=== PATIENT | male | born 1940 | race Caucasian/White ===

== ENCOUNTER 2024-07-05 11:34 | Inpatient (IN) | payer MEDICARE, BC, SELFPAY ==
[2024-07-05] VITALS (21 sets, daily range): BP systolic 69–145; BP diastolic 41–82; PULSE 72–103; RESP 16–98; TEMP 37–39.9; O2SAT 80–998; BMI 20.7
--- NOTE | 2024-07-05 12:15 | XR_ITS ---
Examination: AP chest single view Technique one AP portable upright chest single view Exam date and time: July 05, 2024 1241 hours INDICATIONS: Vomiting chest pain onset today FINDINGS: Mild bibasilar pneumonia Mild prominence left ventricle No pulmonary edema Prominent osteopenia IMPRESSION: Mild bibasilar pneumonia
--- NOTE | 2024-07-05 12:15 | EKG_ITS ---
[facility] Test Date: 2024-07-05 Pat Name: LUCERO LALA Department: Room: - Gender: Male Credit Representative: : 1940 Requested By: Ousmane Haas Order Number: [id number] Reading MD: Ousmane Haas Measurements Intervals Ebony Rate: 92 P: TN: QRS: 44 QRSD: 82 T: 48 QT: 353 QTc: 438 Interpretive Statements ATRIAL FIBRILLATION ABNORMAL RHYTHM ECG Compared to ECG 02/22/2021 09:35:06 Sinus rhythm no longer present /store/S0/[id number].pdf
[2024-07-05] MEDS: SODIUM CHLORIDE 0.9% 1000 ML 1,000 ML 999 ML IV ×2 (12:44→14:47)
[2024-07-05] MEDS: ONDANSETRON INJ 2 MG/ML INJ 2 ML 4 MG IV (12:45)
[2024-07-05 12:53] LABS: Lactate (Lactic Acid) 4.4 mMol/L (0.4-2.0)
[2024-07-05 12:55] LABS: Basophils % (Auto) 0 % (0-2.5); Eosinophils # (Auto) 0.1 Thou/mm3 (0.0-0.5); Eosinophils % (Auto) 1 % (0-10); Hematocrit 42.2 % (41.0-53.0); Hemoglobin 14.5 g/dL (13.5-16.0); Immature Granulocytes % (Auto) 0 % (0-0); Immature Granulocytes Auto 0.04 Thou/mm3 (0.00-0.00); Lymphocytes # (Auto) 0.1 Thou/mm3 (1.0-4.8); Lymphocytes % (Auto) 1 % (10-50); Mean Corpuscular HGB Conc 34.4 g/dl (31.0-37.0); Mean Corpuscular Hemoglobin 32.6 pg (25.0-35.0); Mean Corpuscular Volume 95 fL (80-100); Monocytes # (Auto) 0.5 Thou/mm3 (0.0-0.8); Monocytes % (Auto) 5 % (0-12); Neutrophils # (Auto) 9.2 Thou/mm3 (1.8-7.7); Neutrophils % (Auto) 92 % (37-80); Nucleated Red Blood Cell % 0 /100 WBC (0); Platelet Count 157 Thou/mm3 (140-440); RDW Standard Deviation 48.3 fL (35.1-43.9); Red Blood Count 4.45 Miln/mm3 (4.50-5.90)
[2024-07-05 13:10] LABS: INR 1.1 (0.9-1.3); Partial Thromboplastin Time 27.5 Seconds (22.0-36.0); Prothrombin Time 11.9 Seconds (9.0-12.2)
[2024-07-05 13:23] LABS: Alanine Aminotransferase 25 U/L (10-49); Albumin, Serum 4.2 gm/dL (3.4-4.8); Albumin/Globulin Ratio 1.8 (1.2-2.2); Alkaline Phosphatase 62 U/L (46-116); Anion Gap 11 (7-16); Aspartate Amino Transferase 41 U/L (0-34); BUN/Creatinine Ratio 20 Ratio (12-20); Bilirubin,Total 1.8 mg/dL (0.3-1.2); Blood Urea Nitrogen 46 mg/dL (9-23); Calcium 9.6 mg/dL (8.3-10.6); Calcium (Corrected) 9.6 mg/dL (8.5-10.1); Carbon Dioxide 24.2 mMol/L (20.0-31.0); Chloride 104 mMol/L (98-107); Creatinine (Component) 2.3 mg/dL (0.6-1.3); Estimated Creatinine Clearance 21.4 mL/min (>60); Globulin 2.4 gm/dL (2.3-3.5); Glucose 273 mg/dL (74-106); Osmolality,Calculated 299 (275-295); Potassium 3.8 mMol/L (3.4-5.1); Procalcitonin 15.78 ng/ml (0.0-0.49); Sodium 139 mMol/L (136-145); Total Protein 6.6 gm/dL (5.7-8.2); eGFR 27 See Note
[2024-07-05 13:27] LABS: Troponin I 0.119 ng/mL (0.0-0.045)
--- NOTE | 2024-07-05 13:39 | XR_ITS ---
Examination: CT abdomen and pelvis without contrast. Coronal 3-D reconstructions. Sagittal 2-D reconstructions. Date and time of exam:July 05, 2024 1534 hours Comparison September 24, 2021 INDICATIONS: Abdominal pain and vomiting today, diagnosis acute renal insufficiency on laboratory examination today CTDI: vol (mGy): 10.9 DLP: (mGycm): 672 Technique: Axial images of the abdomen have been obtained, 3 mm slice thickness Intravenous contrast material has not been administered. Low dose protocols were performed. One or more of the following dose reduction techniques were used; automated exposure control, adjustment of the mA and/or KV according to patient size, use of iterative reconstruction technique. Findings: Moderate vascular congestion No focal liver or splenic lesion Cholelithiasis No pancreatic mass Mild nodular thickening left adrenal gland Moderate bilateral renal parenchymal scar formation Mild bilateral hydronephrosis, no renal or ureteral calculi Normal appendix Colonic diverticulosis Marked prostatomegaly, AP dimension 6.5 cm Marked thickening of the urinary bladder wall up to 8 mm Right inguinal hernia fat-containing Extensive lumbar fusion L2-L5 with satisfactory alignment IMPRESSION: Mild bilateral hydronephrosis, likely secondary to lower urinary tract outflow obstruction secondary to marked prostatomegaly, ureterovesical reflux not excluded Thickening of the urinary bladder wall consider urinary tract outflow obstruction secondary to prostatomegaly as well as cystitis Marked prostatomegaly
--- NOTE | 2024-07-05 13:54 | XR_ITS ---
Examination: Abdomen sonogram, Limited Date and time of exam: July 05, 2024 1420 hours INDICATIONS: Sepsis right upper abdominal pain today, sepsis alert Technique: Real-time byrd scale transabdominal sonographic images of the upper abdomen obtained. Findings: Gallbladder sludge Gallbladder is poorly visualized and contracted No gallstones Common bile duct 0.5 cm Pancreas obscured by bowel gas Liver incompletely visualized measuring 15 cm Normal hepatopedal portal venous flow Patent IVC IMPRESSION: Repeat the gallbladder portion of this study with fasting
[2024-07-05 14:18] LABS: Collection Type, Urine Catheter; Squamous Epithelial Cell,Urine 0 /hpf (0-5)
--- NOTE | 2024-07-05 14:41 | EDNOTE_ITS ---
Nausea/Vomit./Diarrhea-RME/HPI General Chief complaint: Nausea/Vomiting/Diarrhea Stated complaint: HEMATURIA Time Seen by Provider: 07/05/24 12:13 Arrival date/time: 07/05/24 11:34 Limitations: no limitations RME / HPI RME / HPI Narrative: DR. LEE MAIN ED EVALUATION: 84-year-old male with past medical history significant for presbycusis, dementia, who presents with nausea and vomiting since last night. Patient is a poor historian. Son at bedside feels that when he was turning him he was having some abdominal pain. He has a chronic indwelling Roll[place] catheter which she did notice some brief hematuria last night which is new for him. There is no reported cough or fevers. Vomiting started last night after he had hotdogs for dinner, son is aware of to the actual material his father's been vomiting. It is unclear whether or not there is blood or coffee grounds in the emesis. Son denies diarrhea. Related Data Home Medications ?Medication ?Instructions ?Recorded ?Confirmed carvedilol 12.5 mg tablet 12.5 mg PO BID 02/22/21 11/02/21 losartan 100 mg tablet 100 mg PO QDAY 02/22/21 11/02/21 sulfasalazine 500 mg tablet 1,000 mg PO BID 02/22/21 11/02/21 furosemide 40 mg tablet (Lasix) 40 mg PO QDAY 03/12/21 11/02/21 potassium chloride 20 mEq 20 meq PO BID 03/12/21 11/02/21 tablet,extended release Previous Rx's ?Medication ?Instructions ?Recorded ciprofloxacin HCl 250 mg tablet 250 mg PO BID #20 tabs 09/24/21 (Cipro) finasteride 5 mg tablet 5 mg PO QDAY #30 tabs 09/24/21 glipizide 5 mg tablet 5 mg PO DAILY #0 tabs 09/24/21 tamsulosin 0.4 mg capsule 0.4 mg PO HS #0 caps 09/24/21 Allergies Allergy/AdvReac Type Severity Reaction Status Date / Time morphine Allergy Severe ITCHING Verified 11/02/21 10:28 Review of Systems Review of Systems ROS Unobtainable: unobtainable due to medical condition (dementia, info from son) Past Medical History Past Medical History NEUROLOGIC: Positive Subdural Hematoma; Negative Neurological Disorders, Seizures or Spina Bifida CARDIAC: Positive Hypertension; Negative Cardiac Disorders or Congestive Heart Failure RESPIRATORY: Negative Chronic Obstructive Pulmonary Disease (COPD) or Asthma GASTROINTESTINAL: Positive Gastrointestinal Disorders, Gall Bladder Disease, Colitis, Diverticulitis and Diverticulosis; Negative Hepatitis GENITOURINARY: Positive Genitourinary Disorders, Kidney Stones and Benign Prostatic Hyperplasia; Negative Renal Disease or Prostate Cancer REPRODUCTIVE: Negative Testicular Cancer MUSCULOSKELETAL: Positive Musculoskeletal Disorders and Fractures; Negative Bone Cancer ENT: Positive Deafness ENDOCRINE: Positive Endocrine Disorders and Diabetes Mellitus Type 2; Negative Diabetes Mellitus Type 1 HEMATOLOGIC: Negative Blood Disorders or Sickle Cell Disease OTHER HISTORY: Positive Hospitalization and Blood Transfusions; Negative Autoimmune Disease, Down Syndrome, Developmental Delay, Shingles, Falls, Blood Transfusion Reaction, Anesthesia Reactions, MRSA, VRSA, Vancomycin- Resistant Enterococci, Human Immunodeficiency Virus (HIV), Chicken Pox, Measles, Mumps, Rubella (Khmer Measles), Pertussis, Clostridium Difficile, Cancer, Lung Cancer, Prostate Cancer or Testicular Cancer Family History FAMILY HISTORY: Negative Family Cardiac Disorders Surgical History SURGICAL: Positive Angiogram; Negative Endocrine Surgery, Ear Surgery, Eye Surgery, Nose Surgery or Neurologic Surgery Social History SMOKING STATUS: Never smoker SECOND HAND EXPOSURE: No SUBSTANCE USE: does not use Travel History EBOLA RISK: No ED Exam General Limitations: Present no limitations General appearance: Present in no apparent distress Head Head exam: Present atraumatic Eye Eye exam: Present normal appearance, PERRL and EOMI ENT ENT exam: Present normal exam, normal oropharynx and mucous membranes moist Neck Neck exam: Present normal inspection, full ROM and trachea midline Chest Chest inspection: Present normal inspection and symmetric chest wall rise Respiratory Respiratory exam: Present normal lung sounds bilaterally Cardiovascular Cardiovascular exam: Present regular rate, normal rhythm and normal heart sounds Abdominal Exam Abdominal exam: Present soft and normal bowel sounds Extremities Exam Extremities exam: Present normal inspection Back Exam Back exam: Present normal inspection Neurological Exam Neurological exam: Present other (at baseline) Psychiatric Psychiatric exam: Present normal affect, normal mood and other Skin Skin exam: Present warm, dry, intact and normal color Course Quality Measures none Orders Category Date Time Status Bedside Blood Glucose NOW Care 07/05/24 12:15 Active EKG (ED ONLY) *Do not use* NOW Care 07/05/24 12:15 Completed [place] to [place] Routine Care 07/05/24 13:[address] abdomen pelvis wo con Stat Exams 07/05/24 13:39 Completed EKG (ED Only) Stat Exams 07/05/24 12:15 Draft US gall bladder Stat Exams 07/05/24 13:54 Completed XR chest 1V Stat Exams 07/05/24 12:15 Completed CBC Stat Lab 07/05/24 12:37 Completed CMP [Comprehensive Metabolic Panel] Stat Lab 07/05/24 12:37 Completed Lactate (Lactic Acid) Stat Lab 07/05/24 12:37 Completed Lactic Acid, 3 HR Stat Lab 07/05/24 16:05 Completed Partial Thromboplastin Time Stat Lab 07/05/24 12:37 Completed Procalcitonin Stat Lab 07/05/24 12:37 Completed Prothrombin Time with INR Stat Lab 07/05/24 12:37 Completed Troponin I Stat Lab 07/05/24 12:37 Completed Urinalysis Stat Lab 07/05/24 14:03 Completed Ondansetron Inj [Zofran Inj] Med 07/05/24 12:14 Discontinued 4 mg IV X1 ONE Piper/Tazo 3.375 gm [Zosyn] Med 07/05/24 13:53 Discontinued 3.375 gm in 50 ml IV X1 Sodium Chloride 0.9% 1000 ml [Ns] 1,000 ml Med 07/05/24 12:14 Discontinued IV 999 mls/hr Sodium Chloride 0.9% 1000 ml [Ns] 1,000 ml Med 07/05/24 13:07 Discontinued IV 999 mls/hr Vital Signs Vital signs: Vital Signs Temperature 98.8 F 07/05/24 11:46 Respiratory Rate 20 07/05/24 11:46 Pulse Oximetry (%) 80 L 07/05/24 11:46 Oxygen Delivery Method Room Air 07/05/24 11:46 Nausea/Vomiting/Diarrhea MDM Narrative MDM Narrative:: I, Shazia Manuel am scribing for and in the presence of Dr. Lee. Patient data External records reviewed:: [facility] previous records (Reviewed last urology note by Dr. Ross dated 11/02/21.) Clinical information provided by:: patient and family (son) Social determinants that could affect healthcare access:: none Patient has the following chronic illnesses:: Presbycusis, dementia How is presenting disease/condition affected by chronic disease/condition?: exacerbated by Evaluation data The following diagnostics were reviewed and interpreted by me:: lab results, radiology exam(s) and EKG tracing(s) Lab and/or radiology exams considered but not ordered:: none Interpretation Summary: Procedure(s): US gall bladder Accession Number(s): [id number] cc: Israel Abdullahi MD; Ousmane Lee MD; Peng Badillo MD~ Examination: Abdomen sonogram, Limited Date and time of exam: July 05, 2024 1420 hours INDICATIONS: Sepsis right upper abdominal pain today, sepsis alert Technique: Real-time byrd scale transabdominal sonographic images of the upper abdomen obtained. Findings: Gallbladder sludge Gallbladder is poorly visualized and contracted No gallstones Common bile duct 0.5 cm Pancreas obscured by bowel gas Liver incompletely visualized measuring 15 cm Normal hepatopedal portal venous flow Patent IVC IMPRESSION: Repeat the gallbladder portion of this study with fasting Dictated By: Peng Badillo MD Procedure(s): CT abdomen pelvis wo con Accession Number(s): [id number] cc: Israel Abdullahi MD; Ousmane Lee MD; Peng Badillo MD~ Examination: CT abdomen and pelvis without contrast. Coronal 3-D reconstructions. Sagittal 2-D reconstructions. Date and time of exam:July 05, 2024 1534 hours Comparison September 24, 2021 INDICATIONS: Abdominal pain and vomiting today, diagnosis acute renal insufficiency on laboratory examination today Technique: Axial images of the abdomen have been obtained, 3 mm slice thickness Intravenous contrast material has not been administered. Low dose protocols were performed. One or more of the following dose reduction techniques were used; automated exposure control, adjustment of the mA and/or KV according to patient size, use of iterative reconstruction technique. Findings: Moderate vascular congestion No focal liver or splenic lesion Cholelithiasis No pancreatic mass Mild nodular thickening left adrenal gland Moderate bilateral renal parenchymal scar formation Mild bilateral hydronephrosis, no renal or ureteral calculi Normal appendix Colonic diverticulosis Marked prostatomegaly, AP dimension 6.5 cm Marked thickening of the urinary bladder wall up to 8 mm Right inguinal hernia fat-containing Extensive lumbar fusion L2-L5 with satisfactory alignment IMPRESSION: Mild bilateral hydronephrosis, likely secondary to lower urinary tract outflow obstruction secondary to marked prostatomegaly, ureterovesical reflux not excluded Thickening of the urinary bladder wall consider urinary tract outflow obstruction secondary to prostatomegaly as well as cystitis Marked prostatomegaly Dictated By: Peng Badillo MD Procedure(s): XR chest 1V Accession Number(s): [id number] cc: Ousmane Lee MD; Peng Badillo MD Examination: AP chest single view Technique one AP portable upright chest single view Exam date and time: July 05, 2024 1241 hours INDICATIONS: Vomiting chest pain onset today FINDINGS: Mild bibasilar pneumonia Mild prominence left ventricle No pulmonary edema Prominent osteopenia IMPRESSION: Mild bibasilar pneumonia Dictated By: Peng Badillo MD Medications / Prescriptions Medications / Prescriptions considered but not ordered:: none Medication administrations:: Medication Administration History Acetaminophen (Acetaminophen 325 Mg Tablet) 650 mg PO Q6H PRN PRN Reason: pain 1-3 and Fever >100.4 Stop: 08/04/24 17:11 Last Admin: 07/05/24 19:32 Dose: 650 mg Documented By: DEREK Dextrose (Dextrose 50%-Water Inj 50 Ml Syringe) 25 ml IV Q15MIN PRN PRN Reason: BG 50-70 responsive npo pt Stop: 08/04/24 17:11 Dextrose (Dextrose 50%-Water Inj 50 Ml Syringe) 50 ml IV Q15MIN PRN PRN Reason: BG <50 OR BG <70 & pt unresponsive Stop: 08/04/24 17:11 Glucagon (Glucagon Inj 1 Mg Vial) 1 mg IM Q15MIN PRN PRN Reason: BG <70, and no IV access Piperacillin/Tazobactam/Dextrose (Zosyn) 50 mls @ 12.5 mls/hr IV Q12HR ANNETTA; Protocol Stop: 07/12/24 20:59 Last Admin: 07/05/24 22:14 Dose: 12.5 mls/hr Documented By: DEREK Norepinephrine/Dextrose (Levophed In D5w 8mg/250ml) 8 mg in 250 mls @ 6.166 mls/hr IV .Q24H PRN; Protocol PRN Reason: PER PROTOCOL Stop: 08/04/24 21:22 Last Titration: 07/06/24 06:28 Dose: 0.13 mcg/kg/min, 16.032 mls/hr Documented By: Titration: 07/06/24 06:00 Dose: 0.15 mcg/kg/min, 18.498 mls/hr Documented By: Titration: 07/06/24 05:51 Dose: 0.15 mcg/kg/min, 18.498 mls/hr Documented By: Admin: 07/06/24 05:43 Dose: 0.17 mcg/kg/min, 20.965 mls/hr Documented By: Titration: 07/06/24 05:43 Dose: Infused Documented By: Titration: 07/06/24 05:00 Dose: 0.19 mcg/kg/min, 23.431 mls/hr Documented By: Titration: 07/06/24 04:00 Dose: 0.19 mcg/kg/min, 23.431 mls/hr Documented By: Titration: 07/06/24 03:48 Dose: 0.19 mcg/kg/min, 23.431 mls/hr Documented By: Titration: 07/06/24 03:30 Dose: 0.21 mcg/kg/min, 25.897 mls/hr Documented By: Titration: 07/06/24 03:00 Dose: 0.23 mcg/kg/min, 28.364 mls/hr Documented By: Titration: 07/06/24 02:00 Dose: 0.23 mcg/kg/min, 28.364 mls/hr Documented By: Titration: 07/06/24 01:34 Dose: 0.25 mcg/kg/min, 30.83 mls/hr Documented By: Titration: 07/06/24 01:00 Dose: 0.27 mcg/kg/min, 33.297 mls/hr Documented By: Titration: 07/06/24 00:00 Dose: 0.27 mcg/kg/min, 33.297 mls/hr Documented By: Titration: 07/05/24 23:00 Dose: 0.27 mcg/kg/min, 33.297 mls/hr Documented By: Titration: 07/05/24 22:36 Dose: 0.27 mcg/kg/min, 33.297 mls/hr Documented By: Titration: 07/05/24 22:31 Dose: 0.27 mcg/kg/min, 33.297 mls/hr Documented By: Titration: 07/05/24 22:26 Dose: 0.25 mcg/kg/min, 30.83 mls/hr Documented By: Titration: 07/05/24 22:21 Dose: 0.23 mcg/kg/min, 28.364 mls/hr Documented By: Titration: 07/05/24 22:16 Dose: 0.21 mcg/kg/min, 25.897 mls/hr Documented By: Titration: 07/05/24 22:11 Dose: 0.19 mcg/kg/min, 23.431 mls/hr Documented By: Titration: 07/05/24 22:06 Dose: 0.17 mcg/kg/min, 20.965 mls/hr Documented By: Titration: 07/05/24 22:01 Dose: 0.15 mcg/kg/min, 18.498 mls/hr Documented By: Titration: 07/05/24 21:56 Dose: 0.13 mcg/kg/min, 16.032 mls/hr Documented By: Titration: 07/05/24 21:51 Dose: 0.11 mcg/kg/min, 13.565 mls/hr Documented By: Titration: 07/05/24 21:46 Dose: 0.09 mcg/kg/min, 11.099 mls/hr Documented By: Titration: 07/05/24 21:41 Dose: 0.07 mcg/kg/min, 8.632 mls/hr Documented By: Admin: 07/05/24 21:36 Dose: 0.05 mcg/kg/min, 6.166 mls/hr Documented By: DEREK Sodium Chloride (Ns) 1,000 mls @ 100 mls/hr IV .Q10H ONE Stop: 07/06/24 14:57 Last Infusion: 07/06/24 06:43 Dose: 999 mls/hr Documented By: Admin: 07/06/24 05:06 Dose: 100 mls/hr Documented By: Insulin Human Lispro (Insulin Lispro (Admelog) 1 Unit/0.01 Ml Unit) 0 unit SC Q6H ANNETTA; Protocol Stop: 08/04/24 18:14 Last Admin: 07/06/24 05:41 Dose: Not Given Documented By: Non-Admin Reason: Cancelled by Provider Comments: hold per as pt NPO Admin: 07/06/24 00:09 Dose: Not Given Documented By: Non-Admin Reason: Glucose, LOW Admin: 07/05/24 19:50 Dose: 1 unit Documented By: DEREK Co-signed By: ALY Pantoprazole Sodium (Pantoprazole Inj 40 Mg Vial) 40 mg IV QDAY ANNETTA Stop: 08/04/24 18:14 Last Admin: 07/05/24 19:31 Dose: 40 mg Documented By: DEREK Pharmacy Consult (Vancomycin Pharmacy To Dose 1 Each Each) 1 each IV QDAY PRN PRN Reason: PROTOCOL Stop: 08/05/24 08:59 Prochlorperazine Maleate (Prochlorperazine Maleate 5 Mg Tablet) 10 mg PO Q6H PRN PRN Reason: NAUSEA OR VOMITING Stop: 08/04/24 17:11 Sennosides (Senna Tablet) 1 tab PO QDAY PRN; Protocol PRN Reason: constipation Stop: 08/04/24 17:11 Discontinued Medications Acetaminophen (Acetaminophen 120 Mg Supp) 120 mg MA X1 ONE Stop: 07/05/24 21:18 Last Admin: 07/05/24 21:45 Dose: 120 mg Documented By: DEREK Hydrocodone Bitart/Acetaminophen (Hydrocodone/Apap 5/325 Tablet) 1 tab PO X1 ONE Stop: 07/06/24 05:41 Last Admin: 07/06/24 05:49 Dose: 1 tab Documented By: Sodium Chloride (Ns) 1,000 mls @ 999 mls/hr IV .Q1H1M ONE Stop: 07/05/24 13:14 Last Infusion: 07/05/24 14:00 Dose: Infused Documented By: Admin: 07/05/24 12:44 Dose: 999 mls/hr Documented By: RITA Sodium Chloride (Ns) 1,000 mls @ 999 mls/hr IV .Q1H1M ONE Stop: 07/05/24 14:07 Last Infusion: 07/05/24 15:56 Dose: Infused Documented By: Admin: 07/05/24 14:47 Dose: 999 mls/hr Documented By: RITA Piperacillin/Tazobactam/Dextrose (Zosyn) 3.375 gm in 50 mls @ 100 mls/hr IV X1 ONE Stop: 07/05/24 14:22 Last Infusion: 07/05/24 15:25 Dose: Infused Documented By: Admin: 07/05/24 14:48 Dose: 100 mls/hr Documented By: RITA Sodium Chloride (Ns) 1,000 mls @ 75 mls/hr IV .[id number] ANNETTA Stop: 07/06/24 06:34 Last Admin: 07/05/24 19:24 Dose: Not Given Documented By: DEREK Non-Admin Reason: Cancelled by Provider Sodium Chloride (Ns) 1,000 mls @ 125 mls/hr IV .Q8H ANNETTA Stop: 07/06/24 02:40 Last Admin: 07/05/24 19:32 Dose: 125 mls/hr Documented By: DEREK Sodium Chloride (Ns) 250 mls @ 999 mls/hr IV .Q16M ONE Stop: 07/05/24 23:37 Lactated Ringer's (Lactated Ringers) 1,000 mls @ 999 mls/hr IV .Q1H1M ONE Stop: 07/06/24 01:18 Last Admin: 07/06/24 01:02 Dose: 999 mls/hr Documented By: Vancomycin/Sodium Chloride (Vancomycin/Ns 1 Gm Ivpb) 200 mls @ 100 mls/hr IV X1 ONE Stop: 07/06/24 03:44 Last Admin: 07/06/24 02:05 Dose: 100 mls/hr Documented By: Lactated Ringer's (Lactated Ringers) 1,000 mls @ 100 mls/hr IV .Q10H ONE Stop: 07/06/24 14:51 Last Admin: 07/06/24 06:43 Dose: Not Given Documented By: Non-Admin Reason: Discontinued Insulin Human Lispro (Insulin Lispro (Admelog) 1 Unit/0.01 Ml Unit) 0 unit SC ACHS ANNETTA; Protocol Stop: 08/04/24 20:59 Ondansetron HCl (Ondansetron Inj 2 Mg/Ml Inj 2 Ml) 4 mg IV X1 ONE; Protocol Stop: 07/05/24 12:15 Last Admin: 07/05/24 12:45 Dose: 4 mg Documented By: RITA see above Consultations Consultation(s) initiated? (list below): Yes Consultation #1 (Physician, Specialty, Details): Discussed test HPI, PMHx, lab, radiology results and/or management with hospitalist Dr. Brennan and team. Will admit for further evaluation and management. Accepts patient for admission. Time: 16:20 Diagnosis Nausea Differential Diagnosis: traveler's diarrhea, food poisoning and dehydration Most likely diagnosis given after review of the tests above:: As noted below. Admission Indicated Admission indicated?: indicated Admission Request Was there a request for admission?: Yes Admission Attestation Admission request attestation: Discussed case with [Dr. Cedillo] from Hospitalist service regarding admission. Discussed patients ED course, exam findings, labs, and radiology results. The Hospitalist [agrees] to accept the patient for admission. Disposition Plan Disposition Plan: Admit Discharge Plan Plan Patient Disposition: Admit Acute Care w/in Hospital Problem List Clinical Impression: Sepsis secondary to UTI, Acute kidney injury
[2024-07-05] MEDS: PIPER/TAZO 3.375 GM 3.375 GM/50 ML BAG IV (14:48)
[2024-07-05 15:19] LABS: Bacteria,Urine 4+; Bilirubin,Urine Negative (Negative); Blood,Urine 3+ (Negative); Glucose, Urine 3+ (Negative); Ketones,Urine Negative (Negative); Leukocyte Esterase,Urine Positive (Negative); Nitrite,Urine Negative (Negative); PH,Urine 5.5 (5.0-7.0); Protein,Urine 2+ (Neg - Trace); RBC,Urine 23 /hpf (0-3); Specific Gravity,Urine 1.014 (1.001-1.035); Urobilinogen,Urine Negative mg/dL (0.0-1.0); WBC,Urine 248 /hpf (0-5)
[2024-07-05 15:21] LABS: Clarity,Urine Turbid (Clear/Hazy); Color,Urine Yellow (Lt Yel-Yel)
[2024-07-05 15:48] LABS: Reflex Lactate? Y
[2024-07-05 16:09] LABS: Lactic Acid, 3 HR 3.6 mMol/L (0.4-2.0)
--- NOTE | 2024-07-05 17:20 | ESHP_ITS ---
<Statement entered by Mag Brennan MD - 07/08/24 17:39> Attending attestation: I reviewed above note and agree with findings and plans. I have also personally examined the patient with medicine team and went over assessment and plan with medical team including technology risk intern and resident physician. <Statement entered by Gera Lindsay MD - 07/06/24 07:36> Senior Resident Attestation: I supervised/discussed management plan with technology risk intern physician Dr. Cedillo, and was involved in the care of this patient. I personally saw and examined the patient and discussed the assessment and plan with the entire medicine team, including my attending. I agree with the assessment and plan as documented. Patient's care was discussed with attending physician, Dr. Brennan. Gera Lindsay MD PGY-2. Documentation for date of: 07/05/24 HPI History of Present Illness Chief complaint: N/V/Abd pain History of present illness: 84-year-old male with past medical history of hypertension, BPH, DM2, subdural hematoma (2020), dementia, and chronic indwelling catheter was admitted to hospital after coming to the ED with complaints of nausea, vomiting, abdominal pain, and blood in the Rollins bag since last night. Patient was brought in by grandson and during the time of assessment nobody was at bedside. Patient was very hard of hearing and very not responding to questions during assessment, but he was able to follow some commands and able to answer alert oriented questions (AOx3 not to time). Spoke with grandson, next of kin, via phone call and he said he was the medical decision maker who provided most of the patient's history. Grandson stated that last night additional to the patient's nausea, vomiting, and abdominal pain the patient had elevated blood sugars in the 300s as well as some disorientation which she states that is usually when his bladder swells a lot. The patient's grandson also mentioned that the patient gets monthly Rollins catheter changes, but last night he noticed blood-tinged urine in the Rollins bag which was new and he did not feel was safe to keep patient at home and decided to bring him to the ER. He stated that patient did not have any chills or fevers at home nor any chest pain or shortness of breath. ED course: Initially patient came in normotensive and afebrile, but afterwards patient was tachycardic, and tachypneic. Initial labs were relevant for RAND, hyperglycemia, lactic acidosis, bilirubinemia, troponinemia, elevated procalcitonin, and UTI. Initial imaging included chest x-ray which showed bibasilar pneumonia, abdomen/pelvis CT showed cholelithiasis, bilateral hydronephrosis, diverticulosis, marked prostatomegaly, and marked thickening of urinary bladder wall, and gallbladder ultrasound which showed some gallbladder sludge but gallbladder was poorly visualized and contracted. EKG showed A-fib. Social Hx: Upon chart review patient was a former smoker, but grandson stated that he is not an active smoker at this time and does not do any alcohol or illicit drugs. Meds: Aspirin 81mg qday, Atorvastatin 20mg HS, Coreg 12.5 mg BID, tamsulosin 0.4mg qday, finasteride 5mg qdya, amlodipine 2.5mg BID losartan/HCTZ , med reconciliation pending. Allergies: As per patient's grandson's morphine Review of Systems Review of Systems ROS Unobtainable: unobtainable due to mental status and unobtainable due to medical condition Past Medical History Past Medical History NEUROLOGIC: Positive Subdural Hematoma; Negative Neurological Disorders, Seizures or Spina Bifida CARDIAC: Positive Hypertension; Negative Cardiac Disorders or Congestive Heart Failure RESPIRATORY: Negative Chronic Obstructive Pulmonary Disease (COPD) or Asthma GASTROINTESTINAL: Positive Gastrointestinal Disorders, Gall Bladder Disease, Colitis, Diverticulitis and Diverticulosis; Negative Hepatitis GENITOURINARY: Positive Genitourinary Disorders, Kidney Stones and Benign Prostatic Hyperplasia; Negative Renal Disease or Prostate Cancer REPRODUCTIVE: Negative Testicular Cancer MUSCULOSKELETAL: Positive Musculoskeletal Disorders and Fractures; Negative Bone Cancer ENT: Positive Deafness ENDOCRINE: Positive Endocrine Disorders and Diabetes Mellitus Type 2; Negative Diabetes Mellitus Type 1 HEMATOLOGIC: Negative Blood Disorders or Sickle Cell Disease OTHER HISTORY: Positive Hospitalization and Blood Transfusions; Negative Autoimmune Disease, Down Syndrome, Developmental Delay, Shingles, Falls, Blood Transfusion Reaction, Anesthesia Reactions, MRSA, VRSA, Vancomycin- Resistant Enterococci, Human Immunodeficiency Virus (HIV), Chicken Pox, Measles, Mumps, Rubella ([place] Measles), Pertussis, Clostridium Difficile, Cancer, Lung Cancer, Prostate Cancer or Testicular Cancer Family History FAMILY HISTORY: Negative Family Cardiac Disorders Surgical History SURGICAL: Positive Angiogram; Negative Endocrine Surgery, Ear Surgery, Eye Surgery, Nose Surgery or Neurologic Surgery Social History SMOKING STATUS: Never smoker SECOND HAND EXPOSURE: No SUBSTANCE USE: does not use Travel History EBOLA RISK: No Exam Vital Signs Temp Pulse Resp BP Pulse Ox O2 Del Method 99.3 F 103 H 22 H 145/82 H 95 Room Air 07/05/24 15:19 07/05/24 15:19 07/05/24 15:19 07/05/24 15:19 07/05/24 15:19 07/05/24 15:19 Narrative Exam General: A/O x2 (not to time), no acute distress, disheveled, frail Eyes: PERRL, EOMI. Anicteric, vision grossly intact. Ears: No ear pain, no ear discharge, Hearing impaired Nose: No nasal discharge. Mouth/Throat: Dry mucous membranes, no redness, no lesions. Visible dried bilious vomit around L side of mouth and on tesfaye. Neck: Neck supple, non-tender, no cervical lymphadenopathy. Lungs: Coarse breath sounds, No accessory muscle use. Cardio: Normal S1/S2, regular rhythm, no murmurs, no JVD Abdomen: Soft, non-tender, no palpable masses, peristalsis present, no guarding or rebound. Extremities: Symmetrical, no significant deformities, 1+ peripheral edema , non-tender, peripheral pulses presents. Skin: No rashes, no lesions, warm to touch. Neuro: Able to move all extremities did not follow commands likely due to altered mental status Results: Labs 07/05/24 12:37 07/05/24 12:37 Labs: Short CBC 07/05/24 Range/Units 12:37 WBC 10.0 (3.8-10.6) Thou/mm3 Hgb 14.5 (13.5-16.0) g/dL Hct 42.2 (41.0-53.0) % Plt Count 157 (140-440) Thou/mm3 BMP 07/05/24 12:37 Sodium 139 Potassium 3.8 Chloride 104 Carbon Dioxide 24.2 BUN 46 H Creatinine 2.3 H Glucose 273 H Calcium 9.6 Cardiac Enzymes 07/05/24 Range/Units 12:37 Troponin I 0.119 H* (0.0-0.045) ng/mL Liver Function 07/05/24 Range/Units 12:37 Total Bilirubin 1.8 H (0.3-1.2) mg/dL AST 41 H (0-34) U/L ALT 25 (10-49) U/L Alkaline Phosphatase 62 (46-116) U/L Albumin 4.2 (3.4-4.8) gm/dL Urine 07/05/24 Range/Units 14:03 Urine Color Yellow (Lt Yel-Yel) Urine Clarity Turbid A (Clear/Hazy) Urine pH 5.5 (5.0-7.0) Ur Specific Benson 1.014 (1.001-1.035) Urine Protein 2+ A (Neg - Trace) Urine Glucose (UA) 3+ A (Negative) Quality Measures Quality Measures VTE prophylaxis (SCDs) Advance care planning discussed with:: patient and other (grandson) Medications Home Medications and Allergies Home Medications ?Medication ?Instructions ?Recorded ?Confirmed ?Type carvedilol 12.5 mg tablet 12.5 mg PO BID 02/22/21 11/02/21 History losartan 100 mg tablet 100 mg PO QDAY 02/22/21 11/02/21 History sulfasalazine 500 mg tablet 1,000 mg PO BID 02/22/21 11/02/21 History furosemide 40 mg tablet (Lasix) 40 mg PO QDAY 03/12/21 11/02/21 History potassium chloride 20 mEq 20 meq PO BID 03/12/21 11/02/21 History tablet,extended release Allergies Allergy/AdvReac Type Severity Reaction Status Date / Time morphine Allergy Severe ITCHING Verified 11/02/21 10:28 Visit Medications Acetaminophen (Acetaminophen 325 Mg Tablet) 650 mg PO Q6H PRN PRN Reason: pain and Fever >100.4 Stop: 08/04/24 17:11 Dextrose (Dextrose 50%-Water Inj 50 Ml Syringe) 25 ml IV Q15MIN PRN PRN Reason: BG 50-70 responsive npo pt Stop: 08/04/24 17:11 Dextrose (Dextrose 50%-Water Inj 50 Ml Syringe) 50 ml IV Q15MIN PRN PRN Reason: BG <50 OR BG <70 & pt unresponsive Stop: 08/04/24 17:11 Glucagon (Glucagon Inj 1 Mg Vial) 1 mg IM Q15MIN PRN PRN Reason: BG <70, and no IV access Sodium Chloride (Ns) 1,000 mls @ 75 mls/hr IV .[id number] ANNETTA Stop: 07/06/24 06:34 Piperacillin Sod/Tazobactam (Sod 2.25 gm/ Sodium Chloride) 50 mls @ 100 mls/hr IV Q6HR ANNETTA Stop: 07/12/24 17:17 Insulin Human Lispro (Insulin Lispro (Admelog) 1 Unit/0.01 Ml Unit) 0 unit SC ACHS ANNETTA; Protocol Stop: 08/04/24 20:59 Prochlorperazine Maleate (Prochlorperazine Maleate 5 Mg Tablet) 10 mg PO Q6H PRN PRN Reason: NAUSEA OR VOMITING Stop: 08/04/24 17:11 Sennosides (Senna Tablet) 1 tab PO QDAY PRN; Protocol PRN Reason: constipation Stop: 08/04/24 17:11 Discontinued Medications Sodium Chloride (Ns) 1,000 mls @ 999 mls/hr IV .Q1H1M ONE Stop: 07/05/24 13:14 Last Infusion: 07/05/24 14:00 Dose: Infused Sodium Chloride (Ns) 1,000 mls @ 999 mls/hr IV .Q1H1M ONE Stop: 07/05/24 14:07 Last Infusion: 07/05/24 15:56 Dose: Infused Piperacillin/Tazobactam/Dextrose (Zosyn) 3.375 gm in 50 mls @ 100 mls/hr IV X1 ONE Stop: 07/05/24 14:22 Last Infusion: 07/05/24 15:25 Dose: Infused Ondansetron HCl (Ondansetron Inj 2 Mg/Ml Inj 2 Ml) 4 mg IV X1 ONE; Protocol Stop: 07/05/24 12:15 Last Admin: 07/05/24 12:45 Dose: 4 mg Assessment & Plan Plan 84-year-old male with past medical history of hypertension, BPH, DM2, subdural hematoma (2020), dementia, and chronic indwelling catheter was admitted to hospital on 07/05/2024 for sepsis likely secondary to catheter associated UTI versus community-acquired pneumonia, RAND, and NSTEMI. #Sepsis likely secondary to catheter associated urinary tract infection versus community-acquired pneumonia #Catheter associated urinary tract infection #Community-acquired pneumonia #Acute Encephalopathy #Chronic indwelling catheter #Recurrent UTIs #Hx of BPH #Prostatomegaly #Lactic acidosis ?Patient has a history of chronic indwelling catheter with monthly changes Rollins catheter as well as recurrent UTIs in the past. ?Patient was minimally responsive to questioning and most likely has encephalopathy secondary to the UTI as per patient's grandson at baseline he was a lot more responsive. ?DDx sepsis likely secondary to catheter associated UTI as patient's UA was positive for leukocytes esterase and bacteria versus pneumonia as chest x-ray showed bibasilar pneumonia ?Patient met SIRS 2 out of 4 criteria with tachycardia and tachypnea ?Past urine cultures have grown Citrobacter and Klebsiella which both were multidrug-resistant, but sensitive to Zosyn ?Chest x-ray showed bibasilar pneumonia ?UA was positive for bacteria and leukocyte esterase ?No WBC elevation or fevers ?Lactic acid was 4.4 but down trended to 3.6 ?Procalcitonin 15.78 ?In the ED patient received 2 L boluses of NS and Zosyn ?Rollins was changed in the ED Plan: ?Continue Zosyn [07/05/2024?] -Head CT ordered ?IV fluids ?Urine and blood culture ordered ?Will continue to monitor #RAND ?Likely postrenal in the setting of hydronephrosis likely secondary to obstruction ?Patient's baseline BUN 23 and creatinine 0.9 on 06/2023. ?BUN 46 and creatinine 2.3 today Plan: ?IV fluids ?Renally dose medications ?Avoid nephrotoxic agents ?Will continue to monitor #NSTEMI type I versus II ?Most likely type II in the setting of sepsis likely demand ischemia versus less likely type I as patient does not have any chest pain at this time. ?Initial troponins were 0.119 ?EKG did not show any ST changes Plan: ?Trend troponins ?Will continue to monitor #Cholelithiasis #Bilirubinemia ?Patient has been complaining of upper abdominal pain. ?Abdomen/pelvis CT showed cholelithiasis ?Gallbladder ultrasound showed gallbladder sludge but no cholelithiasis and cannot accurately assess gallbladder. Common bile duct was not distended. ?T bilirubin 1.8, alkaline phosphatase 62 Plan: ?Will continue to monitor #Hx of DM2 #Hypoglycemia ?Patient has a history of diabetes and last A1c in 06/2023 was 5.9. ? Patient had blood sugars around 300s last night as per grandson. ? Glucose today was 273 Plan: ?ISS ?Glucose check q6hr as NPO and hypoglycemia protocol ordered ?A1c ordered for morning labs ?Will continue to monitor #Hx of hypertension ? Will hold any antihypertensive medication for now as patient is septic Disposition: Patient admitted to telemetry for Sepsis 2/2 CAUTI, NSTEMI, RAND. Blood/Urine Cx pending. Diet: NPO for now GI prophylaxis: protonix DVT prophylaxis: SCDs given hematuria Code:FULL code as per patient's grandson, medical decision maker. Case disclosed with Attending Dr. Brennan and My senior Dr. Lindsay PGY2. Logan Wagner PGY1
[2024-07-05 18:27] LABS: Troponin I 0.138 ng/mL (0.0-0.045)
--- NOTE | 2024-07-05 18:33 | XR_ITS ---
Examination: CT brain head without contrast. 2-D sagittal coronal reconstructions Date and time of exam:July 05, 2024 at 1903 hrs. Comparison March 10, 2021 Indications: Onset altered mental status today CTDI: vol (mGy):10.1 DLP: (mGycm):1575 Technique: Multiple CT axial sections of the brain have been obtained, 5 mm slice thickness. Contrast has not been administered. 2-D sagittal, coronal reconstructions have been obtained Low dose protocols were performed. One or more of the following dose reduction techniques were used; automated exposure control, adjustment of the mA and/or KV according to patient size, use of iterative reconstruction technique. Findings: No significant ventricular enlargement. Intra-axial or extra-axial hemorrhage density is not seen. No mass effect or midline shift Basal cisterns are not remarkable. Fourth ventricle is midline. Cranial vault intact. Impression: Negative for acute hemorrhage mass effect or midline shift As clinically warranted, if altered mental status persists, consider brain MRI follow-up
[2024-07-05] MEDS: PANTOPRAZOLE INJ 40 MG VIAL IV (19:31)
[2024-07-05] MEDS: SODIUM CHLORIDE 0.9% 1000 ML 1,000 ML 125 ML IV (19:32)
[2024-07-05] MEDS: ACETAMINOPHEN 325 MG TABLET 650 MG PO (19:32)
[2024-07-05] MEDS: INSULIN LISPRO (AdmeLOG) 1 UNIT/0.01 ML UNIT SC (19:50)
--- NOTE | 2024-07-05 21:14 | PC.NURSE ---
Dr. Spencer and Dr Nuñez at bedside due to patient blood pressure 70/43 and 69/41 and rectal temp still 102.7. Provider will consult with ICU providers.
--- NOTE | 2024-07-05 21:25 | PC.NURSE ---
Dr. Contreras at bedside to assess patient for ICU.
[2024-07-05] MEDS: Norepinephrine/D5W 8mg/250ml 8 MG/250 ML BAG 6.166 MG IV (21:36)
[2024-07-05] MEDS: ACETAMINOPHEN 120 MG SUPP PR (21:45)
[2024-07-05] MEDS: PIPER/TAZO 3.375 GM 50 ML IV (22:14)
--- NOTE | 2024-07-05 22:16 | ESCONSULT_ITS ---
<Statement entered by Charly Mcpherson MD - 07/06/24 08:54> I was present for the essential components of the history, physical examination, diagnosis, and treatment plan with the resident. I have reviewed the documentation, discussed the case with the resident and agree with the patient's care as documented by the resident. High risk critical care time: 35 mins. Charly Mcpherson MD HPI Data of Consult Requesting Physician: Mag Brennan MD Admitting Provider: Mag Brennan MD Attending Provider: Mag Brennan MD Primary Care Provider: Israel Abdullahi MD Consult Narrative Reason for consult: Shock History of present illness: 84-year-old male with past medical history of hypertension, BPH, DM2, subdural hematoma (2020), dementia, and chronic indwelling catheter was admitted to hospital after coming to the ED with complaints of nausea, vomiting, abdominal pain, and blood in the Farias bag since last night. Patient was brought in by grandson and during the time of assessment nobody was at bedside. Patient was very hard of hearing and very not responding to questions during assessment, but he was able to follow some commands and able to answer alert oriented questions (AOx3 not to time). Per chart review, the grandson, next of kin, via phone call and he said he was the medical decision maker who provided most of the patient's history. Grandson stated that last night additional to the patient's nausea, vomiting, and abdominal pain the patient had elevated blood sugars in the 300s as well as some disorientation which she states that is usually when his bladder swells a lot. The patient's grandson also mentioned that the patient gets monthly Farias catheter changes, but last night he noticed blood-tinged urine in the Farias bag which was new and he did not feel was safe to keep patient at home and decided to bring him to the ER. He stated that patient did not have any chills or fevers at home nor any chest pain or shortness of breath. ED course: Initially patient came in normotensive and afebrile, but afterwards patient was tachycardic, and tachypneic. Initial labs were relevant for RAND, hyperglycemia, lactic acidosis, bilirubinemia, troponinemia, elevated procalcitonin, and UTI. Initial imaging included chest x-ray which showed bibasilar pneumonia, abdomen/pelvis CT showed cholelithiasis, bilateral hydronephrosis, diverticulosis, marked prostatomegaly, and marked thickening of urinary bladder wall, and gallbladder ultrasound which showed some gallbladder sludge but gallbladder was poorly visualized and contracted. EKG showed A-fib. Social Hx: Upon chart review patient was a former smoker, but grandson stated that he is not an active smoker at this time and does not do any alcohol or illicit drugs. Meds: Aspirin 81mg qday, Atorvastatin 20mg HS, Coreg 12.5 mg BID, tamsulosin 0.4mg qday, finasteride 5mg qdya, amlodipine 2.5mg BID losartan/HCTZ , med reconciliation pending. Allergies: As per patient's grandson's morphine 07/05/24: ICU consulted due to hemodynamic instability. Patient in the ER received 3 L of volume and his MAP was below 50. At that time decision was made to start pressors and he is currently on Levophed drip. Patient will be upgraded to the ICU for septic shock. Patient is currently producing urine. Patient's mentation is only to self. Patient is currently on IV antibiotics. Patient is febrile with a fever 101.6. We will test for fluid responsiveness once in the unit. cc:: cc: Mag Brennan MD Review of Systems Review of Systems ROS Unobtainable: unobtainable due to mental status Exam Vital Signs Temp Pulse Resp BP Pulse Ox O2 Del Method O2 Flow Rate 102.7 F H 75 22 H 72/43 L 96 Nasal Cannula 2 07/05/24 21:45 07/05/24 21:36 07/05/24 19:46 07/05/24 21:36 07/05/24 19:46 07/05/24 19:46 07/05/24 19:46 Narrative Exam General: A/O x1 (self), no acute distress, disheveled, frail Eyes: PERRL, EOMI. Anicteric, vision grossly intact. Ears: No ear pain, no ear discharge, Hearing impaired Nose: No nasal discharge. Mouth/Throat: Dry mucous membranes, no redness, no lesions. Visible dried bilious vomit around L side of mouth and on tesfaye. Neck: Neck supple, non-tender, no cervical lymphadenopathy. Lungs: Coarse breath sounds, No accessory muscle use. Cardio: Normal S1/S2, regular rhythm, no murmurs, no JVD Abdomen: Soft, non-tender, no palpable masses, peristalsis present, no guarding or rebound. Extremities: Symmetrical, no significant deformities, 1+ peripheral edema , non-tender, peripheral pulses presents. Skin: No rashes, no lesions, warm to touch. Neuro: Able to move all extremities did not follow commands likely due to altered mental status Results Labs 07/05/24 12:37 07/05/24 12:37 Labs: Short CBC 07/05/24 Range/Units 12:37 WBC 10.0 (3.8-10.6) Thou/mm3 Hgb 14.5 (13.5-16.0) g/dL Hct 42.2 (41.0-53.0) % Plt Count 157 (140-440) Thou/mm3 BMP 07/05/24 12:37 Sodium 139 Potassium 3.8 Chloride 104 Carbon Dioxide 24.2 BUN 46 H Creatinine 2.3 H Glucose 273 H Calcium 9.6 Cardiac Enzymes 07/05/24 07/05/24 Range/Units 12:37 17:47 Troponin I 0.119 H* 0.138 H* (0.0-0.045) ng/mL Liver Function 07/05/24 Range/Units 12:37 Total Bilirubin 1.8 H (0.3-1.2) mg/dL AST 41 H (0-34) U/L ALT 25 (10-49) U/L Alkaline Phosphatase 62 (46-116) U/L Albumin 4.2 (3.4-4.8) gm/dL Urine 07/05/24 Range/Units 14:03 Urine Color Yellow (Lt Yel-Yel) Urine Clarity Turbid A (Clear/Hazy) Urine pH 5.5 (5.0-7.0) Ur Specific [place] 1.014 (1.001-1.035) Urine Protein 2+ A (Neg - Trace) Urine Glucose (UA) 3+ A (Negative) Quality Measures Quality Measures VTE prophylaxis (SCDs) Advance care planning discussed with:: patient Medications Home Medications and Allergies Home Medications ?Medication ?Instructions ?Recorded ?Confirmed ?Type carvedilol 12.5 mg tablet 12.5 mg PO BID 02/22/21 11/02/21 History losartan 100 mg tablet 100 mg PO QDAY 02/22/21 11/02/21 History sulfasalazine 500 mg tablet 1,000 mg PO BID 02/22/21 11/02/21 History furosemide 40 mg tablet (Lasix) 40 mg PO QDAY 03/12/21 11/02/21 History potassium chloride 20 mEq 20 meq PO BID 03/12/21 11/02/21 History tablet,extended release Allergies Allergy/AdvReac Type Severity Reaction Status Date / Time morphine Allergy Severe ITCHING Verified 11/02/21 10:28 Visit Medications Acetaminophen (Acetaminophen 325 Mg Tablet) 650 mg PO Q6H PRN PRN Reason: pain 1-3 and Fever >100.4 Stop: 08/04/24 17:11 Last Admin: 07/05/24 19:32 Dose: 650 mg Dextrose (Dextrose 50%-Water Inj 50 Ml Syringe) 25 ml IV Q15MIN PRN PRN Reason: BG 50-70 responsive npo pt Stop: 08/04/24 17:11 Dextrose (Dextrose 50%-Water Inj 50 Ml Syringe) 50 ml IV Q15MIN PRN PRN Reason: BG <50 OR BG <70 & pt unresponsive Stop: 08/04/24 17:11 Glucagon (Glucagon Inj 1 Mg Vial) 1 mg IM Q15MIN PRN PRN Reason: BG <70, and no IV access Piperacillin/Tazobactam/Dextrose (Zosyn) 50 mls @ 12.5 mls/hr IV Q12HR ANNETTA; Protocol Stop: 07/12/24 20:59 Last Admin: 07/05/24 22:14 Dose: 12.5 mls/hr Sodium Chloride (Ns) 1,000 mls @ 125 mls/hr IV .Q8H ANNETTA Stop: 07/06/24 02:40 Last Admin: 07/05/24 19:32 Dose: 125 mls/hr Norepinephrine/Dextrose (Levophed In D5w 8mg/250ml) 8 mg in 250 mls @ 6.166 mls/hr IV .Q24H PRN; Protocol PRN Reason: PER PROTOCOL Stop: 08/04/24 21:22 Last Titration: 07/05/24 22:11 Dose: 0.19 mcg/kg/min, 23.431 mls/hr Insulin Human Lispro (Insulin Lispro (Admelog) 1 Unit/0.01 Ml Unit) 0 unit SC Q6H ANNETTA; Protocol Stop: 08/04/24 18:14 Last Admin: 07/05/24 19:50 Dose: 1 unit Pantoprazole Sodium (Pantoprazole Inj 40 Mg Vial) 40 mg IV QDAY ANNETTA Stop: 08/04/24 18:14 Last Admin: 07/05/24 19:31 Dose: 40 mg Prochlorperazine Maleate (Prochlorperazine Maleate 5 Mg Tablet) 10 mg PO Q6H PRN PRN Reason: NAUSEA OR VOMITING Stop: 08/04/24 17:11 Sennosides (Senna Tablet) 1 tab PO QDAY PRN; Protocol PRN Reason: constipation Stop: 08/04/24 17:11 Discontinued Medications Acetaminophen (Acetaminophen 120 Mg Supp) 120 mg KS X1 ONE Stop: 07/05/24 21:18 Last Admin: 07/05/24 21:45 Dose: 120 mg Sodium Chloride (Ns) 1,000 mls @ 999 mls/hr IV .Q1H1M ONE Stop: 07/05/24 13:14 Last Infusion: 07/05/24 14:00 Dose: Infused Sodium Chloride (Ns) 1,000 mls @ 999 mls/hr IV .Q1H1M ONE Stop: 07/05/24 14:07 Last Infusion: 07/05/24 15:56 Dose: Infused Piperacillin/Tazobactam/Dextrose (Zosyn) 3.375 gm in 50 mls @ 100 mls/hr IV X1 ONE Stop: 07/05/24 14:22 Last Infusion: 07/05/24 15:25 Dose: Infused Sodium Chloride (Ns) 1,000 mls @ 75 mls/hr IV .[id number] ANNETTA Stop: 07/06/24 06:34 Last Admin: 07/05/24 19:24 Dose: Not Given Insulin Human Lispro (Insulin Lispro (Admelog) 1 Unit/0.01 Ml Unit) 0 unit SC ACHS ANNETTA; Protocol Stop: 08/04/24 20:59 Ondansetron HCl (Ondansetron Inj 2 Mg/Ml Inj 2 Ml) 4 mg IV X1 ONE; Protocol Stop: 07/05/24 12:15 Last Admin: 07/05/24 12:45 Dose: 4 mg Assessment & Plan Plan Summary: 84-year-old male admitted to the ICU for septic shock requiring pressors. 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 Data points below are suggestive of that. Patient presented to the emergency department meeting septic shock criteria requiring pressors after 3 L of fluid. Troponins: 0.119 -> 0.138 -> 0.178 Currently pt is has a regular rate and rhtyhm with present P waves, eventhough in the ED his EKG showed AFib Echo in 2021 showed normal LV with EF 60% NICOM showed fluid responsiveness w/ 250cc bolus POCUS showed IVC size approx <2cm with notable distensibility and collapsibility Plan: -cont levophed -IVF additional -maintain MAP >65 -trend trops -repeat echo to assess LV function and EF Pulm: #Acute hypoxic respiratory failure- likely 2/2 to CAP #Bibasilar consolidations- likely PNA Desaturared to mid 80s on room air, now on NC responding well. CXR showed bibalisar consolidations Procal 15.78 Plan: -cont O2 supplementation -cont antibiotics (see ID section) -duoneds as needed GI: #Cholelithiasis #Elevated T Bili Patient has been complaining of upper abdominal pain. Abdomen/pelvis CT showed cholelithiasis Gallbladder ultrasound showed gallbladder sludge but no cholelithiasis and cannot accurately assess gallbladder. Common bile duct was not distended. Occasional PVCs T bilirubin 1.8, alkaline phosphatase 62 Plan: ?Will continue to monitor Renal: #RAND- likely prerenal vs post renal #Mild bilateral hydronephrosis Likely prerenal vs postrenal due to BPH vs in the setting of poor oral intake dehydration with overlapping septic shock Patient presented with a creatinine of 2.3, BUN 46, EGFR of 27 with a UA showing 2+ proteins, 3+ glucose, 3+ blood, RBC and very elevated WBC with 4+ bacteria. Since admission patient has produce appropriate amount of urine output Plan: -Monitor urine output -IV fluids -avoid neph toxins -renal dose meds Endo: #NonInsulin-dependent type 2 diabetes Last a1c was 5.9 (2022) Plan: -ISS protocol -hold home DM meds Heme: stable ID: #Septic Shock #Complicated UTI #Community acquired PNA #Hx of Klebsiella ESBL UTI Patient is febrile. Patient has hx of repeated UTI with klebsiella pna ESBL in the past. U/A consistant with UTI, farias output is dark CXR suggestive of PNA and elevated procal Plan: -f/u on cultures -f/u on legionella, flu serology -broad spectrum abx: vanc + zosyn (07/05 -) : #Hematuria, acute #BPH, chronic Lew immaturely likely secondary to traumatic insertion of a Farias. Patient came in with a indwelling catheter Patient has a history of BPH which he takes tamsulosin and finasteride. His BPH is likely contributing to his post renal RAND and hydronephrosis. Plan: -cont finasteride and flomax -will evaluate for bladder irrigation Skin/MSK: stable ICU Health maintenance: Mechanical ventilation: none Sedation: none Pressors: none FEN: NPO, pending swallow screen DVT ppx: SCDs GI ppx: none Farias: yes (placed on 07/05) IV lines: 3 PVs Central line: none Arterial line: none Code status: FULL code Dispo: ICU pending clinical course - Patient's care was discussed with my attending physician, Dr. Ky Contreras MD Internal Medicine PGY-3
[2024-07-06] VITALS (99 sets, daily range): BP systolic 81–142; BP diastolic 45–84; PULSE 65–102; RESP 12–98; TEMP 36.6–37.9; O2SAT 95–100; BMI 21.1
[2024-07-06 01:01] LABS: Troponin I 0.178 ng/mL (0.0-0.045)
[2024-07-06] MEDS: RINGERS LACTATED 1000 ML 1,000 ML 999 ML IV ×2 (01:02→12:58)
[2024-07-06] MEDS: VANCOMYCIN/NS 1 GM IVPB 200 ML IV (02:05)
[2024-07-06] MEDS: SODIUM CHLORIDE 0.9% 1000 ML 1,000 ML 100 ML IV (05:06)
[2024-07-06] MEDS: Norepinephrine/D5W 8mg/250ml 8 MG/250 ML BAG 20.965 MG IV (05:43)
[2024-07-06] MEDS: HYDROcodone/APAP 5/325 TABLET 1 TAB PO (05:49)
[2024-07-06 06:22] LABS: Basophils # (Auto) 0.1 Thou/mm3 (0.0-0.2); Basophils % (Auto) 1 % (0-2.5); Eosinophils # (Auto) 0.1 Thou/mm3 (0.0-0.5); Eosinophils % (Auto) 1 % (0-10); Hematocrit 36.7 % (41.0-53.0); Hemoglobin 12.4 g/dL (13.5-16.0); Immature Granulocytes % (Auto) 1 % (0-0); Immature Granulocytes Auto 0.18 Thou/mm3 (0.00-0.00); Lymphocytes # (Auto) 0.2 Thou/mm3 (1.0-4.8); Lymphocytes % (Auto) 2 % (10-50); Mean Corpuscular HGB Conc 33.8 g/dl (31.0-37.0); Mean Corpuscular Hemoglobin 32.5 pg (25.0-35.0); Mean Corpuscular Volume 96 fL (80-100); Monocytes # (Auto) 0.9 Thou/mm3 (0.0-0.8); Monocytes % (Auto) 6 % (0-12); Neutrophils # (Auto) 13.2 Thou/mm3 (1.8-7.7); Neutrophils % (Auto) 90 % (37-80); Nucleated Red Blood Cell % 0 /100 WBC (0); Platelet Count 97 Thou/mm3 (140-440); RDW Standard Deviation 51.7 fL (35.1-43.9); Red Blood Count 3.81 Miln/mm3 (4.50-5.90); White Blood Count 14.6 Thou/mm3 (3.8-10.6)
[2024-07-06 06:40] LABS: Glucose Estimated Average 120 mg/dL (80-131); Hemoglobin A1C 5.8 % Hgb (4.8-6.0)
[2024-07-06 07:28] LABS: Cardiac Risk Estimate 3.3 RATIO (4.0-6.7); Cholesterol 90 mg/dL (132-200); HDL Cholesterol 27 mg/dL (40-60); LDL Cholesterol,Calculated 44 mg/dL (0-130); Magnesium 1.8 mg/dL (1.6-2.6); Phosphorous 4.1 mg/dL (2.4-5.1); Triglycerides 95 mg/dL (30-150)
[2024-07-06 07:30] LABS: Troponin I 0.136 ng/mL (0.0-0.045)
--- NOTE | 2024-07-06 09:19 | PC.NURSE ---
Patient was offered some water, Per night nurse Kayden patient passed the swallow eval. I gave him a few sips of water and he started to cough, I attempted a few drops of water in a spoon and patient continued to cough. i notified Dr. Cotto which she verbalized she will place ST order.
[2024-07-06] MEDS: PIPER/TAZO 3.375 GM 50 ML IV ×2 (09:39→20:18)
[2024-07-06] MEDS: PANTOPRAZOLE INJ 40 MG VIAL IV (09:40)
--- NOTE | 2024-07-06 10:33 | ESPR_ITS ---
Documentation for date of: 07/06/24 Subjective Subjective Interval history: 84yo M who was brought to the ER for problems with his chronic Farias and concern for abdominal pain. The patient apparently lives at home with family. Overnight he was recently admitted to telemetry with a diagnosis of sepsis and UTI versus pneumonia. He received 2 L of IV fluids in the ER. His blood pressure was soft on the floor and he was given additional liter of fluid however remained hypotensive and therefore brought to the ICU. On arrival to the ICU a PLR was performed and he was found to be fluid responsive. An additional liter of IV fluid was given and vasopressors were started. This morning the patient is awake and alert though appears to be confused. His baseline is unclear though there are reports of dementia. He does still appear to have some abdominal discomfort. Critical Care Note Critical care time (min.): 40 Exam Vital Signs Temp Pulse Resp BP Pulse Ox O2 Del Method O2 Flow Rate 98.1 F 80 22 H 97/57 L 99 Nasal Cannula 4 07/06/24 08:00 07/06/24 09:30 07/06/24 09:30 07/06/24 09:30 07/06/24 09:30 07/06/24 08:00 07/06/24 08:00 Narrative Exam General-no acute distress, awake alert, elderly, thin body habitus HEENT-normocephalic, atraumatic, sclera anicteric, oral mucosa is very dry, poor dentition Chest-lungs clear to auscultation bilaterally, heart regular rhythmic, no bruits or murmurs auscultated times exam, no increased work of breathing Abdomen-soft, bowel sounds present, appears to be discomfort on palpation on the right as well as suprapubic region, no rebound, voluntary guarding, chronic Farias in place with purulent appearing urine in the Farias bag, dried blood around the penis Extremities-no edema, pulses palpable, no clubbing or mottling, moves all 4 extremities Drips Levophed Physical Exam Completion Physical Exam Complete?: Yes Objective - [employer] Labs 07/06/24 05:37 07/05/24 12:37 Labs: Laboratory Results - last 24 hr 07/05/24 07/05/24 07/05/24 12:37 14:03 16:05 WBC 10.0 RBC 4.45 L Hgb 14.5 Hct 42.2 MCV 95 MCH 32.6 MCHC 34.4 RDW Std Deviation 48.3 H Plt Count 157 Neut % (Auto) 92 H Lymph % (Auto) 1 L [place] % (Auto) 5 Eos % (Auto) 1 Baso % (Auto) 0 Neut # (Auto) 9.2 H Lymph # (Auto) 0.1 L [place] # (Auto) 0.5 Eos # (Auto) 0.1 Baso # (Auto) 0.0 Immature Gran # (Auto) 0.04 H Absolute Nucleated RBC 0.00 Immature Gran % 0 Nucleated RBC % 0 PT 11.9 INR 1.1 APTT 27.5 Sodium 139 Potassium 3.8 Chloride 104 Carbon Dioxide 24.2 Anion Gap 11 BUN 46 H Creatinine 2.3 H Estim Creat Clear Calc 21.4 L eGFR 27 L BUN/Creatinine Ratio [address] Glu mg/dL Hemoglobin A1c Calculated Osmolality 299 H Lactic Acid 4.4 H* 3.6 H Calcium 9.6 Corrected Calcium 9.6 Phosphorus Magnesium Total Bilirubin 1.8 H AST 41 H ALT 25 Alkaline Phosphatase 62 Troponin I 0.119 H* Total Protein 6.6 Albumin 4.2 Globulin 2.4 Albumin/Globulin Ratio 1.8 Triglycerides Cholesterol LDL Cholesterol, Calc HDL Cholesterol Cholesterol/HDL Ratio Procalcitonin 15.78 H Ur Collection Type Catheter Urine Color Yellow Urine Clarity Turbid A Urine pH 5.5 Ur Specific [place] 1.014 Urine Protein 2+ A Urine Glucose (UA) 3+ A Urine Ketones Negative Urine Blood 3+ A Urine Nitrite Negative Urine Bilirubin Negative Urine Urobilinogen (Auto) Negative Ur Leukocyte Esterase Positive Urine RBC 23 H Urine WBC 248 H Ur Squamous Epith Cells 0 Urine Bacteria 4+ A 07/05/24 07/05/24 07/06/24 17:47 23:25 05:37 WBC 14.6 H D RBC 3.81 L Hgb 12.4 L D Hct 36.7 L MCV 96 MCH 32.5 MCHC 33.8 RDW Std Deviation 51.7 H Plt Count 97 L D Neut % (Auto) 90 H Lymph % (Auto) 2 L [place] % (Auto) 6 Eos % (Auto) 1 Baso % (Auto) 1 Neut # (Auto) 13.2 H Lymph # (Auto) 0.2 L [place] # (Auto) 0.9 H Eos # (Auto) 0.1 Baso # (Auto) 0.1 Immature Gran # (Auto) 0.18 H Absolute Nucleated RBC 0.00 Immature Gran % 1 H Nucleated RBC % 0 PT INR APTT Sodium Cancelled Potassium Cancelled Chloride Cancelled Carbon Dioxide Cancelled Anion Gap Cancelled BUN Cancelled Creatinine Cancelled Estim Creat Clear Calc Cancelled eGFR Cancelled BUN/Creatinine Ratio Cancelled Glucose Cancelled Estimated Ave Glu mg/dL 120 Hemoglobin A1c 5.8 Calculated Osmolality Cancelled Lactic Acid Calcium Cancelled Corrected Calcium Cancelled Phosphorus 4.1 Magnesium 1.8 Total Bilirubin Cancelled AST Cancelled ALT Cancelled Alkaline Phosphatase Cancelled Troponin I 0.138 H* 0.178 H* 0.136 H* Total Protein Cancelled Albumin Cancelled Globulin Cancelled Albumin/Globulin Ratio Cancelled Triglycerides 95 Cholesterol 90 L LDL Cholesterol, Calc 44 HDL Cholesterol 27 L Cholesterol/HDL Ratio 3.3 L Procalcitonin Ur Collection Type Urine Color Urine Clarity Urine pH Ur Specific [place] Urine Protein Urine Glucose (UA) Urine Ketones Urine Blood Urine Nitrite Urine Bilirubin Urine Urobilinogen (Auto) Ur Leukocyte Esterase Urine RBC Urine WBC Ur Squamous Epith Cells Urine Bacteria Assessment & Plan Additional Assessment Additional Assessment: In summary this is a 84yo M admitted for septic shock to the ICU a/p SAFETY RISK LEAD Awake but confused ? dementia CV Shock- hemodynamics checked and found to have a low SVR, received 4lts of IVF, CI wnl, at this time felt to have distributive shock 2/2 sepsis , Bcx and Ucx show GNR, currently on antibiotics. Follow-up on echocardiogram wean Levophed as able. Will repeat a passive leg raise to see if the patient is fluid responsive as he still has dry mucous membranes. Troponinemia- in the setting of RAND, likely related to demand ischemia, trending down, fu with echo, no complaints of chest pain Resp ? community-acquired pneumonia-patient's chest x-ray was read as pneumonia however appears clear for the most part, follow-up on sputum cultures currently being covered with antibiotics for his UTI, his lung exam is clear Renal Acute kidney injury-slight increase with this a.m.'s lab. Likely prerenal and secondary to hypoperfusion from patient's shock. Possibility of ATN also exists. Monitor patient's urinary output currently has a good urinary output Lactic acidosis-trending down after IV fluids GI Abd pain- pain on palp, CT shows some gallbladder sludge, US none conclusive, does have UTI Transaminitis-likely related to hypotension and ischemic insult Endo DM- on SSI Heme Leukocytosis- related to infectious process Anemia- mild, near baseline Thrombocytopenia- likely related to sepsis DVT proph- lovenox ID Sepsis- on zosyn, bcx and Ucx show GNR UTI- 2/2 chronic farias, on zosyn, awaiting final cx results case d/w ICU team labs, imaging , records reviewed ~40cc min required for eval, exam, review, intervention, discussion and formulation of POC for this critically ill pt with septic shock on vasopressors Provider Notation Provider Notation: Although this document has been carefully reviewed, there may still be some phonetic and other typographical errors. These errors are purely grammatical due to imperfections in the software program and should not be construed in any way to compromise the substance of the patient's medical care during this visit. Thank you for the opportunity and privilege in assisting you with this patient's care and management.
[2024-07-06 10:46] LABS: Alanine Aminotransferase 53 U/L (10-49); Albumin, Serum 3.3 gm/dL (3.4-4.8); Albumin/Globulin Ratio 1.7 (1.2-2.2); Alkaline Phosphatase 39 U/L (46-116); Anion Gap 11 (7-16); Aspartate Amino Transferase 101 U/L (0-34); BUN/Creatinine Ratio 20 Ratio (12-20); Bilirubin,Total 1.2 mg/dL (0.3-1.2); Blood Urea Nitrogen 57 mg/dL (9-23); Calcium 7.9 mg/dL (8.3-10.6); Calcium (Corrected) 8.5 mg/dL (8.5-10.1); Carbon Dioxide 21.8 mMol/L (20.0-31.0); Chloride 110 mMol/L (98-107); Creatinine (Component) 2.8 mg/dL (0.6-1.3); Estimated Creatinine Clearance 17.9 mL/min (>60); Glucose 135 mg/dL (74-106); Osmolality,Calculated 302 (275-295); Sodium 143 mMol/L (136-145); Total Protein 5.3 gm/dL (5.7-8.2); eGFR 21 See Note
--- NOTE | 2024-07-06 11:02 | ECHO_ITS ---
Transthoracic Echo Report Ht (in): 70 Wt (lb): 147 Exam Location: [facility] Status: Inpatient Fishing Vessel Deckhand: Madison Simeon Indications: Procedure Performed: BP: 108 / 66 HR: Rhythm: Sinus Technical Quality: Fair MEASUREMENTS (Male / Female) Normal Values 2D ECHO LV Diastolic Diameter PLAX 4.0 cm 4.2 - 5.9 / 3.9 - 5.3 cm LV Systolic Diameter PLAX 2.9 cm IVS Diastolic Thickness 1.0 cm 0.6 - 1.0 / 0.6 - 0.9 cm LVPW Diastolic Thickness 1.0 cm 0.6 - 1.0 / 0.6 - 0.9 cm LV Relative Wall Thickness 0.5 LVOT Diameter 1.8 cm LA Volume Index 25.8 cm?/m? 16 - 28 cm?/m? Ascending Aorta Diameter 2.9 cm M-MODE Aortic Root Diameter MM 2.9 cm LA Systolic Diameter MM 4.0 cm LA Ao Ratio MM 1.4 AV Cusp Separation MM 1.9 cm DOPPLER AV Peak Velocity 123.0 cm/s AV Peak Gradient 6.1 mmHg AV Mean Gradient 4.0 mmHg AV Velocity Time Integral 23.1 cm AI Peak Velocity 268.3 cm/s AI Peak Gradient 28.8 mmHg AI Pressure Half Time 621.0 ms LVOT Peak Velocity 93.8 cm/s LVOT Peak Gradient 3.5 mmHg LVOT Velocity Time Integral 19.8 cm AV Area Cont Eq vti 2.2 cm? AV Area Cont Eq pk 1.9 cm? MV Peak Velocity 73.2 cm/s MV Peak Gradient 2.1 mmHg MV Mean Velocity 37.4 cm/s MV Mean Gradient 1.0 mmHg MV Area PHT 2.7 cm? Mitral E Point Velocity 51.9 cm/s Mitral A Point Velocity 64.5 cm/s Mitral E to A Ratio 0.8 LV E' Lateral Velocity 7.0 cm/s Mitral E to LV E' Lateral Ratio 7.5 LV E' Septal Velocity 5.2 cm/s Mitral E to LV E' Septal Ratio 9.9 TR Peak Velocity 159.0 cm/s TR Peak Gradient 10.1 mmHg FINDINGS Left Ventricle Normal left ventricular size, wall thickness, systolic function with no obvious regional wall motion abnormalities. The ejection fraction is visually estimated at 55-60%. Right Ventricle The right ventricle is normal in size and systolic function. The estimated right ventricular systoli c pressure, 19 mmHg. RAP 5. Left Atrium The left atrium is normal by two-dimensional, color flow and Doppler imaging with no structural abnormalities, no thrombus formation present. Right Atrium The right atrium is normal by two-dimensional imaging, color flow and Doppler imaging with no struct ural abnormalities, no thrombus formation present. Atrial Septum The interatrial septum appears normal with no evidence of a shunt. Aorta The aorta is normal by two-dimensional, color flow and Doppler interrogation. Mitral Valve The mitral valve is mildly MAC. There is trace mitral valve regurgitation. Aortic Valve The aortic valve is trileaflet. Mild sclerosis without stenosis. There is mild to moderate aortic v alve regurgitation. Tricuspid Valve The tricuspid valve is normal by two-dimensional, color flow and Doppler interrogation. There is mil d tricuspid valve regurgitation. Pulmonic Valve There is trace pulmonic valve regurgitation. Vessels The pulmonary artery appears normal. The inferior vena cava pulmonary and hepatic veins appear homar l. Pericardium The pericardium is normal by two-dimensional imaging. There is no significant pericardial effusion. CONCLUSIONS Indication: SOb and eval LV function. Normal LV size and function. Stage I diastolic dysfunction. Estimated EF 55-60% Normal RV size and function. Mild MAC. Trace MR, PI. Mild AV sclerosis without stenosis. Mild to moderate AI. Mild TR. Augustine Ellis (Electronically Signed) Final Date: 06 July 2024 17:40
--- NOTE | 2024-07-06 11:11 | PC.SS ---
BINDERY TECHNICIAN conducted phone contact with the patient?s grandAugust [place] ; to conduct initial assessment and to discuss discharge planning. Patient confirmed demographic information. Patient resides at home with family. Patient utilizes a cane to assist with ambulation. Patient also possesses access to a walker and wheelchair. Patient does not utilize home oxygen. Patient requires assistance with the completion of ADL?s. Family assists the patient with completion of ADL?s. Patient?s medical surrogate decision maker is August nicholesteven. Patient?s PCP is Dr. Abdullahi, [facility]. Patient does not participate with dialysis. Pharmacy of choice for medications is [facility]. SS referral to be submitted on behalf of the patient. Plan is for the patient to return home at the time of discharge. Family will provide transportation on behalf of the patient. No further intervention required at this time, social services specialist will be available to address any further concerns. Next of Kin: August Allen D/C Plan: Home
--- NOTE | 2024-07-06 11:22 | PC.SS ---
[facility] referral submitted via [facility] Fax on today's date, 07-06-24.
--- NOTE | 2024-07-06 11:27 | ESPR_ITS ---
<Statement entered by Izabela Lemos MD - 07/08/24 07:12> Patient was seen and examined by me personally. I have directly supervised and reviewed the above documentation by the team resident and agree with its findings with any exceptions or additional findings as below. Plan of care was discussed with the attending, Dr. Mcmanus. Izabela Lemos, PGY-2 Documentation for date of: 07/06/24 Subjective Subjective Interval history: Patient was seen and examined bedside in ICU. Patient had severe hearing loss and had to communicate him in a higher pitch but overall patient appears to be alert awake and oriented. Able to answer questions appropriately. Vitals are stable. On physical examination, patient still appears dehydrated. His renal functions continue to decline despite giving IV fluids. Repeat NICOM study was done on patient and passive leg rise which showed fluid responsiveness and patient was given an additional 1 L of LR bolus. Patient overall condition seems to be improving and urine output is adequate. NICOM was repeated again at 3 PM and did not show any fluid responsiveness. Patient is still on Levophed and will continue to monitor vital signs. Exam Vital Signs Temp Pulse Resp BP Pulse Ox O2 Del Method O2 Flow Rate 98.1 F 80 22 H 97/57 L 99 Nasal Cannula 4 07/06/24 08:00 07/06/24 09:30 07/06/24 09:30 07/06/24 09:30 07/06/24 09:30 07/06/24 08:00 07/06/24 08:00 Narrative Exam General: Awake and in no acute distress. Severe hearing loss noted HEENT: Normocephalic, atraumatic, mucous membranes dry. Heart: Regular rate and rhythm, no murmurs. Lungs: Clear to auscultation with no wheezing or crackles. Abdomen: Soft, nondistended, nontender, positive bowel sounds. ?No guarding or rebound tenderness. Neurologic: Alert and awake 2, no gross neurological deficit, and patient able to move all 4 extremities. Extremities: No edema. Skin: No rash or ecchymoses. Objective Labs 07/06/24 05:37 07/06/24 10:03 Labs: Laboratory Results - last 24 hr 07/05/24 07/05/24 07/05/24 12:37 14:03 16:05 WBC 10.0 RBC 4.45 L Hgb 14.5 Hct 42.2 MCV 95 MCH 32.6 MCHC 34.4 RDW Std Deviation 48.3 H Plt Count 157 Neut % (Auto) 92 H Lymph % (Auto) 1 L [place] % (Auto) 5 Eos % (Auto) 1 Baso % (Auto) 0 Neut # (Auto) 9.2 H Lymph # (Auto) 0.1 L [place] # (Auto) 0.5 Eos # (Auto) 0.1 Baso # (Auto) 0.0 Immature Gran # (Auto) 0.04 H Absolute Nucleated RBC 0.00 Immature Gran % 0 Nucleated RBC % 0 PT 11.9 INR 1.1 APTT 27.5 Sodium 139 Potassium 3.8 Chloride 104 Carbon Dioxide 24.2 Anion Gap 11 BUN 46 H Creatinine 2.3 H Estim Creat Clear Calc 21.4 L eGFR 27 L BUN/Creatinine Ratio [address] Glu mg/dL Hemoglobin A1c Calculated Osmolality 299 H Lactic Acid 4.4 H* 3.6 H Calcium 9.6 Corrected Calcium 9.6 Phosphorus Magnesium Total Bilirubin 1.8 H AST 41 H ALT 25 Alkaline Phosphatase 62 Troponin I 0.119 H* Total Protein 6.6 Albumin 4.2 Globulin 2.4 Albumin/Globulin Ratio 1.8 Triglycerides Cholesterol LDL Cholesterol, Calc HDL Cholesterol Cholesterol/HDL Ratio Procalcitonin 15.78 H Ur Collection Type Catheter Urine Color Yellow Urine Clarity Turbid A Urine pH 5.5 Ur Specific [place] 1.014 Urine Protein 2+ A Urine Glucose (UA) 3+ A Urine Ketones Negative Urine Blood 3+ A Urine Nitrite Negative Urine Bilirubin Negative Urine Urobilinogen (Auto) Negative Ur Leukocyte Esterase Positive Urine RBC 23 H Urine WBC 248 H Ur Squamous Epith Cells 0 Urine Bacteria 4+ A 07/05/24 07/05/24 07/06/24 17:47 23:25 05:37 WBC 14.6 H D RBC 3.81 L Hgb 12.4 L D Hct 36.7 L MCV 96 MCH 32.5 MCHC 33.8 RDW Std Deviation 51.7 H Plt Count 97 L D Neut % (Auto) 90 H Lymph % (Auto) 2 L [place] % (Auto) 6 Eos % (Auto) 1 Baso % (Auto) 1 Neut # (Auto) 13.2 H Lymph # (Auto) 0.2 L [place] # (Auto) 0.9 H Eos # (Auto) 0.1 Baso # (Auto) 0.1 Immature Gran # (Auto) 0.18 H Absolute Nucleated RBC 0.00 Immature Gran % 1 H Nucleated RBC % 0 PT INR APTT Sodium Cancelled Potassium Cancelled Chloride Cancelled Carbon Dioxide Cancelled Anion Gap Cancelled BUN Cancelled Creatinine Cancelled Estim Creat Clear Calc Cancelled eGFR Cancelled BUN/Creatinine Ratio Cancelled Glucose Cancelled Estimated Ave Glu mg/dL 120 Hemoglobin A1c 5.8 Calculated Osmolality Cancelled Lactic Acid Calcium Cancelled Corrected Calcium Cancelled Phosphorus 4.1 Magnesium 1.8 Total Bilirubin Cancelled AST Cancelled ALT Cancelled Alkaline Phosphatase Cancelled Troponin I 0.138 H* 0.178 H* 0.136 H* Total Protein Cancelled Albumin Cancelled Globulin Cancelled Albumin/Globulin Ratio Cancelled Triglycerides 95 Cholesterol 90 L LDL Cholesterol, Calc 44 HDL Cholesterol 27 L Cholesterol/HDL Ratio 3.3 L Procalcitonin Ur Collection Type Urine Color Urine Clarity Urine pH Ur Specific [place] Urine Protein Urine Glucose (UA) Urine Ketones Urine Blood Urine Nitrite Urine Bilirubin Urine Urobilinogen (Auto) Ur Leukocyte Esterase Urine RBC Urine WBC Ur Squamous Epith Cells Urine Bacteria 07/06/24 10:03 WBC RBC Hgb Hct MCV MCH MCHC RDW Std Deviation Plt Count Neut % (Auto) Lymph % (Auto) [place] % (Auto) Eos % (Auto) Baso % (Auto) Neut # (Auto) Lymph # (Auto) [place] # (Auto) Eos # (Auto) Baso # (Auto) Immature Gran # (Auto) Absolute Nucleated RBC Immature Gran % Nucleated RBC % PT INR APTT Sodium 143 Potassium 5.0 D Chloride 110 H Carbon Dioxide 21.8 Anion Gap 11 BUN 57 H Creatinine 2.8 H D Estim Creat Clear Calc 17.9 L eGFR 21 L BUN/Creatinine Ratio 20 Glucose [address] Glu mg/dL Hemoglobin A1c Calculated Osmolality 302 H Lactic Acid Calcium 7.9 L D Corrected Calcium 8.5 Phosphorus Magnesium Total Bilirubin 1.2 D AST 101 H ALT 53 H Alkaline Phosphatase 39 L D Troponin I Total Protein 5.3 L Albumin 3.3 L D Globulin 2.0 L Albumin/Globulin Ratio 1.7 Triglycerides Cholesterol LDL Cholesterol, Calc HDL Cholesterol Cholesterol/HDL Ratio Procalcitonin Ur Collection Type Urine Color Urine Clarity Urine pH Ur Specific [place] Urine Protein Urine Glucose (UA) Urine Ketones Urine Blood Urine Nitrite Urine Bilirubin Urine Urobilinogen (Auto) Ur Leukocyte Esterase Urine RBC Urine WBC Ur Squamous Epith Cells Urine Bacteria Quality Measures Quality Measures VTE prophylaxis (SCDs) Advance care planning discussed with:: patient and legal surragate Assessment & Plan Assessment Current Active Medications: Generic Name Dose Route Start Last Admin Trade Name Freq PRN Reason Stop Dose Admin Acetaminophen 650 mg 07/05/24 17:12 07/05/24 19:32 Acetaminophen 325 Mg Tablet PO 08/04/24 17:11 650 mg Q6H PRN Administration pain 1-3 and Fever >100.4 Dextrose 25 ml 07/05/24 17:12 Dextrose 50%-Water Inj 50 Ml Syringe IV 08/04/24 17:11 Q15MIN PRN BG 50-70 responsive npo pt Dextrose 50 ml 07/05/24 17:12 Dextrose 50%-Water Inj 50 Ml Syringe IV 08/04/24 17:11 Q15MIN PRN BG <50 OR BG <70 & pt unresponsive Enoxaparin Sodium 30 mg 07/06/24 11:30 Enoxaparin Sod Inj 30 Mg/0.3 Ml Syringe SC 07/20/24 11:29 QDAY ANNETTA Glucagon 1 mg 07/05/24 17:12 Glucagon Inj 1 Mg Vial IM Q15MIN PRN BG <70, and no IV access Piperacillin/Tazobactam/Dextrose 50 mls @ 12.5 mls/hr 07/05/24 21:00 07/06/24 09:39 Zosyn IV 07/12/24 20:59 12.5 mls/hr Q12HR ANNETTA Administration Protocol Norepinephrine/Dextrose 8 mg in 250 mls @ 6.166 mls/hr 07/05/24 21:23 07/06/24 10:35 Levophed In D5w 8mg/250ml IV 08/04/24 21:22 0.11 mcg/kg/min .Q24H PRN 13.565 mls/hr PER PROTOCOL Titration Protocol 0.05 MCG/KG/MIN Sodium Chloride 1,000 mls @ 100 mls/hr 07/06/24 04:58 07/06/24 07:00 Ns IV 07/06/24 14:57 0 mls/hr .Q10H ONE Infusion Insulin Human Lispro 0 unit 07/05/24 18:15 07/06/24 05:41 Insulin Lispro (Admelog) 1 Unit/0.01 Ml Unit SC 08/04/24 18:14 Not Given Q6H ANNETTA Protocol Pharmacy Consult 1 each 07/06/24 09:00 Vancomycin Pharmacy To Dose 1 Each Each IV 08/05/24 08:59 QDAY PRN PROTOCOL Prochlorperazine Maleate 10 mg 07/05/24 17:12 Prochlorperazine Maleate 5 Mg Tablet PO 08/04/24 17:11 Q6H PRN NAUSEA OR VOMITING Sennosides 1 tab 07/05/24 17:12 Senna Tablet PO 08/04/24 17:11 QDAY PRN constipation Protocol Plan 84-year-old male admitted to the ICU for septic shock requiring pressors. 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 Plan: -frequent neuro checks Cardio: #Shock- likely septic shock #Elevated troponin, type II in the setting of shock #Hx of HTN Etiology of the shock is likely septic due to a combination of UTI and pneumonia. Data points below are suggestive of that. Patient presented to the emergency department meeting septic shock criteria requiring pressors after 3 L of fluid. Troponins: 0.119 -> 0.138 -> 0.178 > 0.136 Currently pt is has a regular rate and rhtyhm with present P waves, even though in the ED his EKG showed AFib Echo in 2021 showed normal LV with EF 60% NICOM showed fluid responsiveness w/ 250cc bolus on 07/05/2024 POCUS showed IVC size approx <2cm with notable distensibility and collapsibility NICOM done on 07/06/2024 with passive leg raise showed fluid responsiveness and patient was given a bolus of LR Patient vasopressors needs found to be decreasing and the Levophed is down titrated from last night. Plan: -cont levophed -Received additional bolus of LR as of today after NICOM showed fluid responsiveness -Will repeat NICOM study around 4 PM to see if patient needs more IV fluids -maintain MAP >65 -Troponin trending was stopped as the level started downtrending -Echo was done but the read is pending Pulm: #Acute hypoxic respiratory failure # Likely aspiration pneumonia # History of remote smoking Desaturared to mid 80s on room air, now on NC responding well. CXR seemed normal Procal 15.78 Plan: -Will titrate the oxygen based on his saturations and clinical condition -cont antibiotics (see ID section) -duoneds as needed GI: #Elevated T Bili Likely elevated in the setting of sepsis Patient denied abdominal pain Abdomen/pelvis CT showed cholelithiasis Gallbladder ultrasound showed gallbladder sludge but no cholelithiasis and cannot accurately assess gallbladder. Common bile duct was not distended. Occasional PVCs T bilirubin 1.8, alkaline phosphatase 62 Plan: ?Will continue to monitor Renal: #RAND- likely prerenal #Mild bilateral hydronephrosis Likely prerenal in the setting of poor oral intake dehydration with overlapping septic shock Patient presented with a creatinine of 2.3, BUN 46, EGFR of 27 with a UA showing 2+ proteins, 3+ glucose, 3+ blood, RBC and very elevated WBC with 4+ bacteria. Since admission patient has produce appropriate amount of urine output Renal ultrasound in 2021 also showed mild to moderate bilateral hydronephrosis Plan: -Will continue to monitor renal function panel and urinary output -Will avoid nephrotoxic medication and renally dose the medications. Endo: #NonInsulin-dependent type 2 diabetes Last a1c was 5.9 (2022) Plan: -ISS protocol -hold home DM meds Heme: stable ID: #Septic Shock #Complicated UTI #? Aspiration pneumonia #Hx of Klebsiella ESBL UTI Patient is having indwelling catheter since 2019 and the catheter is changed once in every 4 weeks according to his grandson, recent Farias catheter change was 2 weeks back Patient is febrile. Patient has hx of repeated UTI with klebsiella pna ESBL in the past. U/A consistant with UTI, farias output is dark Elevated procalcitonin is noted blood cultures and urine cultures grew gram- negative rods Plan: -broad spectrum abx: vanc + zosyn (07/05 -) : #Hematuria, acute #BPH, chronic -indwelling catheter since 2019 Lew hematuria likely secondary to traumatic insertion of a Farias. Patient came in with a indwelling catheter Patient has a history of BPH which he takes tamsulosin and finasteride. His BPH is likely contributing to his post renal RAND and hydronephrosis. Plan: -cont finasteride and flomax Skin/MSK: stable ICU Health maintenance: Mechanical ventilation: none Sedation: none Pressors: Levophed FEN: Passed swallow evaluation DVT ppx: SCDs GI ppx: none Farias: yes (placed on 07/05) IV lines: 3 PVs Central line: none Arterial line: none Code status: FULL code Dispo: ICU pending clinical course - Patient's care was discussed with my attending physician, Dr. Mcmanus and senior resident Dr. Canelo Morales, PGY1
[2024-07-06] MEDS: INSULIN LISPRO (AdmeLOG) 1 UNIT/0.01 ML UNIT SC (12:20)
[2024-07-06] MEDS: ENOXAPARIN SOD INJ 30 MG/0.3 ML SYRINGE SC (12:20)
--- NOTE | 2024-07-06 18:09 | PC.NURSE ---
at 1400 Dr. Morales made aware of patients urine output of 40-45 ml hour for the past few hours
[2024-07-06] MEDS: PROCHLORPERAZINE MALEATE 5 MG TABLET 10 MG PO (20:17)
[2024-07-07] VITALS (106 sets, daily range): BP systolic 64–132; BP diastolic 51–99; PULSE 79–165; RESP 13–97; TEMP 36.6–36.9; O2SAT 90–98; BMI 24.8; BMI 24.7
[2024-07-07] MEDS: Norepinephrine/D5W 8mg/250ml 8 MG/250 ML BAG 13.565 MG IV (02:25)
--- NOTE | 2024-07-07 03:10 | PC.NURSE ---
Addendum entered by Sea Coles RN 07/07/24 18:44: EKG ordered at this time, pt found to be in Afiv with RVR Original Note: Pt's HR sustaining in 160's, MD Contreras notified. 2.5 MG Metoprolol administered, amiodarone drip started. Pt denied any chest pain or discomfort
[2024-07-07] MEDS: METOPROLOL TARTRATE INJ 1 MG/ML AMP 5 ML 2.5 MG IVP (03:17)
--- NOTE | 2024-07-07 03:19 | EKG_ITS ---
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
[2024-07-07] MEDS: AMIODARONE 150 MG IVPB 150 MG/100 ML BAG 600 MG IV (03:30)
[2024-07-07] MEDS: AMIODARONE 360 MG IVPB 360 MG/200 ML BAG 33.333 MG IV (03:38)
[2024-07-07] MEDS: DIGOXIN INJ 0.25 MG/ML AMP 2 ML IVP (03:55)
[2024-07-07] MEDS: Magnesium Sulfate 2 GM Ivpb 2 GM/50 ML BAG IV (03:56)
[2024-07-07 04:12] LABS: Basophils % (Auto) 0 % (0-2.5); Eosinophils % (Auto) 0 % (0-10); Hematocrit 32.3 % (41.0-53.0); Hemoglobin 11.1 g/dL (13.5-16.0); Immature Granulocytes % (Auto) 1 % (0-0); Immature Granulocytes Auto 0.11 Thou/mm3 (0.00-0.00); Lymphocytes # (Auto) 0.4 Thou/mm3 (1.0-4.8); Lymphocytes % (Auto) 4 % (10-50); Mean Corpuscular HGB Conc 34.4 g/dl (31.0-37.0); Mean Corpuscular Hemoglobin 32.7 pg (25.0-35.0); Mean Corpuscular Volume 95 fL (80-100); Monocytes # (Auto) 0.4 Thou/mm3 (0.0-0.8); Monocytes % (Auto) 4 % (0-12); Neutrophils # (Auto) 9.3 Thou/mm3 (1.8-7.7); Neutrophils % (Auto) 91 % (37-80); Nucleated Red Blood Cell % 0 /100 WBC (0); RDW Standard Deviation 50.7 fL (35.1-43.9); Red Blood Count 3.39 Miln/mm3 (4.50-5.90); White Blood Count 10.3 Thou/mm3 (3.8-10.6)
[2024-07-07 04:13] LABS: Platelet Count 74 Thou/mm3 (140-440)
[2024-07-07 04:31] LABS: Alanine Aminotransferase 42 U/L (10-49); Albumin/Globulin Ratio 1.6 (1.2-2.2); Alkaline Phosphatase 36 U/L (46-116); Anion Gap 6 (7-16); Aspartate Amino Transferase 60 U/L (0-34); BUN/Creatinine Ratio 21 Ratio (12-20); Bilirubin,Total 0.9 mg/dL (0.3-1.2); Blood Urea Nitrogen 67 mg/dL (9-23); Calcium 7.6 mg/dL (8.3-10.6); Calcium (Corrected) 8.4 mg/dL (8.5-10.1); Carbon Dioxide 24.6 mMol/L (20.0-31.0); Chloride 109 mMol/L (98-107); Creatinine (Component) 3.2 mg/dL (0.6-1.3); Estimated Creatinine Clearance 15.6 mL/min (>60); Globulin 1.9 gm/dL (2.3-3.5); Glucose 172 mg/dL (74-106); Magnesium 1.9 mg/dL (1.6-2.6); Osmolality,Calculated 302 (275-295); Potassium 3.8 mMol/L (3.4-5.1); Sodium 140 mMol/L (136-145); Total Protein 4.9 gm/dL (5.7-8.2); Vancomycin,Random 8.5 mcg/mL; eGFR 18 See Note
[2024-07-07 04:39] LABS: Slide Review Platelets confirmed
[2024-07-07] MEDS: INSULIN LISPRO (AdmeLOG) 1 UNIT/0.01 ML UNIT SC ×3 (06:02→23:59)
[2024-07-07] MEDS: PIPER/TAZO 3.375 GM 50 ML IV ×2 (08:34→21:00)
[2024-07-07] MEDS: APIXABAN 2.5 MG TABLET PO ×2 (08:34→21:01)
[2024-07-07] MEDS: AMIODARONE 360 MG IVPB 360 MG/200 ML BAG 16.667 MG IV (10:24)
[2024-07-07] MEDS: VANCOMYCIN/WATER 1GM IVPB 200 ML IV (10:25)
--- NOTE | 2024-07-07 10:29 | ESPR_ITS ---
<Statement entered by Izabela Lemos MD - 07/08/24 07:14> Patient was seen and examined by me personally. I have directly supervised and reviewed the above documentation by the team resident and agree with its findings with any exceptions or additional findings as below. Plan of care was discussed with the attending, Dr. Mcmanus. Izabela Lemos, PGY-2 Documentation for date of: 07/07/24 Subjective Subjective Interval history: 07/06/2024 : Patient was seen and examined bedside in ICU. Patient had severe hearing loss and had to communicate him in a higher pitch but overall patient appears to be alert awake and oriented. Able to answer questions appropriately. Vitals are stable. On physical examination, patient still appears dehydrated. His renal functions continue to decline despite giving IV fluids. Repeat NICOM study was done on patient and passive leg rise which showed fluid responsiveness and patient was given an additional 1 L of LR bolus. Patient overall condition seems to be improving and urine output is adequate. NICOM was repeated again at 3 PM and did not show any fluid responsiveness. Patient is still on Levophed and will continue to monitor vital signs. 07/07/2024 : Patient was seen and examined bedside. Overnight patient had atrial fibrillation with rapid ventricular rate for which he received 2.5 Mg of metoprolol tartrate, 150 Mg of amiodarone bolus and was started on amiodarone drip. Based on [id number] or, patient should be on anticoagulation but in view of his declined renal functions and age, dose was reduced to 2.5 Mg twice daily. His Levophed dose is increased overnight. Patient had severe hearing loss but overall mental status appears to be normal and complaining of palpitations. Denies abdominal pain, chest pain, vomitings. Labs showed declining renal functions but as the urine output is maintained well, will continue to monitor renal functions and urine output. His WBC count, liver enzymes appears to be improved. Will continue to monitor his blood pressures and midodrine is added. As MRSA screen came back negative, vancomycin is discontinued and will continue Zosyn in view of gram-negative rods bacteremia. Exam Vital Signs Temp Pulse Resp BP Pulse Ox O2 Del Method O2 Flow Rate 98.1 F 124 H 21 H 99/63 96 Nasal Cannula 1 07/07/24 04:00 07/07/24 10:24 07/07/24 08:28 07/07/24 10:24 07/07/24 06:30 07/06/24 16:00 07/06/24 16:00 Narrative Exam General: Awake and in no acute distress. Severe hearing loss noted HEENT: Normocephalic, atraumatic, mucous membranes dry. Heart: Regular rate and rhythm, no murmurs. Lungs: Clear to auscultation with no wheezing or crackles. Abdomen: Soft, nondistended, nontender, positive bowel sounds. ?No guarding or rebound tenderness. Neurologic: Alert and awake 2, no gross neurological deficit, and patient able to move all 4 extremities. Extremities: No edema. Skin: No rash or ecchymoses. Objective Labs 07/08/24 05:35 07/08/24 05:35 Labs: Laboratory Results - last 24 hr 07/06/24 07/07/24 10:03 04:03 WBC 10.3 RBC 3.39 L Hgb 11.1 L Hct 32.3 L MCV 95 MCH 32.7 MCHC 34.4 RDW Std Deviation 50.7 H Plt Count 74 L D Neut % (Auto) 91 H Lymph % (Auto) 4 L [place] % (Auto) 4 Eos % (Auto) 0 Baso % (Auto) 0 Neut # (Auto) 9.3 H Lymph # (Auto) 0.4 L [place] # (Auto) 0.4 Eos # (Auto) 0.0 Baso # (Auto) 0.0 Immature Gran # (Auto) 0.11 H Absolute Nucleated RBC 0.00 Immature Gran % 1 H Nucleated RBC % 0 Sodium 143 140 Potassium 5.0 D 3.8 D Chloride 110 H 109 H Carbon Dioxide 21.8 24.6 Anion Gap 11 6 L BUN 57 H 67 H Creatinine 2.8 H D 3.2 H Estim Creat Clear Calc 17.9 L 15.6 L eGFR 21 L 18 L BUN/Creatinine Ratio 20 21 H Glucose 135 H D 172 H Calculated Osmolality 302 H 302 H Calcium 7.9 L D 7.6 L Corrected Calcium 8.5 8.4 L Magnesium 1.9 Total Bilirubin 1.2 D 0.9 AST 101 H 60 H ALT 53 H 42 Alkaline Phosphatase 39 L D 36 L Total Protein 5.3 L 4.9 L Albumin 3.3 L D 3.0 L Globulin 2.0 L 1.9 L Albumin/Globulin Ratio 1.7 1.6 Random Vancomycin 8.5 Misc Test Result Platelets confirmed Quality Measures Quality Measures VTE prophylaxis (SCDs) Advance care planning discussed with:: patient and legal surragate Assessment & Plan Assessment Current Active Medications: Generic Name Dose Route Start Last Admin Trade Name Freq PRN Reason Stop Dose Admin Acetaminophen 650 mg 07/05/24 17:12 07/05/24 19:32 Acetaminophen 325 Mg Tablet PO 08/04/24 17:11 650 mg Q6H PRN Administration pain 1-3 and Fever >100.4 Apixaban 2.5 mg 07/07/24 09:00 07/07/24 08:34 Apixaban 2.5 Mg Tablet PO 08/06/24 08:59 2.5 mg BID ANNETTA Administration Dextrose 25 ml 07/05/24 17:12 Dextrose 50%-Water Inj 50 Ml Syringe IV 08/04/24 17:11 Q15MIN PRN BG 50-70 responsive npo pt Dextrose 50 ml 07/05/24 17:12 Dextrose 50%-Water Inj 50 Ml Syringe IV 08/04/24 17:11 Q15MIN PRN BG <50 OR BG <70 & pt unresponsive Glucagon 1 mg 07/05/24 17:12 Glucagon Inj 1 Mg Vial IM Q15MIN PRN BG <70, and no IV access Piperacillin/Tazobactam/Dextrose 50 mls @ 12.5 mls/hr 07/05/24 21:00 07/07/24 08:34 Zosyn IV 07/12/24 20:59 12.5 mls/hr Q12HR ANNETTA Administration Protocol Norepinephrine/Dextrose 8 mg in 250 mls @ 6.166 mls/hr 07/05/24 21:23 07/07/24 06:55 Levophed In D5w 8mg/250ml IV 08/04/24 21:22 0.15 mcg/kg/min .Q24H PRN 18.498 mls/hr PER PROTOCOL Titration Protocol 0.05 MCG/KG/MIN Amiodarone HCl/Dextrose 360 mg in 200 mls @ 16.667 mls/hr 07/07/24 09:17 07/07/24 10:24 Nexterone Ivpb IV 07/08/24 09:16 16.667 mls/hr .Q12H ANNETTA Administration Insulin Human Lispro 0 unit 07/05/24 18:15 07/07/24 06:02 Insulin Lispro (Admelog) 1 Unit/0.01 Ml Unit SC 08/04/24 18:14 2 unit Q6H ANNETTA Administration Protocol Metoprolol Tartrate 2.5 mg 07/07/24 03:11 07/07/24 03:17 Metoprolol Tartrate Inj 1 Mg/Ml Amp 5 Ml IVP 2.5 mg Q5M PRN Administration AFIB RVR HR >140 Midodrine 5 mg 07/07/24 14:00 Midodrine 5 Mg Tablet PO 08/06/24 13:59 TID ANNETTA Prochlorperazine Maleate 10 mg 07/05/24 17:12 07/06/24 20:17 Prochlorperazine Maleate 5 Mg Tablet PO 08/04/24 17:11 10 mg Q6H PRN Administration NAUSEA OR VOMITING Sennosides 1 tab 07/05/24 17:12 Senna Tablet PO 08/04/24 17:11 QDAY PRN constipation Protocol Plan 84-year-old male admitted to the ICU for septic shock requiring pressors. 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 likely due to septic shock -Patient was alert, awake and became oriented and patient mental status is back to his baseline. Cardio: #Shock- likely septic shock #Elevated troponin, type II in the setting of shock #Hx of HTN Etiology of the shock is likely septic due to UTI. Patient presented to the emergency department meeting septic shock criteria requiring pressors after 3 L of fluid. Troponins: 0.119 -> 0.138 -> 0.178 > 0.136 Currently pt is has a regular rate and rhtyhm with present P waves, even though in the ED his EKG showed AFib Echo in 2021 showed normal LV with EF 60% NICOM showed fluid responsiveness w/ 250cc bolus on 07/05/2024 POCUS showed IVC size approx <2cm with notable distensibility and collapsibility NICOM done on 07/06/2024 with passive leg raise showed fluid responsiveness and patient was given a bolus of LR Patient vasopressors needs found to be decreasing and the Levophed is down titrated from last night. Plan: -cont levophed -maintain MAP >65 -Will continue Zosyn -Vancomycin continued as MRSA screen came back negative # New onset atrial fibrillation with rapid ventricular rate -Likely in the setting of septic shock -Patient supposedly had A-fib at the time of admission to the hospital but spontaneously reverted to normal sinus rhythm. -Developed new onset A-fib on 07/06/2024 overnight -Received 2.5 Mg of metoprolol tartrate, 150 Mg of amiodarone bolus and started on amiodarone drip -Based on [id number] score, patient was started on Eliquis 2.5 Mg twice daily due to his renal functions occasionally Plan -Will continue the amiodarone drip and continue Eliquis 2.5 Mg twice daily p.o. Pulm: #Acute hypoxic respiratory failure, resolved # Likely aspiration pneumonia # History of remote smoking CXR seemed normal Procal 15.78 at the time of admission Plan: -Patient is off oxygen and able to maintain saturations on room air -cont antibiotics (see ID section) -duoneds as needed GI: #Elevated T Bili, resolved Likely elevated in the setting of sepsis Patient denied abdominal pain Abdomen/pelvis CT showed cholelithiasis Gallbladder ultrasound showed gallbladder sludge but no cholelithiasis and cannot accurately assess gallbladder. Common bile duct was not distended. Occasional PVCs T bilirubin 1.8, alkaline phosphatase 62 -Within normal limits on 07/07/2024 Renal: #RAND- likely prerenal #Mild bilateral hydronephrosis Likely prerenal in the setting of poor oral intake dehydration with overlapping septic shock Patient presented with a creatinine of 2.3, BUN 46, EGFR of 27 with a UA showing 2+ proteins, 3+ glucose, 3+ blood, RBC and very elevated WBC with 4+ bacteria. Since admission patient has produce appropriate amount of urine output Renal ultrasound in 2021 also showed mild to moderate bilateral hydronephrosis Renal functions continue to decline but the urine output is maintained well Plan: -Will continue to monitor renal function panel and urinary output -Will avoid nephrotoxic medication and renally dose the medications. Endo: #NonInsulin-dependent type 2 diabetes Last a1c was 5.9 (2022) Plan: -ISS protocol -hold home DM meds Heme: #Thrombocytopenia Likely in the setting of sepsis No history of bleeding manifestations right now Will continue to monitor CBC ID: #Septic Shock #Complicated UTI #? Aspiration pneumonia #Hx of Klebsiella ESBL UTI Patient is having indwelling catheter since 2019 and the catheter is changed once in every 4 weeks according to his grandson, recent Farias catheter change was 2 weeks back Patient is febrile. Patient has hx of repeated UTI with klebsiella pna ESBL in the past. U/A consistant with UTI, farias output is dark Elevated procalcitonin is noted blood cultures and urine cultures grew gram- negative rods Plan: - zosyn (07/05 -) as the patient's blood and urine cultures grew gram-negative rods, urine cultures grew Klebsiella pneumonia sensitive to Zosyn -Discontinued vancomycin as MRSA screen came back negative and cultures grew gram-negative rods : #Hematuria, acute #BPH, chronic -indwelling catheter since 2019 Lew hematuria likely secondary to traumatic insertion of a Farias. Patient came in with a indwelling catheter Patient has a history of BPH which he takes tamsulosin and finasteride. His BPH is likely contributing to his post renal RAND and hydronephrosis. Plan: -cont finasteride Skin/MSK: stable ICU Health maintenance: Mechanical ventilation: none Sedation: none Pressors: Levophed FEN: Passed swallow evaluation DVT ppx: SCDs GI ppx: none Farias: yes (placed on 07/05) IV lines: 3 PVs Central line: none Arterial line: none Code status: FULL code Dispo: ICU - Patient's care was discussed with my attending physician, Dr. Mcmanus and senior resident Dr. Canelo Morales, PGY1
--- NOTE | 2024-07-07 11:49 | PD.INTPROG ---
Documentation for date of: 07/07/24 Subjective Subjective Interval history: 84yo M who was brought to the ER for problems with his chronic Farias and concern for abdominal pain. The patient apparently lives at home with family. Overnight he was recently admitted to telemetry with a diagnosis of sepsis and UTI versus pneumonia. He received 2 L of IV fluids in the ER. His blood pressure was soft on the floor and he was given additional liter of fluid however remained hypotensive and therefore brought to the ICU. On arrival to the ICU a PLR was performed and he was found to be fluid responsive. An additional liter of IV fluid was given and vasopressors were started. This morning the patient is awake and alert though appears to be confused. His baseline is unclear though there are reports of dementia. He does still appear to have some abdominal discomfort. 07/07-no acute overnight events, today the patient appears more awake and conversant, afebrile today, developed A-fib overnight and Amio started Critical Care Note Critical care time (min.): 38 Exam Vital Signs Temp Pulse Resp BP Pulse Ox O2 Del Method O2 Flow Rate 98.0 F 131 H 17 91/66 95 Mechanical Ventilation 1 07/07/24 08:00 07/07/24 11:30 07/07/24 11:30 07/07/24 11:30 07/07/24 11:30 07/07/24 11:00 07/06/24 16:00 FiO2 100 07/07/24 11:00 Narrative Exam General-no acute distress, awake alert and conversant, elderly and frail HEENT-normocephalic, atraumatic, sclera anicteric, oral mucosa still dry, poor dentition, EOMI Chest-lungs clear to auscultation bilaterally, heart rate irregular, tacky, no increased work of breathing Abdomen-soft, nontender, bowel sounds present Extremities-no edema, pulses palpable, no clubbing or cyanosis, no mottling Physical Exam Completion Physical Exam Complete?: Yes 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 07/07/24 04:03 07/07/24 04:03 Labs: Laboratory Results - last 24 hr 07/07/24 04:03 WBC 10.3 RBC 3.39 L Hgb 11.1 L Hct 32.3 L MCV 95 MCH 32.7 MCHC 34.4 RDW Std Deviation 50.7 H Plt Count 74 L D Neut % (Auto) 91 H Lymph % (Auto) 4 L [place] % (Auto) 4 Eos % (Auto) 0 Baso % (Auto) 0 Neut # (Auto) 9.3 H Lymph # (Auto) 0.4 L [place] # (Auto) 0.4 Eos # (Auto) 0.0 Baso # (Auto) 0.0 Immature Gran # (Auto) 0.11 H Absolute Nucleated RBC 0.00 Immature Gran % 1 H Nucleated RBC % 0 Sodium 140 Potassium 3.8 D Chloride 109 H Carbon Dioxide 24.6 Anion Gap 6 L BUN 67 H Creatinine 3.2 H Estim Creat Clear Calc 15.6 L eGFR 18 L BUN/Creatinine Ratio 21 H Glucose 172 H Calculated Osmolality 302 H Calcium 7.6 L Corrected Calcium 8.4 L Magnesium 1.9 Total Bilirubin 0.9 AST 60 H ALT 42 Alkaline Phosphatase 36 L Total Protein 4.9 L Albumin 3.0 L Globulin 1.9 L Albumin/Globulin Ratio 1.6 Random Vancomycin 8.5 Misc Test Result Platelets confirmed Assessment & Plan Additional Assessment Additional Assessment: In summary this is a 84yo M admitted for septic shock 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 dementia -> today resolved. Yesterday's confusion was likely due to encephalopathy secondary to his sepsis CV Shock- hemodynamics checked and found to have a low SVR, received 4lts of IVF, CI wnl, at this time felt to have distributive shock 2/2 sepsis , Bcx and Ucx show GNR, currently on antibiotics. Follow-up on echocardiogram wean Levophed as able. Will repeat a passive leg raise to see if the patient is fluid responsive as he still has dry mucous membranes. -Still requiring Levophed today -No longer fluid responsive -Started on midodrine Troponinemia- in the setting of RAND, likely related to demand ischemia, trending down -Echo results noted Resp ? community-acquired pneumonia-patient's chest x-ray was read as pneumonia however appears clear for the most part, follow-up on sputum cultures currently being covered with antibiotics for his UTI, his lung exam is clear -At this point in time does not appear to have respiratory issues Renal Acute kidney injury-slight increase with this a.m.'s lab. Likely prerenal and secondary to hypoperfusion from patient's shock. Possibility of ATN also exists. Monitor patient's urinary output currently has a good urinary output -Creatinine continues to trend up -Remains with a good urinary output -Likely related to ATN Lactic acidosis-trending down after IV fluids GI Abd pain- pain on palp, CT shows some gallbladder sludge, US none conclusive, does have UTI -Today pain appears to have resolved -Likely related to his UTI Transaminitis-likely related to hypotension and ischemic insult -Trending down today Endo DM- on SSI Heme Leukocytosis- related to infectious process Anemia- mild, near baseline -Some drop likely hemodilution Thrombocytopenia- likely related to sepsis -Slight decrease today DVT proph- lovenox ID Sepsis- on zosyn, bcx and Ucx show GNR -ESBL Klebsiella growing in the urine -Does appear to be sensitive to Zosyn -Blood culture speciation still pending UTI- 2/2 chronic farias, on zosyn, growing a Kleb pneumo ESBL case d/w ICU team labs, imaging , records reviewed ~38cc min required for eval, exam, review, intervention, discussion and formulation of POC for this critically ill pt with septic shock on vasopressors Provider Notation Provider Notation: Although this document has been carefully reviewed, there may still be some phonetic and other typographical errors. These errors are purely grammatical due to imperfections in the software program and should not be construed in any way to compromise the substance of the patient's medical care during this visit. Thank you for the opportunity and privilege in assisting you with this patient's care and management.
[2024-07-07] MEDS: MIDODRINE 5 MG TABLET PO ×2 (14:59→21:01)
[2024-07-07] MEDS: Norepinephrine/D5W 8mg/250ml 8 MG/250 ML BAG 8.632 MG IV (18:45)
[2024-07-08] VITALS (104 sets, daily range): BP systolic 52–165; BP diastolic 37–124; PULSE 101–173; RESP 15–95; TEMP 36.3–37.1; O2SAT 91–97
[2024-07-08] MEDS: AMIODARONE 360 MG IVPB 360 MG/200 ML BAG 16.667 MG IV (00:04)
[2024-07-08] MEDS: INSULIN LISPRO (AdmeLOG) 1 UNIT/0.01 ML UNIT SC ×3 (05:45→17:58)
[2024-07-08] MEDS: MIDODRINE 5 MG TABLET PO (05:46)
[2024-07-08 06:20] LABS: Basophils % (Auto) 0 % (0-2.5); Eosinophils % (Auto) 0 % (0-10); Hematocrit 32.2 % (41.0-53.0); Hemoglobin 11.1 g/dL (13.5-16.0); Immature Granulocytes % (Auto) 1 % (0-0); Immature Granulocytes Auto 0.07 Thou/mm3 (0.00-0.00); Lymphocytes # (Auto) 0.3 Thou/mm3 (1.0-4.8); Lymphocytes % (Auto) 4 % (10-50); Mean Corpuscular HGB Conc 34.5 g/dl (31.0-37.0); Mean Corpuscular Hemoglobin 32.6 pg (25.0-35.0); Mean Corpuscular Volume 94 fL (80-100); Monocytes # (Auto) 0.4 Thou/mm3 (0.0-0.8); Monocytes % (Auto) 4 % (0-12); Neutrophils # (Auto) 7.5 Thou/mm3 (1.8-7.7); Neutrophils % (Auto) 91 % (37-80); Nucleated Red Blood Cell % 0 /100 WBC (0); RDW Standard Deviation 50.6 fL (35.1-43.9); Red Blood Count 3.41 Miln/mm3 (4.50-5.90); White Blood Count 8.3 Thou/mm3 (3.8-10.6)
[2024-07-08 06:41] LABS: Platelet Count 54 Thou/mm3 (140-440); Slide Review Platelets confirmed
[2024-07-08 06:47] LABS: Alanine Aminotransferase 32 U/L (10-49); Albumin, Serum 2.9 gm/dL (3.4-4.8); Albumin/Globulin Ratio 1.5 (1.2-2.2); Alkaline Phosphatase 52 U/L (46-116); Anion Gap 8 (7-16); Aspartate Amino Transferase 30 U/L (0-34); BUN/Creatinine Ratio 22 Ratio (12-20); Bilirubin,Total 0.6 mg/dL (0.3-1.2); Blood Urea Nitrogen 78 mg/dL (9-23); Calcium 7.9 mg/dL (8.3-10.6); Calcium (Corrected) 8.8 mg/dL (8.5-10.1); Carbon Dioxide 23.7 mMol/L (20.0-31.0); Chloride 103 mMol/L (98-107); Creatinine (Component) 3.6 mg/dL (0.6-1.3); Estimated Creatinine Clearance 15.2 mL/min (>60); Globulin 1.9 gm/dL (2.3-3.5); Glucose 185 mg/dL (74-106); Magnesium 2.3 mg/dL (1.6-2.6); Osmolality,Calculated 298 (275-295); Potassium 3.5 mMol/L (3.4-5.1); Sodium 135 mMol/L (136-145); Total Protein 4.8 gm/dL (5.7-8.2); Vancomycin,Random 6.4 mcg/mL; eGFR 16 See Note
[2024-07-08] MEDS: APIXABAN 2.5 MG TABLET PO ×2 (09:56→20:59)
[2024-07-08] MEDS: METOPROLOL TARTRATE 25 MG TABLET 12.5 MG PO (09:56)
[2024-07-08] MEDS: PIPER/TAZO 3.375 GM 50 ML IV ×2 (09:56→20:45)
[2024-07-08] MEDS: AMIODARONE 150 MG IVPB 150 MG/100 ML BAG 582.524 MG IV (09:57)
--- NOTE | 2024-07-08 10:15 | ESPR_ITS ---
<Statement entered by Izabela Lemos MD - 07/11/24 06:59> Patient was seen and examined by me personally. I have directly supervised and reviewed the above documentation by the team resident and agree with its findings with any exceptions or additional findings as below. Plan of care was discussed with the attending, Dr. Contreras. Izabela Lemos, PGY-2 Documentation for date of: 07/08/24 Subjective Subjective Interval history: 07/06/2024 : Patient was seen and examined bedside in ICU. Patient had severe hearing loss and had to communicate him in a higher pitch but overall patient appears to be alert awake and oriented. Able to answer questions appropriately. Vitals are stable. On physical examination, patient still appears dehydrated. His renal functions continue to decline despite giving IV fluids. Repeat NICOM study was done on patient and passive leg rise which showed fluid responsiveness and patient was given an additional 1 L of LR bolus. Patient overall condition seems to be improving and urine output is adequate. NICOM was repeated again at 3 PM and did not show any fluid responsiveness. Patient is still on Levophed and will continue to monitor vital signs. 07/07/2024 : Patient was seen and examined bedside. Overnight patient had atrial fibrillation with rapid ventricular rate for which he received 2.5 Mg of metoprolol tartrate, 150 Mg of amiodarone bolus and was started on amiodarone drip. Based on [id number] or, patient should be on anticoagulation but in view of his declined renal functions and age, dose was reduced to 2.5 Mg twice daily. His Levophed dose is increased overnight. Patient had severe hearing loss but overall mental status appears to be normal and complaining of palpitations. Denies abdominal pain, chest pain, vomitings. Labs showed declining renal functions but as the urine output is maintained well, will continue to monitor renal functions and urine output. His WBC count, liver enzymes appears to be improved. Will continue to monitor his blood pressures and midodrine is added. As MRSA screen came back negative, vancomycin is discontinued and will continue Zosyn in view of gram-negative rods bacteremia. 07/08/2024 : Patient was seen and examined bedside in the ICU. Overnight, patient's Levophed dose is down titrated. Physical examination remains unchanged. Vitals are stable with MAP > 65 mmHg. Urine output is adequate. Patient is still on amiodarone drip. Labs showed thrombocytopenia, still worsening renal functions. Blood cultures showed Klebsiella pneumoniae. As the patient's blood pressures are well-maintained, Levophed and midodrine is stopped. A bolus of 150 Mg of amiodarone is given in view of atrial fibrillation with rapid ventricular rate and amiodarone drip still continued. Metoprolol tartrate 12.5 Mg p.o. twice daily is added for further rate control and will titrate according to the blood pressures and heart rate. As the urine output is well-maintained despite worsening creatinine and BUN, will continue to monitor the patient's as patient seems to be likely in ATN secondary to prerenal RAND. Exam Vital Signs Temp Pulse Resp BP Pulse Ox O2 Del Method O2 Flow Rate 98.5 F 112 H 19 100/66 93 L Room Air 1 07/08/24 08:00 07/08/24 09:57 07/08/24 09:30 07/08/24 09:57 07/08/24 09:30 07/08/24 08:00 07/06/24 16:00 FiO2 100 07/07/24 11:00 Narrative Exam General: Awake and in no acute distress. Severe hearing loss noted HEENT: Normocephalic, atraumatic, mucous membranes dry. Heart: Regular rate and rhythm, no murmurs. Lungs: Clear to auscultation with no wheezing or crackles. Abdomen: Soft, nondistended, nontender, positive bowel sounds. ?No guarding or rebound tenderness. Suprapubic tenderness noted. Neurologic: Alert and awake X 3, no gross neurological deficit, and patient able to move all 4 extremities. Extremities: No edema. Skin: No rash. ecchymoses noted in right hand - iatrogenic Objective Labs 07/19/24 05:03 07/19/24 16:36 Labs: Laboratory Results - last 24 hr 07/08/24 05:35 WBC 8.3 RBC 3.41 L Hgb 11.1 L Hct 32.2 L MCV 94 MCH 32.6 MCHC 34.5 RDW Std Deviation 50.6 H Plt Count 54 L D Neut % (Auto) 91 H Lymph % (Auto) 4 L Mcpherson % (Auto) 4 Eos % (Auto) 0 Baso % (Auto) 0 Neut # (Auto) 7.5 Lymph # (Auto) 0.3 L Mcpherson # (Auto) 0.4 Eos # (Auto) 0.0 Baso # (Auto) 0.0 Immature Gran # (Auto) 0.07 H Absolute Nucleated RBC 0.00 Immature Gran % 1 H Nucleated RBC % 0 Sodium 135 L Potassium 3.5 Chloride 103 Carbon Dioxide 23.7 Anion Gap 8 BUN 78 H Creatinine 3.6 H Estim Creat Clear Calc 15.2 L eGFR 16 L BUN/Creatinine Ratio 22 H Glucose 185 H Calculated Osmolality 298 H Calcium 7.9 L Corrected Calcium 8.8 Magnesium 2.3 Total Bilirubin 0.6 AST 30 ALT 32 Alkaline Phosphatase 52 D Total Protein 4.8 L Albumin 2.9 L Globulin 1.9 L Albumin/Globulin Ratio 1.5 Random Vancomycin 6.4 Misc Test Result Platelets confirmed Quality Measures Quality Measures VTE prophylaxis (SCDs) Advance care planning discussed with:: patient Assessment & Plan Assessment Current Active Medications: Generic Name Dose Route Start Last Admin Trade Name Freq PRN Reason Stop Dose Admin Acetaminophen 650 mg 07/05/24 17:12 07/05/24 19:32 Acetaminophen 325 Mg Tablet PO 08/04/24 17:11 650 mg Q6H PRN Administration pain 1-3 and Fever >100.4 Apixaban 2.5 mg 07/07/24 09:00 07/08/24 09:56 Apixaban 2.5 Mg Tablet PO 08/06/24 08:59 2.5 mg BID ANNETTA Administration Dextrose 25 ml 07/05/24 17:12 Dextrose 50%-Water Inj 50 Ml Syringe IV 08/04/24 17:11 Q15MIN PRN BG 50-70 responsive npo pt Dextrose 50 ml 07/05/24 17:12 Dextrose 50%-Water Inj 50 Ml Syringe IV 08/04/24 17:11 Q15MIN PRN BG <50 OR BG <70 & pt unresponsive Glucagon 1 mg 07/05/24 17:12 Glucagon Inj 1 Mg Vial IM Q15MIN PRN BG <70, and no IV access Piperacillin/Tazobactam/Dextrose 50 mls @ 12.5 mls/hr 07/05/24 21:00 07/08/24 09:56 Zosyn IV 07/12/24 20:59 12.5 mls/hr Q12HR ANNETTA Administration Protocol Norepinephrine/Dextrose 8 mg in 250 mls @ 6.166 mls/hr 07/05/24 21:23 07/08/24 07:30 Levophed In D5w 8mg/250ml IV 08/04/24 21:22 0 mcg/kg/min .Q24H PRN 0 mls/hr PER PROTOCOL Titration Protocol 0.05 MCG/KG/MIN Insulin Human Lispro 0 unit 07/05/24 18:15 07/08/24 05:45 Insulin Lispro (Admelog) 1 Unit/0.01 Ml Unit SC 08/04/24 18:14 1 unit Q6H ANNETTA Administration Protocol Metoprolol Tartrate 2.5 mg 07/07/24 03:11 07/07/24 03:17 Metoprolol Tartrate Inj 1 Mg/Ml Amp 5 Ml IVP 2.5 mg Q5M PRN Administration AFIB RVR HR >140 Metoprolol Tartrate 12.5 mg 07/08/24 10:00 07/08/24 09:56 Metoprolol Tartrate 25 Mg Tablet PO 08/07/24 09:59 12.5 mg BID ANNETTA Administration Prochlorperazine Maleate 10 mg 07/05/24 17:12 07/06/24 20:17 Prochlorperazine Maleate 5 Mg Tablet PO 08/04/24 17:11 10 mg Q6H PRN Administration NAUSEA OR VOMITING Sennosides 1 tab 07/05/24 17:12 Senna Tablet PO 08/04/24 17:11 QDAY PRN constipation Protocol Plan 84-year-old male admitted to the ICU for septic shock requiring pressors. [employer]: # Acute encephalopathy, resolved. likely due to septic shock -Patient was alert, awake and became oriented and patient mental status is back to his baseline. Cardio: #Shock- likely septic shock #Elevated troponin, type II in the setting of shock #Hx of HTN Etiology of the shock is likely septic due to UTI. Patient presented to the emergency department meeting septic shock criteria requiring pressors after 3 L of fluid. Troponins: 0.119 -> 0.138 -> 0.178 > 0.136 Currently pt is has a regular rate and rhtyhm with present P waves, even though in the ED his EKG showed AFib Echo in 2021 showed normal LV with EF 60% NICOM showed fluid responsiveness w/ 250cc bolus on 07/05/2024 POCUS showed IVC size approx <2cm with notable distensibility and collapsibility NICOM done on 07/06/2024 with passive leg raise showed fluid responsiveness and patient was given a bolus of LR Patient vasopressors needs found to be decreasing and the Levophed is down titrated from last night. Plan: -levophed and midodrine - stopped this morning as the patients MAP is maintaining well. -maintain MAP >65 -Will continue Zosyn # New onset atrial fibrillation with rapid ventricular rate -Likely in the setting of septic shock -Patient supposedly had A-fib at the time of admission to the hospital but spontaneously reverted to normal sinus rhythm. -Developed new onset A-fib on 07/06/2024 overnight -Received 2.5 Mg of metoprolol tartrate, 150 Mg of amiodarone bolus and started on amiodarone drip -Based on [id number] score, patient was started on Eliquis 2.5 Mg twice daily due to his renal functions occasionally Plan -Will continue the amiodarone drip and Eliquis 2.5 Mg twice daily p.o. -A bolus of 150mg of amiodarone is given and started metoprolol tartarate 12.5 mg p.o. BID Pulm: #Acute hypoxic respiratory failure, resolved # Likely aspiration pneumonia # History of remote smoking CXR seemed normal Procal 15.78 at the time of admission Plan: -Patient is off oxygen and able to maintain saturations on room air -cont antibiotics (see ID section) -duoneds as needed GI: #Elevated T Bili, Transaminitis - resolved Likely elevated in the setting of sepsis Patient denied abdominal pain Abdomen/pelvis CT showed cholelithiasis Gallbladder ultrasound showed gallbladder sludge but no cholelithiasis and cannot accurately assess gallbladder. Common bile duct was not distended. Occasional PVCs T bilirubin 1.8, alkaline phosphatase 62 -Within normal limits on 07/07/2024 Renal: #RAND- likely prerenal leading to Acute tubular necrosis #Mild bilateral hydronephrosis Likely prerenal in the setting of poor oral intake dehydration with overlapping septic shock and resulting in ATN. Patient presented with a creatinine of 2.3, BUN 46, EGFR of 27 with a UA showing 2+ proteins, 3+ glucose, 3+ blood, RBC and very elevated WBC with 4+ bacteria. Since admission patient has produce appropriate amount of urine output Renal ultrasound in 2021 also showed mild to moderate bilateral hydronephrosis Renal functions continue to decline but the urine output is maintained well Plan: -Will continue to monitor renal function panel and urinary output -Will avoid nephrotoxic medication and renally dose the medications. Endo: #NonInsulin-dependent type 2 diabetes Last a1c was 5.9 (2022) Plan: -ISS protocol -hold home DM meds Heme: #Thrombocytopenia Likely in the setting of sepsis No history of bleeding manifestations right now Will continue to monitor CBC ID: #Septic Shock - klebsiella pneumonia bacteremia #Complicated UTI #? Aspiration pneumonia #Hx of Klebsiella ESBL UTI Patient is having indwelling catheter since 2019 and the catheter is changed once in every 4 weeks according to his grandson, recent Farias catheter change was 2 weeks back Patient is febrile. Patient has hx of repeated UTI with klebsiella pna ESBL in the past. U/A consistant with UTI, farias output is dark Elevated procalcitonin is noted. blood cultures and urine cultures grew klebsiella pneumonia Plan: - zosyn (07/05 -) as the patient's blood and urine cultures grew Klebsiella pneumonia sensitive to Zosyn -Discontinued vancomycin as MRSA screen came back negative and cultures grew gram-negative rods on 07/07 : #Hematuria, acute #BPH, chronic -indwelling catheter since 2019 Lew hematuria likely secondary to traumatic insertion of a Farias. Patient came in with a indwelling catheter Patient has a history of BPH which he takes tamsulosin and finasteride. His BPH is likely contributing to his post renal RAND and hydronephrosis. Plan: -cont finasteride Skin/MSK: stable ICU Health maintenance: Mechanical ventilation: none Sedation: none Pressors:none FEN: carbohydrate consistent diet DVT ppx: SCDs GI ppx: none Farias: yes (placed on 07/05) IV lines: 3 PVs Central line: none Arterial line: none Code status: FULL code Dispo: ICU Patient's care was discussed with my attending physician, Dr. Contreras and senior resident Dr. Canelo Morales, PGY1 Attending Provider Attestation/Addendum Patient seen and examined with the above resident, Eleazar Morales MD. I agree with the findings, assessment, and plan of care as documented except for any differences below. Patient with klebsiella bacteremia and course of hospitalization complicated by septic chock and atrial fibrillation with RVR. Patient able to be weaned off levophed and will stop midodrine as no indication for this at this moment. Patient remains on appropriate antibiotic regimen with planned 2 week course. Patient also on metoprolol, will stop this and attempt control with amiodarone for now. Remains on appropriate anticoagulation at this time. Mentation appears to be at baseline and he is very hard of hearing but able to follow. Patient started on diet with minimal intake. Will monitor response of dysrhythmia for now and assess ability to transfer based on hemodynamics with midodrine now discontinued. Patient appears euvolemic now, monitor renal function with farias in place for retention and likely source of infection. Will make sure farias has been changed on this admission as well. Total critical care time: I personally spent 40 minutes for review of physiologic parameters and directing plan of care throughout the day. This is exclusive of time spent teaching housestaff or performing any separate billable procedures. Patient continues to require critical care services for septic shock and atrial fibrillation with poor rate control with continued increased risk of further morbidity and high mortality.
[2024-07-08] MEDS: FINASTERIDE 5 MG TABLET PO (12:38)
--- NOTE | 2024-07-08 15:13 | PC.SS ---
Update: Patient on room air. Pressors started today. Patient P.O. feeding. Rollins catheter in place.
[2024-07-08] MEDS: AMIODARONE 150 MG IVPB 150 MG/100 ML BAG 600 MG IV (21:00)
[2024-07-08] MEDS: AMIODARONE 360 MG IVPB 360 MG/200 ML BAG 33.333 MG IV (21:07)
[2024-07-08] MEDS: Norepinephrine/D5W 8mg/250ml 8 MG/250 ML BAG 28.364 MG IV (23:13)
[2024-07-09] VITALS (122 sets, daily range): BP systolic 48–132; BP diastolic 37–90; PULSE 87–141; RESP 0–98; TEMP 36.2–36.8; O2SAT 91–98; BMI 25.1
[2024-07-09] MEDS: AMIODARONE 360 MG IVPB 360 MG/200 ML BAG 16.667 MG IV ×2 (03:09→15:45)
[2024-07-09] MEDS: INSULIN LISPRO (AdmeLOG) 1 UNIT/0.01 ML UNIT SC ×2 (05:54→18:15)
[2024-07-09 06:16] LABS: Basophils % (Auto) 0 % (0-2.5); Eosinophils % (Auto) 0 % (0-10); Hematocrit 35.5 % (41.0-53.0); Hemoglobin 12.3 g/dL (13.5-16.0); Immature Granulocytes % (Auto) 2 % (0-0); Immature Granulocytes Auto 0.16 Thou/mm3 (0.00-0.00); Lymphocytes # (Auto) 0.6 Thou/mm3 (1.0-4.8); Lymphocytes % (Auto) 6 % (10-50); Mean Corpuscular HGB Conc 34.6 g/dl (31.0-37.0); Mean Corpuscular Hemoglobin 31.9 pg (25.0-35.0); Mean Corpuscular Volume 92 fL (80-100); Monocytes # (Auto) 0.8 Thou/mm3 (0.0-0.8); Monocytes % (Auto) 8 % (0-12); Neutrophils # (Auto) 8.6 Thou/mm3 (1.8-7.7); Neutrophils % (Auto) 85 % (37-80); Nucleated Red Blood Cell % 0 /100 WBC (0); Platelet Count 54 Thou/mm3 (140-440); RDW Standard Deviation 50.8 fL (35.1-43.9); Red Blood Count 3.85 Miln/mm3 (4.50-5.90); White Blood Count 10.2 Thou/mm3 (3.8-10.6)
[2024-07-09 06:17] LABS: Slide Review Platelets confirmed
[2024-07-09 06:42] LABS: Alanine Aminotransferase 29 U/L (10-49); Albumin, Serum 3.1 gm/dL (3.4-4.8); Albumin/Globulin Ratio 1.5 (1.2-2.2); Alkaline Phosphatase 70 U/L (46-116); Anion Gap 13 (7-16); Aspartate Amino Transferase 26 U/L (0-34); BUN/Creatinine Ratio 22 Ratio (12-20); Bilirubin,Total 0.8 mg/dL (0.3-1.2); Blood Urea Nitrogen 96 mg/dL (9-23); Calcium 8.2 mg/dL (8.3-10.6); Calcium (Corrected) 8.9 mg/dL (8.5-10.1); Carbon Dioxide 19.5 mMol/L (20.0-31.0); Chloride 102 mMol/L (98-107); Creatinine (Component) 4.3 mg/dL (0.6-1.3); Estimated Creatinine Clearance 12.7 mL/min (>60); Globulin 2.1 gm/dL (2.3-3.5); Glucose 221 mg/dL (74-106); Osmolality,Calculated 304 (275-295); Potassium 3.9 mMol/L (3.4-5.1); Sodium 134 mMol/L (136-145); Total Protein 5.2 gm/dL (5.7-8.2); eGFR 13 See Note
[2024-07-09] MEDS: Norepinephrine/D5W 8mg/250ml 8 MG/250 ML BAG 25.897 MG IV (08:24)
[2024-07-09] MEDS: PHENYLEPHRINE HCL 40 MG in SODIUM CHLORIDE 0.9% 96 ML 5.955 MG IV (09:21)
[2024-07-09] MEDS: PIPER/TAZO 3.375 GM 50 ML IV ×3 (09:34→21:07)
[2024-07-09] MEDS: ONDANSETRON INJ 2 MG/ML INJ 2 ML 4 MG IV (09:44)
--- NOTE | 2024-07-09 11:01 | ESPR_ITS ---
Documentation for date of: 07/09/24 Subjective Subjective Interval history: 07/06/2024 : Patient was seen and examined bedside in ICU. Patient had severe hearing loss and had to communicate him in a higher pitch but overall patient appears to be alert awake and oriented. Able to answer questions appropriately. Vitals are stable. On physical examination, patient still appears dehydrated. His renal functions continue to decline despite giving IV fluids. Repeat NICOM study was done on patient and passive leg rise which showed fluid responsiveness and patient was given an additional 1 L of LR bolus. Patient overall condition seems to be improving and urine output is adequate. NICOM was repeated again at 3 PM and did not show any fluid responsiveness. Patient is still on Levophed and will continue to monitor vital signs. 07/07/2024 : Patient was seen and examined bedside. Overnight patient had atrial fibrillation with rapid ventricular rate for which he received 2.5 Mg of metoprolol tartrate, 150 Mg of amiodarone bolus and was started on amiodarone drip. Based on [id number] or, patient should be on anticoagulation but in view of his declined renal functions and age, dose was reduced to 2.5 Mg twice daily. His Levophed dose is increased overnight. Patient had severe hearing loss but overall mental status appears to be normal and complaining of palpitations. Denies abdominal pain, chest pain, vomitings. Labs showed declining renal functions but as the urine output is maintained well, will continue to monitor renal functions and urine output. His WBC count, liver enzymes appears to be improved. Will continue to monitor his blood pressures and midodrine is added. As MRSA screen came back negative, vancomycin is discontinued and will continue Zosyn in view of gram-negative rods bacteremia. 07/08/2024 : Patient was seen and examined bedside in the ICU. Overnight, patient's Levophed dose is down titrated. Physical examination remains unchanged. Vitals are stable with MAP > 65 mmHg. Urine output is adequate. Patient is still on amiodarone drip. Labs showed thrombocytopenia, still worsening renal functions. Blood cultures showed Klebsiella pneumoniae. As the patient's blood pressures are well-maintained, Levophed and midodrine is stopped. A bolus of 150 Mg of amiodarone is given in view of atrial fibrillation with rapid ventricular rate and amiodarone drip still continued. Metoprolol tartrate 12.5 Mg p.o. twice daily is added for further rate control and will titrate according to the blood pressures and heart rate. As the urine output is well-maintained despite worsening creatinine and BUN, will continue to monitor the patient's as patient seems to be likely in ATN secondary to prerenal RAND. 07/09/2024: Patient was seen and examined bedside in the ICU. Patient appears frail and malnourished. Denies any other complaints. Patient still continued to have rapid ventricular rate with rate around 140-150. Labs showed hemoglobin 12.2 platelets count sodium 134, potassium 3.9, bicarb 19.5, BUN 96, creatinine 4.3, albumin 3.1. In view of rapid ventricular rate, Levophed was stopped and phenylephrine is started. Metoprolol is held for now. As the renal functions continue to worsen and the urine output is decreased, started on 5% albumin infusions. Consulted cardiology in need of cardioversion. Exam Vital Signs Temp Pulse Resp BP Pulse Ox O2 Del Method O2 Flow Rate 98.2 F 124 H 17 126/87 H 96 Room Air 1 07/09/24 04:00 07/09/24 10:45 07/09/24 10:45 07/09/24 10:45 07/09/24 10:45 07/08/24 13:00 07/09/24 06:23 FiO2 100 07/07/24 11:00 Narrative Exam General: Awake and in no acute distress. Severe hearing loss noted HEENT: Normocephalic, atraumatic, mucous membranes dry. Heart: Regular rate and rhythm, no murmurs. Lungs: Clear to auscultation with no wheezing or crackles. Abdomen: Soft, nondistended, nontender, positive bowel sounds. ?No guarding or rebound tenderness. Suprapubic tenderness noted. Neurologic: Alert and awake X 3, no gross neurological deficit, and patient able to move all 4 extremities. Extremities: No edema. Skin: No rash. ecchymoses noted in right hand - iatrogenic Objective Labs 07/17/24 07:39 07/16/24 04:48 Labs: Laboratory Results - last 24 hr 07/09/24 05:46 WBC 10.2 RBC 3.85 L Hgb 12.3 L Hct 35.5 L MCV 92 MCH 31.9 MCHC 34.6 RDW Std Deviation 50.8 H Plt Count 54 L Neut % (Auto) 85 H Lymph % (Auto) 6 L [place] % (Auto) 8 Eos % (Auto) 0 Baso % (Auto) 0 Neut # (Auto) 8.6 H Lymph # (Auto) 0.6 L [place] # (Auto) 0.8 Eos # (Auto) 0.0 Baso # (Auto) 0.0 Immature Gran # (Auto) 0.16 H Absolute Nucleated RBC 0.00 Immature Gran % 2 H Nucleated RBC % 0 Sodium 134 L Potassium 3.9 Chloride 102 Carbon Dioxide 19.5 L Anion Gap 13 BUN 96 H Creatinine 4.3 H* D Estim Creat Clear Calc 12.7 L eGFR 13 L* BUN/Creatinine Ratio 22 H Glucose 221 H Calculated Osmolality 304 H Calcium 8.2 L Corrected Calcium 8.9 Total Bilirubin 0.8 AST 26 ALT 29 Alkaline Phosphatase 70 D Total Protein 5.2 L Albumin 3.1 L Globulin 2.1 L Albumin/Globulin Ratio 1.5 Misc Test Result Platelets confirmed Quality Measures Quality Measures VTE prophylaxis (SCDs) Advance care planning discussed with:: patient and child Assessment & Plan Assessment Current Active Medications: Generic Name Dose Route Start Last Admin Trade Name Freq PRN Reason Stop Dose Admin Acetaminophen 650 mg 07/05/24 17:12 07/05/24 19:32 Acetaminophen 325 Mg Tablet PO 08/04/24 17:11 650 mg Q6H PRN Administration pain 1-3 and Fever >100.4 Apixaban 2.5 mg 07/07/24 09:00 07/09/24 08:27 Apixaban 2.5 Mg Tablet PO 08/06/24 08:59 2.5 mg BID ANNETTA Administration Dextrose 25 ml 07/05/24 17:12 Dextrose 50%-Water Inj 50 Ml Syringe IV 08/04/24 17:11 Q15MIN PRN BG 50-70 responsive npo pt Dextrose 50 ml 07/05/24 17:12 Dextrose 50%-Water Inj 50 Ml Syringe IV 08/04/24 17:11 Q15MIN PRN BG <50 OR BG <70 & pt unresponsive Finasteride 5 mg 07/08/24 10:45 07/09/24 08:27 Finasteride 5 Mg Tablet PO 08/07/24 10:44 5 mg QDAY ANNETTA Administration Glucagon 1 mg 07/05/24 17:12 Glucagon Inj 1 Mg Vial IM Q15MIN PRN BG <70, and no IV access Piperacillin/Tazobactam/Dextrose 50 mls @ 12.5 mls/hr 07/05/24 21:00 07/09/24 09:34 Zosyn IV 07/12/24 20:59 12.5 mls/hr Q12HR ANNETTA Administration Protocol Amiodarone HCl/Dextrose 360 mg in 200 mls @ 16.667 mls/hr 07/09/24 03:07 07/09/24 03:09 Nexterone Ivpb IV 07/10/24 03:06 16.667 mls/hr .Q12H ANNETTA Administration Phenylephrine HCl 40 mg/ 100 mls @ 5.955 mls/hr 07/09/24 08:41 07/09/24 09:21 Sodium Chloride IV 08/08/24 08:40 0.5 mcg/kg/min .[id number] PRN 5.955 mls/hr Per Sepsis Protocol Administration Protocol 0.5 MCG/KG/MIN Piperacillin/Tazobactam/Dextrose 50 mls @ 12.5 mls/hr 07/09/24 09:30 07/09/24 09:45 Zosyn IV 07/09/24 13:29 12.5 mls/hr X1 ONE Administration Insulin Human Lispro 0 unit 07/05/24 18:15 07/09/24 05:54 Insulin Lispro (Admelog) 1 Unit/0.01 Ml Unit SC 08/04/24 18:14 3 unit Q6H ANNETTA Administration Protocol Metoprolol Tartrate 2.5 mg 07/07/24 03:11 07/07/24 03:17 Metoprolol Tartrate Inj 1 Mg/Ml Amp 5 Ml IVP 2.5 mg Q5M PRN Administration AFIB RVR HR >140 Metoprolol Tartrate 12.5 mg 07/08/24 10:00 07/09/24 08:42 Metoprolol Tartrate 25 Mg Tablet PO 08/07/24 09:59 12.5 mg BID ANNETTA Administration Ondansetron HCl 4 mg 07/09/24 09:41 07/09/24 09:44 Ondansetron Inj 2 Mg/Ml Inj 2 Ml IV 08/08/24 09:40 4 mg Q6HR PRN Administration NAUSEA OR VOMITING Protocol Prochlorperazine Maleate 10 mg 07/05/24 17:12 07/06/24 20:17 Prochlorperazine Maleate 5 Mg Tablet PO 08/04/24 17:11 10 mg Q6H PRN Administration NAUSEA OR VOMITING Sennosides 1 tab 07/05/24 17:12 Senna Tablet PO 08/04/24 17:11 QDAY PRN constipation Protocol Plan 84-year-old male admitted to the ICU for septic shock requiring pressors. 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 likely due to septic shock -Patient was alert, awake and became oriented and patient mental status is back to his baseline. Cardio: #Shock- likely septic shock,resolving #Elevated troponin, type II in the setting of shock #Hx of HTN Etiology of the shock is likely septic due to UTI. Patient presented to the emergency department meeting septic shock criteria requiring pressors after 3 L of fluid. Troponins: 0.119 -> 0.138 -> 0.178 > 0.136 Currently pt is has a regular rate and rhtyhm with present P waves, even though in the ED his EKG showed AFib Echo in 2021 showed normal LV with EF 60% NICOM showed fluid responsiveness w/ 250cc bolus on 07/05/2024 POCUS showed IVC size approx <2cm with notable distensibility and collapsibility NICOM done on 07/06/2024 with passive leg raise showed fluid responsiveness and patient was given a bolus of LR Levophed is stopped and significant is started in view of difficulty with rapid ventricular rate on 07/09/2024. Plan: -Phenylephrine restarted as per sepsis protocol. -500 mL of 5% albumin is started to maintain the blood pressures. -maintain MAP >65 -Will continue Zosyn # New onset atrial fibrillation with rapid ventricular rate -Likely in the setting of septic shock -Patient supposedly had A-fib at the time of admission to the hospital but spontaneously reverted to normal sinus rhythm. -Developed new onset A-fib on 07/06/2024 overnight -Received 2.5 Mg of metoprolol tartrate, 150 Mg of amiodarone bolus and started on amiodarone drip -Based on [id number] score, patient was started on Eliquis 2.5 Mg twice daily due to his declined renal functions. Plan -Will continue the amiodarone drip and Eliquis 2.5 Mg twice daily p.o. -Levophed is stopped and phenylephrine is started. -Will consult cardiology for management of A-fib with RVR. Pulm: #Acute hypoxic respiratory failure, resolved # Likely aspiration pneumonia # History of remote smoking CXR seemed normal Procal 15.78 at the time of admission Plan: -Patient is off oxygen and able to maintain saturations on room air -cont antibiotics (see ID section) -duonebs as needed GI: #Elevated T Bili, Transaminitis - resolved Likely elevated in the setting of sepsis Patient denied abdominal pain Abdomen/pelvis CT showed cholelithiasis Gallbladder ultrasound showed gallbladder sludge but no cholelithiasis and cannot accurately assess gallbladder. Common bile duct was not distended. Occasional PVCs T bilirubin 1.8, alkaline phosphatase 62 -Within normal limits on 07/07/2024 Renal: #RAND- likely prerenal leading to Acute tubular necrosis #Mild bilateral hydronephrosis Likely prerenal in the setting of poor oral intake dehydration with overlapping septic shock and resulting in ATN. Patient presented with a creatinine of 2.3, BUN 46, EGFR of 27 with a UA showing 2+ proteins, 3+ glucose, 3+ blood, RBC and very elevated WBC with 4+ bacteria. Since admission patient has produce appropriate amount of urine output Renal ultrasound in 2021 also showed mild to moderate bilateral hydronephrosis Renal functions continue to decline but the urine output is decreased as of 07/09/2024. Fractional excretion of sodium as of 07/09/2024 is 1.2%. Plan: -500 mL of 5% albumin is started to improve renal perfusion. -Diuretics were not started as patient is suspected to be in oliguric phase of ATN and does not appear to be fluid overloaded. -Will continue to monitor renal function panel and urinary output -Will avoid nephrotoxic medication and renally dose the medications. -Will consult nephrology if dialysis is needed or patient becomes fluid overloaded. Endo: #NonInsulin-dependent type 2 diabetes Last a1c was 5.9 (2022) Plan: -ISS protocol -hold home DM meds Heme: #Thrombocytopenia Likely in the setting of sepsis No history of bleeding manifestations right now Will continue to monitor CBC ID: #Septic Shock - klebsiella pneumonia bacteremia #Complicated UTI #? Aspiration pneumonia #Hx of Klebsiella ESBL UTI Patient is having indwelling catheter since 2019 and the catheter is changed once in every 4 weeks according to his grandson, recent Farias catheter change was 2 weeks back Patient is febrile. Patient has hx of repeated UTI with klebsiella pna ESBL in the past. U/A consistant with UTI, farias output is dark Elevated procalcitonin is noted. blood cultures and urine cultures grew klebsiella pneumonia Plan: - zosyn (07/05 -) as the patient's blood and urine cultures grew Klebsiella pneumonia sensitive to Zosyn -Discontinued vancomycin as MRSA screen came back negative and cultures grew gram-negative rods on 07/07 : #Hematuria, acute #BPH, chronic -indwelling catheter since 2019 Lew hematuria likely secondary to traumatic insertion of a Farias. Patient came in with a indwelling catheter Patient has a history of BPH which he takes tamsulosin and finasteride. His BPH is likely contributing to his post renal RAND and hydronephrosis. Plan: -cont finasteride Skin/MSK: stable ICU Health maintenance: Mechanical ventilation: none Sedation: none Pressors:none FEN: carbohydrate consistent diet DVT ppx: SCDs GI ppx: none Farias: yes (placed on 07/05) IV lines: 3 PVs Central line: none Arterial line: none Code status: FULL code Dispo: ICU Patient's care was discussed with my attending physician, Dr. Contreras. Eleazar Morales, PGY1 Attending Provider Attestation/Addendum Patient seen and examined with above resident, Eleazar Morales MD. I agree with the findings, assessment, and plan of care as documented except for any differences below. Patient continues to be difficult to control from hemodynamic perspective with intermittent need for vasopressors as well as atrial fibrillation with RVR. Despite therapy with amiodarone we have been unable to control the rate and blood pressure remains too soft for initiation of calcium channel zak or beta-zak. Patient with no prior history of A-fib and onset was known on this hospitalization. Will consult cardiology for consideration of cardioversion and potential need for JAVIER prior to this. I suspect that this will help his hemodynamics significantly in the first to be able to discontinue vasopressor support completely. Conversely, ongoing use of Levophed is likely precipitating the RVR and thus phenylephrine has been selected after confirming that the patient does have preserved LV function. Will continue to optimize electrolytes to avoid this leading to arrhythmia. Patient grandson updated at bedside. Ongoing issues with renal function as well with close monitoring of urine output, using diuretics as well as albumin for improvement given his poor nutritional status. Patient at baseline mentation with poor interaction and poor p.o. intake. Will remove Farias as ongoing source for infection. Total critical care time: I personally spent 35 minutes for review of physiologic parameters, directing plan of care throughout the day, coordination of care with other specialists, and counseling patient/grandson at bedside. This is exclusive of time spent teaching housestaff or performing any separate billable procedures. Patient continues require critical care service for atrial fibrillation with RVR and associated hemodynamic compromise and renal failure. Patient continues to be at high risk for further morbidity and mortality despite adequate treatment for underlying urinary tract infection.
[2024-07-09] MEDS: APIXABAN 2.5 MG TABLET PO ×2 (11:31→21:08)
[2024-07-09 12:29] LABS: Collection Type, Urine Catheter; Squamous Epithelial Cell,Urine 0 /hpf (0-5)
[2024-07-09 12:57] LABS: Amorphous Crystals,Urine Present (Absent); Bacteria,Urine 2+; Bilirubin,Urine Negative (Negative); Blood,Urine 3+ (Negative); Glucose, Urine Negative (Negative); Ketones,Urine Negative (Negative); Leukocyte Esterase,Urine Positive (Negative); Nitrite,Urine Negative (Negative); PH,Urine 5.5 (5.0-7.0); Protein,Urine 2+ (Neg - Trace); RBC,Urine 1594 /hpf (0-3); Specific Gravity,Urine 1.016 (1.001-1.035); Urobilinogen,Urine Negative mg/dL (0.0-1.0); WBC,Urine 928 /hpf (0-5)
[2024-07-09 13:24] LABS: Clarity,Urine Cloudy (Clear/Hazy); Color,Urine Amber (Lt Yel-Yel)
[2024-07-09 13:31] LABS: Creatinine,Random Urine 58 mg/dL (30-125); Sodium,Urine Random 20.8 mMol/L (20.0-110.0)
--- NOTE | 2024-07-09 15:45 | PC.SS ---
Update: Patient on room air. Patient receiving IV antibiotics. Patient on pressors. No skin issues. Vitals are stable. Roll[place] catheter in place.
[2024-07-09] MEDS: ALBUMIN HUMAN 5% IVPB 12.5 GM/250 ML BTL IV ×2 (15:54→21:07)
--- NOTE | 2024-07-09 16:35 | ESCONSULT_ITS ---
<Statement entered by Manuel Rhodes MD - 07/11/24 13:05> I personally examined the patient intensive care unit reviewed the findings patient does not have sepsis. Urinary tract infection developed A-fib RVR aggravating hypotension requiring phenylephrine and multiple vasopressors we will continue IV amiodarone for now and vasopressors if he remains in A-fib RVR tomorrow and hemodynamically unstable might consider cardioversion. I reviewed the findings all the details of the consultation report all essential components are reviewed by me agree with the treatment plan recommendation as documented by Dr. Holder PGY 2 HPI Data of Consult Consult date: 07/09/24 Requesting Physician: Mag Brennan MD Admitting Provider: Mag Brennan MD Attending Provider: Mag Brennan MD Primary Care Provider: Israel Abdullahi MD Consult Narrative Reason for consult: A FIB with RVR History of present illness: This 84-year-old male with past medical history of hypertension, BPH, DM2, subdural hematoma (2020), dementia, and chronic indwelling catheter was admitted to hospital after coming to the ED with complaints of nausea, vomiting, abdominal pain, and blood in the Rollins bag since last night. Patient was brought in by grandson and during the time of assessment nobody was at bedside. Patient was very hard of hearing and very not responding to questions during assessment, but he was able to follow some commands and able to answer alert oriented questions (AOx3 not to time). Primary team Spoke with grandson, next of kin, via phone call and he said he was the medical decision maker who provided most of the patient's history. Grandson stated that last night additional to the patient's nausea, vomiting, and abdominal pain the patient had elevated blood sugars in the 300s as well as some disorientation which she states that is usually when his bladder swells a lot. The patient's grandson also mentioned that the patient gets monthly Rollins catheter changes, but last night he noticed blood-tinged urine in the Rollins bag which was new and he did not feel was safe to keep patient at home and decided to bring him to the ER. He stated that patient did not have any chills or fevers at home nor any chest pain or shortness of breath.ED course:Initially patient came in normotensive and afebrile, but afterwards patient was tachycardic, and tachypneic. Initial labs were relevant for RAND, hyperglycemia, lactic acidosis, bilirubinemia, troponinemia, elevated procalcitonin, and UTI. Initial imaging included chest x-ray which showed bibasilar pneumonia, abdomen/pelvis CT showed cholelithiasis, bilateral hydronephrosis, diverticulosis, marked prostatomegaly, and marked thickening of urinary bladder wall, and gallbladder ultrasound which showed some gallbladder sludge but gallbladder was poorly visualized and contracted. EKG showed A-fib. Social Hx: Upon chart review patient was a former smoker, but grandson stated that he is not an active smoker at this time and does not do any alcohol or illicit drugs. Meds: Aspirin 81mg qday, Atorvastatin 20mg HS, Coreg 12.5 mg BID, tamsulosin 0.4mg qday, finasteride 5mg qdya, amlodipine 2.5mg BID losartan/HCTZ , med reconciliation pending. Allergies: As per patient's grandson's morphine Cardiology team consulted for A.fib with Rvr and possible req of cardioversion. 07/09/2024: Patient was seen and examined at the bedside in ICU patient's blood pressure is on softer side with a BP of 95/70, tachycardic with heart rate 141 and saturating 94% on room air. Patient is upgraded to ICU due to septic shock likely due to ESBL UTI and Klebsiella pneumonia bacteremia. Patient was initially managed with IV fluid resuscitation and was maintained with Levophed and vasopressin however now seen off Levophed and only on vasopressin with albumin. Labs showed WBC improved to 10.3, hemoglobin stable at 11.1. Platelets 95. Chemistry panel showed mild hyponatremia sodium 134 K: 3.9. BUN 78 and creatinine 4.3 with GFR 13. Bicarb on CHEM panel 19.5. Albumin 3.1. Total cortisol pending. Urinalysis was cloudy, 2+ proteinuria, blood 3+, RBC 1594, WBC 928, amorphous crystals and bacteriuria. EKG showed A-fib with RVR heart rate 140s. Echocardiogram showed EF 55-60% mild AV sclerosis without stenosis. Mild TR. Cardiology team consulted for A-fib with RVR not controlled with IV drip per protocol and digoxin given one-time only. Primary ICU team stopped Levophed and only keeping vasopressin. Currently covering with IV antibiotic therapy Zosyn for ESBL UTI. Consult is for possible requirement of cardioversion since its new onset A-fib less than 48 hours. Currently being anticoagulated with Eliquis 2.5 mg twice daily age and renal dosed. Recommended to start Cardizem 30 mg 3 times daily and continue it if blood pressure tolerates. If patient still remains in A-fib with RVR will likely perform cardioversion. No need of stoppage of anticoagulation before cardioversion. Keep the patient n.p.o. after midnight for possible cardioversion tomorrow without JAVIER. Will switch to amiodarone p.o. 200 mg twice daily once amiodarone drip is completed. Continue Eliquis 2.5 mg twice daily for now. Continue treating underlying septic infection due to ESBL UTI and Klebsiella bacteremia. Continue monitoring electrolytes and close monitoring required. Continue albumin therapy given worsening kidney functions and patient is in oliguria phase for RAND on CKD. All labs and orders were reviewed. cc:: cc: Mag Brennan MD Review of Systems Review of Systems Systems Reviewed: All systems reviewed, normal except as documented Past Medical History Past Medical History NEUROLOGIC: Positive Subdural Hematoma; Negative Neurological Disorders, Seizures or Spina Bifida CARDIAC: Positive Hypertension; Negative Cardiac Disorders or Congestive Heart Failure RESPIRATORY: Negative Chronic Obstructive Pulmonary Disease (COPD) or Asthma GASTROINTESTINAL: Positive Gastrointestinal Disorders, Gall Bladder Disease, Colitis, Diverticulitis and Diverticulosis; Negative Hepatitis GENITOURINARY: Positive Genitourinary Disorders, Kidney Stones and Benign Prostatic Hyperplasia; Negative Renal Disease or Prostate Cancer REPRODUCTIVE: Negative Testicular Cancer MUSCULOSKELETAL: Positive Musculoskeletal Disorders and Fractures; Negative Bone Cancer ENT: Positive Deafness ENDOCRINE: Positive Endocrine Disorders and Diabetes Mellitus Type 2; Negative Diabetes Mellitus Type 1 HEMATOLOGIC: Negative Blood Disorders or Sickle Cell Disease OTHER HISTORY: Positive Hospitalization and Blood Transfusions; Negative Autoimmune Disease, Down Syndrome, Developmental Delay, Shingles, Falls, Blood Transfusion Reaction, Anesthesia Reactions, MRSA, VRSA, Vancomycin- Resistant Enterococci, Human Immunodeficiency Virus (HIV), Chicken Pox, Measles, Mumps, Rubella (Wallisian Measles), Pertussis, Clostridium Difficile, Cancer, Lung Cancer, Prostate Cancer or Testicular Cancer Family History FAMILY HISTORY: Negative Family Cardiac Disorders Surgical History SURGICAL: Positive Angiogram; Negative Endocrine Surgery, Ear Surgery, Eye Surgery, Nose Surgery or Neurologic Surgery Social History SMOKING STATUS: Never smoker SECOND HAND EXPOSURE: No SUBSTANCE USE: does not use Travel History EBOLA RISK: No Exam Vital Signs Temp Pulse Resp BP Pulse Ox O2 Del Method O2 Flow Rate 97.4 F 123 H 19 108/76 97 Room Air 1 07/09/24 12:00 07/09/24 15:45 07/09/24 15:45 07/09/24 15:45 07/09/24 15:45 07/08/24 13:00 07/09/24 06:23 FiO2 100 07/07/24 11:00 Narrative Exam GENERAL APPEARANCE: AxOx4, elderly male hard of hearing HEENT: NC, AT. MMM. EOMI, clear conjunctiva, oropharynx clear. NECK: Supple without lymphadenopathy. No stiffness or restricted ROM. HEART: Irregular rate and regular rhythm, normal S1/S2, no m/r/g LUNGS: CTAB, moving air well. No crackles or wheezes are heard. ABDOMEN: Soft, nontender, nondistended with good bowel sounds heard. BACK: No CVAT, no obvious deformity. EXTREMITIES: Without cyanosis, clubbing or edema. NEUROLOGICAL: Grossly nonfocal. Alert and oriented, moving all 4 extremities. CN not formally tested but appear grossly intact. Skin: Warm and dry without any rash. Results Labs 07/09/24 05:46 07/09/24 05:46 Labs: Short CBC 07/09/24 Range/Units 05:46 WBC 10.2 (3.8-10.6) Thou/mm3 Hgb 12.3 L (13.5-16.0) g/dL Hct 35.5 L (41.0-53.0) % Plt Count 54 L (140-440) Thou/mm3 BMP 07/09/24 05:46 Sodium 134 L Potassium 3.9 Chloride 102 Carbon Dioxide 19.5 L BUN 96 H Creatinine 4.3 H* D Glucose 221 H Calcium 8.2 L Liver Function 07/09/24 Range/Units 05:46 Total Bilirubin 0.8 (0.3-1.2) mg/dL AST 26 (0-34) U/L ALT 29 (10-49) U/L Alkaline Phosphatase 70 D (46-116) U/L Albumin 3.1 L (3.4-4.8) gm/dL Urine 07/09/24 Range/Units 11:55 Urine Color Dia (Lt Yel-Yel) Urine Clarity Cloudy A (Clear/Hazy) Urine pH 5.5 (5.0-7.0) Ur Specific [place] 1.016 (1.001-1.035) Urine Protein 2+ A (Neg - Trace) Urine Glucose (UA) Negative (Negative) Quality Measures Quality Measures VTE prophylaxis (SCDs and eliquis 2.5 mg ) Advance care planning discussed with:: other Medications Home Medications and Allergies Home Medications ?Medication ?Instructions ?Recorded ?Confirmed ?Type carvedilol 12.5 mg tablet 12.5 mg PO BID 02/22/21 11/02/21 History losartan 100 mg tablet 100 mg PO QDAY 02/22/21 11/02/21 History sulfasalazine 500 mg tablet 1,000 mg PO BID 02/22/21 11/02/21 History furosemide 40 mg tablet (Lasix) 40 mg PO QDAY 03/12/21 11/02/21 History potassium chloride 20 mEq 20 meq PO BID 03/12/21 11/02/21 History tablet,extended release Allergies Allergy/AdvReac Type Severity Reaction Status Date / Time morphine Allergy Severe ITCHING Verified 11/02/21 10:28 Visit Medications Acetaminophen (Acetaminophen 325 Mg Tablet) 650 mg PO Q6H PRN PRN Reason: pain 1-3 and Fever >100.4 Stop: 08/04/24 17:11 Last Admin: 07/05/24 19:32 Dose: 650 mg Apixaban (Apixaban 2.5 Mg Tablet) 2.5 mg PO BID [facility] Stop: 08/06/24 08:59 Last Admin: 07/09/24 11:40 Dose: Not Given Dextrose (Dextrose 50%-Water Inj 50 Ml Syringe) 25 ml IV Q15MIN PRN PRN Reason: BG 50-70 responsive npo pt Stop: 08/04/24 17:11 Dextrose (Dextrose 50%-Water Inj 50 Ml Syringe) 50 ml IV Q15MIN PRN PRN Reason: BG <50 OR BG <70 & pt unresponsive Stop: 08/04/24 17:11 Finasteride (Finasteride 5 Mg Tablet) 5 mg PO QDAY [facility] Stop: 08/07/24 10:44 Last Admin: 07/09/24 11:38 Dose: Not Given Glucagon (Glucagon Inj 1 Mg Vial) 1 mg IM Q15MIN PRN PRN Reason: BG <70, and no IV access Piperacillin/Tazobactam/Dextrose (Zosyn) 50 mls @ 12.5 mls/hr IV Q12HR ANNETTA; Protocol Stop: 07/12/24 20:59 Last Admin: 07/09/24 09:34 Dose: 12.5 mls/hr Amiodarone HCl/Dextrose (Nexterone Ivpb) 360 mg in 200 mls @ 16.667 mls/hr IV .Q12H ANNETTA Stop: 07/10/24 03:06 Last Admin: 07/09/24 15:45 Dose: 16.667 mls/hr Phenylephrine HCl 40 mg/ (Sodium Chloride) 100 mls @ 5.955 mls/hr IV .[id number] PRN; Protocol PRN Reason: Per Sepsis Protocol Stop: 08/08/24 08:40 Last Titration: 07/09/24 14:30 Dose: 0.55 mcg/kg/min, 6.551 mls/hr Albumin Human (Albuminar-5 Ivpb) 12.5 gm in 250 mls @ 100 mls/hr IV QDAY ANNETTA Stop: 07/13/24 15:41 Last Admin: 07/09/24 15:54 Dose: 100 mls/hr Amiodarone HCl/Dextrose (Nexterone Ivpb) 360 mg in 200 mls @ 16.667 mls/hr IV .Q12H ANNETTA; Protocol Stop: 07/10/24 15:06 Insulin Human Lispro (Insulin Lispro (Admelog) 1 Unit/0.01 Ml Unit) 0 unit SC Q6H ANNETTA; Protocol Stop: 08/04/24 18:14 Last Admin: 07/09/24 12:31 Dose: Not Given Metoprolol Tartrate (Metoprolol Tartrate Inj 1 Mg/Ml Amp 5 Ml) 2.5 mg IVP Q5M PRN PRN Reason: AFIB RVR HR >140 Last Admin: 07/07/24 03:17 Dose: 2.5 mg Metoprolol Tartrate (Metoprolol Tartrate 25 Mg Tablet) 12.5 mg PO BID [facility] Stop: 08/07/24 09:59 Last Admin: 07/09/24 11:37 Dose: Not Given Ondansetron HCl (Ondansetron Inj 2 Mg/Ml Inj 2 Ml) 4 mg IV Q6HR PRN; Protocol PRN Reason: NAUSEA OR VOMITING Stop: 08/08/24 09:40 Last Admin: 07/09/24 09:44 Dose: 4 mg Prochlorperazine Maleate (Prochlorperazine Maleate 5 Mg Tablet) 10 mg PO Q6H PRN PRN Reason: NAUSEA OR VOMITING Stop: 08/04/24 17:11 Last Admin: 07/06/24 20:17 Dose: 10 mg Sennosides (Senna Tablet) 1 tab PO QDAY PRN; Protocol PRN Reason: constipation Stop: 08/04/24 17:11 Discontinued Medications Acetaminophen (Acetaminophen 120 Mg Supp) 120 mg AL X1 ONE Stop: 07/05/24 21:18 Last Admin: 07/05/24 21:45 Dose: 120 mg Hydrocodone Bitart/Acetaminophen (Hydrocodone/Apap 5/325 Tablet) 1 tab PO X1 ONE Stop: 07/06/24 05:41 Last Admin: 07/06/24 05:49 Dose: 1 tab Apixaban (Apixaban 2.5 Mg Tablet) 2.5 mg PO X1 ONE Stop: 07/09/24 10:16 Last Admin: 07/09/24 11:31 Dose: 2.5 mg Digoxin (Digoxin Inj 0.25 Mg/Ml Amp 2 Ml) 0.25 mg IVP X1 ONE Stop: 07/07/24 03:45 Last Admin: 07/07/24 03:55 Dose: 0.25 mg Digoxin (Digoxin Inj 0.25 Mg/Ml Amp 2 Ml) 0.25 mg IVP X1 ONE Stop: 07/08/24 20:22 Last Admin: 07/08/24 21:09 Dose: Not Given Enoxaparin Sodium (Enoxaparin Sod Inj 30 Mg/0.3 Ml Syringe) 30 mg SC QDAY ANNETTA Stop: 07/20/24 11:29 Last Admin: 07/06/24 12:20 Dose: 30 mg Glucagon (Glucagon Inj 1 Mg Vial) 5 mg IVP X1 ONE Stop: 07/07/24 03:17 Last Admin: 07/07/24 03:37 Dose: Not Given Sodium Chloride (Ns) 1,000 mls @ 999 mls/hr IV .Q1H1M ONE Stop: 07/05/24 13:14 Last Infusion: 07/05/24 14:00 Dose: Infused Sodium Chloride (Ns) 1,000 mls @ 999 mls/hr IV .Q1H1M ONE Stop: 07/05/24 14:07 Last Infusion: 07/05/24 15:56 Dose: Infused Piperacillin/Tazobactam/Dextrose (Zosyn) 3.375 gm in 50 mls @ 100 mls/hr IV X1 ONE Stop: 07/05/24 14:22 Last Infusion: 07/05/24 15:25 Dose: Infused Sodium Chloride (Ns) 1,000 mls @ 75 mls/hr IV .[id number] ANNETTA Stop: 07/06/24 06:34 Last Admin: 07/05/24 19:24 Dose: Not Given Sodium Chloride (Ns) 1,000 mls @ 125 mls/hr IV .Q8H ANNETTA Stop: 07/06/24 02:40 Last Admin: 07/05/24 19:32 Dose: 125 mls/hr Norepinephrine/Dextrose (Levophed In D5w 8mg/250ml) 8 mg in 250 mls @ 6.166 mls/hr IV .Q24H PRN; Protocol PRN Reason: PER PROTOCOL Stop: 08/04/24 21:22 Last Titration: 07/09/24 14:30 Dose: 0 mcg/kg/min, 0 mls/hr Sodium Chloride (Ns) 250 mls @ 999 mls/hr IV .Q16M ONE Stop: 07/05/24 23:37 Lactated Ringer's (Lactated Ringers) 1,000 mls @ 999 mls/hr IV .Q1H1M ONE Stop: 07/06/24 01:18 Last Admin: 07/06/24 01:02 Dose: 999 mls/hr Vancomycin/Sodium Chloride (Vancomycin/Ns 1 Gm Ivpb) 200 mls @ 100 mls/hr IV X1 ONE Stop: 07/06/24 03:44 Last Admin: 07/06/24 02:05 Dose: 100 mls/hr Lactated Ringer's (Lactated Ringers) 1,000 mls @ 100 mls/hr IV .Q10H ONE Stop: 07/06/24 14:51 Last Admin: 07/06/24 06:43 Dose: Not Given Sodium Chloride (Ns) 1,000 mls @ 100 mls/hr IV .Q10H ONE Stop: 07/06/24 14:57 Last Infusion: 07/06/24 07:00 Dose: 0 mls/hr Lactated Ringer's (Lactated Ringers) 1,000 mls @ 999 mls/hr IV .Q1H1M ONE Stop: 07/06/24 13:46 Last Infusion: 07/06/24 13:00 Dose: 0 mls/hr Amiodarone HCl/Dextrose (Nexterone Ivpb) 150 mg in 100 mls @ 600 mls/hr IV .Q10M ONE Stop: 07/07/24 03:26 Last Infusion: 07/07/24 15:56 Dose: Infused Amiodarone HCl/Dextrose (Nexterone Ivpb) 360 mg in 200 mls @ 33.333 mls/hr IV .Q6H ONE Stop: 07/07/24 09:16 Last Infusion: 07/07/24 15:56 Dose: Infused Amiodarone HCl/Dextrose (Nexterone Ivpb) 360 mg in 200 mls @ 16.667 mls/hr IV .Q12H ANNETTA Stop: 07/08/24 09:16 Last Admin: 07/08/24 00:04 Dose: 16.667 mls/hr Magnesium Sulfate (Magnesium Sulfate Ivpb) 2 gm in 50 mls @ 25 mls/hr IV X1 ONE Stop: 07/07/24 05:41 Last Infusion: 07/07/24 15:56 Dose: Infused Vancomycin HCl (Vancomycin/Water 1gm Ivpb) 200 mls @ 120 mls/hr IV X1 ONE Stop: 07/07/24 11:39 Last Infusion: 07/07/24 15:57 Dose: Infused Amiodarone HCl/Dextrose (Nexterone Ivpb) 150 mg in 100 mls @ 582.524 mls/hr IV X1 ONE Stop: 07/08/24 09:56 Last Admin: 07/08/24 09:57 Dose: 582.524 mls/hr Amiodarone HCl/Dextrose (Nexterone Ivpb) 150 mg in 100 mls @ 600 mls/hr IV .Q10M ONE Stop: 07/08/24 21:06 Last Admin: 07/08/24 21:00 Dose: 600 mls/hr Amiodarone HCl/Dextrose (Nexterone Ivpb) 360 mg in 200 mls @ 33.333 mls/hr IV .Q6H ONE Stop: 07/09/24 03:06 Last Admin: 07/09/24 00:59 Dose: Not Given Piperacillin/Tazobactam/Dextrose (Zosyn) 50 mls @ 12.5 mls/hr IV X1 ONE Stop: 07/09/24 13:29 Last Admin: 07/09/24 09:45 Dose: 12.5 mls/hr Albumin Human (Albuminar-25 Ivpb) 25 gm in 100 mls @ 100 mls/hr IV X1 ONE Stop: 07/09/24 16:28 Insulin Human Lispro (Insulin Lispro (Admelog) 1 Unit/0.01 Ml Unit) 0 unit SC ACHS ANNETTA; Protocol Stop: 08/04/24 20:59 Midazolam HCl (Midazolam Inj 1 Mg/Ml Vial 2 Ml) 2 mg IV X1 ONE Stop: 07/08/24 12:51 Last Admin: 07/08/24 13:48 Dose: Not Given Midodrine (Midodrine 5 Mg Tablet) 5 mg PO TID ANNETTA Stop: 08/06/24 13:59 Last Admin: 07/08/24 05:46 Dose: 5 mg Ondansetron HCl (Ondansetron Inj 2 Mg/Ml Inj 2 Ml) 4 mg IV X1 ONE; Protocol Stop: 07/05/24 12:15 Last Admin: 07/05/24 12:45 Dose: 4 mg Pantoprazole Sodium (Pantoprazole Inj 40 Mg Vial) 40 mg IV QDAY ANNETTA Stop: 08/04/24 18:14 Last Admin: 07/06/24 09:40 Dose: 40 mg Pharmacy Consult (Vancomycin Pharmacy To Dose 1 Each Each) 1 each IV QDAY PRN PRN Reason: PROTOCOL Stop: 08/05/24 08:59 Assessment & Plan Plan This 84-year-old male with past medical history of hypertension, BPH, DM2, subdural hematoma (2020), dementia, and chronic indwelling catheter was upgraded to ICU due to septic shock likely due to ESBL UTI and Klebsiella bacteremia. Cardiology team consulted for A-fib with RVR and requirement of possible cardioversion. #Atrial Fibrillation with Rvr: ?Patient supposedly had A-fib at the time of admission to the hospital but spontaneously reverted to normal sinus rhythm. -Developed new onset A-fib on 07/06/2024 overnight -Received 2.5 Mg of metoprolol tartrate, 150 Mg of amiodarone bolus and started on amiodarone drip -Based on [id number] score, patient was started on Eliquis 2.5 Mg twice daily due to his declined renal functions. -Patient rec 3 bags of amiodarone drip and now seen on 4th bag Plan: ? Continue amiodarone drip per protocol and once prescription completed switch to p.o. amiodarone 200 mg twice daily ? Start Cardizem 30 mg 3 times a day and if patient continues to remain in A-fib with RVR will likely cardiovert tomorrow ? N.p.o. after midnight ? Keep magnesium above 2 and potassium above 4 ? Replete electrolytes as necessary ? Follow-up on labs #Septic shock likely secondary to catheter associated ESBL urinary tract infection and Klebsiella bacteremia # Acute encephalopathy, resolved # Chronic indwelling catheter ?Etiology of the shock is likely septic due to UTI. ?Patient has a history of chronic indwelling catheter with monthly changes Rollins catheter as well as recurrent UTIs in the past. ?Patient was minimally responsive to questioning and most likely has encephalopathy secondary to the UTI as per patient's grandson at baseline he was a lot more responsive. ?Patient met SIRS 2 out of 4 criteria with tachycardia and tachypnea ?Past urine cultures have grown Citrobacter and Klebsiella which both were multidrug-resistant, but sensitive to Zosyn ?Chest x-ray showed bibasilar pneumonia ?UA was positive for bacteria and leukocyte esterase ?Lactic acid was 4.4 but down trended to 3.6 ?Procalcitonin 15.78 ?In the ED patient received 2 L boluses of NS and Zosyn ?Rollins was changed in the ED -Patient met septic shock criteria requiring pressors after 3 L of fluid. -Troponins: 0.119 -> 0.138 -> 0.178 > 0.136 -Patient remains A-fib with RVR on amnio drip per protocol and currently on fourth back. ? EKG showed AFib. Echo in 2021 showed normal LV with EF 60% ?Levophed is stopped and significant is started in view of difficulty with rapid ventricular rate on 07/09/2024. Plan: ? Continue phenylephrin and albumin therapy ? Continue IV antibiotic therapy Zosyn ?Monitor for fever spikes and elevation of white count and treat RAND on CKD possible ATN ? Daily labs #Hx of hypertension ? Will hold any antihypertensive medication for now as patient is septic #NSTEMI type type II ? Likely supply demand ischemia ?Troponin I downtrended. Patient is denying any chest pain or shortness of breath. ?EKG did not show any ST changes Plan: ? Troponin I downtrended ? Continue monitor for chest pain or shortness of breath # Acute hypoxic respiratory failure, resolved # Likely secondary to aspiration pneumonia versus remote history of smoking # Elevated T. bili and transaminases # RAND likely prerenal leading to ATN # Mild bilateral hydronephrosis # [id number] type 2 diabetes # Normocytic anemia # Thrombocytopenia # Hematuria # History of BPH chronic indwelling catheter since 2019 Rest of the management as per primary care team/ICU team. Thank you very much for consulting cardiology team. We will likely consider doing cardioversion without JAVIER if heart rate remains uncontrolled above 125 bpm with Cardizem 30 mg 3 times daily and amiodarone drip per protocol. Consider switching to p.o. amiodarone 200 twice daily once drip is completed. Continue Eliquis 2.5 mg twice daily for now. Plan of care discussed with collect on delivery clerk, Dr. Carmelo Holder MD, PGY 2
[2024-07-09] MEDS: DILTIAZEM 30 MG TABLET PO ×2 (17:51→21:08)
[2024-07-09] MEDS: ACETAMINOPHEN 325 MG TABLET 650 MG PO (18:06)
[2024-07-09] MEDS: PHENYLEPHRINE HCL 40 MG in SODIUM CHLORIDE 0.9% 96 ML 6.551 MG IV (18:42)
[2024-07-09] MEDS: MIRTAZAPINE 15 MG TABLET PO (21:08)
[2024-07-09] MEDS: PHENYLEPHRINE HCL 40 MG in SODIUM CHLORIDE 0.9% 96 ML 7.146 MG IV (21:31)
[2024-07-10] VITALS (130 sets, daily range): BP systolic 76–172; BP diastolic 46–103; PULSE 48–138; RESP 2–92; TEMP 36.5–37.2; O2SAT 89–100; BMI 25.6
[2024-07-10] MEDS: PHENYLEPHRINE HCL 40 MG in SODIUM CHLORIDE 0.9% 96 ML 30.371 MG IV (01:10)
[2024-07-10] MEDS: AMIODARONE 360 MG IVPB 360 MG/200 ML BAG 16.667 MG IV (04:01)
[2024-07-10] MEDS: PHENYLEPHRINE HCL 40 MG in SODIUM CHLORIDE 0.9% 96 ML 23.82 MG IV (05:38)
[2024-07-10 05:55] LABS: Basophils % (Auto) 0 % (0-2.5); Eosinophils # (Auto) 0.1 Thou/mm3 (0.0-0.5); Eosinophils % (Auto) 1 % (0-10); Hematocrit 32.9 % (41.0-53.0); Hemoglobin 11.4 g/dL (13.5-16.0); Immature Granulocytes % (Auto) 2 % (0-0); Immature Granulocytes Auto 0.17 Thou/mm3 (0.00-0.00); Lymphocytes # (Auto) 0.9 Thou/mm3 (1.0-4.8); Lymphocytes % (Auto) 9 % (10-50); Mean Corpuscular HGB Conc 34.7 g/dl (31.0-37.0); Mean Corpuscular Hemoglobin 31.4 pg (25.0-35.0); Mean Corpuscular Volume 91 fL (80-100); Monocytes # (Auto) 0.8 Thou/mm3 (0.0-0.8); Monocytes % (Auto) 8 % (0-12); Neutrophils # (Auto) 8.2 Thou/mm3 (1.8-7.7); Neutrophils % (Auto) 81 % (37-80); Nucleated Red Blood Cell % 0 /100 WBC (0); RDW Standard Deviation 50.6 fL (35.1-43.9); Red Blood Count 3.63 Miln/mm3 (4.50-5.90); White Blood Count 10.2 Thou/mm3 (3.8-10.6)
[2024-07-10] MEDS: DILTIAZEM 30 MG TABLET PO (05:55)
[2024-07-10 05:59] LABS: Platelet Count 67 Thou/mm3 (140-440); Slide Review Platelets confirmed
[2024-07-10 06:31] LABS: Alanine Aminotransferase 22 U/L (10-49); Albumin, Serum 3.1 gm/dL (3.4-4.8); Albumin/Globulin Ratio 1.5 (1.2-2.2); Alkaline Phosphatase 61 U/L (46-116); Anion Gap 13 (7-16); Aspartate Amino Transferase 23 U/L (0-34); Bilirubin,Total 0.9 mg/dL (0.3-1.2); Calcium 8.1 mg/dL (8.3-10.6); Calcium (Corrected) 8.8 mg/dL (8.5-10.1); Carbon Dioxide 20.2 mMol/L (20.0-31.0); Chloride 102 mMol/L (98-107); Creatinine (Component) 4.9 mg/dL (0.6-1.3); Estimated Creatinine Clearance 11.2 mL/min (>60); Globulin 2.1 gm/dL (2.3-3.5); Glucose 148 mg/dL (74-106); Potassium 3.6 mMol/L (3.4-5.1); Sodium 135 mMol/L (136-145); Total Protein 5.2 gm/dL (5.7-8.2); eGFR 11 See Note
[2024-07-10 07:40] LABS: BUN/Creatinine Ratio 22 Ratio (12-20); Blood Urea Nitrogen 108 mg/dL (9-23); Osmolality,Calculated 307 (275-295)
[2024-07-10] MEDS: FINASTERIDE 5 MG TABLET PO (08:34)
[2024-07-10] MEDS: APIXABAN 2.5 MG TABLET PO ×2 (08:34→21:06)
[2024-07-10] MEDS: RINGERS LACTATED 1000 ML 1,000 ML 75 ML IV (08:44)
[2024-07-10 09:02] LABS: Magnesium 2.6 mg/dL (1.6-2.6)
[2024-07-10] MEDS: PIPER/TAZO 3.375 GM 50 ML IV ×2 (09:50→21:07)
--- NOTE | 2024-07-10 10:08 | ESPR_ITS ---
<Statement entered by Manuel Rhodes MD - 07/11/24 13:06> I reviewed the findings the patient underwent successful cardioversion today doing much better. Procedure still remains on phenylephrine will continue the phenylephrine for now possible continue to taper off hopefully maintain sinus rhythm change IV amiodarone to oral amiodarone treatment plan recommendation reviewed as documented by Dr. Holder PGY 2 will monitor patient closely in intensive care unit Documentation for date of: 07/10/24 Subjective Subjective Interval history: This 84-year-old male with past medical history of hypertension, BPH, DM2, subdural hematoma (2020), dementia, and chronic indwelling catheter was admitted to hospital after coming to the ED with complaints of nausea, vomiting, abdominal pain, and blood in the Rollins bag since last night. Patient was brought in by grandson and during the time of assessment nobody was at bedside. Patient was very hard of hearing and very not responding to questions during assessment, but he was able to follow some commands and able to answer alert oriented questions (AOx3 not to time). Primary team Spoke with grandson, next of kin, via phone call and he said he was the medical decision maker who provided most of the patient's history. Grandson stated that last night additional to the patient's nausea, vomiting, and abdominal pain the patient had elevated blood sugars in the 300s as well as some disorientation which she states that is usually when his bladder swells a lot. The patient's grandson also mentioned that the patient gets monthly Rollins catheter changes, but last night he noticed blood-tinged urine in the Rollins bag which was new and he did not feel was safe to keep patient at home and decided to bring him to the ER. He stated that patient did not have any chills or fevers at home nor any chest pain or shortness of breath.ED course:Initially patient came in normotensive and afebrile, but afterwards patient was tachycardic, and tachypneic. Initial labs were relevant for RAND, hyperglycemia, lactic acidosis, bilirubinemia, troponinemia, elevated procalcitonin, and UTI. Initial imaging included chest x-ray which showed bibasilar pneumonia, abdomen/pelvis CT showed cholelithiasis, bilateral hydronephrosis, diverticulosis, marked prostatomegaly, and marked thickening of urinary bladder wall, and gallbladder ultrasound which showed some gallbladder sludge but gallbladder was poorly visualized and contracted. EKG showed A-fib. Social Hx: Upon chart review patient was a former smoker, but grandson stated that he is not an active smoker at this time and does not do any alcohol or illicit drugs. Meds: Aspirin 81mg qday, Atorvastatin 20mg HS, Coreg 12.5 mg BID, tamsulosin 0.4mg qday, finasteride 5mg qdya, amlodipine 2.5mg BID losartan/HCTZ , med reconciliation pending. Allergies: As per patient's grandson's morphine Cardiology team consulted for A.fib with Rvr and possible req of cardioversion. 07/09/2024: Patient was seen and examined at the bedside in ICU patient's blood pressure is on softer side with a BP of 95/70, tachycardic with heart rate 141 and saturating 94% on room air. Patient is upgraded to ICU due to septic shock likely due to ESBL UTI and Klebsiella pneumonia bacteremia. Patient was initially managed with IV fluid resuscitation and was maintained with Levophed and vasopressin however now seen off Levophed and only on vasopressin with albumin. Labs showed WBC improved to 10.3, hemoglobin stable at 11.1. Platelets 95. Chemistry panel showed mild hyponatremia sodium 134 K: 3.9. BUN 78 and creatinine 4.3 with GFR 13. Bicarb on CHEM panel 19.5. Albumin 3.1. Total cortisol pending. Urinalysis was cloudy, 2+ proteinuria, blood 3+, RBC 1594, WBC 928, amorphous crystals and bacteriuria. EKG showed A-fib with RVR heart rate 140s. Echocardiogram showed EF 55-60% mild AV sclerosis without stenosis. Mild TR. Cardiology team consulted for A-fib with RVR not controlled with IV drip per protocol and digoxin given one-time only. Primary ICU team stopped Levophed and only keeping vasopressin. Currently covering with IV antibiotic therapy Zosyn for ESBL UTI. Consult is for possible requirement of cardioversion since its new onset A-fib less than 48 hours. Currently being anticoagulated with Eliquis 2.5 mg twice daily age and renal dosed. Recommended to start Cardizem 30 mg 3 times daily and continue it if blood pressure tolerates. If patient still remains in A-fib with RVR will likely perform cardioversion. No need of stoppage of anticoagulation before cardioversion. Keep the patient n.p.o. after midnight for possible cardioversion tomorrow without JAVIER. Will switch to amiodarone p.o. 200 mg twice daily once amiodarone drip is completed. Continue Eliquis 2.5 mg twice daily for now. Continue treating underlying septic infection due to ESBL UTI and Klebsiella bacteremia. Continue monitoring electrolytes and close monitoring required. Continue albumin therapy given worsening kidney functions and patient is in oliguria phase for RAND on CKD. All labs and orders were reviewed. 07/10/2024: Patient was seen and examined at the bedside in ICU. Patient has soft blood pressure 113/65 with heart rate 130s. Patient continues to be on amiodarone drip per protocol. Patient is saturating well on room air. He continues to be on phenylephrine. Labs revealed WBC 10.2, hemoglobin stable 11.4. Platelets increased to 67. Chemistry panel showed mild hyponatremia, potassium 3.6. Bicarb improved. Kidney functions continues to decline. Blood glucose 148. Urine output 605 from last 24 hours. Cardioverted today. Recommended to switch to p.o. amiodarone 200 twice daily once amiodarone drip completed. Cardizem was discontinued. Will likely plan to cardiovert him today given continuous uncontrolled heart rate. ICU team giving IV antibiotic therapy and albumin for septic shock and declining kidney functions. ICU team started dronabinol for appetite stimulation as patient is not eating and drinking enough. Plan of care discussed with ICU team. Exam Vital Signs Temp Pulse Resp BP Pulse Ox O2 Del Method O2 Flow Rate 98.1 F 118 H 21 H 115/74 92 L Room Air 1 07/10/24 08:00 07/10/24 08:15 07/10/24 08:15 07/10/24 08:15 07/10/24 08:15 07/08/24 13:00 07/10/24 07:09 FiO2 100 07/07/24 11:00 Narrative Exam GENERAL APPEARANCE: AxOx4, elderly male hard of hearing HEENT: NC, AT. MMM. EOMI, clear conjunctiva, oropharynx clear. NECK: Supple without lymphadenopathy. No stiffness or restricted ROM. HEART: Irregular rate and regular rhythm, normal S1/S2, no m/r/g LUNGS: CTAB, moving air well. No crackles or wheezes are heard. ABDOMEN: Soft, nontender, nondistended with good bowel sounds heard. BACK: No CVAT, no obvious deformity. EXTREMITIES: Without cyanosis, clubbing or edema. NEUROLOGICAL: Grossly nonfocal. Alert and oriented, moving all 4 extremities. CN not formally tested but appear grossly intact. Skin: Warm and dry without any rash. Objective Labs 07/10/24 05:36 07/10/24 05:36 Labs: Laboratory Results - last 24 hr 07/09/24 07/10/24 11:55 05:36 WBC 10.2 RBC 3.63 L Hgb 11.4 L Hct 32.9 L MCV 91 MCH 31.4 MCHC 34.7 RDW Std Deviation 50.6 H Plt Count 67 L D Neut % (Auto) 81 H Lymph % (Auto) 9 L [place] % (Auto) 8 Eos % (Auto) 1 Baso % (Auto) 0 Neut # (Auto) 8.2 H Lymph # (Auto) 0.9 L [place] # (Auto) 0.8 Eos # (Auto) 0.1 Baso # (Auto) 0.0 Immature Gran # (Auto) 0.17 H Absolute Nucleated RBC 0.00 Immature Gran % 2 H Nucleated RBC % 0 Sodium 135 L Potassium 3.6 Chloride 102 Carbon Dioxide 20.2 Anion Gap 13 BUN 108 H* Creatinine 4.9 H* D Estim Creat Clear Calc 11.2 L eGFR 11 L* BUN/Creatinine Ratio 22 H Glucose 148 H D Calculated Osmolality 307 H Calcium 8.1 L Corrected Calcium 8.8 Magnesium 2.6 Total Bilirubin 0.9 AST 23 ALT 22 Alkaline Phosphatase 61 Total Protein 5.2 L Albumin 3.1 L Globulin 2.1 L Albumin/Globulin Ratio 1.5 Ur Collection Type Catheter Urine Color Dia Urine Clarity Cloudy A Urine pH 5.5 Ur Specific [place] 1.016 Urine Protein 2+ A Urine Glucose (UA) Negative Urine Ketones Negative Urine Blood 3+ A Urine Nitrite Negative Urine Bilirubin Negative Urine Urobilinogen (Auto) Negative Ur Leukocyte Esterase Positive Urine RBC 1594 H Urine WBC 928 H Ur Squamous Epith Cells 0 Amorphous Crystals Present A Urine Bacteria 2+ A Ur Random Creatinine 58 Ur Random Sodium 20.8 Misc Test Result Platelets confirmed Quality Measures Quality Measures VTE prophylaxis (SCDs and eliquis 2.5 mg ) Advance care planning discussed with:: patient Assessment & Plan Assessment Current Active Medications: Generic Name Dose Route Start Last Admin Trade Name Freq PRN Reason Stop Dose Admin Acetaminophen 650 mg 07/05/24 17:12 07/09/24 18:06 Acetaminophen 325 Mg Tablet PO 08/04/24 17:11 650 mg Q6H PRN Administration pain 1-3 and Fever >100.4 Apixaban 2.5 mg 07/07/24 09:00 07/10/24 08:34 Apixaban 2.5 Mg Tablet PO 08/06/24 08:59 2.5 mg BID ANNETTA Administration Dextrose 25 ml 07/05/24 17:12 Dextrose 50%-Water Inj 50 Ml Syringe IV 08/04/24 17:11 Q15MIN PRN BG 50-70 responsive npo pt Dextrose 50 ml 07/05/24 17:12 Dextrose 50%-Water Inj 50 Ml Syringe IV 08/04/24 17:11 Q15MIN PRN BG <50 OR BG <70 & pt unresponsive Finasteride 5 mg 07/08/24 10:45 07/10/24 08:34 Finasteride 5 Mg Tablet PO 08/07/24 10:44 5 mg QDAY ANNETTA Administration Glucagon 1 mg 07/05/24 17:12 Glucagon Inj 1 Mg Vial IM Q15MIN PRN BG <70, and no IV access Piperacillin/Tazobactam/Dextrose 50 mls @ 12.5 mls/hr 07/05/24 21:00 07/10/24 09:50 Zosyn IV 07/12/24 20:59 12.5 mls/hr Q12HR ANNETTA Administration Protocol Phenylephrine HCl 40 mg/ 100 mls @ 5.955 mls/hr 07/09/24 08:41 07/10/24 09:00 Sodium Chloride IV 08/08/24 08:40 1.6 mcg/kg/min .[id number] PRN 19.056 mls/hr Per Sepsis Protocol Titration Protocol 0.5 MCG/KG/MIN Albumin Human 12.5 gm in 250 mls @ 100 mls/hr 07/09/24 15:42 07/09/24 18:45 Albuminar-5 Ivpb IV 08/08/24 15:41 Infused QDAY ANNETTA Infusion Amiodarone HCl/Dextrose 360 mg in 200 mls @ 16.667 mls/hr 07/10/24 03:07 07/10/24 04:01 Nexterone Ivpb IV 07/10/24 15:06 16.667 mls/hr .Q12H ANNETTA Administration Protocol Lactated Ringer's 1,000 mls @ 75 mls/hr 07/10/24 08:34 07/10/24 08:44 Lactated Ringers IV 07/10/24 21:53 75 mls/hr .[id number] ONE Administration Insulin Human Lispro 0 unit 07/10/24 12:00 Insulin Lispro (Admelog) 1 Unit/0.01 Ml Unit SC 08/09/24 11:59 Q6HR ANNETTA Protocol Metoprolol Tartrate 2.5 mg 07/07/24 03:11 07/07/24 03:17 Metoprolol Tartrate Inj 1 Mg/Ml Amp 5 Ml IVP 2.5 mg Q5M PRN Administration AFIB RVR HR >140 Mirtazapine 30 mg 07/10/24 21:00 Mirtazapine 15 Mg Tablet PO 08/09/24 20:59 HS ANNETTA Ondansetron HCl 4 mg 07/09/24 09:41 07/09/24 09:44 Ondansetron Inj 2 Mg/Ml Inj 2 Ml IV 08/08/24 09:40 4 mg Q6HR PRN Administration NAUSEA OR VOMITING Protocol Prochlorperazine Maleate 10 mg 07/05/24 17:12 07/06/24 20:17 Prochlorperazine Maleate 5 Mg Tablet PO 08/04/24 17:11 10 mg Q6H PRN Administration NAUSEA OR VOMITING Sennosides 1 tab 07/05/24 17:12 Senna Tablet PO 08/04/24 17:11 QDAY PRN constipation Protocol Plan This 84-year-old male with past medical history of hypertension, BPH, DM2, subdural hematoma (2020), dementia, and chronic indwelling catheter was upgraded to ICU due to septic shock likely due to ESBL UTI and Klebsiella bacteremia. Cardiology team consulted for A-fib with RVR and requirement of possible cardioversion. #Atrial Fibrillation with Rvr: # Post cardioversion ?Patient supposedly had A-fib at the time of admission to the hospital but spontaneously reverted to normal sinus rhythm. -Developed new onset A-fib on 07/06/2024 overnight -Received 2.5 Mg of metoprolol tartrate, 150 Mg of amiodarone bolus and started on amiodarone drip -Based on [id number] score, patient was started on Eliquis 2.5 Mg twice daily due to his declined renal functions. -Patient rec 3 bags of amiodarone drip and now seen on 4th bag Plan: ?Cardioverted today. Recommended to switch to p.o. amiodarone 200 twice daily once amiodarone drip completed. ? ICU team discontinued Cardizem, ? Keep magnesium above 2 and potassium above 4 ? Replete electrolytes as necessary ? Follow-up on labs #Septic shock likely secondary to catheter associated ESBL urinary tract infection and Klebsiella bacteremia # Acute encephalopathy, resolved # Chronic indwelling catheter ?Etiology of the shock is likely septic due to UTI. ?Patient has a history of chronic indwelling catheter with monthly changes Rollins catheter as well as recurrent UTIs in the past. ?Patient was minimally responsive to questioning and most likely has encephalopathy secondary to the UTI as per patient's grandson at baseline he was a lot more responsive. ?Patient met SIRS 2 out of 4 criteria with tachycardia and tachypnea ?Past urine cultures have grown Citrobacter and Klebsiella which both were multidrug-resistant, but sensitive to Zosyn ?Chest x-ray showed bibasilar pneumonia ?UA was positive for bacteria and leukocyte esterase ?Lactic acid was 4.4 but down trended to 3.6 ?Procalcitonin 15.78 ?In the ED patient received 2 L boluses of NS and Zosyn ?Rollins was changed in the ED -Patient met septic shock criteria requiring pressors after 3 L of fluid. -Troponins: 0.119 -> 0.138 -> 0.178 > 0.136 -Patient remains A-fib with RVR on amnio drip per protocol and currently on fourth back. ? EKG showed AFib. Echo in 2021 showed normal LV with EF 60% ?Levophed is stopped and significant is started in view of difficulty with rapid ventricular rate on 07/09/2024. Plan: ? Continue phenylephrin and albumin therapy ? Continue IV antibiotic therapy Zosyn ? Monitor for fever spikes and elevation of white count and treat RAND on CKD possible ATN ? Daily labs #Hx of hypertension ? Will hold any antihypertensive medication for now as patient is septic ?Continue phenylephrine #NSTEMI type type II ? Likely supply demand ischemia ?Troponin I downtrended. Patient is denying any chest pain or shortness of breath. ?EKG did not show any ST changes Plan: ? Troponin I downtrended ? Continue monitor for chest pain or shortness of breath # Acute hypoxic respiratory failure, resolved # Likely secondary to aspiration pneumonia versus remote history of smoking # Elevated T. bili and transaminases # RAND likely prerenal azotemia leading to ATN # Mild bilateral hydronephrosis # [id number] type 2 diabetes # Normocytic anemia # Thrombocytopenia # Hematuria # History of BPH chronic indwelling catheter since 2019 # Appetite loss Rest of the management as per primary care team/ICU team. Thank you very much for consulting cardiology team. Cardizem discontinued by ICU team. Recommended to keep amiodarone drip and switch to p.o. amiodarone once drip completed. Cardioverted today. Plan of care discussed with elementary teacher, Dr. Carmelo Holder MD, PGY 2
--- NOTE | 2024-07-10 11:19 | ESPR_ITS ---
Documentation for date of: 07/10/24 Subjective Subjective Interval history: 07/06/2024 : Patient was seen and examined bedside in ICU. Patient had severe hearing loss and had to communicate him in a higher pitch but overall patient appears to be alert awake and oriented. Able to answer questions appropriately. Vitals are stable. On physical examination, patient still appears dehydrated. His renal functions continue to decline despite giving IV fluids. Repeat NICOM study was done on patient and passive leg rise which showed fluid responsiveness and patient was given an additional 1 L of LR bolus. Patient overall condition seems to be improving and urine output is adequate. NICOM was repeated again at 3 PM and did not show any fluid responsiveness. Patient is still on Levophed and will continue to monitor vital signs. 07/07/2024 : Patient was seen and examined bedside. Overnight patient had atrial fibrillation with rapid ventricular rate for which he received 2.5 Mg of metoprolol tartrate, 150 Mg of amiodarone bolus and was started on amiodarone drip. Based on [id number] or, patient should be on anticoagulation but in view of his declined renal functions and age, dose was reduced to 2.5 Mg twice daily. His Levophed dose is increased overnight. Patient had severe hearing loss but overall mental status appears to be normal and complaining of palpitations. Denies abdominal pain, chest pain, vomitings. Labs showed declining renal functions but as the urine output is maintained well, will continue to monitor renal functions and urine output. His WBC count, liver enzymes appears to be improved. Will continue to monitor his blood pressures and midodrine is added. As MRSA screen came back negative, vancomycin is discontinued and will continue Zosyn in view of gram-negative rods bacteremia. 07/08/2024 : Patient was seen and examined bedside in the ICU. Overnight, patient's Levophed dose is down titrated. Physical examination remains unchanged. Vitals are stable with MAP > 65 mmHg. Urine output is adequate. Patient is still on amiodarone drip. Labs showed thrombocytopenia, still worsening renal functions. Blood cultures showed Klebsiella pneumoniae. As the patient's blood pressures are well-maintained, Levophed and midodrine is stopped. A bolus of 150 Mg of amiodarone is given in view of atrial fibrillation with rapid ventricular rate and amiodarone drip still continued. Metoprolol tartrate 12.5 Mg p.o. twice daily is added for further rate control and will titrate according to the blood pressures and heart rate. As the urine output is well-maintained despite worsening creatinine and BUN, will continue to monitor the patient's as patient seems to be likely in ATN secondary to prerenal RAND. 07/09/2024: Patient was seen and examined bedside in the ICU. Patient appears frail and malnourished. Denies any other complaints. Patient still continued to have rapid ventricular rate with rate around 140-150. Labs showed hemoglobin 12.2 platelets count sodium 134, potassium 3.9, bicarb 19.5, BUN 96, creatinine 4.3, albumin 3.1. In view of rapid ventricular rate, Levophed was stopped and phenylephrine is started. Metoprolol is held for now. As the renal functions continue to worsen and the urine output is decreased, started on 5% albumin infusions. Consulted cardiology in need of cardioversion. 07/10: Patient is doing well but overnight pressor demand went up requiring phenylephrine doses up to 1.8. This morning Cardizem was discontinued due to the fact that once Cardizem was initiated patient's blood pressure requirement went up so is our suspicion that Cardizem was likely contributing to hypotension. Cardiology was consulted in the morning and suggested doing synchronized cardioversion so around 2 PM today cardiology came to bedside and patient received 2 mg of Versed and 50 mcg of fentanyl and underwent synchronized cardioversion with 100 J. At that point patient's heart rate went to sinus rhythm into a rate of the 50s and then began to develop some degree of bradycardia so amiodarone drip was discontinued. We will continue with p.o. amiodarone for management of A-fib. Urinary output has been around 30 cc an hour. Patient was also started on dronabinol 2 stimulate his appetite and his mirtazapine was increased from 15-30 to assist in helping him sleep at night and his mood. Patient has maintained sinus rhythm and phenylephrine dose has been titrated down and we will continue to attempt to wean him off of pressor support. Exam Vital Signs Temp Pulse Resp BP Pulse Ox O2 Del Method O2 Flow Rate 98.1 F 118 H 10 L 113/65 95 Room Air 1 07/10/24 08:00 07/10/24 10:15 07/10/24 10:15 07/10/24 10:15 07/10/24 10:15 07/08/24 13:00 07/10/24 07:09 FiO2 100 07/07/24 11:00 Narrative Exam General: Awake and in no acute distress. Severe hearing loss noted HEENT: Normocephalic, atraumatic, mucous membranes dry. Heart: Regular rate and rhythm, no murmurs. Lungs: Clear to auscultation with no wheezing or crackles. Abdomen: Soft, nondistended, nontender, positive bowel sounds. ?No guarding or rebound tenderness. Suprapubic tenderness noted. Neurologic: Alert and awake X 3, no gross neurological deficit, and patient able to move all 4 extremities. Extremities: No edema. Skin: No rash. ecchymoses noted in right hand - iatrogenic Objective Labs 07/17/24 07:39 07/17/24 07:39 Labs: Laboratory Results - last 24 hr 07/09/24 07/10/24 11:55 05:36 WBC 10.2 RBC 3.63 L Hgb 11.4 L Hct 32.9 L MCV 91 MCH 31.4 MCHC 34.7 RDW Std Deviation 50.6 H Plt Count 67 L D Neut % (Auto) 81 H Lymph % (Auto) 9 L Stanton % (Auto) 8 Eos % (Auto) 1 Baso % (Auto) 0 Neut # (Auto) 8.2 H Lymph # (Auto) 0.9 L Stanton # (Auto) 0.8 Eos # (Auto) 0.1 Baso # (Auto) 0.0 Immature Gran # (Auto) 0.17 H Absolute Nucleated RBC 0.00 Immature Gran % 2 H Nucleated RBC % 0 Sodium 135 L Potassium 3.6 Chloride 102 Carbon Dioxide 20.2 Anion Gap 13 BUN 108 H* Creatinine 4.9 H* D Estim Creat Clear Calc 11.2 L eGFR 11 L* BUN/Creatinine Ratio 22 H Glucose 148 H D Calculated Osmolality 307 H Calcium 8.1 L Corrected Calcium 8.8 Magnesium 2.6 Total Bilirubin 0.9 AST 23 ALT 22 Alkaline Phosphatase 61 Total Protein 5.2 L Albumin 3.1 L Globulin 2.1 L Albumin/Globulin Ratio 1.5 Ur Collection Type Catheter Urine Color Dia Urine Clarity Cloudy A Urine pH 5.5 Ur Specific [place] 1.016 Urine Protein 2+ A Urine Glucose (UA) Negative Urine Ketones Negative Urine Blood 3+ A Urine Nitrite Negative Urine Bilirubin Negative Urine Urobilinogen (Auto) Negative Ur Leukocyte Esterase Positive Urine RBC 1594 H Urine WBC 928 H Ur Squamous Epith Cells 0 Amorphous Crystals Present A Urine Bacteria 2+ A Ur Random Creatinine 58 Ur Random Sodium 20.8 Misc Test Result Platelets confirmed Quality Measures Quality Measures VTE prophylaxis (SCDs and eliquis 2.5 mg ) Advance care planning discussed with:: other Assessment & Plan Assessment Current Active Medications: Generic Name Dose Route Start Last Admin Trade Name Freq PRN Reason Stop Dose Admin Acetaminophen 650 mg 07/05/24 17:12 07/09/24 18:06 Acetaminophen 325 Mg Tablet PO 08/04/24 17:11 650 mg Q6H PRN Administration pain 1-3 and Fever >100.4 Apixaban 2.5 mg 07/07/24 09:00 07/10/24 08:34 Apixaban 2.5 Mg Tablet PO 08/06/24 08:59 2.5 mg BID ANNETTA Administration Dextrose 25 ml 07/05/24 17:12 Dextrose 50%-Water Inj 50 Ml Syringe IV 08/04/24 17:11 Q15MIN PRN BG 50-70 responsive npo pt Dextrose 50 ml 07/05/24 17:12 Dextrose 50%-Water Inj 50 Ml Syringe IV 08/04/24 17:11 Q15MIN PRN BG <50 OR BG <70 & pt unresponsive Dronabinol 2.5 mg 07/10/24 17:00 Dronabinol 2.5 Mg Capsule PO 08/09/24 16:59 BIDAC ANNETTA Finasteride 5 mg 07/08/24 10:45 07/10/24 08:34 Finasteride 5 Mg Tablet PO 08/07/24 10:44 5 mg QDAY ANNETTA Administration Glucagon 1 mg 07/05/24 17:12 Glucagon Inj 1 Mg Vial IM Q15MIN PRN BG <70, and no IV access Piperacillin/Tazobactam/Dextrose 50 mls @ 12.5 mls/hr 07/05/24 21:00 07/10/24 09:50 Zosyn IV 07/12/24 20:59 12.5 mls/hr Q12HR ANNETTA Administration Protocol Phenylephrine HCl 40 mg/ 100 mls @ 5.955 mls/hr 07/09/24 08:41 07/10/24 09:00 Sodium Chloride IV 08/08/24 08:40 1.6 mcg/kg/min .[id number] PRN 19.056 mls/hr Per Sepsis Protocol Titration Protocol 0.5 MCG/KG/MIN Albumin Human 12.5 gm in 250 mls @ 100 mls/hr 07/09/24 15:42 07/09/24 18:45 Albuminar-5 Ivpb IV 08/08/24 15:41 Infused QDAY ANNETTA Infusion Amiodarone HCl/Dextrose 360 mg in 200 mls @ 16.667 mls/hr 07/10/24 03:07 07/10/24 04:01 Nexterone Ivpb IV 07/10/24 15:06 16.667 mls/hr .Q12H ANNETTA Administration Protocol Lactated Ringer's 1,000 mls @ 75 mls/hr 07/10/24 08:34 07/10/24 08:44 Lactated Ringers IV 07/10/24 21:53 75 mls/hr .[id number] ONE Administration Insulin Human Lispro 0 unit 07/10/24 12:00 Insulin Lispro (Admelog) 1 Unit/0.01 Ml Unit SC 08/09/24 11:59 Q6HR ANNETTA Protocol Metoprolol Tartrate 2.5 mg 07/07/24 03:11 07/07/24 03:17 Metoprolol Tartrate Inj 1 Mg/Ml Amp 5 Ml IVP 2.5 mg Q5M PRN Administration AFIB RVR HR >140 Mirtazapine 30 mg 07/10/24 21:00 Mirtazapine 15 Mg Tablet PO 08/09/24 20:59 [facility] Ondansetron HCl 4 mg 07/09/24 09:41 07/09/24 09:44 Ondansetron Inj 2 Mg/Ml Inj 2 Ml IV 08/08/24 09:40 4 mg Q6HR PRN Administration NAUSEA OR VOMITING Protocol Prochlorperazine Maleate 10 mg 07/05/24 17:12 07/06/24 20:17 Prochlorperazine Maleate 5 Mg Tablet PO 08/04/24 17:11 10 mg Q6H PRN Administration NAUSEA OR VOMITING Sennosides 1 tab 07/05/24 17:12 Senna Tablet PO 08/04/24 17:11 QDAY PRN constipation Protocol Plan 84-year-old male admitted to the ICU for septic shock requiring pressors. 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 likely due to septic shock -Patient was alert, awake and became oriented and patient mental status is back to his baseline. Cardio: #Shock- likely septic shock,resolving #Elevated troponin, type II in the setting of shock #Hx of HTN Etiology of the shock is likely septic due to UTI. Patient presented to the emergency department meeting septic shock criteria requiring pressors after 3 L of fluid. Troponins: 0.119 -> 0.138 -> 0.178 > 0.136 Currently pt is has a regular rate and rhtyhm with present P waves, even though in the ED his EKG showed AFib Echo in 2021 showed normal LV with EF 60% NICOM showed fluid responsiveness w/ 250cc bolus on 07/05/2024 POCUS showed IVC size approx <2cm with notable distensibility and collapsibility NICOM done on 07/06/2024 with passive leg raise showed fluid responsiveness and patient was given a bolus of LR Levophed is stopped and significant is started in view of difficulty with rapid ventricular rate on 07/09/2024. Plan: -Phenylephrine restarted as per sepsis protocol. - patient will receive 1 L at a rate of 75 throughout the day and will be reassessed later in the day if more fluid resuscitation is necessitated. -maintain MAP >65 -Will continue Zosyn # New onset atrial fibrillation with rapid ventricular rate -Likely in the setting of septic shock -Patient supposedly had A-fib at the time of admission to the hospital but spontaneously reverted to normal sinus rhythm. -Developed new onset A-fib on 07/06/2024 overnight -Received 2.5 Mg of metoprolol tartrate, 150 Mg of amiodarone bolus and started on amiodarone drip -Based on [id number] score, patient was started on Eliquis 2.5 Mg twice daily due to his declined renal functions. Plan - Eliquis 2.5 Mg twice daily p.o. -Patient received 100 J synchronized cardioversion which converted him to sinus rhythm. Heart rate has been maintaining in the 50s with episodes down into the 40s. Will discontinue amiodarone drip. Continue with amiodarone p.o. Cardiology following, Pulm: #Acute hypoxic respiratory failure, resolved # Likely aspiration pneumonia # History of remote smoking CXR seemed normal Procal 15.78 at the time of admission Plan: -Patient required oxime mask following conscious sedation. Likely due to decreased respiratory rate. We will titrate down on FiO2 once appropriate. -cont antibiotics (see ID section) -duonebs as needed GI: #Elevated T Bili, Transaminitis - resolved Likely elevated in the setting of sepsis Patient denied abdominal pain Abdomen/pelvis CT showed cholelithiasis Gallbladder ultrasound showed gallbladder sludge but no cholelithiasis and cannot accurately assess gallbladder. Common bile duct was not distended. Occasional PVCs T bilirubin 1.8, alkaline phosphatase 62 -Within normal limits on 07/07/2024 Renal: #RAND- likely prerenal leading to Acute tubular necrosis #Mild bilateral hydronephrosis Likely prerenal in the setting of poor oral intake dehydration with overlapping septic shock and resulting in ATN. Patient presented with a creatinine of 2.3, BUN 46, EGFR of 27 with a UA showing 2+ proteins, 3+ glucose, 3+ blood, RBC and very elevated WBC with 4+ bacteria. Since admission patient has produce appropriate amount of urine output Renal ultrasound in 2021 also showed mild to moderate bilateral hydronephrosis Renal functions continue to decline but the urine output is decreased as of 07/09/2024. Fractional excretion of sodium as of 07/09/2024 is 1.2%. Plan: - patient received albumin to help with perfusion but did not show an increase in urinary output. -Diuretics were not started as patient is suspected to be in oliguric phase of ATN and does not appear to be fluid overloaded. -Will continue to monitor renal function panel and urinary output -Will avoid nephrotoxic medication and renally dose the medications. -Will consult nephrology if dialysis is needed or patient becomes fluid overloaded. Endo: #NonInsulin-dependent type 2 diabetes Last a1c was 5.9 (2022) Plan: -ISS protocol -hold home DM meds Heme: #Thrombocytopenia Likely in the setting of sepsis No history of bleeding manifestations right now Will continue to monitor CBC ID: #Septic Shock - klebsiella pneumonia bacteremia #Complicated UTI #? Aspiration pneumonia #Hx of Klebsiella ESBL UTI Patient is having indwelling catheter since 2019 and the catheter is changed once in every 4 weeks according to his grandson, recent Farias catheter change was 2 weeks back Patient is febrile. Patient has hx of repeated UTI with klebsiella pna ESBL in the past. U/A consistant with UTI, farias output is dark Elevated procalcitonin is noted. blood cultures and urine cultures grew klebsiella pneumonia Plan: - zosyn (07/05 -) as the patient's blood and urine cultures grew Klebsiella pneumonia sensitive to Zosyn -Discontinued vancomycin as MRSA screen came back negative and cultures grew gram-negative rods on 07/07 : #Hematuria, acute #BPH, chronic -indwelling catheter since 2019 Lew hematuria likely secondary to traumatic insertion of a Farias. Patient came in with a indwelling catheter Patient has a history of BPH which he takes tamsulosin and finasteride. His BPH is likely contributing to his post renal RAND and hydronephrosis. Plan: -cont finasteride Skin/MSK: stable ICU Health maintenance: Mechanical ventilation: none Sedation: none Pressors:none FEN: Pur?ed diet DVT ppx: SCDs GI ppx: none Farias: yes (placed on 07/05) IV lines: 3 PVs Central line: none Arterial line: none Code status: FULL code Dispo: ICU Patient's care was discussed with my attending physician, Dr. Contreras. Rena Stark M.D. PGY-3 Attending Provider Attestation/Addendum Patient seen and examined with the above resident, Eleazar Morales MD. I agree with the findings, assessment, and plan of care as documented except for any differences below. Patient continues to struggle with atrial fibrillation and hypotension. Cardizem discontinued. Amiodarone to be continued. Appreciate cardiology assistance, no need for JAVIER given known onset of atrial fibrillation while hospitalized and prompt initiation of anticoagulation. Proceeded with bedside DCCV. Successful return to NSR. Ongoing treatment for infection as undelrying etiology. Keep off pressors now. Monitor renal function which appears to be stable with good UOP. Abdoulaye was updated throughout the day on plan of care. Mentation remains at baseline. Total critical care time: I personally spent 40 minutes for review of physiologic parameters, directing plan of care, coordination of care with other specialists, and counseling family at bedside. This is exclusive of time spent teaching housestaff or performing any separate billable procedures. Patient continued to require critical care services for atria fibrillation with RVR, unstable hemodynamically and associated cardiogenic shock. AT high risk for further morbidity and mortality.
[2024-07-10] MEDS: PHENYLEPHRINE HCL 40 MG in SODIUM CHLORIDE 0.9% 96 ML 16.079 MG IV (11:23)
[2024-07-10] MEDS: fentaNYL CIT INJ 50 mCg/ML AMP 2ML IVP (13:23)
[2024-07-10] MEDS: MIDAZOLAM INJ 1 MG/ML VIAL 2 ML 2 MG IV (13:23)
[2024-07-10] MEDS: PHENYLEPHRINE HCL 40 MG in SODIUM CHLORIDE 0.9% 96 ML 16.674 MG IV (17:07)
--- NOTE | 2024-07-10 17:11 | EKG_ITS ---
[facility] Test Date: 2024-07-10 Pat Name: LUCERO LALA [facility] Gender[facility] Manager Summer: FIDEL : 1940 Requested By: Manuel Downing Order Number: [id number] Reading MD: Manuel Downing Measurements Intervals [place] Rate: 55 P: 78 NE: 195 QRS: 5 QRSD: 93 T: 29 QT: 462 QTc: 444 Interpretive Statements SINUS BRADYCARDIA WITH OCCASIONAL SUPRAVENTRICULAR PREMATURE COMPLEXES Compared to ECG 07/07/2024 03:18:54 Atrial fibrillation no longer present ST (T wave) deviation no longer present /store/S0/[id number]/ecg/[id number].pdf
[2024-07-10] MEDS: droNABinol 2.5 MG CAPSULE PO (17:45)
--- NOTE | 2024-07-10 20:26 | ESPR_ITS ---
RE: LUCERO LALA : 1940 DATE OF SERVICE: 07/10/2024 S: The patient is an 84-year-old male admitted to the hospital with multiple medical problems, urosepsis and pneumonia. Continues to have some hypotension requiring vasopressors. We did a cardioversion successfully, appears to be doing better, sedated and cardioverted successfully. O: Vital Signs: Shows his blood pressure is now 100/60 on vasopressor and sinus rhythm . Neck: Supple. Lungs: Decreased breath sounds. Heart: Sounds S1, S2. Regular, distant. Abdomen: Thin and soft. Extremities: Mild edema. A: 1. Atrial fibrillation successfully converted to sinus rhythm. 2. Urinary tract infection and sepsis with septic shock. P: Continue amiodarone IV and later on change it to p.o. 200 mg twice daily. DT: 17:17:20 TT: 20:08:00 Ref: [id number] - TID: [id number]
--- NOTE | 2024-07-10 20:33 | ESOP_ITS ---
RE: LUCERO LALA : 1940 DATE OF OPERATION: 07/10/2024 PROCEDURE PERFORMED: Synchronized cardioversion. DIAGNOSIS: Atrial fibrillation, symptomatic. HISTORY AND INDICATIONS: The patient is an 84-year-old male admitted with multiple medical problems, atrial fibrillation, rapid heart rate, sepsis, urinary tract infection, urosepsis untreated hypotension on vasopressors, atrial fibrillation with rapid heart rate despite amiodarone, unable to convert to sinus rhythm and the patient is quite symptomatic with hypotension and shortness of breath. Hence, synchronized cardioversion was recommended. DESCRIPTION OF PROCEDURE: The patient was given conscious sedation, 2 mg Versed and 50 mcg of fentanyl. Synchronized cardioversion was successfully performed using 100 joules of energy. The patient converted to sinus rhythm, maintaining sinus rhythm. SUMMARY: Successful synchronized cardioversion from atrial fibrillation to normal sinus rhythm. DT: 17:11:08 TT: 20:31:00 Ref: [id number] - TID: [id number]
[2024-07-10] MEDS: MIRTAZAPINE 15 MG TABLET 30 MG PO (21:06)
[2024-07-10] MEDS: AMIODARONE HCL 200 MG TABLET PO (21:06)
[2024-07-11] VITALS (105 sets, daily range): BP systolic 56–165; BP diastolic 40–85; PULSE 50–110; RESP 0–96; TEMP 26.6–37.2; O2SAT 92–99
[2024-07-11] MEDS: PHENYLEPHRINE HCL 40 MG in SODIUM CHLORIDE 0.9% 96 ML 10.124 MG IV (02:47)
[2024-07-11 06:06] LABS: Basophils % (Auto) 0 % (0-2.5); Eosinophils % (Auto) 0 % (0-10); Hematocrit 28.9 % (41.0-53.0); Hemoglobin 10.3 g/dL (13.5-16.0); Immature Granulocytes % (Auto) 3 % (0-0); Immature Granulocytes Auto 0.39 Thou/mm3 (0.00-0.00); Lymphocytes # (Auto) 0.7 Thou/mm3 (1.0-4.8); Lymphocytes % (Auto) 6 % (10-50); Mean Corpuscular HGB Conc 35.6 g/dl (31.0-37.0); Mean Corpuscular Hemoglobin 31.8 pg (25.0-35.0); Mean Corpuscular Volume 89 fL (80-100); Monocytes # (Auto) 0.3 Thou/mm3 (0.0-0.8); Monocytes % (Auto) 3 % (0-12); Neutrophils # (Auto) 10.2 Thou/mm3 (1.8-7.7); Neutrophils % (Auto) 88 % (37-80); Nucleated Red Blood Cell % 0 /100 WBC (0); RDW Standard Deviation 51.1 fL (35.1-43.9); Red Blood Count 3.24 Miln/mm3 (4.50-5.90); White Blood Count 11.6 Thou/mm3 (3.8-10.6)
[2024-07-11 06:14] LABS: Platelet Count 60 Thou/mm3 (140-440)
[2024-07-11 07:10] LABS: Slide Review Platelets confirmed
[2024-07-11] MEDS: droNABinol 2.5 MG CAPSULE PO ×2 (07:13→18:03)
[2024-07-11] MEDS: APIXABAN 2.5 MG TABLET PO (08:05)
[2024-07-11] MEDS: FINASTERIDE 5 MG TABLET PO (08:05)
[2024-07-11] MEDS: AMIODARONE HCL 200 MG TABLET PO ×2 (08:05→21:25)
[2024-07-11] MEDS: RINGERS LACTATED 1000 ML 1,000 ML 75 ML IV ×2 (09:28→23:38)
[2024-07-11] MEDS: PIPER/TAZO 3.375 GM 50 ML IV ×2 (10:27→21:25)
[2024-07-11] MEDS: INSULIN LISPRO (AdmeLOG) 1 UNIT/0.01 ML UNIT SC ×2 (11:53→18:04)
[2024-07-11] MEDS: MIDODRINE 5 MG TABLET PO ×2 (13:57→21:24)
--- NOTE | 2024-07-11 14:21 | ESPR_ITS ---
RE: LUCERO LALA : 1940 DATE OF SERVICE: 07/11/2024 S: Lucero Lala is admitted to the hospital with sepsis and hypotension, AFib with RVR, underwent synchronized cardioversion yesterday. Remains in sinus rhythm, PACs occasional, brief episodes of trying to go in AFib but maintaining sinus rhythm, not having any chest pain, shortness of breath, still requiring phenylephrine, continue to be weaned off the vasopressors, but clinically better, but renal function has continued to be worsened, renal function has not improved is CKD with acute renal failure, creatinine clearance is now down to 11, creatinine 4.9. GENERAL: Shows alert, awake, arousable, not in acute distress. VITAL SIGNS: Blood pressure 112/56, pulse 72, temperature normal, saturation is 97%, respirations 21. HEENT: Head: Atraumatic, normocephalic. Eyes: Normal. NECK: Supple. No JVD. LUNGS: Decreased breath sounds. No rales or rhonchi. HEART: S1, S2, regular sinus rhythm. ABDOMEN: Thin and soft. EXTREMITIES: Mild edema. GENITOURINARY AND RECTAL: Not performed. DIAGNOSTIC DATA: Electrocardiogram showed sinus bradycardia, rate of 55 beats per minute, occasional PACs. A: 1. Paroxysmal atrial fibrillation, now sinus rhythm. 2. Sepsis, urinary tract infection, requiring vasopressors. 3. Mild to moderate aortic regurgitation on echo. P: Continue medical management. Monitor for any signs of arrhythmias. Continue amiodarone oral 200 mg twice daily for now and apixaban has also been started 2.5 b.i.d. DT: 13:18:03 TT: 14:19:00 Ref: [id number] - TID: [id number]
[2024-07-11] MEDS: SODIUM CHLORIDE 0.9% IV (15:09)
[2024-07-11] MEDS: PHENYLEPHRINE HCL IV (15:09)
--- NOTE | 2024-07-11 15:55 | ESPR_ITS ---
Documentation for date of: 07/11/24 Subjective Subjective Interval history: 07/06/2024 : Patient was seen and examined bedside in ICU. Patient had severe hearing loss and had to communicate him in a higher pitch but overall patient appears to be alert awake and oriented. Able to answer questions appropriately. Vitals are stable. On physical examination, patient still appears dehydrated. His renal functions continue to decline despite giving IV fluids. Repeat NICOM study was done on patient and passive leg rise which showed fluid responsiveness and patient was given an additional 1 L of LR bolus. Patient overall condition seems to be improving and urine output is adequate. NICOM was repeated again at 3 PM and did not show any fluid responsiveness. Patient is still on Levophed and will continue to monitor vital signs. 07/07/2024 : Patient was seen and examined bedside. Overnight patient had atrial fibrillation with rapid ventricular rate for which he received 2.5 Mg of metoprolol tartrate, 150 Mg of amiodarone bolus and was started on amiodarone drip. Based on [id number] or, patient should be on anticoagulation but in view of his declined renal functions and age, dose was reduced to 2.5 Mg twice daily. His Levophed dose is increased overnight. Patient had severe hearing loss but overall mental status appears to be normal and complaining of palpitations. Denies abdominal pain, chest pain, vomitings. Labs showed declining renal functions but as the urine output is maintained well, will continue to monitor renal functions and urine output. His WBC count, liver enzymes appears to be improved. Will continue to monitor his blood pressures and midodrine is added. As MRSA screen came back negative, vancomycin is discontinued and will continue Zosyn in view of gram-negative rods bacteremia. 07/08/2024 : Patient was seen and examined bedside in the ICU. Overnight, patient's Levophed dose is down titrated. Physical examination remains unchanged. Vitals are stable with MAP > 65 mmHg. Urine output is adequate. Patient is still on amiodarone drip. Labs showed thrombocytopenia, still worsening renal functions. Blood cultures showed Klebsiella pneumoniae. As the patient's blood pressures are well-maintained, Levophed and midodrine is stopped. A bolus of 150 Mg of amiodarone is given in view of atrial fibrillation with rapid ventricular rate and amiodarone drip still continued. Metoprolol tartrate 12.5 Mg p.o. twice daily is added for further rate control and will titrate according to the blood pressures and heart rate. As the urine output is well-maintained despite worsening creatinine and BUN, will continue to monitor the patient's as patient seems to be likely in ATN secondary to prerenal RAND. 07/09/2024: Patient was seen and examined bedside in the ICU. Patient appears frail and malnourished. Denies any other complaints. Patient still continued to have rapid ventricular rate with rate around 140-150. Labs showed hemoglobin 12.2 platelets count sodium 134, potassium 3.9, bicarb 19.5, BUN 96, creatinine 4.3, albumin 3.1. In view of rapid ventricular rate, Levophed was stopped and phenylephrine is started. Metoprolol is held for now. As the renal functions continue to worsen and the urine output is decreased, started on 5% albumin infusions. Consulted cardiology in need of cardioversion. 07/10/2024: Patient is doing well but overnight pressor demand went up requiring phenylephrine doses up to 1.8. This morning Cardizem was discontinued due to the fact that once Cardizem was initiated patient's blood pressure requirement went up so is our suspicion that Cardizem was likely contributing to hypotension. Cardiology was consulted in the morning and suggested doing synchronized cardioversion so around 2 PM today cardiology came to bedside and patient received 2 mg of Versed and 50 mcg of fentanyl and underwent synchronized cardioversion with 100 J. At that point patient's heart rate went to sinus rhythm into a rate of the 50s and then began to develop some degree of bradycardia so amiodarone drip was discontinued. We will continue with p.o. amiodarone for management of A-fib. Urinary output has been around 30 cc an hour. Patient was also started on dronabinol 2 stimulate his appetite and his mirtazapine was increased from 15-30 to assist in helping him sleep at night and his mood. Patient has maintained sinus rhythm and phenylephrine dose has been titrated down and we will continue to attempt to wean him off of pressor support. 07/11/2024: Patient has remained sinus rhythm overnight in the 60s. Kidney functioning was noted to be worse, with BUN 108, creatinine 4.9, GFR 11. Mentation is still baseline, however and clinically patient does not appear uremic. He received 1L of LR yesterday and had urine output of 40 mL per hour average until this morning when patient became anuric for several hours. Farias was flushed, yield only small amounts of return. Bladder scan was performed and showed 675 ml in bladder, therefore Farias catheter was replaced 07/11/2024 at 15:30. Patient immediately output about 700 mL of reddish urine which was later bloody. Eliquis will be held for tonight's dose. Patient has been weaning down on the phenylephrine and is at 0.2 as of this evening. Will continue LR at 75 ml/hr maintenance. Midodrine 5 mg TID was added. Appetite continues to be poor. He did eat about 25% of his lunch. Plan is to continue pressor weaning and continue to monitor kidney function and urine output. Exam Vital Signs Temp Pulse Resp BP Pulse Ox O2 Del Method O2 Flow Rate 97.8 F 67 17 129/61 97 Room Air 3 07/11/24 12:00 07/11/24 15:09 07/11/24 15:00 07/11/24 15:09 07/11/24 15:00 07/08/24 13:00 07/11/24 07:13 FiO2 100 07/07/24 11:00 Narrative Exam General: Awake and in no acute distress. Severe hearing loss noted HEENT: Normocephalic, atraumatic, mucous membranes dry. Heart: Regular rate and rhythm, no murmurs. Lungs: Clear to auscultation with no wheezing or crackles. Abdomen: Soft, nondistended, nontender, positive bowel sounds. ?No guarding or rebound tenderness. Suprapubic tenderness noted. Neurologic: Alert and awake X 3, no gross neurological deficit, and patient able to move all 4 extremities. Extremities: No edema. Skin: No rash. ecchymoses noted in right hand - iatrogenic Objective Labs 07/16/24 04:48 07/16/24 04:48 Labs: Laboratory Results - last 24 hr 07/11/24 04:43 WBC 11.6 H RBC 3.24 L Hgb 10.3 L Hct 28.9 L MCV 89 MCH 31.8 MCHC 35.6 RDW Std Deviation 51.1 H Plt Count 60 L Neut % (Auto) 88 H Lymph % (Auto) 6 L [place] % (Auto) 3 Eos % (Auto) 0 Baso % (Auto) 0 Neut # (Auto) 10.2 H Lymph # (Auto) 0.7 L [place] # (Auto) 0.3 Eos # (Auto) 0.0 Baso # (Auto) 0.0 Immature Gran # (Auto) 0.39 H Absolute Nucleated RBC 0.00 Immature Gran % 3 H Nucleated RBC % 0 Misc Test Result Platelets confirmed Quality Measures Quality Measures VTE prophylaxis (SCDs and eliquis 2.5 mg ) Advance care planning discussed with:: patient Assessment & Plan Assessment Current Active Medications: Generic Name Dose Route Start Last Admin Trade Name Freq PRN Reason Stop Dose Admin Acetaminophen 650 mg 07/05/24 17:12 07/09/24 18:06 Acetaminophen 325 Mg Tablet PO 08/04/24 17:11 650 mg Q6H PRN Administration pain 1-3 and Fever >100.4 Amiodarone HCl 200 mg 07/10/24 21:00 07/11/24 08:05 Amiodarone Hcl 200 Mg Tablet PO 08/09/24 20:59 200 mg BID ANNETTA Administration Apixaban 2.5 mg 07/07/24 09:00 07/11/24 08:05 Apixaban 2.5 Mg Tablet PO 08/06/24 08:59 2.5 mg BID ANNETTA Administration Dextrose 25 ml 07/05/24 17:12 Dextrose 50%-Water Inj 50 Ml Syringe IV 08/04/24 17:11 Q15MIN PRN BG 50-70 responsive npo pt Dextrose 50 ml 07/05/24 17:12 Dextrose 50%-Water Inj 50 Ml Syringe IV 08/04/24 17:11 Q15MIN PRN BG <50 OR BG <70 & pt unresponsive Dronabinol 2.5 mg 07/10/24 17:00 07/11/24 07:13 Dronabinol 2.5 Mg Capsule PO 08/09/24 16:59 2.5 mg BIDAC ANNETTA Administration Finasteride 5 mg 07/08/24 10:45 07/11/24 08:05 Finasteride 5 Mg Tablet PO 08/07/24 10:44 5 mg QDAY ANNETTA Administration Glucagon 1 mg 07/05/24 17:12 Glucagon Inj 1 Mg Vial IM Q15MIN PRN BG <70, and no IV access Piperacillin/Tazobactam/Dextrose 50 mls @ 12.5 mls/hr 07/05/24 21:00 07/11/24 10:27 Zosyn IV 07/12/24 20:59 12.5 mls/hr Q12HR ANNETTA Administration Protocol Phenylephrine HCl 40 mg/ 100 mls @ 5.955 mls/hr 07/09/24 08:41 07/11/24 15:00 Sodium Chloride IV 08/08/24 08:40 Infused .[id number] PRN Titration Per Sepsis Protocol Protocol 0.5 MCG/KG/MIN Albumin Human 12.5 gm in 250 mls @ 100 mls/hr 07/09/24 15:42 07/09/24 18:45 Albuminar-5 Ivpb IV 08/08/24 15:41 Infused QDAY ANNETTA Infusion Lactated Ringer's 1,000 mls @ 75 mls/hr 07/11/24 08:59 07/11/24 09:28 Lactated Ringers IV 07/11/24 22:18 75 mls/hr .[id number] ANNETTA Administration Phenylephrine HCl 80 mg/ 100 mls @ 2.978 mls/hr 07/11/24 14:42 07/11/24 15:09 Sodium Chloride IV 0.3 mcg/kg/min .Q24H PRN 1.787 mls/hr Per Sepsis Protocol Administration Protocol 0.5 MCG/KG/MIN Insulin Human Lispro 0 unit 07/10/24 12:00 07/11/24 11:53 Insulin Lispro (Admelog) 1 Unit/0.01 Ml Unit SC 08/09/24 11:59 1 unit Q6HR ANNETTA Administration Protocol Metoprolol Tartrate 2.5 mg 07/07/24 03:11 07/07/24 03:17 Metoprolol Tartrate Inj 1 Mg/Ml Amp 5 Ml IVP 2.5 mg Q5M PRN Administration AFIB RVR HR >140 Midodrine 5 mg 07/11/24 14:00 07/11/24 13:57 Midodrine 5 Mg Tablet PO 08/10/24 13:59 5 mg TID ANNETTA Administration Mirtazapine 30 mg 07/10/24 21:00 07/10/24 21:06 Mirtazapine 15 Mg Tablet PO 08/09/24 20:59 30 mg HS ANNETTA Administration Ondansetron HCl 4 mg 07/09/24 09:41 07/09/24 09:44 Ondansetron Inj 2 Mg/Ml Inj 2 Ml IV 08/08/24 09:40 4 mg Q6HR PRN Administration NAUSEA OR VOMITING Protocol Prochlorperazine Maleate 10 mg 07/05/24 17:12 07/06/24 20:17 Prochlorperazine Maleate 5 Mg Tablet PO 08/04/24 17:11 10 mg Q6H PRN Administration NAUSEA OR VOMITING Protocol Sennosides 1 tab 07/05/24 17:12 Senna Tablet PO 08/04/24 17:11 QDAY PRN constipation Protocol Plan 84-year-old male admitted to the ICU for septic shock requiring pressors. CLINICAL MANAGER: # Acute encephalopathy, resolved. likely due to septic shock -Patient was alert, awake and became oriented and patient mental status is back to his baseline. Cardio: #Shock - likely septic shock, resolving #Elevated troponin, type II in the setting of shock #Hx of HTN Etiology of the shock is likely septic due to UTI. Patient presented to the emergency department meeting septic shock criteria requiring pressors after 3 L of fluid. Troponins: 0.119 -> 0.138 -> 0.178 > 0.136 Currently pt is has a regular rate and rhtyhm with present P waves, even though in the ED his EKG showed AFib Echo in 2021 showed normal LV with EF 60% NICOM showed fluid responsiveness w/ 250cc bolus on 07/05/2024 POCUS showed IVC size approx <2cm with notable distensibility and collapsibility NICOM done on 07/06/2024 with passive leg raise showed fluid responsiveness and patient was given a bolus of LR Levophed is stopped and significant is started in view of difficulty with rapid ventricular rate on 07/09/2024. Plan: -Phenylephrine will be titrated down -Will continue LR at 75 ml/hr -Maintain MAP >65 -Will continue Zosyn for ESBL Klebsiella # New onset atrial fibrillation with rapid ventricular rate -Likely in the setting of septic shock -Patient supposedly had A-fib at the time of admission to the hospital but spontaneously reverted to normal sinus rhythm. -Developed new onset A-fib on 07/06/2024 overnight -Received 2.5 Mg of metoprolol tartrate, 150 Mg of amiodarone bolus and started on amiodarone drip -Based on [id number] score, patient was started on Eliquis 2.5 Mg twice daily due to his declined renal functions. -07/10/2024 Patient received 100 J synchronized cardioversion which converted him to sinus rhythm. Heart rate has been maintaining in the 50s with episodes down into the 40s. Plan -HELD Eliquis 2.5 Mg twice daily p.o. due to bloody urine in Farias -Continue with amiodarone p.o -Cardiology following Pulm: #Acute hypoxic respiratory failure, resolved # Likely aspiration pneumonia # History of remote smoking CXR seemed normal Procal 15.78 at the time of admission Plan: -Patient is on room air, supplemental O2 as needed -cont antibiotics (see ID section) -duonebs as needed GI: #Elevated T Bili, Transaminitis - resolved Likely elevated in the setting of sepsis Patient denied abdominal pain Abdomen/pelvis CT showed cholelithiasis Gallbladder ultrasound showed gallbladder sludge but no cholelithiasis and cannot accurately assess gallbladder. Common bile duct was not distended. Occasional PVCs T bilirubin 1.8, alkaline phosphatase 62 -Within normal limits as of 07/07/2024 Renal: #RAND- likely prerenal leading to Acute tubular necrosis #Mild bilateral hydronephrosis Likely prerenal in the setting of poor oral intake dehydration with overlapping septic shock and resulting in ATN. Patient presented with a creatinine of 2.3, BUN 46, EGFR of 27 with a UA showing 2+ proteins, 3+ glucose, 3+ blood, RBC and very elevated WBC with 4+ bacteria. Since admission patient has produce appropriate amount of urine output Renal ultrasound in 2021 also showed mild to moderate bilateral hydronephrosis Renal functions continue to decline but the urine output is decreased as of 07/09/2024. Fractional excretion of sodium as of 07/09/2024 is 1.2%. Patient received albumin to help with perfusion but did not show an increase in urinary output. 07/11/2024 the Farias catheter was exchanged for new Farias with immediate output of 700 mL urine, suspect there was possible obstruction of flow in old Farias Plan: -Diuretics were not started as patient is suspected to be in oliguric phase of ATN and does not appear to be fluid overloaded. -Patient currently not clinically appearing uremic, mentating at his baseline -Continue LR at 75 ml/hr -Will continue to monitor renal function panel and urinary output -Will avoid nephrotoxic medication and renally dose the medications. -Will consult nephrology if dialysis is needed or patient becomes fluid overloaded. Endo: #NonInsulin-dependent type 2 diabetes Last a1c was 5.9 (2022) Plan: -ISS protocol -Hold home DM meds Heme: #Thrombocytopenia Likely in the setting of sepsis No history of bleeding manifestations right now -Will continue to monitor CBC ID: #Septic Shock - klebsiella pneumonia bacteremia #Complicated UTI #? Aspiration pneumonia #Hx of Klebsiella ESBL UTI Patient is having indwelling catheter since 2019 and the catheter is changed once in every 4 weeks according to his grandson, recent Farias catheter change was 2 weeks back Patient is febrile. Patient has hx of repeated UTI with klebsiella pna ESBL in the past. U/A consistant with UTI, farias output is dark Elevated procalcitonin is noted. blood cultures and urine cultures grew klebsiella pneumonia Plan: -Zosyn (07/05 -) as the patient's blood and urine cultures grew Klebsiella pneumonia sensitive to Zosyn -Discontinued vancomycin as MRSA screen came back negative and cultures grew gram-negative rods on 07/07 : #Hematuria, acute #BPH, chronic -indwelling catheter since 2019 Lew hematuria likely secondary to traumatic insertion of a Farias. Patient came in with a indwelling catheter Patient has a history of BPH which he takes tamsulosin and finasteride. His BPH is likely contributing to his post renal RAND and hydronephrosis. Plan: -Continue home finasteride Skin/MSK: -stable ICU Health maintenance: Mechanical ventilation: none Sedation: none Pressors:none FEN: Pur?ed diet DVT ppx: SCDs GI ppx: none Farias: yes (placed on 07/05) IV lines: 3 PVs Central line: none Arterial line: none Code status: FULL code Dispo: ICU Patient plan of care was discussed with the attending physician, Dr. Contreras. Izabela Lemos, PGY-2 Attending Provider Attestation/Addendum Patient seen and examined with above resident, Izabela Lemos MD. I agree with the findings, assessment, and plan of care as documented except for any differences below. Patient continues to be hemodynamically stable after DC cardioversion by cardiology. Patient however having worsening renal function. Patient without significant urine output despite using IV fluid bolus to challenge. Bladder scan was done and showed acute urinary retention. Farias catheter was placed with bloody output. Will hold Eliquis for now but will need to resume once this starts to clear up again in the coming days given he had cardioversion to minimize risk of stroke. Patient with adequate urine output overall after Farias placement suggesting that potential postobstructive process though he has significant uremia now, will hold off on initiation of hemodialysis at this point. Nephrology is available for input and will touch base with them again tomorrow to determine need for further hemofiltration. Patient remains at baseline mentation. Patient's grandson updated on plan of care and the significant concern due to lack of urine output suddenly that we have updated him and he will be by at bedside again later today. We will continue to monitor him closely in the ICU today given development of worsening renal dysfunction. Total critical care time: I personally spent 40 minutes for review of physiologic parameters, directing plan of care throughout the day, coordination of care with the specialist, and counseling patient's grandson at bedside. This is exclusive of time spent teaching housestaff or performing any separate billable procedures. Patient continues to require critical care services due to acute renal failure with uremia and atrial fibrillation with RVR status post cardioversion and resolution of underlying septic shock secondary to urinary tract infection and bacteremia.
--- NOTE | 2024-07-11 19:17 | PC.NURSE ---
Addendum entered by Thu Carrera RN 07/11/24 19:21: CALLED PHARMACIST AT [id number] Original Note: SPOKE TO PHARMACIST LANCE PRIOR TO STARTING BOZENA, PHARMACIST STATED TO CHANGE THE RATE ON ALARIS PUMP TO HALF 0.3 SINCE RATE WAS RUNNING AT 0.6. CHARGE NURSE LOAN WAS WITH ME AND VERIFIED WITH ME THAT THE PHARMACIST STATED TO CHANGE THE RATE TO 0.3
[2024-07-11] MEDS: MIRTAZAPINE 15 MG TABLET 30 MG PO (21:24)
[2024-07-11] MEDS: DEXTROSE 50%-WATER INJ 50 ML SYRINGE 25 ML IV (23:48)
[2024-07-12] VITALS (51 sets, daily range): BP systolic 89–158; BP diastolic 37–80; PULSE 53–111; RESP 13–22; TEMP 36.6–37; O2SAT 89–98; BMI 26.2
[2024-07-12] MEDS: MIDODRINE 5 MG TABLET PO ×3 (05:58→21:17)
[2024-07-12 06:04] LABS: Basophils % (Auto) 0 % (0-2.5); Eosinophils # (Auto) 0.1 Thou/mm3 (0.0-0.5); Eosinophils % (Auto) 1 % (0-10); Hematocrit 28.8 % (41.0-53.0); Hemoglobin 10.1 g/dL (13.5-16.0); Immature Granulocytes % (Auto) 3 % (0-0); Immature Granulocytes Auto 0.29 Thou/mm3 (0.00-0.00); Lymphocytes % (Auto) 9 % (10-50); Mean Corpuscular HGB Conc 35.1 g/dl (31.0-37.0); Mean Corpuscular Hemoglobin 31.4 pg (25.0-35.0); Mean Corpuscular Volume 89 fL (80-100); Monocytes # (Auto) 0.3 Thou/mm3 (0.0-0.8); Monocytes % (Auto) 3 % (0-12); Neutrophils # (Auto) 9.5 Thou/mm3 (1.8-7.7); Neutrophils % (Auto) 85 % (37-80); Nucleated Red Blood Cell % 0 /100 WBC (0); Platelet Count 105 Thou/mm3 (140-440); RDW Standard Deviation 50.9 fL (35.1-43.9); Red Blood Count 3.22 Miln/mm3 (4.50-5.90); White Blood Count 11.2 Thou/mm3 (3.8-10.6)
[2024-07-12 06:33] LABS: Anion Gap 13 (7-16); BUN/Creatinine Ratio 20 Ratio (12-20); Calcium 7.9 mg/dL (8.3-10.6); Carbon Dioxide 20.5 mMol/L (20.0-31.0); Chloride 103 mMol/L (98-107); Creatinine (Component) 5.7 mg/dL (0.6-1.3); Estimated Creatinine Clearance 9.6 mL/min (>60); Glucose 107 mg/dL (74-106); Osmolality,Calculated 308 (275-295); Potassium 3.5 mMol/L (3.4-5.1); Sodium 136 mMol/L (136-145); eGFR 9 See Note
[2024-07-12 06:34] LABS: Blood Urea Nitrogen 114 mg/dL (9-23)
[2024-07-12] MEDS: droNABinol 2.5 MG CAPSULE PO (08:57)
[2024-07-12] MEDS: PIPER/TAZO 3.375 GM 50 ML IV (08:57)
[2024-07-12] MEDS: AMIODARONE HCL 200 MG TABLET PO ×2 (08:57→21:17)
[2024-07-12] MEDS: FINASTERIDE 5 MG TABLET PO (09:36)
--- NOTE | 2024-07-12 10:07 | ESPR_ITS ---
<Statement entered by Izabela Lemos MD - 07/13/24 06:52> Patient was seen and examined by me personally. I have directly supervised and reviewed the above documentation by the team resident and agree with its findings with any exceptions or additional findings as below. Plan of care was discussed with the attending, Dr. Contreras. Izabela Lemos, PGY-2 Documentation for date of: 07/12/24 Subjective Subjective Interval history: 07/06/2024 : Patient was seen and examined bedside in ICU. Patient had severe hearing loss and had to communicate him in a higher pitch but overall patient appears to be alert awake and oriented. Able to answer questions appropriately. Vitals are stable. On physical examination, patient still appears dehydrated. His renal functions continue to decline despite giving IV fluids. Repeat NICOM study was done on patient and passive leg rise which showed fluid responsiveness and patient was given an additional 1 L of LR bolus. Patient overall condition seems to be improving and urine output is adequate. NICOM was repeated again at 3 PM and did not show any fluid responsiveness. Patient is still on Levophed and will continue to monitor vital signs. 07/07/2024 : Patient was seen and examined bedside. Overnight patient had atrial fibrillation with rapid ventricular rate for which he received 2.5 Mg of metoprolol tartrate, 150 Mg of amiodarone bolus and was started on amiodarone drip. Based on [id number] or, patient should be on anticoagulation but in view of his declined renal functions and age, dose was reduced to 2.5 Mg twice daily. His Levophed dose is increased overnight. Patient had severe hearing loss but overall mental status appears to be normal and complaining of palpitations. Denies abdominal pain, chest pain, vomitings. Labs showed declining renal functions but as the urine output is maintained well, will continue to monitor renal functions and urine output. His WBC count, liver enzymes appears to be improved. Will continue to monitor his blood pressures and midodrine is added. As MRSA screen came back negative, vancomycin is discontinued and will continue Zosyn in view of gram-negative rods bacteremia. 07/08/2024 : Patient was seen and examined bedside in the ICU. Overnight, patient's Levophed dose is down titrated. Physical examination remains unchanged. Vitals are stable with MAP > 65 mmHg. Urine output is adequate. Patient is still on amiodarone drip. Labs showed thrombocytopenia, still worsening renal functions. Blood cultures showed Klebsiella pneumoniae. As the patient's blood pressures are well-maintained, Levophed and midodrine is stopped. A bolus of 150 Mg of amiodarone is given in view of atrial fibrillation with rapid ventricular rate and amiodarone drip still continued. Metoprolol tartrate 12.5 Mg p.o. twice daily is added for further rate control and will titrate according to the blood pressures and heart rate. As the urine output is well-maintained despite worsening creatinine and BUN, will continue to monitor the patient's as patient seems to be likely in ATN secondary to prerenal RAND. 07/09/2024: Patient was seen and examined bedside in the ICU. Patient appears frail and malnourished. Denies any other complaints. Patient still continued to have rapid ventricular rate with rate around 140-150. Labs showed hemoglobin 12.2 platelets count sodium 134, potassium 3.9, bicarb 19.5, BUN 96, creatinine 4.3, albumin 3.1. In view of rapid ventricular rate, Levophed was stopped and phenylephrine is started. Metoprolol is held for now. As the renal functions continue to worsen and the urine output is decreased, started on 5% albumin infusions. Consulted cardiology in need of cardioversion. 07/10/2024: Patient is doing well but overnight pressor demand went up requiring phenylephrine doses up to 1.8. This morning Cardizem was discontinued due to the fact that once Cardizem was initiated patient's blood pressure requirement went up so is our suspicion that Cardizem was likely contributing to hypotension. Cardiology was consulted in the morning and suggested doing synchronized cardioversion so around 2 PM today cardiology came to bedside and patient received 2 mg of Versed and 50 mcg of fentanyl and underwent synchronized cardioversion with 100 J. At that point patient's heart rate went to sinus rhythm into a rate of the 50s and then began to develop some degree of bradycardia so amiodarone drip was discontinued. We will continue with p.o. amiodarone for management of A-fib. Urinary output has been around 30 cc an hour. Patient was also started on dronabinol 2 stimulate his appetite and his mirtazapine was increased from 15-30 to assist in helping him sleep at night and his mood. Patient has maintained sinus rhythm and phenylephrine dose has been titrated down and we will continue to attempt to wean him off of pressor support. 07/11/2024: Patient has remained sinus rhythm overnight in the 60s. Kidney functioning was noted to be worse, with BUN 108, creatinine 4.9, GFR 11. Mentation is still baseline, however and clinically patient does not appear uremic. He received 1L of LR yesterday and had urine output of 40 mL per hour average until this morning when patient became anuric for several hours. Farias was flushed, yield only small amounts of return. Bladder scan was performed and showed 675 ml in bladder, therefore Farias catheter was replaced 07/11/2024 at 15:30. Patient immediately output about 700 mL of reddish urine which was later bloody. Eliquis will be held for tonight's dose. Patient has been weaning down on the phenylephrine and is at 0.2 as of this evening. Will continue LR at 75 ml/hr maintenance. Midodrine 5 mg TID was added. Appetite continues to be poor. He did eat about 25% of his lunch. Plan is to continue pressor weaning and continue to monitor kidney function and urine output. 07/12/2024: Patient was seen and examined with dionisio by bedside in the ICU. Appears to be a bit drowsy when compared to before and grandson agreed with that. Still had decreased appetite despite giving dronabinol. Vitals are stable and patient is in still sinus rhythm with heart rate around 60 to 65 bpm. Of phenylephrine since yesterday afternoon. On physical examination, bilateral pedal edema is noted and crackles are heard on the right lower base of the lung. Labs showed mild leukocytosis, uptrending renal functions with BUN 114 and creatinine 5.7. But urine output is well-maintained with 50 cc/h and blood is noted in the Farias catheter. Patient was given a dose of Lasix 40 Mg IV. Nephrology team was consulted for need of dialysis as the patient is having severe uremia with changing mental status. Consent for vasc catheter and dialysis is taken from dionisio on the telephone along with the supervising nurse. And vasc catheter was placed and dialysis was started at around 5 PM. As the patient is hemodynamically stable, will downgrade patient to floors for further management. Exam Vital Signs Temp Pulse Resp BP Pulse Ox O2 Del Method O2 Flow Rate 97.9 F 63 16 111/51 L 97 Room Air 2 07/12/24 08:00 07/12/24 08:57 07/12/24 08:00 07/12/24 08:57 07/12/24 08:00 07/08/24 13:00 07/12/24 06:39 FiO2 100 07/07/24 11:00 Narrative Exam General: Awake and in no acute distress. Severe hearing loss noted. Noted drowsy when compared to yesterday. HEENT: Normocephalic, atraumatic, mucous membranes dry. Heart: Regular rate and rhythm, no murmurs. Lungs: Clear to auscultation with no wheezing or crackles. Abdomen: Soft, nondistended, nontender, positive bowel sounds. ?No guarding or rebound tenderness. Suprapubic tenderness noted. Neurologic: Alert and awake X 3, no gross neurological deficit, and patient able to move all 4 extremities. Extremities: Bilateral lower extremity edema noted. Skin: No rash. ecchymoses noted in right hand - iatrogenic Objective Labs 07/16/24 04:48 07/16/24 04:48 Labs: Laboratory Results - last 24 hr 07/12/24 05:37 WBC 11.2 H RBC 3.22 L Hgb 10.1 L Hct 28.8 L MCV 89 MCH 31.4 MCHC 35.1 RDW Std Deviation 50.9 H Plt Count 105 L D Neut % (Auto) 85 H Lymph % (Auto) 9 L [place] % (Auto) 3 Eos % (Auto) 1 Baso % (Auto) 0 Neut # (Auto) 9.5 H Lymph # (Auto) 1.0 [place] # (Auto) 0.3 Eos # (Auto) 0.1 Baso # (Auto) 0.0 Immature Gran # (Auto) 0.29 H Absolute Nucleated RBC 0.00 Immature Gran % 3 H Nucleated RBC % 0 Sodium 136 Potassium 3.5 Chloride 103 Carbon Dioxide 20.5 Anion Gap 13 BUN 114 H* Creatinine 5.7 H* D Estim Creat Clear Calc 9.6 L eGFR 9 L* BUN/Creatinine Ratio 20 Glucose 107 H Calculated Osmolality 308 H Calcium 7.9 L Quality Measures Quality Measures VTE prophylaxis (SCDs and eliquis 2.5 mg ) Advance care planning discussed with:: legal surragate Assessment & Plan Assessment Current Active Medications: Generic Name Dose Route Start Last Admin Trade Name Freq PRN Reason Stop Dose Admin Acetaminophen 650 mg 07/05/24 17:12 07/09/24 18:06 Acetaminophen 325 Mg Tablet PO 08/04/24 17:11 650 mg Q6H PRN Administration pain 1-3 and Fever >100.4 Amiodarone HCl 200 mg 07/10/24 21:00 07/12/24 08:57 Amiodarone Hcl 200 Mg Tablet PO 08/09/24 20:59 200 mg BID ANNETTA Administration Apixaban 2.5 mg 07/07/24 09:00 07/11/24 08:05 Apixaban 2.5 Mg Tablet PO 08/06/24 08:59 2.5 mg BID ANNETTA Administration Dextrose 25 ml 07/05/24 17:12 07/11/24 23:48 Dextrose 50%-Water Inj 50 Ml Syringe IV 08/04/24 17:11 25 ml Q15MIN PRN Administration BG 50-70 responsive npo pt Dextrose 50 ml 07/05/24 17:12 Dextrose 50%-Water Inj 50 Ml Syringe IV 08/04/24 17:11 Q15MIN PRN BG <50 OR BG <70 & pt unresponsive Dronabinol 2.5 mg 07/10/24 17:00 07/12/24 08:57 Dronabinol 2.5 Mg Capsule PO 08/09/24 16:59 2.5 mg BIDAC ANNETTA Administration Finasteride 5 mg 07/08/24 10:45 07/12/24 09:36 Finasteride 5 Mg Tablet PO 08/07/24 10:44 5 mg QDAY ANNETTA Administration Glucagon 1 mg 07/05/24 17:12 Glucagon Inj 1 Mg Vial IM Q15MIN PRN BG <70, and no IV access Piperacillin/Tazobactam/Dextrose 50 mls @ 12.5 mls/hr 07/05/24 21:00 07/12/24 08:57 Zosyn IV 07/12/24 20:59 12.5 mls/hr Q12HR ANNETTA Administration Protocol Albumin Human 12.5 gm in 250 mls @ 100 mls/hr 07/09/24 15:42 07/09/24 18:45 Albuminar-5 Ivpb IV 08/08/24 15:41 Infused QDAY ANNETTA Infusion Lactated Ringer's 1,000 mls @ 75 mls/hr 07/11/24 08:59 07/11/24 23:38 Lactated Ringers IV 07/12/24 11:38 75 mls/hr .[id number] ANNETTA Administration Phenylephrine HCl 40 mg/ 100 mls @ 5.955 mls/hr 07/12/24 09:01 Sodium Chloride IV 08/08/24 08:40 .[id number] PRN Per Sepsis Protocol Protocol 0.5 MCG/KG/MIN Metoprolol Tartrate 2.5 mg 07/07/24 03:11 07/07/24 03:17 Metoprolol Tartrate Inj 1 Mg/Ml Amp 5 Ml IVP 2.5 mg Q5M PRN Administration AFIB RVR HR >140 Midodrine 5 mg 07/11/24 14:00 07/12/24 05:58 Midodrine 5 Mg Tablet PO 08/10/24 13:59 5 mg TID ANNETTA Administration Mirtazapine 30 mg 07/10/24 21:00 07/11/24 21:24 Mirtazapine 15 Mg Tablet PO 08/09/24 20:59 30 mg HS ANNETTA Administration Ondansetron HCl 4 mg 07/09/24 09:41 07/09/24 09:44 Ondansetron Inj 2 Mg/Ml Inj 2 Ml IV 08/08/24 09:40 4 mg Q6HR PRN Administration NAUSEA OR VOMITING Protocol Prochlorperazine Maleate 10 mg 07/05/24 17:12 07/06/24 20:17 Prochlorperazine Maleate 5 Mg Tablet PO 08/04/24 17:11 10 mg Q6H PRN Administration NAUSEA OR VOMITING Protocol Sennosides 1 tab 07/05/24 17:12 Senna Tablet PO 08/04/24 17:11 QDAY PRN constipation Protocol Plan 84-year-old male admitted to the ICU for septic shock requiring pressors. [employer]: # Acute encephalopathy, resolved. likely due to septic shock -Patient was alert, awake and became oriented and patient mental status is back to his baseline. Cardio: #Shock - likely septic shock, resolved #Elevated troponin, type II in the setting of shock #Hx of HTN Etiology of the shock is likely septic due to UTI. Patient presented to the emergency department meeting septic shock criteria requiring pressors after 3 L of fluid. Troponins: 0.119 -> 0.138 -> 0.178 > 0.136 Currently pt is has a regular rate and rhtyhm with present P waves, even though in the ED his EKG showed AFib Echo in 2021 showed normal LV with EF 60% NICOM showed fluid responsiveness w/ 250cc bolus on 07/05/2024 POCUS showed IVC size approx <2cm with notable distensibility and collapsibility NICOM done on 07/06/2024 with passive leg raise showed fluid responsiveness and patient was given a bolus of LR Levophed is stopped and significant is started in view of difficulty with rapid ventricular rate on 07/09/2024. Plan: -Phenylephrine is stopped as today afternoon. -Midodrine discontinued and IV fluids are stopped as patient appears to be fluid overloaded. -Maintain MAP >65 mm hg. -Will continue Zosyn for ESBL Klebsiella # New onset atrial fibrillation with controlled ventricular rate -s/p cardioversion on 07/10 -Likely in the setting of septic shock -Patient supposedly had A-fib at the time of admission to the hospital but spontaneously reverted to normal sinus rhythm. -Developed new onset A-fib on 07/06/2024 overnight -Received 2.5 Mg of metoprolol tartrate, 150 Mg of amiodarone bolus and started on amiodarone drip -Based on [id number] score, patient was started on Eliquis 2.5 Mg twice daily due to his declined renal functions. -07/10/2024 Patient received 100 J synchronized cardioversion which converted him to sinus rhythm. Heart rate has been maintaining in the 50s with episodes down into the 40s. Plan -HELD Eliquis 2.5 Mg twice daily p.o. due to bloody urine in Farias -Continue with amiodarone p.o -Cardiology following Pulm: #Acute hypoxic respiratory failure, resolved # Likely aspiration pneumonia # History of remote smoking CXR seemed normal Procal 15.78 at the time of admission Plan: -Patient is on room air, supplemental O2 as needed -cont antibiotics (see ID section) -duonebs as needed GI: #Elevated T Bili, Transaminitis - resolved Likely elevated in the setting of sepsis Patient denied abdominal pain Abdomen/pelvis CT showed cholelithiasis Gallbladder ultrasound showed gallbladder sludge but no cholelithiasis and cannot accurately assess gallbladder. Common bile duct was not distended. Occasional PVCs T bilirubin 1.8, alkaline phosphatase 62 -Within normal limits as of 07/07/2024 Renal: #RAND- likely prerenal leading to Acute tubular necrosis #Mild bilateral hydronephrosis Likely prerenal in the setting of poor oral intake dehydration with overlapping septic shock and resulting in ATN. Patient presented with a creatinine of 2.3, BUN 46, EGFR of 27 with a UA showing 2+ proteins, 3+ glucose, 3+ blood, RBC and very elevated WBC with 4+ bacteria. Since admission patient has produce appropriate amount of urine output Renal ultrasound in 2021 also showed mild to moderate bilateral hydronephrosis Renal functions continue to decline but the urine output is decreased as of 07/09/2024. Fractional excretion of sodium as of 07/09/2024 is 1.2%. Patient received albumin to help with perfusion but did not show an increase in urinary output. 07/11/2024 the Farias catheter was exchanged for new Farias with immediate output of 700 mL urine, suspect there was possible obstruction of flow in old Farias 07/12, BUN 114, creatinine 5.4 Plan: -A dose of Lasix 40 Mg IV is given in view of fluid overload and fluids were stopped. -As the patient is becoming drowsy with elevated BUN and creatinine, nephrology was consulted -Vascular catheter was placed and dialysis was started around 5 PM. -Will continue to monitor renal function panel and urinary output -Will avoid nephrotoxic medication and renally dose the medications. -Will consult nephrology if dialysis is needed or patient becomes fluid overloaded. Endo: #NonInsulin-dependent type 2 diabetes Last a1c was 5.9 (2022) Plan: -ISS protocol -Hold home DM meds Heme: #Thrombocytopenia Likely in the setting of sepsis No history of bleeding manifestations right now -Will continue to monitor CBC ID: #Septic Shock - klebsiella pneumonia bacteremia #Complicated UTI #? Aspiration pneumonia #Hx of Klebsiella ESBL UTI Patient is having indwelling catheter since 2019 and the catheter is changed once in every 4 weeks according to his grandson, recent Farias catheter change was 2 weeks back Patient is febrile. Patient has hx of repeated UTI with klebsiella pna ESBL in the past. U/A consistant with UTI, farias output is dark Elevated procalcitonin is noted. blood cultures and urine cultures grew klebsiella pneumonia Plan: -Zosyn (07/05 -) as the patient's blood and urine cultures grew Klebsiella pneumonia sensitive to Zosyn -Discontinued vancomycin as MRSA screen came back negative and cultures grew gram-negative rods on 07/07 : #Hematuria, acute #BPH, chronic -indwelling catheter since 2019 Lew hematuria likely secondary to traumatic insertion of a Farias. Patient came in with a indwelling catheter Patient has a history of BPH which he takes tamsulosin and finasteride. His BPH is likely contributing to his post renal RAND and hydronephrosis. Plan: -Continue home finasteride Skin/MSK: -stable ICU Health maintenance: Mechanical ventilation: none Sedation: none Pressors:none FEN: Pur?ed diet DVT ppx: SCDs GI ppx: none Farias: yes (placed on 07/05) IV lines: 3 PVs Central line:vasc catheter Rt IJV Arterial line: none Code status: FULL code Dispo: ICU Patient plan of care was discussed with the attending physician, Dr. Contreras and senior resident Dr. Canelo Morales, PGY1 Attending Provider Attestation/Addendum Patient seen and examined with above resident, Eleazar Morales MD. I agree with the findings, assessment, and plan of care as documented except for any differences below. Patient with continued overall improvement with resolution of pressor requirements after cardioversion. However renal failure continues to worsen with rising uremia. He is having adequate urine output but given worsening mentation with a BUN elevated decision was made to perform hemodialysis today. Vas-Cath was placed and patient tolerated hemodialysis well with nephrology going to continue to follow for intermittent use. Patient's grandson had previously stated that he did not want to have hemodialysis long- term but understood that in the short-term this may be beneficial for him to recover prior to discharge. Patient stable for transfer to medicine [facility] for ongoing management. Patient completed transition from heparin to DOAC. Will need to complete 2-week course of IV antibiotics for gram-negative bacteremia. Total critical care time: I personally spent 45 minutes for review of physiologic parameters, directing plan of care throughout the day, coordination of care with other specialties, and counseling patient's grandson at bedside. This is exclusive of time spent teaching of staff or performing any separate billable procedures. Patient continues to require critical care services for cardiac dysrhythmia/shock and renal failure with uremic encephalopathy posing high risk for increased morbidity and mortality.
--- NOTE | 2024-07-12 10:26 | ESPR_ITS ---
<Statement entered by Manuel Rhodes MD - 07/14/24 19:00> I personally evaluated the patient appears to be doing better remains in sinus rhythm ICU undergoing dialysis I evaluated the patient along with resident physician agree with the treatment plan recommendation as documented Documentation for date of: 07/12/24 Subjective Subjective Interval history: This 84-year-old male with past medical history of hypertension, BPH, DM2, subdural hematoma (2020), dementia, and chronic indwelling catheter was admitted to hospital after coming to the ED with complaints of nausea, vomiting, abdominal pain, and blood in the Rollins bag since last night. Patient was brought in by grandson and during the time of assessment nobody was at bedside. Patient was very hard of hearing and very not responding to questions during assessment, but he was able to follow some commands and able to answer alert oriented questions (AOx3 not to time). Primary team Spoke with grandson, next of kin, via phone call and he said he was the medical decision maker who provided most of the patient's history. Grandson stated that last night additional to the patient's nausea, vomiting, and abdominal pain the patient had elevated blood sugars in the 300s as well as some disorientation which she states that is usually when his bladder swells a lot. The patient's grandson also mentioned that the patient gets monthly Rollins catheter changes, but last night he noticed blood-tinged urine in the Rollins bag which was new and he did not feel was safe to keep patient at home and decided to bring him to the ER. He stated that patient did not have any chills or fevers at home nor any chest pain or shortness of breath.ED course:Initially patient came in normotensive and afebrile, but afterwards patient was tachycardic, and tachypneic. Initial labs were relevant for RAND, hyperglycemia, lactic acidosis, bilirubinemia, troponinemia, elevated procalcitonin, and UTI. Initial imaging included chest x-ray which showed bibasilar pneumonia, abdomen/pelvis CT showed cholelithiasis, bilateral hydronephrosis, diverticulosis, marked prostatomegaly, and marked thickening of urinary bladder wall, and gallbladder ultrasound which showed some gallbladder sludge but gallbladder was poorly visualized and contracted. EKG showed A-fib. Social Hx: Upon chart review patient was a former smoker, but grandson stated that he is not an active smoker at this time and does not do any alcohol or illicit drugs. Meds: Aspirin 81mg qday, Atorvastatin 20mg HS, Coreg 12.5 mg BID, tamsulosin 0.4mg qday, finasteride 5mg qdya, amlodipine 2.5mg BID losartan/HCTZ , med reconciliation pending. Allergies: As per patient's grandson's morphine Cardiology team consulted for A.fib with Rvr and possible req of cardioversion. 07/09/2024: Patient was seen and examined at the bedside in ICU patient's blood pressure is on softer side with a BP of 95/70, tachycardic with heart rate 141 and saturating 94% on room air. Patient is upgraded to ICU due to septic shock likely due to ESBL UTI and Klebsiella pneumonia bacteremia. Patient was initially managed with IV fluid resuscitation and was maintained with Levophed and vasopressin however now seen off Levophed and only on vasopressin with albumin. Labs showed WBC improved to 10.3, hemoglobin stable at 11.1. Platelets 95. Chemistry panel showed mild hyponatremia sodium 134 K: 3.9. BUN 78 and creatinine 4.3 with GFR 13. Bicarb on CHEM panel 19.5. Albumin 3.1. Total cortisol pending. Urinalysis was cloudy, 2+ proteinuria, blood 3+, RBC 1594, WBC 928, amorphous crystals and bacteriuria. EKG showed A-fib with RVR heart rate 140s. Echocardiogram showed EF 55-60% mild AV sclerosis without stenosis. Mild TR. Cardiology team consulted for A-fib with RVR not controlled with IV drip per protocol and digoxin given one-time only. Primary ICU team stopped Levophed and only keeping vasopressin. Currently covering with IV antibiotic therapy Zosyn for ESBL UTI. Consult is for possible requirement of cardioversion since its new onset A-fib less than 48 hours. Currently being anticoagulated with Eliquis 2.5 mg twice daily age and renal dosed. Recommended to start Cardizem 30 mg 3 times daily and continue it if blood pressure tolerates. If patient still remains in A-fib with RVR will likely perform cardioversion. No need of stoppage of anticoagulation before cardioversion. Keep the patient n.p.o. after midnight for possible cardioversion tomorrow without JVAIER. Will switch to amiodarone p.o. 200 mg twice daily once amiodarone drip is completed. Continue Eliquis 2.5 mg twice daily for now. Continue treating underlying septic infection due to ESBL UTI and Klebsiella bacteremia. Continue monitoring electrolytes and close monitoring required. Continue albumin therapy given worsening kidney functions and patient is in oliguria phase for RAND on CKD. All labs and orders were reviewed. 07/10/2024: Patient was seen and examined at the bedside in ICU. Patient has soft blood pressure 113/65 with heart rate 130s. Patient continues to be on amiodarone drip per protocol. Patient is saturating well on room air. He continues to be on phenylephrine. Labs revealed WBC 10.2, hemoglobin stable 11.4. Platelets increased to 67. Chemistry panel showed mild hyponatremia, potassium 3.6. Bicarb improved. Kidney functions continues to decline. Blood glucose 148. Urine output 605 from last 24 hours. Cardioverted today. Recommended to switch to p.o. amiodarone 200 twice daily once amiodarone drip completed. Cardizem was discontinued. Will likely plan to cardiovert him today given continuous uncontrolled heart rate. ICU team giving IV antibiotic therapy and albumin for septic shock and declining kidney functions. ICU team started dronabinol for appetite stimulation as patient is not eating and drinking enough. Plan of care discussed with ICU team. 07/12/2024: Patient was seen and examined in the ICU. Patient's vitals showed blood pressure 119/labs showed 58 with heart rate 72 in sinus rhythm. Mild leukocytosis and hemoglobin stable at 10.1 with platelet 105. Chemistry panel showed mild hypokalemia and worsening kidney function with BUN 114 and creatinine 5.7. Urine output of 1.8 L with negative balance of 348 cc. Recommended to continue amiodarone 200 mg twice daily and currently Eliquis on hold as he had episode of hematuria. Rollins catheter replaced given urinary retention yesterday and patient is still making urine. Nephrology team was consulted for worsening kidney functions and plan for hemodialysis after placing dialysis catheter today. Agreeable to the plan. No new further recommendations by cardiology team. All labs and orders were reviewed. Exam Vital Signs Temp Pulse Resp BP Pulse Ox O2 Del Method O2 Flow Rate 97.9 F 63 16 111/51 L 97 Room Air 2 07/12/24 08:00 07/12/24 08:57 07/12/24 08:00 07/12/24 08:57 07/12/24 08:00 07/08/24 13:00 07/12/24 06:39 FiO2 100 07/07/24 11:00 Narrative Exam GENERAL APPEARANCE: AxOx4, elderly male hard of hearing HEENT: NC, AT. MMM. EOMI, clear conjunctiva, oropharynx clear. NECK: Supple without lymphadenopathy. No stiffness or restricted ROM. HEART: Regular rate and regular rhythm, normal S1/S2, no m/r/g LUNGS: CTAB, moving air well. No crackles or wheezes are heard. ABDOMEN: Soft, nontender, nondistended with good bowel sounds heard. BACK: No CVAT, no obvious deformity. EXTREMITIES: Without cyanosis, clubbing or edema. NEUROLOGICAL: Grossly nonfocal. Alert and oriented, moving all 4 extremities. CN not formally tested but appear grossly intact. Skin: Warm and dry without any rash. Objective Labs 07/12/24 05:37 07/12/24 05:37 Labs: Laboratory Results - last 24 hr 07/12/24 05:37 WBC 11.2 H RBC 3.22 L Hgb 10.1 L Hct 28.8 L MCV 89 MCH 31.4 MCHC 35.1 RDW Std Deviation 50.9 H Plt Count 105 L D Neut % (Auto) 85 H Lymph % (Auto) 9 L [place] % (Auto) 3 Eos % (Auto) 1 Baso % (Auto) 0 Neut # (Auto) 9.5 H Lymph # (Auto) 1.0 [place] # (Auto) 0.3 Eos # (Auto) 0.1 Baso # (Auto) 0.0 Immature Gran # (Auto) 0.29 H Absolute Nucleated RBC 0.00 Immature Gran % 3 H Nucleated RBC % 0 Sodium 136 Potassium 3.5 Chloride 103 Carbon Dioxide 20.5 Anion Gap 13 BUN 114 H* Creatinine 5.7 H* D Estim Creat Clear Calc 9.6 L eGFR 9 L* BUN/Creatinine Ratio 20 Glucose 107 H Calculated Osmolality 308 H Calcium 7.9 L Quality Measures Quality Measures VTE prophylaxis (SCDs and eliquis 2.5 mg on hold) Advance care planning discussed with:: patient Assessment & Plan Assessment Current Active Medications: Generic Name Dose Route Start Last Admin Trade Name Freq PRN Reason Stop Dose Admin Acetaminophen 650 mg 07/05/24 17:12 07/09/24 18:06 Acetaminophen 325 Mg Tablet PO 08/04/24 17:11 650 mg Q6H PRN Administration pain 1-3 and Fever >100.4 Amiodarone HCl 200 mg 07/10/24 21:00 07/12/24 08:57 Amiodarone Hcl 200 Mg Tablet PO 08/09/24 20:59 200 mg BID ANNETTA Administration Apixaban 2.5 mg 07/07/24 09:00 07/11/24 08:05 Apixaban 2.5 Mg Tablet PO 08/06/24 08:59 2.5 mg BID ANNETTA Administration Dextrose 25 ml 07/05/24 17:12 07/11/24 23:48 Dextrose 50%-Water Inj 50 Ml Syringe IV 08/04/24 17:11 25 ml Q15MIN PRN Administration BG 50-70 responsive npo pt Dextrose 50 ml 07/05/24 17:12 Dextrose 50%-Water Inj 50 Ml Syringe IV 08/04/24 17:11 Q15MIN PRN BG <50 OR BG <70 & pt unresponsive Dronabinol 2.5 mg 07/10/24 17:00 07/12/24 08:57 Dronabinol 2.5 Mg Capsule PO 08/09/24 16:59 2.5 mg BIDAC ANNETTA Administration Finasteride 5 mg 07/08/24 10:45 07/12/24 09:36 Finasteride 5 Mg Tablet PO 08/07/24 10:44 5 mg QDAY ANNETTA Administration Glucagon 1 mg 07/05/24 17:12 Glucagon Inj 1 Mg Vial IM Q15MIN PRN BG <70, and no IV access Piperacillin/Tazobactam/Dextrose 50 mls @ 12.5 mls/hr 07/05/24 21:00 07/12/24 08:57 Zosyn IV 07/12/24 20:59 12.5 mls/hr Q12HR ANNETTA Administration Protocol Albumin Human 12.5 gm in 250 mls @ 100 mls/hr 07/09/24 15:42 07/09/24 18:45 Albuminar-5 Ivpb IV 08/08/24 15:41 Infused QDAY ANNETTA Infusion Lactated Ringer's 1,000 mls @ 75 mls/hr 07/11/24 08:59 07/11/24 23:38 Lactated Ringers IV 07/12/24 11:38 75 mls/hr .[id number] ANNETTA Administration Phenylephrine HCl 40 mg/ 100 mls @ 5.955 mls/hr 07/12/24 09:01 Sodium Chloride IV 08/08/24 08:40 .[id number] PRN Per Sepsis Protocol Protocol 0.5 MCG/KG/MIN Metoprolol Tartrate 2.5 mg 07/07/24 03:11 07/07/24 03:17 Metoprolol Tartrate Inj 1 Mg/Ml Amp 5 Ml IVP 2.5 mg Q5M PRN Administration AFIB RVR HR >140 Midodrine 5 mg 07/11/24 14:00 07/12/24 05:58 Midodrine 5 Mg Tablet PO 08/10/24 13:59 5 mg TID ANNTETA Administration Mirtazapine 30 mg 07/10/24 21:00 07/11/24 21:24 Mirtazapine 15 Mg Tablet PO 08/09/24 20:59 30 mg HS ANNETTA Administration Ondansetron HCl 4 mg 07/09/24 09:41 07/09/24 09:44 Ondansetron Inj 2 Mg/Ml Inj 2 Ml IV 08/08/24 09:40 4 mg Q6HR PRN Administration NAUSEA OR VOMITING Protocol Prochlorperazine Maleate 10 mg 07/05/24 17:12 07/06/24 20:17 Prochlorperazine Maleate 5 Mg Tablet PO 08/04/24 17:11 10 mg Q6H PRN Administration NAUSEA OR VOMITING Protocol Sennosides 1 tab 07/05/24 17:12 Senna Tablet PO 08/04/24 17:11 QDAY PRN constipation Protocol Plan This 84-year-old male with past medical history of hypertension, BPH, DM2, subdural hematoma (2020), dementia, and chronic indwelling catheter was upgraded to ICU due to septic shock likely due to ESBL UTI and Klebsiella bacteremia. Cardiology team consulted for A-fib with RVR and requirement of possible cardioversion. #Atrial Fibrillation with Rvr, resolved # Post cardioversion ?Patient supposedly had A-fib at the time of admission to the hospital but spontaneously reverted to normal sinus rhythm. -Developed new onset A-fib on 07/06/2024 overnight -Received 2.5 Mg of metoprolol tartrate, 150 Mg of amiodarone bolus and started on amiodarone drip -Based on [id number] score, patient was started on Eliquis 2.5 Mg twice daily due to his declined renal functions. -Patient rec 3 bags of amiodarone drip and now seen on 4th bag ?Patient was cardioverted on 07/10 and converted back to sinus rhythm Plan: ? Continue p.o. amiodarone 200 twice daily and Eliquis 2.5 on hold given he had hematuria ? Keep magnesium above 2 and potassium above 4 ? Replete electrolytes as necessary ? Follow-up on labs #Septic shock likely secondary to catheter associated ESBL urinary tract infection and Klebsiella bacteremia, resolving # Acute encephalopathy, resolved # Chronic indwelling catheter ?Etiology of the shock is likely septic due to UTI. ?Patient has a history of chronic indwelling catheter with monthly changes Rollins catheter as well as recurrent UTIs in the past. ?Patient was minimally responsive to questioning and most likely has encephalopathy secondary to the UTI as per patient's grandson at baseline he was a lot more responsive. ?Patient met SIRS 2 out of 4 criteria with tachycardia and tachypnea ?Past urine cultures have grown Citrobacter and Klebsiella which both were multidrug-resistant, but sensitive to Zosyn ?Chest x-ray showed bibasilar pneumonia ?UA was positive for bacteria and leukocyte esterase ?Lactic acid was 4.4 but down trended to 3.6 ?Procalcitonin 15.78 ?In the ED patient received 2 L boluses of NS and Zosyn ?Rollins was changed in the ED -Patient met septic shock criteria requiring pressors after 3 L of fluid. -Troponins: 0.119 -> 0.138 -> 0.178 > 0.136 -Patient remains A-fib with RVR on amnio drip per protocol and currently on fourth back. ? EKG showed AFib. Echo in 2021 showed normal LV with EF 60% ?Levophed is stopped and significant is started in view of difficulty with rapid ventricular rate on 07/09/2024. Plan: ? Discontinued phenylephrine ? Continue IV antibiotic therapy Zosyn ? Monitor for fever spikes and elevation of white count and treat RAND on CKD possible ATN ? Daily labs #Hx of hypertension ? Will hold any antihypertensive medication for now as patient is septic ?Currently maintaining MAP above 65 #NSTEMI type type II ? Likely supply demand ischemia ?Troponin I downtrended. Patient is denying any chest pain or shortness of breath. ?EKG did not show any ST changes Plan: ? Troponin I downtrended ? Continue monitor for chest pain or shortness of breath # RAND likely prerenal azotemia leading to ATN ?Kidney functions continue to decline ? Patient still making urine 1.8 L with negative balance of more than 300 cc Plan: ? ICU team consulted nephrology ? Plan for hemodialysis after placing hemodialysis catheter ? Avoid nephrotoxic agents and renally dose medications ? Strict MICHAEL's # Acute hypoxic respiratory failure, resolved # Likely secondary to aspiration pneumonia versus remote history of smoking # Elevated T. bili and transaminases # Mild bilateral hydronephrosis # [id number] type 2 diabetes # Normocytic anemia # Thrombocytopenia # Hematuria # History of BPH chronic indwelling catheter since 2019 # Appetite loss Rest of the management as per primary care team/ICU team. Thank you very much for consulting cardiology team. Patient is in sinus rhythm after cardioversion. No new further recommendations by cardiology team. Agreeable to the plan for hemodialysis due to declining kidney functions. Plan of care discussed with compounder, Dr. Carmelo Holder MD, PGY 2
[2024-07-12] MEDS: FUROSEMIDE INJ 10 MG/ML 4ML VIAL 40 MG IVP (12:53)
--- NOTE | 2024-07-12 13:55 | PD.RESCONSUL ---
HPI Data of Consult Consult date: 07/12/24 Requesting Physician: Mag Brennan MD Admitting Provider: Mag Brennan MD Attending Provider: Mag Brennan MD Primary Care Provider: Israel Abdullahi MD Consult Narrative Reason for consult: RAND, suspected ATN History of present illness: Mr. Salguero is a 84-year-old male with past medical history of hypertension, BPH, DM2, subdural hematoma (2020), dementia, and chronic indwelling catheter was admitted to hospital after coming to the ED with complaints of nausea, vomiting, abdominal pain, and blood in the Rollins bag x 1 day. Patient was brought in by grandson and during the time of assessment nobody was at bedside. Patient was very hard of hearing and very not responding to questions during assessment, but he was able to follow some commands and able to answer alert oriented questions (AOx3 not to time). Grandson stated that additional to the patient's nausea, vomiting, and abdominal pain the patient had elevated blood sugars in the 300s as well as some disorientation which he states that is usually when his bladder swells a lot. The patient's grandson also mentioned that the patient gets monthly Rollins catheter changes, but last night he noticed blood-tinged urine in the Rollins bag which was new and he did not feel was safe to keep patient at home and decided to bring him to the ER. He stated that patient did not have any chills or fevers at home nor any chest pain or shortness of breath. ED course: Initially patient came in normotensive and afebrile, but afterwards patient was tachycardic, and tachypneic. Initial labs were relevant for RAND, hyperglycemia, lactic acidosis, bilirubinemia, troponinemia, elevated procalcitonin, and UTI. Initial imaging included chest x-ray which showed bibasilar pneumonia, abdomen/pelvis CT showed cholelithiasis, bilateral hydronephrosis, diverticulosis, marked prostatomegaly, and marked thickening of urinary bladder wall, and gallbladder ultrasound which showed some gallbladder sludge but gallbladder was poorly visualized and contracted. EKG showed A-fib. ICU consulted due to hemodynamic instability. Patient in the ER received 3 L of volume and his MAP was below 50. At that time decision was made to start pressors: Levophed drip. Patient upgraded to the ICU for septic shock. Patient was producing urine. Patient's mentation was only to self. Patient on IV antibiotics. Patient febrile with a fever 101.6. His renal functions continued to decline despite giving IV fluids. Patient overall condition seems to be improving and urine output is adequate. Patient had atrial fibrillation with rapid ventricular rate for which he received 2.5 Mg of metoprolol tartrate, 150 Mg of amiodarone bolus and was started on amiodarone drip. Blood cultures showed Klebsiella pneumoniae. As the renal functions continue to worsen and the urine output is decreased, started on 5% albumin infusions. Consulted cardiology in need of cardioversion. Patient underwent synchronized cardioversion with 100 J. At that point patient's heart rate went to sinus rhythm into a rate of the 50s and then began to develop some degree of bradycardia so amiodarone drip was discontinued. Patient had urine output of 40 mL per hour average until yesterday when patient became anuric for several hours. Rollins was flushed, yield only small amounts of return. Bladder scan was performed and showed 675 ml in bladder, therefore Rollins catheter was replaced 07/11/2024 at 15:30. Patient immediately output about 700 mL of reddish urine which was later bloody. LR at 75 ml/hr maintenance. Midodrine 5 mg TID was added. Appetite continues to be poor. He did eat about 25% of his lunch. Nephrology team consulted for continuing worsening of renal function, suspected ATN. Patient seen and examined in ICU. Patient's somnolent, resting in bed. Not verbally responsive, able to follow commands. Significant edema in all extremities. Dry mucous membranes, lungs clear to auscultation. 1.8 L urinary output overnight, urine extreme dark with traces of blood. Sodium 136, potassium 3.5, bicarb 20.5, BUN 114, creatinine 5.7, eGFR 9. Patient given 1 dose of 40 mg [address] Will place catheter and perform hemodialysis today. cc:: cc: Mag Brennan MD Review of Systems Review of Systems ROS Unobtainable: unobtainable due to mental status and unobtainable due to medical condition Past Medical History Past Medical History NEUROLOGIC: Positive Subdural Hematoma; Negative Neurological Disorders, Seizures or Spina Bifida CARDIAC: Positive Hypertension; Negative Cardiac Disorders or Congestive Heart Failure RESPIRATORY: Negative Chronic Obstructive Pulmonary Disease (COPD) or Asthma GASTROINTESTINAL: Positive Gastrointestinal Disorders, Gall Bladder Disease, Colitis, Diverticulitis and Diverticulosis; Negative Hepatitis GENITOURINARY: Positive Genitourinary Disorders, Kidney Stones and Benign Prostatic Hyperplasia; Negative Renal Disease or Prostate Cancer REPRODUCTIVE: Negative Testicular Cancer MUSCULOSKELETAL: Positive Musculoskeletal Disorders and Fractures; Negative Bone Cancer ENT: Positive Deafness ENDOCRINE: Positive Endocrine Disorders and Diabetes Mellitus Type 2; Negative Diabetes Mellitus Type 1 HEMATOLOGIC: Negative Blood Disorders or Sickle Cell Disease OTHER HISTORY: Positive Hospitalization and Blood Transfusions; Negative Autoimmune Disease, Down Syndrome, Developmental Delay, Shingles, Falls, Blood Transfusion Reaction, Anesthesia Reactions, MRSA, VRSA, Vancomycin-Resistant Enterococci, Human Immunodeficiency Virus (HIV), Chicken Pox, Measles, Mumps, Rubella (Sami Measles), Pertussis, Clostridium Difficile, Cancer, Lung Cancer, Prostate Cancer or Testicular Cancer Family History FAMILY HISTORY: Negative Family Cardiac Disorders Surgical History SURGICAL: Positive Angiogram; Negative Endocrine Surgery, Ear Surgery, Eye Surgery, Nose Surgery or Neurologic Surgery Social History SMOKING STATUS: Never smoker SECOND HAND EXPOSURE: No SUBSTANCE USE: does not use ALCOHOL LAST INTAKE: Unknown Travel History EBOLA RISK: No Exam Vital Signs Temp Pulse Resp BP Pulse Ox O2 Del Method O2 Flow Rate 97.9 F 72 15 109/58 L 93 L Room Air 2 07/12/24 08:00 07/12/24 12:53 07/12/24 11:00 07/12/24 12:53 07/12/24 11:00 07/08/24 13:00 07/12/24 06:39 FiO2 100 07/07/24 11:00 Narrative Exam PE: Gen: Well-developed and well-nourished. Ill-appearing. HEENT: NCAT, PERRLA, EOMI, anicteric conjunctivae. Dry mucous membranes. CVS: normal S1 and S2. RRR. No M/R/G. Resp: CTA B/L. No rhonchi, rales, crackles or wheezing. Abd: soft, non-tender, non-distended. MSK: Good ROM in BUE & BLE. Significant edema in all extremities. Neuro: Somnolent. Nonverbal, follows commands minimally Results Labs 07/12/24 05:37 07/12/24 14:45 Labs: Short CBC 07/12/24 Range/Units 05:37 WBC 11.2 H (3.8-10.6) Thou/mm3 Hgb 10.1 L (13.5-16.0) g/dL Hct 28.8 L (41.0-53.0) % Plt Count 105 L D (140-440) Thou/mm3 [facility] 07/12/24 05:37 Sodium 136 Potassium 3.5 Chloride 103 Carbon Dioxide 20.5 BUN 114 H* Creatinine 5.7 H* D Glucose 107 H Calcium 7.9 L Quality Measures Quality Measures VTE prophylaxis (SCDs and eliquis 2.5 mg on hold) Advance care planning discussed with:: patient Medications Home Medications and Allergies Home Medications ?Medication ?Instructions ?Recorded ?Confirmed ?Type carvedilol 12.5 mg tablet 12.5 mg PO BID 02/22/21 11/02/21 History losartan 100 mg tablet 100 mg PO QDAY 02/22/21 11/02/21 History sulfasalazine 500 mg tablet 1,000 mg PO BID 02/22/21 11/02/21 History furosemide 40 mg tablet (Lasix) 40 mg PO QDAY 03/12/21 11/02/21 History potassium chloride 20 mEq 20 meq PO BID 03/12/21 11/02/21 History tablet,extended release Allergies Allergy/AdvReac Type Severity Reaction Status Date / Time morphine Allergy Severe ITCHING Verified 11/02/21 10:28 Visit Medications Acetaminophen (Acetaminophen 325 Mg Tablet) 650 mg PO Q6H PRN PRN Reason: pain 1-3 and Fever >100.4 Stop: 08/04/24 17:11 Last Admin: 07/09/24 18:06 Dose: 650 mg Amiodarone HCl (Amiodarone Hcl 200 Mg Tablet) 200 mg PO BID [facility] Stop: 08/09/24 20:59 Last Admin: 07/12/24 08:57 Dose: 200 mg Apixaban (Apixaban 2.5 Mg Tablet) 2.5 mg PO BID [facility] Stop: 08/06/24 08:59 Last Admin: 07/11/24 08:05 Dose: 2.5 mg Dextrose (Dextrose 50%-Water Inj 50 Ml Syringe) 25 ml IV Q15MIN PRN PRN Reason: BG 50-70 responsive npo pt Stop: 08/04/24 17:11 Last Admin: 07/11/24 23:48 Dose: 25 ml Dextrose (Dextrose 50%-Water Inj 50 Ml Syringe) 50 ml IV Q15MIN PRN PRN Reason: BG <50 OR BG <70 & pt unresponsive Stop: 08/04/24 17:11 Dronabinol (Dronabinol 2.5 Mg Capsule) 2.5 mg PO BIDAC [facility] Stop: 08/09/24 16:59 Last Admin: 07/12/24 08:57 Dose: 2.5 mg Finasteride (Finasteride 5 Mg Tablet) 5 mg PO QDAY [facility] Stop: 08/07/24 10:44 Last Admin: 07/12/24 09:36 Dose: 5 mg Glucagon (Glucagon Inj 1 Mg Vial) 1 mg IM Q15MIN PRN PRN Reason: BG <70, and no IV access Piperacillin/Tazobactam/Dextrose (Zosyn) 50 mls @ 12.5 mls/hr IV Q12HR [facility]; Protocol Stop: 07/12/24 20:59 Last Admin: 07/12/24 08:57 Dose: 12.5 mls/hr Albumin Human (Albuminar-5 Ivpb) 12.5 gm in 250 mls @ 100 mls/hr IV QDAY [facility] Stop: 08/08/24 15:41 Last Infusion: 07/09/24 18:45 Dose: Infused Phenylephrine HCl 40 mg/ (Sodium Chloride) 100 mls @ 5.955 mls/hr IV .[id number] PRN; Protocol PRN Reason: Per Sepsis Protocol Stop: 08/08/24 08:40 Metoprolol Tartrate (Metoprolol Tartrate Inj 1 Mg/Ml Amp 5 Ml) 2.5 mg IVP Q5M PRN PRN Reason: AFIB RVR HR >140 Last Admin: 07/07/24 03:17 Dose: 2.5 mg Midodrine (Midodrine 5 Mg Tablet) 5 mg PO TID [facility] Stop: 08/10/24 13:59 Last Admin: 07/12/24 05:58 Dose: 5 mg Mirtazapine (Mirtazapine 15 Mg Tablet) 30 mg PO HS [facility] Stop: 08/09/24 20:59 Last Admin: 07/11/24 21:24 Dose: 30 mg Ondansetron HCl (Ondansetron Inj 2 Mg/Ml Inj 2 Ml) 4 mg IV Q6HR PRN; Protocol PRN Reason: NAUSEA OR VOMITING Stop: 08/08/24 09:40 Last Admin: 07/09/24 09:44 Dose: 4 mg Prochlorperazine Maleate (Prochlorperazine Maleate 5 Mg Tablet) 10 mg PO Q6H PRN; Protocol PRN Reason: NAUSEA OR VOMITING Stop: 08/04/24 17:11 Last Admin: 07/06/24 20:17 Dose: 10 mg Sennosides (Senna Tablet) 1 tab PO QDAY PRN; Protocol PRN Reason: constipation Stop: 08/04/24 17:11 Discontinued Medications Acetaminophen (Acetaminophen 120 Mg Supp) 120 mg LA X1 ONE Stop: 07/05/24 21:18 Last Admin: 07/05/24 21:45 Dose: 120 mg Hydrocodone Bitart/Acetaminophen (Hydrocodone/Apap 5/325 Tablet) 1 tab PO X1 ONE Stop: 07/06/24 05:41 Last Admin: 07/06/24 05:49 Dose: 1 tab Apixaban (Apixaban 2.5 Mg Tablet) 2.5 mg PO X1 ONE Stop: 07/09/24 10:16 Last Admin: 07/09/24 11:31 Dose: 2.5 mg Digoxin (Digoxin Inj 0.25 Mg/Ml Amp 2 Ml) 0.25 mg IVP X1 ONE Stop: 07/07/24 03:45 Last Admin: 07/07/24 03:55 Dose: 0.25 mg Digoxin (Digoxin Inj 0.25 Mg/Ml Amp 2 Ml) 0.25 mg IVP X1 ONE Stop: 07/08/24 20:22 Last Admin: 07/08/24 21:09 Dose: Not Given Diltiazem HCl (Diltiazem 30 Mg Tablet) 30 mg PO QID [facility] Stop: 08/08/24 17:44 Last Admin: 07/10/24 05:55 Dose: 30 mg Enoxaparin Sodium (Enoxaparin Sod Inj 30 Mg/0.3 Ml Syringe) 30 mg SC QDAY [facility] Stop: 07/20/24 11:29 Last Admin: 07/06/24 12:20 Dose: 30 mg Fentanyl Citrate (Fentanyl Cit Inj 50 Mcg/Ml Amp 2ml) 50 mcg IVP X1 ONE Stop: 07/10/24 13:21 Last Admin: 07/10/24 13:23 Dose: 50 mcg Furosemide (Furosemide Inj 10 Mg/Ml 4ml Vial) 40 mg IVP X1 ONE Stop: 07/12/24 12:11 Last Admin: 07/12/24 12:53 Dose: 40 mg Glucagon (Glucagon Inj 1 Mg Vial) 5 mg IVP X1 ONE Stop: 07/07/24 03:17 Last Admin: 07/07/24 03:37 Dose: Not Given Sodium Chloride (Ns) 1,000 mls @ 999 mls/hr IV .Q1H1M ONE Stop: 07/05/24 13:14 Last Infusion: 07/05/24 14:00 Dose: Infused Sodium Chloride (Ns) 1,000 mls @ 999 mls/hr IV .Q1H1M ONE Stop: 07/05/24 14:07 Last Infusion: 07/05/24 15:56 Dose: Infused Piperacillin/Tazobactam/Dextrose (Zosyn) 3.375 gm in 50 mls @ 100 mls/hr IV X1 ONE Stop: 07/05/24 14:22 Last Infusion: 07/05/24 15:25 Dose: Infused Sodium Chloride (Ns) 1,000 mls @ 75 mls/hr IV .[id number] ANNETTA Stop: 07/06/24 06:34 Last Admin: 07/05/24 19:24 Dose: Not Given Sodium Chloride (Ns) 1,000 mls @ 125 mls/hr IV .Q8H ANNETTA Stop: 07/06/24 02:40 Last Admin: 07/05/24 19:32 Dose: 125 mls/hr Norepinephrine/Dextrose (Levophed In D5w 8mg/250ml) 8 mg in 250 mls @ 6.166 mls/hr IV .Q24H PRN; Protocol PRN Reason: PER PROTOCOL Stop: 08/04/24 21:22 Last Titration: 07/09/24 14:30 Dose: 0 mcg/kg/min, 0 mls/hr Sodium Chloride (Ns) 250 mls @ 999 mls/hr IV .Q16M ONE Stop: 07/05/24 23:37 Lactated Ringer's (Lactated Ringers) 1,000 mls @ 999 mls/hr IV .Q1H1M ONE Stop: 07/06/24 01:18 Last Admin: 07/06/24 01:02 Dose: 999 mls/hr Vancomycin/Sodium Chloride (Vancomycin/Ns 1 Gm Ivpb) 200 mls @ 100 mls/hr IV X1 ONE Stop: 07/06/24 03:44 Last Admin: 07/06/24 02:05 Dose: 100 mls/hr Lactated Ringer's (Lactated Ringers) 1,000 mls @ 100 mls/hr IV .Q10H ONE Stop: 07/06/24 14:51 Last Admin: 07/06/24 06:43 Dose: Not Given Sodium Chloride (Ns) 1,000 mls @ 100 mls/hr IV .Q10H ONE Stop: 07/06/24 14:57 Last Infusion: 07/06/24 07:00 Dose: 0 mls/hr Lactated Ringer's (Lactated Ringers) 1,000 mls @ 999 mls/hr IV .Q1H1M ONE Stop: 07/06/24 13:46 Last Infusion: 07/06/24 13:00 Dose: 0 mls/hr Amiodarone HCl/Dextrose (Nexterone Ivpb) 150 mg in 100 mls @ 600 mls/hr IV .Q10M ONE Stop: 07/07/24 03:26 Last Infusion: 07/07/24 15:56 Dose: Infused Amiodarone HCl/Dextrose (Nexterone Ivpb) 360 mg in 200 mls @ 33.333 mls/hr IV .Q6H ONE Stop: 07/07/24 09:16 Last Infusion: 07/07/24 15:56 Dose: Infused Amiodarone HCl/Dextrose (Nexterone Ivpb) 360 mg in 200 mls @ 16.667 mls/hr IV .Q12H ANNETTA Stop: 07/08/24 09:16 Last Admin: 07/08/24 00:04 Dose: 16.667 mls/hr Magnesium Sulfate (Magnesium Sulfate Ivpb) 2 gm in 50 mls @ 25 mls/hr IV X1 ONE Stop: 07/07/24 05:41 Last Infusion: 07/07/24 15:56 Dose: Infused Vancomycin HCl (Vancomycin/Water 1gm Ivpb) 200 mls @ 120 mls/hr IV X1 ONE Stop: 07/07/24 11:39 Last Infusion: 07/07/24 15:57 Dose: Infused Amiodarone HCl/Dextrose (Nexterone Ivpb) 150 mg in 100 mls @ 582.524 mls/hr IV X1 ONE Stop: 07/08/24 09:56 Last Admin: 07/08/24 09:57 Dose: 582.524 mls/hr Amiodarone HCl/Dextrose (Nexterone Ivpb) 150 mg in 100 mls @ 600 mls/hr IV .Q10M ONE Stop: 07/08/24 21:06 Last Admin: 07/08/24 21:00 Dose: 600 mls/hr Amiodarone HCl/Dextrose (Nexterone Ivpb) 360 mg in 200 mls @ 33.333 mls/hr IV .Q6H ONE Stop: 07/09/24 03:06 Last Admin: 07/09/24 00:59 Dose: Not Given Amiodarone HCl/Dextrose (Nexterone Ivpb) 360 mg in 200 mls @ 16.667 mls/hr IV .Q12H ANNETTA Stop: 07/10/24 03:06 Last Infusion: 07/10/24 04:00 Dose: Infused Phenylephrine HCl 40 mg/ (Sodium Chloride) 100 mls @ 5.955 mls/hr IV .[id number] PRN; Protocol PRN Reason: Per Sepsis Protocol Stop: 08/08/24 08:40 Last Titration: 07/11/24 15:00 Dose: Infused Piperacillin/Tazobactam/Dextrose (Zosyn) 50 mls @ 12.5 mls/hr IV X1 ONE Stop: 07/09/24 13:29 Last Admin: 07/09/24 09:45 Dose: 12.5 mls/hr Albumin Human (Albuminar-25 Ivpb) 25 gm in 100 mls @ 100 mls/hr IV X1 ONE Stop: 07/09/24 16:28 Last Admin: 07/10/24 06:47 Dose: Not Given Amiodarone HCl/Dextrose (Nexterone Ivpb) 360 mg in 200 mls @ 16.667 mls/hr IV .Q12H ANNETTA; Protocol Stop: 07/10/24 15:06 Last Admin: 07/10/24 04:01 Dose: 16.667 mls/hr Albumin Human (Albuminar-5 Ivpb) 12.5 gm in 250 mls @ 100 mls/hr IV QDAY [facility] Stop: 07/13/24 18:47 Last Admin: 07/10/24 06:47 Dose: Not Given Albumin Human (Albuminar-5 Ivpb) 12.5 gm in 250 mls @ 100 mls/hr IV X1 ONE; Protocol Stop: 07/09/24 22:59 Last Infusion: 07/09/24 23:50 Dose: Infused Lactated Ringer's (Lactated Ringers) 1,000 mls @ 75 mls/hr IV .[id number] ONE Stop: 07/10/24 21:53 Last Admin: 07/10/24 08:44 Dose: 75 mls/hr Lactated Ringer's (Lactated Ringers) 1,000 mls @ 75 mls/hr IV .[id number] ANNET[facility] Stop: 07/12/24 11:38 Last Admin: 07/11/24 23:38 Dose: 75 mls/hr Phenylephrine HCl 80 mg/ (Sodium Chloride) 100 mls @ 2.978 mls/hr IV .Q24H PRN; Protocol PRN Reason: Per Sepsis Protocol Last Titration: 07/11/24 21:30 Dose: 0 mcg/kg/min, 0 mls/hr Insulin Human Lispro (Insulin Lispro (Admelog) 1 Unit/0.01 Ml Unit) 0 unit SC ACHS ANNETTA; Protocol Stop: 08/04/24 20:59 Insulin Human Lispro (Insulin Lispro (Admelog) 1 Unit/0.01 Ml Unit) 0 unit SC Q6H ANNETTA; Protocol Stop: 08/04/24 18:14 Last Admin: 07/10/24 05:58 Dose: Not Given Insulin Human Lispro (Insulin Lispro (Admelog) 1 Unit/0.01 Ml Unit) 0 unit SC Q6HR ANNETTA; Protocol Stop: 08/09/24 11:59 Last Admin: 07/12/24 06:24 Dose: Not Given Metoprolol Tartrate (Metoprolol Tartrate 25 Mg Tablet) 12.5 mg PO BID [facility] Stop: 08/07/24 09:59 Last Admin: 07/09/24 11:37 Dose: Not Given Midazolam HCl (Midazolam Inj 1 Mg/Ml Vial 2 Ml) 2 mg IV X1 ONE Stop: 07/08/24 12:51 Last Admin: 07/08/24 13:48 Dose: Not Given Midazolam HCl (Midazolam Inj 1 Mg/Ml Vial 2 Ml) 2 mg IV X1 ONE Stop: 07/10/24 13:21 Last Admin: 07/10/24 13:23 Dose: 2 mg Midodrine (Midodrine 5 Mg Tablet) 5 mg PO TID [facility] Stop: 08/06/24 13:59 Last Admin: 07/08/24 05:46 Dose: 5 mg Mirtazapine (Mirtazapine 15 Mg Tablet) 15 mg PO QDAY [facility] Stop: 08/08/24 18:59 Last Admin: 07/09/24 21:08 Dose: 15 mg Ondansetron HCl (Ondansetron Inj 2 Mg/Ml Inj 2 Ml) 4 mg IV X1 ONE; Protocol Stop: 07/05/24 12:15 Last Admin: 07/05/24 12:45 Dose: 4 mg Pantoprazole Sodium (Pantoprazole Inj 40 Mg Vial) 40 mg IV QDAY [facility] Stop: 08/04/24 18:14 Last Admin: 07/06/24 09:40 Dose: 40 mg Pharmacy Consult (Vancomycin Pharmacy To Dose 1 Each Each) 1 each IV QDAY PRN PRN Reason: PROTOCOL Stop: 08/05/24 08:59 Assessment & Plan Plan 84-year-old male with past medical history of hypertension, BPH, DM2, subdural hematoma (2020), dementia, and chronic indwelling catheter was admitted to hospital after coming to the ED with complaints of nausea, vomiting, abdominal pain, and blood in the Rollins bag x 1 day. #RAND- likely prerenal leading to Acute tubular necrosis #Mild bilateral hydronephrosis Likely prerenal in the setting of poor oral intake dehydration with overlapping septic shock and resulting ATN. Patient had significant hypotension requiring pressor support. Patient presented with a creatinine of 2.3, BUN 46, EGFR of 27 with a UA showing 2+ proteins, 3+ glucose, 3+ blood, RBC and very elevated WBC with 4+ bacteria. Since admission patient has produce appropriate amount of urine output. Renal ultrasound in 2021 also showed mild to moderate bilateral hydronephrosis. Patient received albumin to help with perfusion but did not show an increase in urinary output. 07/11/2024 the Rollins catheter was exchanged for new Rollins with immediate output of 700 mL urine, suspect there was possible obstruction of flow in old Rollins Patient given Lasix 40 mg IV x 1 due to significant edema all extremities. -Monitor daily renal function -Avoid nephrotoxic medications -Hemodialysis today after catheter insertion -Strict I's and O's -Monitor daily urine output. #Hematuria, acute #BPH, chronic -indwelling catheter since 2019 Lew hematuria likely secondary to traumatic insertion of a Rollins. Patient came in with a indwelling catheter. Patient has a history of BPH which he takes tamsulosin and finasteride. His BPH is likely contributing to his post renal RAND and hydronephrosis. Patient has had good urine output via Rollins cath since it was exchanged 07/11. Plan: -Continue home finasteride -Monitor daily urine output # Acute encephalopathy, resolved. #Shock - likely septic shock, resolving #Elevated troponin, type II in the setting of shock #Hx of HTN #New onset atrial fibrillation with rapid ventricular rate #Acute hypoxic respiratory failure, resolved #Likely aspiration pneumonia #History of remote smoking #Elevated T Bili, Transaminitis - resolved #NonInsulin-dependent type 2 diabetes #Thrombocytopenia #Septic Shock - klebsiella pneumonia bacteremia #Complicated UTI #? Aspiration pneumonia #Hx of Klebsiella ESBL UTI Management as per ICU team. Thank you for allow me to participate in the care of this patient. Plan of care discussed with attending Dr. Marshall. Jaren Lemons MD PGY-1 Attending Provider Attestation/Addendum Patient seen and examined with resident physician Dr. Lemons. Note reviewed, agree with findings and recommendations with few changes made. Patient noted to have RAND secondary to ischemic ATN from underlying sepsis/hypotension. He seems to be very sleepy. However BUN and creatinine significantly elevated. Despite good urine output. Noted family requesting all aggressive measures including dialysis if indicated. At this point owing to his advanced age, severe azotemia, mental status changes decided to proceed with a temporary dialysis. Care discussed with Dr. Contreras-agreed with dialysis. Vas-Cath placed by compression molding machine setter- CRRT not available in this hospital. Will continue with slow flow conventional dialysis. Patient currently seen on dialysis. Tolerating dialysis without any problems. Hemodialysis for 2 hours, 2K, QB 200, ultrafiltration 0 L, Epogen [id number], no heparin ordered. Plan of care discussed with the dialysis nurse. Please see dialysis flowsheet for further details. Critical care time spent more than 35 minutes regarding plan of care and disease management. Thank you Dr. Contreras for allowing me to participate in the care of Mr. Salguero I will be on vacation starting through 07/17/2024. Dr Mosqueda will be covering for me for nephrology services.
--- NOTE | 2024-07-12 14:49 | PC.SS ---
Update: Plan is for the patient to receive temporary dialysis today. Dialysis catheter to be placed today. Dr. Marshall following. Patient on room air. P.O. feeds.
--- NOTE | 2024-07-12 15:31 | XR_ITS ---
Examination: AP chest single view TECHNIQUE: AP portable supine chest single view Exam date and time: July 12, 2024 1544 hours Comparison July 05, 2024 INDICATIONS: Status post placement temporary dialysis catheter FINDINGS: Right internal jugular temporary dialysis catheter tip SVC satisfactory position No pneumothorax Mild prominence left ventricle Prominent vascular congestion Opacity both lungs consistent with pneumonia IMPRESSION: Interval internal jugular dialysis catheter, tip SVC, no pneumothorax
[2024-07-12 15:41] LABS: Anion Gap 16 (7-16); BUN/Creatinine Ratio 21 Ratio (12-20); Calcium 7.8 mg/dL (8.3-10.6); Carbon Dioxide 18.4 mMol/L (20.0-31.0); Chloride 103 mMol/L (98-107); Creatinine (Component) 5.8 mg/dL (0.6-1.3); Estimated Creatinine Clearance 9.4 mL/min (>60); Glucose 95 mg/dL (74-106); Osmolality,Calculated 311 (275-295); Potassium 3.7 mMol/L (3.4-5.1); Sodium 137 mMol/L (136-145); eGFR 9 See Note
[2024-07-12 15:43] LABS: Blood Urea Nitrogen 119 mg/dL (9-23)
--- NOTE | 2024-07-12 17:35 | PD.RESEVENT ---
Documentation for date of: 07/12/24 Event Note Event Note: 84-year-old male with past medical history of hypertension, BPH, DM2, subdural hematoma (2020), dementia, and chronic indwelling catheter was admitted to hospital on 07/05/2024 for sepsis likely secondary to catheter associated UTI versus community-acquired pneumonia, RAND, and NSTEMI. Shortly after patient was upgraded to the ICU due to hypotension requiring pressors. Patient in the ICU continued to have worsening kidney function and he eventually required 1 time hemodialysis which was done today. Patient also developed A-fib with RVR for which he underwent cardioversion by cardiology and is currently on amiodarone, his eliquis was held as he had some bleeding in his urine. Patient at this time is stable and off pressors. He will be downgraded to medical floors tomorrow and assigned to team A. Case disclosed with Attending Dr. Bria Wagner PGY1
[2024-07-12] MEDS: HEPARIN SOD INJ 1000 UNIT/ML VIAL 10 ML 2200 UNIT INDWELLCAT (18:12)
--- NOTE | 2024-07-12 18:32 | PC.NURSE ---
1st dialysis completed for 2 hrs. Tolerated well. No fluid removal per MD. Respiration even and unlabored. Sating at 95% on O2 at 1L/min via nc. Post VS stable. BP 120/52, HR 78, Temp. 98.2. Report given to Thu GUNN.
[2024-07-12] MEDS: MIRTAZAPINE 15 MG TABLET 30 MG PO (21:17)
[2024-07-13] VITALS (46 sets, daily range): BP systolic 103–145; BP diastolic 46–73; PULSE 60–79; RESP 12–20; TEMP 36.2–36.8; O2SAT 92–99; BMI 25.0
[2024-07-13 05:43] LABS: Basophils % (Auto) 0 % (0-2.5); Eosinophils # (Auto) 0.1 Thou/mm3 (0.0-0.5); Eosinophils % (Auto) 1 % (0-10); Hematocrit 28.7 % (41.0-53.0); Hemoglobin 9.8 g/dL (13.5-16.0); Immature Granulocytes % (Auto) 1 % (0-0); Immature Granulocytes Auto 0.16 Thou/mm3 (0.00-0.00); Lymphocytes # (Auto) 1.1 Thou/mm3 (1.0-4.8); Lymphocytes % (Auto) 9 % (10-50); Mean Corpuscular HGB Conc 34.1 g/dl (31.0-37.0); Mean Corpuscular Hemoglobin 30.9 pg (25.0-35.0); Mean Corpuscular Volume 91 fL (80-100); Monocytes # (Auto) 0.4 Thou/mm3 (0.0-0.8); Monocytes % (Auto) 3 % (0-12); Neutrophils # (Auto) 9.9 Thou/mm3 (1.8-7.7); Neutrophils % (Auto) 85 % (37-80); Nucleated Red Blood Cell % 0 /100 WBC (0); Platelet Count 142 Thou/mm3 (140-440); RDW Standard Deviation 52.6 fL (35.1-43.9); Red Blood Count 3.17 Miln/mm3 (4.50-5.90); White Blood Count 11.7 Thou/mm3 (3.8-10.6)
[2024-07-13] MEDS: MIDODRINE 5 MG TABLET PO (05:55)
[2024-07-13 06:40] LABS: Chloride 103 mMol/L (98-107); Potassium 3.6 mMol/L (3.4-5.1); Sodium 140 mMol/L (136-145)
[2024-07-13 06:41] LABS: Alanine Aminotransferase 13 U/L (10-49); Albumin, Serum 2.8 gm/dL (3.4-4.8); Albumin/Globulin Ratio 1.3 (1.2-2.2); Alkaline Phosphatase 62 U/L (46-116); Anion Gap 16 (7-16); Aspartate Amino Transferase 16 U/L (0-34); BUN/Creatinine Ratio 18 Ratio (12-20); Blood Urea Nitrogen 94 mg/dL (9-23); Calcium 8.3 mg/dL (8.3-10.6); Calcium (Corrected) 9.3 mg/dL (8.5-10.1); Creatinine (Component) 5.2 mg/dL (0.6-1.3); Estimated Creatinine Clearance 10.5 mL/min (>60); Globulin 2.2 gm/dL (2.3-3.5); Glucose 93 mg/dL (74-106); Osmolality,Calculated 308 (275-295); eGFR 10 See Note
--- NOTE | 2024-07-13 09:47 | ESPR_ITS ---
<Statement entered by Manuel Rhodes MD - 07/14/24 19:02> I evaluated the patient appears to be in clinically stable now hypotension resolved remains stable in ICU can be transferred to telemetry. I evaluated the patient along with resident physician and agree with the treatment plan recommendation as documented by Dr. Diana PGY 2 Documentation for date of: 07/13/24 Subjective Subjective Interval history: This 84-year-old male with past medical history of hypertension, BPH, DM2, subdural hematoma (2020), dementia, and chronic indwelling catheter was admitted to hospital after coming to the ED with complaints of nausea, vomiting, abdominal pain, and blood in the Rollins bag since last night. Patient was brought in by grandson and during the time of assessment nobody was at bedside. Patient was very hard of hearing and very not responding to questions during assessment, but he was able to follow some commands and able to answer alert oriented questions (AOx3 not to time). Primary team Spoke with grandson, next of kin, via phone call and he said he was the medical decision maker who provided most of the patient's history. Grandson stated that last night additional to the patient's nausea, vomiting, and abdominal pain the patient had elevated blood sugars in the 300s as well as some disorientation which she states that is usually when his bladder swells a lot. The patient's grandson also mentioned that the patient gets monthly Rollins catheter changes, but last night he noticed blood-tinged urine in the Rollins bag which was new and he did not feel was safe to keep patient at home and decided to bring him to the ER. He stated that patient did not have any chills or fevers at home nor any chest pain or shortness of breath.ED course:Initially patient came in normotensive and afebrile, but afterwards patient was tachycardic, and tachypneic. Initial labs were relevant for RAND, hyperglycemia, lactic acidosis, bilirubinemia, troponinemia, elevated procalcitonin, and UTI. Initial imaging included chest x-ray which showed bibasilar pneumonia, abdomen/pelvis CT showed cholelithiasis, bilateral hydronephrosis, diverticulosis, marked prostatomegaly, and marked thickening of urinary bladder wall, and gallbladder ultrasound which showed some gallbladder sludge but gallbladder was poorly visualized and contracted. EKG showed A-fib. Social Hx: Upon chart review patient was a former smoker, but grandson stated that he is not an active smoker at this time and does not do any alcohol or illicit drugs. Meds: Aspirin 81mg qday, Atorvastatin 20mg HS, Coreg 12.5 mg BID, tamsulosin 0.4mg qday, finasteride 5mg qdya, amlodipine 2.5mg BID losartan/HCTZ , med reconciliation pending. Allergies: As per patient's grandson's morphine Cardiology team consulted for A.fib with Rvr and possible req of cardioversion. 07/09/2024: Patient was seen and examined at the bedside in ICU patient's blood pressure is on softer side with a BP of 95/70, tachycardic with heart rate 141 and saturating 94% on room air. Patient is upgraded to ICU due to septic shock likely due to ESBL UTI and Klebsiella pneumonia bacteremia. Patient was initially managed with IV fluid resuscitation and was maintained with Levophed and vasopressin however now seen off Levophed and only on vasopressin with albumin. Labs showed WBC improved to 10.3, hemoglobin stable at 11.1. Platelets 95. Chemistry panel showed mild hyponatremia sodium 134 K: 3.9. BUN 78 and creatinine 4.3 with GFR 13. Bicarb on CHEM panel 19.5. Albumin 3.1. Total cortisol pending. Urinalysis was cloudy, 2+ proteinuria, blood 3+, RBC 1594, WBC 928, amorphous crystals and bacteriuria. EKG showed A-fib with RVR heart rate 140s. Echocardiogram showed EF 55-60% mild AV sclerosis without stenosis. Mild TR. Cardiology team consulted for A-fib with RVR not controlled with IV drip per protocol and digoxin given one-time only. Primary ICU team stopped Levophed and only keeping vasopressin. Currently covering with IV antibiotic therapy Zosyn for ESBL UTI. Consult is for possible requirement of cardioversion since its new onset A-fib less than 48 hours. Currently being anticoagulated with Eliquis 2.5 mg twice daily age and renal dosed. Recommended to start Cardizem 30 mg 3 times daily and continue it if blood pressure tolerates. If patient still remains in A-fib with RVR will likely perform cardioversion. No need of stoppage of anticoagulation before cardioversion. Keep the patient n.p.o. after midnight for possible cardioversion tomorrow without JAVIER. Will switch to amiodarone p.o. 200 mg twice daily once amiodarone drip is completed. Continue Eliquis 2.5 mg twice daily for now. Continue treating underlying septic infection due to ESBL UTI and Klebsiella bacteremia. Continue monitoring electrolytes and close monitoring required. Continue albumin therapy given worsening kidney functions and patient is in oliguria phase for RAND on CKD. All labs and orders were reviewed. 07/10/2024: Patient was seen and examined at the bedside in ICU. Patient has soft blood pressure 113/65 with heart rate 130s. Patient continues to be on amiodarone drip per protocol. Patient is saturating well on room air. He continues to be on phenylephrine. Labs revealed WBC 10.2, hemoglobin stable 11.4. Platelets increased to 67. Chemistry panel showed mild hyponatremia, potassium 3.6. Bicarb improved. Kidney functions continues to decline. Blood glucose 148. Urine output 605 from last 24 hours. Cardioverted today. Recommended to switch to p.o. amiodarone 200 twice daily once amiodarone drip completed. Cardizem was discontinued. Will likely plan to cardiovert him today given continuous uncontrolled heart rate. ICU team giving IV antibiotic therapy and albumin for septic shock and declining kidney functions. ICU team started dronabinol for appetite stimulation as patient is not eating and drinking enough. Plan of care discussed with ICU team. 07/12/2024: Patient was seen and examined in the ICU. Patient's vitals showed blood pressure 119/labs showed 58 with heart rate 72 in sinus rhythm. Mild leukocytosis and hemoglobin stable at 10.1 with platelet 105. Chemistry panel showed mild hypokalemia and worsening kidney function with BUN 114 and creatinine 5.7. Urine output of 1.8 L with negative balance of 348 cc. Recommended to continue amiodarone 200 mg twice daily and currently Eliquis on hold as he had episode of hematuria. Rollins catheter replaced given urinary retention yesterday and patient is still making urine. Nephrology team was consulted for worsening kidney functions and plan for hemodialysis after placing dialysis catheter today. Agreeable to the plan. No new further recommendations by cardiology team. All labs and orders were reviewed. 07/13/2024: Patient was seen and examined at the bedside. Patient has been downgraded to floors being off pressors and underwent dialysis yesterday. Vitals in the morning showed blood pressure 139/62, heart rate 68. Labs revealed mild leukocytosis, hemoglobin stable at 9.8 and platelet 142. Chemistry panel showed hypokalemia. Kidney function showed BUN 94 and creatinine 5.2. Currently primary team continuing amiodarone 200 twice daily for A-fib rate control. Patient underwent hemodialysis yesterday and today as well. Given hematuria Eliquis was discontinued. As patient has acute illness that is sepsis which caused A fib for short onset we consider discontinuing Eliquis and only restart Eliquis 2.5 twice daily if patient developed frequent episodes of A-fib. Agreeable to the plan of care. Exam Vital Signs Temp Pulse Resp BP Pulse Ox O2 Del Method O2 Flow Rate 97.9 F 68 15 139/62 H 98 Room Air 2 07/13/24 00:28 07/13/24 09:40 07/13/24 06:38 07/13/24 09:40 07/13/24 06:38 07/08/24 13:00 07/13/24 06:38 FiO2 100 07/12/24 18:25 Narrative Exam GENERAL APPEARANCE: AxOx4, elderly male hard of hearing HEENT: NC, AT. MMM. EOMI, clear conjunctiva, oropharynx clear. NECK: Supple without lymphadenopathy. No stiffness or restricted ROM. HEART: Reverted to sinus rhythm post cardioversion normal S1/S2, no m/r/g LUNGS: CTAB, moving air well. No crackles or wheezes are heard. ABDOMEN: Soft, nontender, nondistended with good bowel sounds heard. BACK: No CVAT, no obvious deformity. EXTREMITIES: Without cyanosis, clubbing or edema. NEUROLOGICAL: Grossly nonfocal. Alert and oriented, moving all 4 extremities. CN not formally tested but appear grossly intact. Skin: Warm and dry without any rash. Objective Labs 07/13/24 05:11 07/13/24 05:11 Labs: Laboratory Results - last 24 hr 07/12/24 07/13/24 14:45 05:11 WBC 11.7 H RBC 3.17 L Hgb 9.8 L Hct 28.7 L MCV 91 MCH 30.9 MCHC 34.1 RDW Std Deviation 52.6 H Plt Count 142 D Neut % (Auto) 85 H Lymph % (Auto) 9 L Bland % (Auto) 3 Eos % (Auto) 1 Baso % (Auto) 0 Neut # (Auto) 9.9 H Lymph # (Auto) 1.1 Bland # (Auto) 0.4 Eos # (Auto) 0.1 Baso # (Auto) 0.0 Immature Gran # (Auto) 0.16 H Absolute Nucleated RBC 0.00 Immature Gran % 1 H Nucleated RBC % 0 Sodium 137 140 Potassium 3.7 3.6 Chloride 103 103 Carbon Dioxide 18.4 L 21.0 Anion Gap 16 16 BUN 119 H* 94 H Creatinine 5.8 H* 5.2 H* D Estim Creat Clear Calc 9.4 L 10.5 L eGFR 9 L* 10 L* BUN/Creatinine Ratio 21 H 18 Glucose 95 93 Calculated Osmolality 311 H 308 H Calcium 7.8 L 8.3 Corrected Calcium 9.3 Total Bilirubin 1.0 AST 16 ALT 13 Alkaline Phosphatase 62 Total Protein 5.0 L Albumin 2.8 L Globulin 2.2 L Albumin/Globulin Ratio 1.3 Quality Measures Quality Measures VTE prophylaxis (SCDs) Advance care planning discussed with:: patient Assessment & Plan Assessment Current Active Medications: Generic Name Dose Route Start Last Admin Trade Name Freq PRN Reason Stop Dose Admin Acetaminophen 650 mg 07/05/24 17:12 07/09/24 18:06 Acetaminophen 325 Mg Tablet PO 08/04/24 17:11 650 mg Q6H PRN Administration pain 1-3 and Fever >100.4 Amiodarone HCl 200 mg 07/10/24 21:00 07/13/24 09:40 Amiodarone Hcl 200 Mg Tablet PO 08/09/24 20:59 Not Given BID ANNETTA Dextrose 25 ml 07/05/24 17:12 07/11/24 23:48 Dextrose 50%-Water Inj 50 Ml Syringe IV 08/04/24 17:11 25 ml Q15MIN PRN Administration BG 50-70 responsive npo pt Dextrose 50 ml 07/05/24 17:12 Dextrose 50%-Water Inj 50 Ml Syringe IV 08/04/24 17:11 Q15MIN PRN BG <50 OR BG <70 & pt unresponsive Dronabinol 2.5 mg 07/12/24 18:08 07/13/24 08:02 Dronabinol 2.5 Mg Capsule PO 08/09/24 20:59 Not Given BIDAC ANNETTA Finasteride 5 mg 07/08/24 10:45 07/13/24 09:40 Finasteride 5 Mg Tablet PO 08/07/24 10:44 Not Given QDAY ANNETTA Glucagon 1 mg 07/05/24 17:12 Glucagon Inj 1 Mg Vial IM Q15MIN PRN BG <70, and no IV access Heparin Sodium (Porcine) 2,200 unit 07/12/24 17:06 07/12/24 18:12 Heparin Sod Inj 1000 Unit/Ml Vial 10 Ml INDWELLCAT 07/26/24 17:05 2,200 unit X1 PRN Administration DIALYSIS Phenylephrine HCl 40 mg/ 100 mls @ 5.955 mls/hr 07/12/24 09:01 Sodium Chloride IV 08/08/24 08:40 .[id number] PRN Per Sepsis Protocol Protocol 0.5 MCG/KG/MIN Metoprolol Tartrate 2.5 mg 07/07/24 03:11 07/07/24 03:17 Metoprolol Tartrate Inj 1 Mg/Ml Amp 5 Ml IVP 2.5 mg Q5M PRN Administration AFIB RVR HR >140 Midodrine 5 mg 07/11/24 14:00 07/13/24 05:55 Midodrine 5 Mg Tablet PO 08/10/24 13:59 5 mg TID ANNETTA Administration Mirtazapine 30 mg 07/10/24 21:00 07/12/24 21:17 Mirtazapine 15 Mg Tablet PO 08/09/24 20:59 30 mg HS ANNETTA Administration Ondansetron HCl 4 mg 07/09/24 09:41 07/09/24 09:44 Ondansetron Inj 2 Mg/Ml Inj 2 Ml IV 08/08/24 09:40 4 mg Q6HR PRN Administration NAUSEA OR VOMITING Protocol Prochlorperazine Maleate 10 mg 07/05/24 17:12 07/06/24 20:17 Prochlorperazine Maleate 5 Mg Tablet PO 08/04/24 17:11 10 mg Q6H PRN Administration NAUSEA OR VOMITING Protocol Sennosides 1 tab 07/05/24 17:12 Senna Tablet PO 08/04/24 17:11 QDAY PRN constipation Protocol Plan This 84-year-old male with past medical history of hypertension, BPH, DM2, subdural hematoma (2020), dementia, and chronic indwelling catheter was upgraded to ICU due to septic shock likely due to ESBL UTI and Klebsiella bacteremia. Cardiology team consulted for A-fib with RVR and requirement of possible cardioversion. #Atrial Fibrillation with Rvr, resolved # Post cardioversion ?Patient supposedly had A-fib at the time of admission to the hospital but spontaneously reverted to normal sinus rhythm. -Developed new onset A-fib on 07/06/2024 overnight -Received 2.5 Mg of metoprolol tartrate, 150 Mg of amiodarone bolus and started on amiodarone drip -Based on [id number] score 4, patient was started on Eliquis 2.5 Mg twice daily due to his declined renal functions. -Patient rec 3 bags of amiodarone drip and now seen on 4th bag ?Patient was cardioverted on 07/10 and converted back to sinus rhythm Plan: ?Given hematuria Eliquis was discontinued. As patient has acute illness that is sepsis which caused A fib for short onset we consider discontinuing Eliquis and only restart Eliquis 2.5 twice daily if patient developed frequent episodes of A-fib. ? Continue p.o. amiodarone 200 twice daily ? Keep magnesium above 2 and potassium above 4 ? Replete electrolytes as necessary ? Follow-up on labs #Septic shock likely secondary to catheter associated ESBL urinary tract infection and Klebsiella bacteremia,Resolved # Acute encephalopathy, resolved # Chronic indwelling catheter ?Etiology of the shock is likely septic due to UTI. ?Patient has a history of chronic indwelling catheter with monthly changes Rollins catheter as well as recurrent UTIs in the past. ?Patient was minimally responsive to questioning and most likely has encephalopathy secondary to the UTI as per patient's grandson at baseline he was a lot more responsive. ?Patient met SIRS 2 out of 4 criteria with tachycardia and tachypnea ?Past urine cultures have grown Citrobacter and Klebsiella which both were multidrug-resistant, but sensitive to Zosyn ?Chest x-ray showed bibasilar pneumonia ?UA was positive for bacteria and leukocyte esterase ?Lactic acid was 4.4 but down trended to 3.6 ?Procalcitonin 15.78 ?In the ED patient received 2 L boluses of NS and Zosyn ?Rollins was changed in the ED -Patient met septic shock criteria requiring pressors after 3 L of fluid. -Troponins: 0.119 -> 0.138 -> 0.178 > 0.136 -Patient remains A-fib with RVR on amnio drip per protocol and currently on fourth back. ? EKG showed AFib. Echo in 2021 showed normal LV with EF 60% ?Levophed is stopped and significant is started in view of difficulty with rapid ventricular rate on 07/09/2024. Plan: ? Off pressors downgraded to floors ? Patient completed course of antibiotics Zosyn ? Monitor for fever spikes and elevation of white count and treat RAND on CKD possible ATN ? Daily labs #Hx of hypertension ? Will hold any antihypertensive medication for now ?Currently maintaining MAP above 65 #NSTEMI type type II ? Likely supply demand ischemia ?Troponin I downtrended. Patient is denying any chest pain or shortness of breath. ?EKG did not show any ST changes Plan: ? Troponin I downtrended ? Continue monitor for chest pain or shortness of breath # RAND likely prerenal azotemia, worsening kidney functions # Hemodialysis ?Kidney functions continue to decline ? Patient still making urine 1.5 L with negative balance of 1.5L Plan: ? Patient underwent hemodialysis yesterday and also undergoing dialysis today per nephrology team recommendations ? nephrology following the case ? Avoid nephrotoxic agents and renally dose medications ? Strict MICHAEL's # Acute hypoxic respiratory failure, resolved # Likely secondary to aspiration pneumonia versus remote history of smoking # Leukocytosis # Elevated T. bili and transaminases # Mild bilateral hydronephrosis # [id number] type 2 diabetes # Normocytic anemia # Thrombocytopenia # Hematuria # History of BPH chronic indwelling catheter since 2019 # Appetite loss Rest of the management as per primary care team. Thank you very much for consulting cardiology team. Patient is in sinus rhythm after cardioversion. No new further recommendations by cardiology team. Continue hemodialysis for worsening kidney functions. Plan of care discussed with armament aircraft mechanic, Dr. Carmelo Holder MD, PGY 2
[2024-07-13 10:24] LABS: Lymphocytes (Manual) 12 % (20-44); Monocytes (Manual) 1 % (2-9); Neutrophils (Manual) 87 % (50-70)
--- NOTE | 2024-07-13 12:12 | ESPR_ITS ---
<Statement entered by Gera Lindsay MD - 07/13/24 16:37> Senior Resident Attestation: I supervised/discussed management plan with music industry intern physician Dr. Cedillo, and was involved in the care of this patient. I personally saw and examined the patient and discussed the assessment and plan with the entire medicine team, including my attending. I agree with the assessment and plan as documented. Patient was seen and examined in ICU. He reports no complains and appears drowsy and oriented to self only. ICU team suggested to discontinue his midodrine due to elevated BP. He underwent HD yesterday and we will follow up nephrology for possible HD today. Patient's care was discussed with attending physician, Dr. Fraser. Gera Lindsay MD PGY-2. Documentation for date of: 07/13/24 Subjective Subjective Interval history: Patient was seen at bedside this morning. No overnight events. Patient was AO x 2 (not to time) and stated that he did not have any pain at this time or complaints. Spoke with fire medic for possible hemodialysis today, stated she would see the patient. Spoke with cardiology who stated that patient does not need Eliquis at this time given that his A-fib was most likely acute in the setting of sepsis, but will reconsider starting Eliquis if patient develops frequent episodes of A-fib. ordered US R UE due to swelling on assessment. No other complaints at this time. Exam Vital Signs Temp Pulse Resp BP Pulse Ox O2 Del Method O2 Flow Rate 97.9 F 68 15 139/62 H 98 Room Air 2 07/13/24 00:28 07/13/24 09:40 07/13/24 06:38 07/13/24 09:40 07/13/24 06:38 07/08/24 13:00 07/13/24 06:38 FiO2 100 07/12/24 18:25 Narrative Exam General: A/O x2 (not to time), no acute distress, disheveled, frail Eyes: PERRL, EOMI. Anicteric, vision grossly intact. Ears: No ear pain, no ear discharge, Hearing impaired Nose: No nasal discharge. Mouth/Throat: Dry mucous membranes, no redness, no lesions. Neck: Neck supple, non-tender, no cervical lymphadenopathy. Lungs: Clear, No accessory muscle use. Cardio: Normal S1/S2, regular rhythm, no murmurs, no JVD Abdomen: Soft, non-tender, no palpable masses, peristalsis present, no guarding or rebound. Extremities: Symmetrical, no significant deformities, 1+ peripheral edema , non-tender, peripheral pulses presents. R UE swollen. : swollen scotrum. Skin: No rashes, no lesions, warm to touch. Neuro: A/Ox2 (not to time) able to move all extremities. Objective Labs 07/13/24 05:11 07/13/24 05:11 Labs: Laboratory Results - last 24 hr 07/12/24 07/13/24 14:45 05:11 WBC 11.7 H RBC 3.17 L Hgb 9.8 L Hct 28.7 L MCV 91 MCH 30.9 MCHC 34.1 RDW Std Deviation 52.6 H Plt Count 142 D Neut % (Auto) 85 H Lymph % (Auto) 9 L [place] % (Auto) 3 Eos % (Auto) 1 Baso % (Auto) 0 Neut # (Auto) 9.9 H Lymph # (Auto) 1.1 [place] # (Auto) 0.4 Eos # (Auto) 0.1 Baso # (Auto) 0.0 Immature Gran # (Auto) 0.16 H Absolute Nucleated RBC 0.00 Immature Gran % 1 H Neutrophils % (Manual) 87 H Monocytes % (Manual) 1 L Nucleated RBC % 0 Lymphocytes (Manual) 12 L Sodium 137 140 Potassium 3.7 3.6 Chloride 103 103 Carbon Dioxide 18.4 L 21.0 Anion Gap 16 16 BUN 119 H* 94 H Creatinine 5.8 H* 5.2 H* D Estim Creat Clear Calc 9.4 L 10.5 L eGFR 9 L* 10 L* BUN/Creatinine Ratio 21 H 18 Glucose 95 93 Calculated Osmolality 311 H 308 H Calcium 7.8 L 8.3 Corrected Calcium 9.3 Total Bilirubin 1.0 AST 16 ALT 13 Alkaline Phosphatase 62 Total Protein 5.0 L Albumin 2.8 L Globulin 2.2 L Albumin/Globulin Ratio 1.3 Quality Measures Quality Measures VTE prophylaxis (SCDs) Advance care planning discussed with:: patient Assessment & Plan Assessment Current Active Medications: Generic Name Dose Route Start Last Admin Trade Name Freq PRN Reason Stop Dose Admin Acetaminophen 650 mg 07/05/24 17:12 07/09/24 18:06 Acetaminophen 325 Mg Tablet PO 08/04/24 17:11 650 mg Q6H PRN Administration pain 1-3 and Fever >100.4 Amiodarone HCl 200 mg 07/10/24 21:00 07/13/24 09:40 Amiodarone Hcl 200 Mg Tablet PO 08/09/24 20:59 Not Given BID ANNETTA Dextrose 25 ml 07/05/24 17:12 07/11/24 23:48 Dextrose 50%-Water Inj 50 Ml Syringe IV 08/04/24 17:11 25 ml Q15MIN PRN Administration BG 50-70 responsive npo pt Dextrose 50 ml 07/05/24 17:12 Dextrose 50%-Water Inj 50 Ml Syringe IV 08/04/24 17:11 Q15MIN PRN BG <50 OR BG <70 & pt unresponsive Dronabinol 2.5 mg 07/12/24 18:08 07/13/24 08:02 Dronabinol 2.5 Mg Capsule PO 08/09/24 20:59 Not Given BIDAC ANNETTA Finasteride 5 mg 07/08/24 10:45 07/13/24 09:40 Finasteride 5 Mg Tablet PO 08/07/24 10:44 Not Given QDAY ANNETTA Glucagon 1 mg 07/05/24 17:12 Glucagon Inj 1 Mg Vial IM Q15MIN PRN BG <70, and no IV access Heparin Sodium (Porcine) 2,200 unit 07/12/24 17:06 07/12/24 18:12 Heparin Sod Inj 1000 Unit/Ml Vial 10 Ml INDWELLCAT 07/26/24 17:05 2,200 unit X1 PRN Administration DIALYSIS Phenylephrine HCl 40 mg/ 100 mls @ 5.955 mls/hr 07/12/24 09:01 Sodium Chloride IV 08/08/24 08:40 .[id number] PRN Per Sepsis Protocol Protocol 0.5 MCG/KG/MIN Metoprolol Tartrate 2.5 mg 07/07/24 03:11 07/07/24 03:17 Metoprolol Tartrate Inj 1 Mg/Ml Amp 5 Ml IVP 2.5 mg Q5M PRN Administration AFIB RVR HR >140 Midodrine 5 mg 07/11/24 14:00 07/13/24 05:55 Midodrine 5 Mg Tablet PO 08/10/24 13:59 5 mg TID ANNETTA Administration Mirtazapine 30 mg 07/10/24 21:00 07/12/24 21:17 Mirtazapine 15 Mg Tablet PO 08/09/24 20:59 30 mg HS ANNETTA Administration Ondansetron HCl 4 mg 07/09/24 09:41 07/09/24 09:44 Ondansetron Inj 2 Mg/Ml Inj 2 Ml IV 08/08/24 09:40 4 mg Q6HR PRN Administration NAUSEA OR VOMITING Protocol Prochlorperazine Maleate 10 mg 07/05/24 17:12 07/06/24 20:17 Prochlorperazine Maleate 5 Mg Tablet PO 08/04/24 17:11 10 mg Q6H PRN Administration NAUSEA OR VOMITING Protocol Sennosides 1 tab 07/05/24 17:12 Senna Tablet PO 08/04/24 17:11 QDAY PRN constipation Protocol Plan 84-year-old male with past medical history of hypertension, BPH, DM2, subdural hematoma (2020), dementia, and chronic indwelling catheter was admitted to hospital on 07/05/2024 for sepsis likely secondary to catheter associated UTI versus community-acquired pneumonia, RAND, and NSTEMI. #Sepsis secondary to Klebsiella bacteremia #Klebsiella bacteremia #Septic shock, resolved #Catheter associated urinary tract infection #Community-acquired pneumonia #Acute Encephalopathy, resolveed #Chronic indwelling catheter #Recurrent UTIs #Hx of BPH #Prostatomegaly #Lactic acidosis #Hematuria ?Patient has a history of chronic indwelling catheter with monthly changes Rollins catheter as well as recurrent UTIs in the past. ?Patient initially on admission was minimally responsive to questioning and most likely has encephalopathy secondary to the UTI as per patient's grandson at baseline he was a lot more responsive. ?Patient initially met SIRS 2 out of 4 criteria with tachycardia and tachypnea ?Patient developed septic shock shortly after admission and was upgraded to the ICU, was downgraded on 07/13/2024 ?Blood cultures grew Klebsiella and urine culture grew klebsiella ESBL -WBC 11.7 and no spikes in fever Plan: ?Will continue Zosyn [07/05/2024 -], renally dosed due to impaired renal function ?Continue finasteride 5 mg daily ?Will continue to monitor #A-fib with RVR s/p cardioversion on 07/10/2024 ?In the ICU patient developed A-fib and was initially placed on amiodarone drip, but A-fib did not resolve therefore cardiology was consulted ?Cardioversion was done on 07/10/2024 ?[id number], but cardiology stated that his A-fib was in an acute setting of sepsis and therefore does not need Eliquis at this time Plan: -Amiodarone 200mg BID ?Will continue to monitor if patient redevelops A-fib ?Cardiology consulted, appreciate recommendations # Acute renal failure ? Patient developed ATN likely in the setting of shock ?Patient's baseline BUN 23 and creatinine 0.9 on 06/2023. -BUN 94 and Creatinine 5.2 today Plan: ?Temporary hemodialysis ?Renally dose medications ?Avoid nephrotoxic agents ?Nephrology consulted, pursue recommendations ?Will continue to monitor #R Arm swelling -Ordered U/S doppler R arm. #NSTEMI type II demand ischemia ?Most likely type II in the setting of sepsis likely demand ischemia versus less likely type I as patient does not have any chest pain at this time. ?Initial troponins were 0.119 and down trended ?EKG did not show any ST changes Plan: ?Will continue to monitor #Cholelithiasis #Bilirubinemia ?Patient has been complaining of upper abdominal pain. ?Abdomen/pelvis CT showed cholelithiasis ?Gallbladder ultrasound showed gallbladder sludge but no cholelithiasis and cannot accurately assess gallbladder. Common bile duct was not distended. ?T bilirubin 1, alkaline phosphatase 62 today Plan: ?Will continue to monitor #Hx of DM2 #Hypoglycemia ?Patient has a history of diabetes and last A1c in 06/2023 was 5.9. ? Patient's blood sugar has been low ? A1c 5.8 on 06/2024 Plan: -Hypogylycemic protocol ordered ?Will continue to monitor #Hx of hypertension ? Will hold any antihypertensive medication for now as patient has been hypotensive. Disposition: Patient admitted seen in ICU for Sepsis 2/2 Klebsiella bacteremia, on IV abx Diet: Dysphagia GI prophylaxis: not indicated DVT prophylaxis: SCDs given hematuria Code:FULL code Case disclosed with Attending Dr. Fraser and My senior Dr. Lindsay PGY2. Logan Wagner PGY1 Attending Provider Attestation/Addendum Samia Alejo, DO, attest that I was physically present for the dodge portions of the service and evaluated the patient with the resident and I reviewed and discussed the case with the resident and agree with the resident's findings and plans of care as documented above Patient seen and eval this a.m. Patient is quite somnolent. He is noted to have right upper extremity 2+ pitting edema. He is noted to have right IJ dialysis catheter with dressing clean dry and intact. Patient has bilateral lower extremity edema as well ascending to his scrotal region. Patient appears to have good urine output, with some old blood noted in Rollins catheter. Patient has no active complaints and denies any chest pain or shortness of breath. He remains on 1 L nasal cannula. Pending nephrology recommendations. Continue with IV Zosyn as patient has ESBL Klebsiella noted in the urine. Patient downgraded from ICU for septic shock 2/2 UTI from chronic indwelling catheter. Patient was found to have new onset A-fib s/p cardioversion likely due to acute illness per cardiology. [id number] of 5, but anticoagulation was stopped due to hematuria. No need for anticoagulation at this time per cardio since A-fib was due to acute illness and sepsis. Heart rate currently now controlled. Will order PPD and hepatitis panel in the event patient will need to continue outpatient dialysis and needs to be arranged.
[2024-07-13 12:13] LABS: Hepatitis A Antibody IgM Non Reactive (Non React); Hepatitis B Core Antibody IgM Non Reactive (Non React); Hepatitis B Surface Antigen Non Reactive (Non React); Hepatitis C Antibody Non Reactive (Non React)
--- NOTE | 2024-07-13 13:01 | PC.NURSE ---
BFR TO 200 D/T UNSTABLE AP THAT CONT. TO ALARM DESPITE ALL INTERVENTIONS, WILL CONT. TO MONITOR
--- NOTE | 2024-07-13 13:36 | PC.SS ---
Update: Patient receiving 2 session of dialysis today[address] Dr. Mosqueda covering for Dr. Marshall.
--- NOTE | 2024-07-13 13:43 | PC.NURSE ---
tx paused and all blood returned d/t non functioning catheter despite all interventions MD Mosqueda notified w/ order alteplase both ports and attempt to resume tx post dwell period.
[2024-07-13] MEDS: ALTEPLASE RECOMB INJ 2 MG VIAL 4 MG INDWELLCAT (13:59)
--- NOTE | 2024-07-13 15:08 | XR_ITS ---
Examination: Duplex scan of the upper extremity, unilateral right Date and time of exam: July 13, 2024 1555 hours INDICATIONS: Right arm swelling beginning 5 days ago Technique: Duplex scan of the extremity veins using B-mode/grayscale imaging and Doppler spectral analysis and color flow Attention is directed to internal echogenicity, compression and augmentation involving these veins, color flow assessment, spectral analysis Findings: Major deep venous structures in the extremity demonstrate normal course and caliber. There is no evidence of deep vein thrombosis. Normal color flow and spectral analysis Right arm edema Impression: Negative for DVT..
[2024-07-13] MEDS: cefTRIAXone/D5w 1gm IV premix 50 ML IV (15:32)
[2024-07-13] MEDS: TUBERCULIN PPD INJ 5 UNIT/0.1 ML DOSE ID (15:43)
--- NOTE | 2024-07-13 16:55 | ESOP_ITS ---
Procedures Procedure Date / Time 07/12/24 12:00 PM Procedure Narrative Procedure Narrative: Attending attestation: I was present for the entire procedure. Patient tolerated procedure well. No immediate complications. Follow-up chest x-ray shows no pneumothorax. Catheter tip in adequate position. Central Line Placement Right IJ: Indication(s): other (Triflow vascular catheter for dialysis) Informed consent obtained: from patient and obtained from surrogate decision maker Time out done, and the following verified: correct patient, side and site, procedure, patient position and implants and/or equipment Patient placed on monitor/pulse ox: Yes Hand Hygiene: scrub and alcohol-based hand rub Max Sterile Barrier Techniques used: cap, mask, sterile gown, sterile glov es and sterile full body drape Central line prep: Povidone-Iodine 1% and sterile drapes applied Local anesthesia used: lidocaine 1% Amount of anesthesia used (mL): 3 Ultrasound used for placement: Yes Sterile Technique if Ultrasound used, including sterile gel: yes Central line lumen inserted: triple Post procedure: sutured in place, good blood return, all ports aspirated, flushed, capped and sterile dressing applied Post procedure x-ray: tip of catheter in good position and no pneumothorax seen Patient tolerated procedure: well and no complications EBL(ml): 10 Complications: none Procedure comment: Done under supervision of compressor operator adjuster, Dr. Diane Morales, PGY1
[2024-07-13] MEDS: droNABinol 2.5 MG CAPSULE PO (17:43)
[2024-07-13] MEDS: PIPERACILLIN/TAZO 2.25GM INJ 2.25 GM in SODIUM CHLORIDE 0.9% (P) 50 ML IV (18:18)
--- NOTE | 2024-07-13 19:30 | PC.NURSE ---
Tx resumed, both ports still malfunctioning BFR to 200 d/t increased AP despite all interventions. Will cont. to monitor
--- NOTE | 2024-07-13 19:35 | PC.NURSE ---
AP REMAINS UNSTABLE AND KEEPS BOTTOMING OUT DESPITE ALL INTERVENTIONS, WILL CONT. TO MONITOR
--- NOTE | 2024-07-13 19:55 | PC.NURSE ---
Addendum entered by Dashawn Hugo RN 07/13/24 20:02: ALL BLOOD RETURNED, PT REMAINED ASYMPTOMATIC AND DENIED ALL COMPLAINTS. Original Note: TX TERMINATED EARLT D/T MALFUNCTIONING CATHETER DESPITE ALL INTERVENTIONS. MD BOTELLO NOTIFIED W/ ORDER TO HAVE RESIDENT MD EXCHANGE CATHETER FOR TX TOMORROW. MD Kelly NOTIFIED.
[2024-07-13] MEDS: HEPARIN SOD INJ 1000 UNIT/ML VIAL 10 ML 2200 UNIT INDWELLCAT (19:57)
--- NOTE | 2024-07-13 21:15 | ESPR_ITS ---
RE: LUCERO LALA : 1940 DATE OF SERVICE: 07/13/2024 SUBJECTIVE: This patient is an 84-year-old gentleman with hypertension, BPH, type 2 diabetes, subdural hematoma in 2020, dementia, chronic indwelling catheter, who was admitted to the hospital on 07/05/2024 for nausea, vomiting, abdominal pain and bloody urine. The patient also has lactic acidosis with elevated procalcitonin level and was found with UTI. Blood cultures later on grew Klebsiella pneumoniae. While in ER the patient was hypotensive and was given IV fluids. The patient was later on transferred to ICU for hemodynamic instability. When he was admitted, creatinine was noted to be elevated at 2.3, which continued to rise and peaked at 5.8. His baseline creatinine is around 0.8. The patient also has anasarca. He was started on dialysis yesterday. The patient is very hard of hearing; however, in the report the patient is awake and alert. The patient maintains some urine output, but his BUN remains elevated at 94 with a creatinine of 5.2 after yesterday's dialysis treatment. CURRENT MEDICATIONS: 1. Acetaminophen. 2. Amiodarone. 3. Marinol. 4. Finasteride 5. Midodrine 5 mg b.i.d., currently on hold. 6. Remeron. 7. Ondansetron. 8. Phenylephrine drip. 9. Zosyn 2.25 grams IV q. 8. 10. Senna. PHYSICAL EXAMINATION: General: He is responsive, but very hard of hearing, bedbound. Vital Signs: Blood pressure of 128/59, heart rate of 78, temperature of 97.5. Heent: Anicteric sclerae. Normocephalic. Neck: Supple. No JVD. Chest and Lungs: Normal expansion. Clear breath sounds. Heart: Without murmur. Abdomen: Soft with abdominal wall edema. Extremities: Upper extremity edema, 2+ bilateral lower extremity edema. LABORATORY DATA: Sodium 140, potassium 3.6, chloride 103, CO2 of 21, BUN 94, creatinine 5.2, magnesium 2.6, albumin 2.2. Hemoglobin 9.8, WBC 11,700, platelet count 142,000. ASSESSMENT: 1. Nonoliguric acute kidney injury, most likely secondary to acute tubular necrosis following hypotension, hypoperfusion and hemodynamic instability. 2. Septic shock from Klebsiella pneumoniae, most likely secondary to urinary tract infection from chronic indwelling catheter. 3. Failure to thrive. 4. Type 2 diabetes. 5. Benign prostatic hypertrophy. 6. History of dementia. PLAN: The patient was supposed to be dialyzed today; however, the catheter is not working. Dialysis will be planned for tomorrow with a new catheter. We will continue to monitor his urine output, kidney function, electrolytes on a daily basis. DT: 20:23:31 TT: 21:00:00 Ref: [id number] - TID: [id number] MTDD
[2024-07-13] MEDS: AMIODARONE HCL 200 MG TABLET PO (21:18)
[2024-07-13] MEDS: MIRTAZAPINE 15 MG TABLET 30 MG PO (21:19)
[2024-07-14] VITALS (35 sets, daily range): BP systolic 95–142; BP diastolic 53–86; PULSE 57–152; RESP 13–21; TEMP 36.1–36.8; O2SAT 90–96; BMI 25.0
--- NOTE | 2024-07-14 | XR_ITS ---
Venous assess removal temporary dialysis catheter Insertion new temporary dialysis catheter Fluoroscopy AP chest, portable, July 14, 2024 0948 hours INDICATIONS: Nonfunctioning temporary dialysis catheter today need for replacement, renal failure patient Date and time of procedure: July 14, 2024 0948 hours Informed consent provided Technique: A timeout was completed verifying correct patient, procedure, site, positioning, and special equipment if applicable. The patient was placed in a dependent position appropriate for dialysis catheter placement based on the vein to be cannulated. The patient'sright neck was prepped and draped in sterile fashion. Maximum Sterile Barrier Technique used including cap, mask, sterile gown, sterile gloves, and sterile full body drape. 1% lidocaine administered for local anesthesia 0.35 wire guide is introduced through the nonfunctioning temporary dialysis catheter into the IVC New 13 Sin[place] 20 cm temporary dialysis catheter introduced over the wire guide into proper position under fluoroscopic guidance Fluoroscopy 0.1 minute radiation dose 1.06 milligray 1 spot fluoroscopic chest film. The catheter is sutured in place to the skin and a sterile dressing applied. Perfusion to the extremity distal to the point of catheter insertion is checked and found to be adequate Attending radiologist was present for the entire procedure Estimated blood loss0 cc. The patient tolerated the procedure well and there were no complications Impression: Venous assess removal temporary dialysis catheter Successful placement new temporary dialysis catheter insertion, percutaneous Fluoroscopy 0.1 minute radiation dose 1.06 milligray. AP chest performed at completion procedure demonstrates satisfactory position dialysis catheter. May use dialysis catheter.
--- NOTE | 2024-07-14 02:10 | PD.RESEVENT ---
Documentation for date of: 07/14/24 Event Note Event Note: Rapid response called at approximately 2:00 AM for atrial fibrillation RVR with HR 149. Other vitals showed BP 138/86, RR 18, O2 94% on RA. Denies any chest discomfort, shortness of breath, palpitations, or lightheadedness. He was given 15 mg IV diltiazem and patient not did not respond so will restart amiodarone drip. Will replete potassium (40 mEq IV) and check magnesium and replete as needed.
[2024-07-14] MEDS: AMIODARONE 150 MG IVPB 150 MG/100 ML BAG 600 MG IV (02:15)
[2024-07-14] MEDS: AMIODARONE 360 MG IVPB 360 MG/200 ML BAG 33.333 MG IV (02:30)
[2024-07-14] MEDS: DILTIAZEM INJ 5 MG/ML VIAL 5 ML 15 MG IV (02:39)
[2024-07-14] MEDS: POTASSIUM CHL 10 mEq IVPB 10 MEQ/100 ML BAG 100 MEQ IV ×4 (02:49→05:49)
[2024-07-14 02:57] LABS: Magnesium 2.3 mg/dL (1.6-2.6)
--- NOTE | 2024-07-14 03:01 | PC.NURSE ---
rapid response called for afib rvr, patient is not in pain, no sob or chest pain or palpitation. cardizem push unsuccessful, amiodarone drip initiated.
[2024-07-14] MEDS: PIPERACILLIN/TAZO 2.25GM INJ 2.25 GM in SODIUM CHLORIDE 0.9% (P) 50 ML IV ×3 (05:21→21:12)
[2024-07-14 05:54] LABS: Basophils % (Auto) 0 % (0-2.5); Eosinophils # (Auto) 0.1 Thou/mm3 (0.0-0.5); Eosinophils % (Auto) 1 % (0-10); Hematocrit 26.7 % (41.0-53.0); Hemoglobin 9.1 g/dL (13.5-16.0); Immature Granulocytes % (Auto) 2 % (0-0); Immature Granulocytes Auto 0.15 Thou/mm3 (0.00-0.00); Lymphocytes # (Auto) 0.7 Thou/mm3 (1.0-4.8); Lymphocytes % (Auto) 7 % (10-50); Mean Corpuscular HGB Conc 34.1 g/dl (31.0-37.0); Mean Corpuscular Hemoglobin 31.1 pg (25.0-35.0); Mean Corpuscular Volume 91 fL (80-100); Monocytes # (Auto) 0.4 Thou/mm3 (0.0-0.8); Monocytes % (Auto) 4 % (0-12); Neutrophils # (Auto) 8.8 Thou/mm3 (1.8-7.7); Neutrophils % (Auto) 86 % (37-80); Nucleated Red Blood Cell % 0 /100 WBC (0); Platelet Count 182 Thou/mm3 (140-440); RDW Standard Deviation 53.2 fL (35.1-43.9); Red Blood Count 2.93 Miln/mm3 (4.50-5.90); White Blood Count 10.2 Thou/mm3 (3.8-10.6)
[2024-07-14 06:28] LABS: Alanine Aminotransferase 10 U/L (10-49); Albumin, Serum 2.5 gm/dL (3.4-4.8); Albumin/Globulin Ratio 1.1 (1.2-2.2); Alkaline Phosphatase 59 U/L (46-116); Anion Gap 16 (7-16); Aspartate Amino Transferase 13 U/L (0-34); BUN/Creatinine Ratio 18 Ratio (12-20); Bilirubin,Total 0.7 mg/dL (0.3-1.2); Blood Urea Nitrogen 86 mg/dL (9-23); Calcium 7.8 mg/dL (8.3-10.6); Carbon Dioxide 18.8 mMol/L (20.0-31.0); Chloride 105 mMol/L (98-107); Creatinine (Component) 4.9 mg/dL (0.6-1.3); Estimated Creatinine Clearance 11.2 mL/min (>60); Globulin 2.3 gm/dL (2.3-3.5); Glucose 144 mg/dL (74-106); Osmolality,Calculated 308 (275-295); Potassium 3.9 mMol/L (3.4-5.1); Sodium 140 mMol/L (136-145); Total Protein 4.8 gm/dL (5.7-8.2); eGFR 11 See Note
[2024-07-14 06:29] LABS: Legionella Ag, EIA, Urine* NOT DETECTED
[2024-07-14] MEDS: AMIODARONE 360 MG IVPB 360 MG/200 ML BAG 16.667 MG IV ×2 (08:56→20:35)
[2024-07-14] MEDS: droNABinol 2.5 MG CAPSULE PO (08:57)
[2024-07-14] MEDS: FINASTERIDE 5 MG TABLET PO (08:57)
[2024-07-14 08:58] LABS: INR 1.1 (0.9-1.3); Partial Thromboplastin Time 29.1 Seconds (22.0-36.0); Prothrombin Time 12.1 Seconds (9.0-12.2)
--- NOTE | 2024-07-14 09:00 | PC.NURSE ---
consulted dr Lindsay regarding order for dialysis catheter exchange, wants another temp dialysis catheter, no need for perm cath at this time
--- NOTE | 2024-07-14 09:42 | PC.NURSE ---
Patient transported to IR for catheter exchange per VELIA Squires.
[2024-07-14] MEDS: LIDOCAINE INJ PF 1% 30 ML VIAL 6 ML INFL (10:15)
[2024-07-14] MEDS: HEPARIN SOD LOCK SYR 100 UNIT/ML 500 UNIT STFIELD (10:15)
--- NOTE | 2024-07-14 10:40 | PC.NURSE ---
Patient returned from BETTE Squires RN. No signs of acute distress. New dialysis catheter in place- dressing clean, dry and intact.
--- NOTE | 2024-07-14 11:00 | ESPR_ITS ---
Documentation for date of: 07/14/24 Subjective Subjective Interval history: Patient was seen and examined at bedside. Overnight patient had rapid response due to A-fib with RVR, was given 1 dose of diltiazem without response and was started on amiodarone drip. Yesterday evening he was scheduled for hemodialysis but he dialysis catheter was not working, moderate exchange of hemodialysis catheter. Will continue current management with Zosyn for UTI, amiodarone drip for A-fib with RVR and will follow-up after hemodialysis catheter changed for hemodialysis. Primary team will attempt goals of care discussion with his grandson who is decision-maker. Exam Vital Signs Temp Pulse Resp BP Pulse Ox O2 Del Method O2 Flow Rate 97.9 F 66 19 131/60 H 92 L Room Air 0 07/14/24 08:00 07/14/24 08:56 07/14/24 08:00 07/14/24 08:56 07/14/24 08:00 07/14/24 08:00 07/14/24 08:00 FiO2 0 07/14/24 08:00 Narrative Exam Gen: Well-developed frail elderly male. HEENT: NCAT, PERRLA, EOMI, MMM, anicteric conjunctivae. CVS: normal S1 and S2. RRR. No M/R/G. Resp: CTA B/L. No rhonchi, rales, crackles or wheezing. Abd: soft, non-tender, non-distended. BS+ in all 4 quadrants. MSK: Good ROM in BUE & BLE. No rash. 1+ edema BLE. Non pitting edema right upper extremity. Neuro: CN II-XII grossly intact. Strength 5/5 in BUE & BLE. Alert and oriented x1 to self only. Objective Labs 07/14/24 05:01 07/14/24 05:01 Labs: Laboratory Results - last 24 hr 07/09/24 07/13/24 07/14/24 11:55 05:11 02:36 WBC RBC Hgb Hct MCV MCH MCHC RDW Std Deviation Plt Count Neut % (Auto) Lymph % (Auto) Brule % (Auto) Eos % (Auto) Baso % (Auto) Neut # (Auto) Lymph # (Auto) Brule # (Auto) Eos # (Auto) Baso # (Auto) Immature Gran # (Auto) Absolute Nucleated RBC Immature Gran % Nucleated RBC % PT INR APTT Sodium Potassium Chloride Carbon Dioxide Anion Gap BUN Creatinine Estim Creat Clear Calc eGFR BUN/Creatinine Ratio Glucose Calculated Osmolality Calcium Corrected Calcium Magnesium 2.3 Total Bilirubin AST ALT Alkaline Phosphatase Total Protein Albumin Globulin Albumin/Globulin Ratio Hepatitis A IgM Ab Non Reactive Hep Bs Antigen Non Reactive Hep B Core IgM Ab Non Reactive Hepatitis C Antibody Non Reactive Urine Legionella Ag NOT DETECTED 07/14/24 05:01 WBC 10.2 RBC 2.93 L Hgb 9.1 L Hct 26.7 L MCV 91 MCH 31.1 MCHC 34.1 RDW Std Deviation 53.2 H Plt Count 182 D Neut % (Auto) 86 H Lymph % (Auto) 7 L Brule % (Auto) 4 Eos % (Auto) 1 Baso % (Auto) 0 Neut # (Auto) 8.8 H Lymph # (Auto) 0.7 L Brule # (Auto) 0.4 Eos # (Auto) 0.1 Baso # (Auto) 0.0 Immature Gran # (Auto) 0.15 H Absolute Nucleated RBC 0.00 Immature Gran % 2 H Nucleated RBC % 0 PT 12.1 INR 1.1 APTT 29.1 Sodium 140 Potassium 3.9 Chloride 105 Carbon Dioxide 18.8 L Anion Gap 16 BUN 86 H Creatinine 4.9 H* Estim Creat Clear Calc 11.2 L eGFR 11 L* BUN/Creatinine Ratio 18 Glucose 144 H D Calculated Osmolality 308 H Calcium 7.8 L Corrected Calcium 9.0 Magnesium Total Bilirubin 0.7 AST 13 ALT 10 Alkaline Phosphatase 59 Total Protein 4.8 L Albumin 2.5 L Globulin 2.3 Albumin/Globulin Ratio 1.1 L Hepatitis A IgM Ab Hep Bs Antigen Hep B Core IgM Ab Hepatitis C Antibody Urine Legionella Ag Quality Measures Quality Measures VTE prophylaxis (SCDs) Advance care planning discussed with:: patient Assessment & Plan Assessment Current Active Medications: Generic Name Dose Route Start Last Admin Trade Name Freq PRN Reason Stop Dose Admin Acetaminophen 650 mg 07/05/24 17:12 07/09/24 18:06 Acetaminophen 325 Mg Tablet PO 08/04/24 17:11 650 mg Q6H PRN Administration pain 1-3 and Fever >100.4 Amiodarone HCl 200 mg 07/10/24 21:00 07/13/24 21:18 Amiodarone Hcl 200 Mg Tablet PO 08/09/24 20:59 200 mg BID ANNETTA Administration Dextrose 25 ml 07/05/24 17:12 07/11/24 23:48 Dextrose 50%-Water Inj 50 Ml Syringe IV 08/04/24 17:11 25 ml Q15MIN PRN Administration BG 50-70 responsive npo pt Dextrose 50 ml 07/05/24 17:12 Dextrose 50%-Water Inj 50 Ml Syringe IV 08/04/24 17:11 Q15MIN PRN BG <50 OR BG <70 & pt unresponsive Dronabinol 2.5 mg 07/12/24 18:08 07/14/24 08:57 Dronabinol 2.5 Mg Capsule PO 08/09/24 20:59 2.5 mg BIDAC ANNETTA Administration Finasteride 5 mg 07/08/24 10:45 07/14/24 08:57 Finasteride 5 Mg Tablet PO 08/07/24 10:44 5 mg QDAY ANNETTA Administration Glucagon 1 mg 07/05/24 17:12 Glucagon Inj 1 Mg Vial IM Q15MIN PRN BG <70, and no IV access Heparin Sodium (Porcine) 2,200 unit 07/12/24 17:06 07/13/24 19:57 Heparin Sod Inj 1000 Unit/Ml Vial 10 Ml INDWELLCAT 07/26/24 17:05 2,200 unit X1 PRN Administration DIALYSIS Phenylephrine HCl 40 mg/ 100 mls @ 5.955 mls/hr 07/12/24 09:01 Sodium Chloride IV 08/08/24 08:40 .[id number] PRN Per Sepsis Protocol Protocol 0.5 MCG/KG/MIN Albumin Human 25 gm in 100 mls @ 100 mls/min 07/13/24 12:40 Albuminar-25 Ivpb IV PRN PRN DIALYSIS Piperacillin Sod/Tazobactam 50 mls @ 100 mls/hr 07/13/24 18:15 07/14/24 05:21 Sod 2.25 gm/ Sodium Chloride IV 07/20/24 18:14 100 mls/hr Q8HR ANNETTA Administration Amiodarone HCl/Dextrose 360 mg in 200 mls @ 16.667 mls/hr 07/14/24 02:16 07/14/24 08:56 Nexterone Ivpb IV 07/15/24 02:15 16.667 mls/hr .Q12H ANNETTA Administration Metoprolol Tartrate 2.5 mg 07/07/24 03:11 07/07/24 03:17 Metoprolol Tartrate Inj 1 Mg/Ml Amp 5 Ml IVP 2.5 mg Q5M PRN Administration AFIB RVR HR >140 Midodrine 5 mg 07/11/24 14:00 07/13/24 05:55 Midodrine 5 Mg Tablet PO 08/10/24 13:59 5 mg TID ANNETTA Administration Mirtazapine 30 mg 07/10/24 21:00 07/13/24 21:19 Mirtazapine 15 Mg Tablet PO 08/09/24 20:59 30 mg HS ANNETTA Administration Ondansetron HCl 4 mg 07/09/24 09:41 07/09/24 09:44 Ondansetron Inj 2 Mg/Ml Inj 2 Ml IV 08/08/24 09:40 4 mg Q6HR PRN Administration NAUSEA OR VOMITING Protocol Prochlorperazine Maleate 10 mg 07/05/24 17:12 07/06/24 20:17 Prochlorperazine Maleate 5 Mg Tablet PO 08/04/24 17:11 10 mg Q6H PRN Administration NAUSEA OR VOMITING Protocol Sennosides 1 tab 07/05/24 17:12 Senna Tablet PO 08/04/24 17:11 QDAY PRN constipation Protocol Plan 84-year-old male with past medical history of hypertension, BPH, DM2, subdural hematoma (2020), dementia, and chronic indwelling catheter was admitted to hospital on 07/05/2024 for sepsis likely secondary to catheter associated UTI versus community-acquired pneumonia, RAND, and NSTEMI. #Sepsis secondary to Klebsiella bacteremia. #Klebsiella bacteremia. #Septic shock, resolved. #Catheter associated urinary tract infection. #Community-acquired pneumonia. #Acute Encephalopathy, resolved. #Chronic indwelling catheter. #Recurrent UTIs. #Hx of BPH. #Prostatomegaly. #Lactic acidosis. #Hematuria. ?Patient has a history of chronic indwelling catheter with monthly changes Rollins catheter as well as recurrent UTIs in the past. ?Patient initially on admission was minimally responsive to questioning and most likely has encephalopathy secondary to the UTI as per patient's grandson at baseline he was a lot more responsive. ?Patient initially met SIRS 2 out of 4 criteria with tachycardia and tachypnea ?Patient developed septic shock shortly after admission and was upgraded to the ICU, was downgraded on 07/13/2024 ?Blood cultures grew Klebsiella and urine culture grew klebsiella ESBL -WBC 11.7 and no spikes in fever Plan: ?Will continue Zosyn [07/05/2024 -], renally dosed due to impaired renal function. ?Continue finasteride 5 mg daily. ?Will continue to monitor. #Goals of care. -Primary team had goals of care discussion with dionisio Cunha who is decision maker, code status changed to limited code - no chest compressions. #A-fib with RVR s/p cardioversion on 07/10/2024. ?In the ICU patient developed A-fib and was initially placed on amiodarone drip, but A-fib did not resolve therefore cardiology was consulted. ?Cardioversion was done on 07/10/2024. [id number], but cardiology stated that his A-fib was in an acute setting of sepsis and therefore does not need Eliquis at this time. ? 07/14/2024 patient had rapid response for A-fib with RVR, was given 1 dose of diltiazem without response and was started on amiodarone drip. Plan: -Amiodarone drip, then Amiodarone 200mg BID. ?Will continue to monitor if patient redevelops A-fib. ?Cardiology consulted, appreciate recommendations. #Acute renal failure on hemodialysis. ? Patient developed ATN likely in the setting of shock ?Patient's baseline BUN 23 and creatinine 0.9 on 06/2023. Plan: -Replacing dialysis catheter and hemodialysis today. ?Renally dose medications. ?Avoid nephrotoxic agents. ?Nephrology consulted, pursue recommendations. ?Will continue to monitor. #NSTEMI type II demand ischemia. ?Most likely type II in the setting of sepsis likely demand ischemia versus less likely type I as patient does not have any chest pain at this time. ?Initial troponins were 0.119 and down trended. ?EKG did not show any ST changes. Plan: ?Will continue to monitor. #Cholelithiasis. #Hyperbilirubinemia. ?Patient has been complaining of upper abdominal pain. ?Abdomen/pelvis CT showed cholelithiasis. ?Gallbladder ultrasound showed gallbladder sludge but no cholelithiasis and cannot accurately assess gallbladder. Common bile duct was not distended. ?T bilirubin 1, alkaline phosphatase 62 today. Plan: ?Will continue to monitor. #Hx of DM2. #Hypoglycemia, resolved. ?Patient has a history of diabetes and last A1c in 06/2023 was 5.9. ? Patient's blood sugar has been low ? A1c 5.8 on 06/2024 Plan: -Hypogylycemic protocol ordered. ?Will continue to monitor. #Hx of hypertension. ? Will hold any antihypertensive medication for now as patient has been hypotensive. #Rt Arm swelling. -Likely from multiple IV medications, U/S doppler R arm is negative for DVT. Disposition: Patient admitted seen in ICU for Sepsis 2/2 Klebsiella bacteremia, on IV abx. Diet: Dysphagia. GI prophylaxis: not indicated. DVT prophylaxis: SCDs given hematuria. Code: Limited code - no chest compressions. Plan of care discussed with attending Dr. Betancourt. Gera Lindsay MD, PGY 2. Disclaimer: This note was dictated by speech recognition. Minor errors in medical anthropology director may be present due to voice recognition software. Attending Provider Attestation/Addendum Patient will undergo dialysis catheter placement. The patient has BPH with chronic Rollins catheter. His creatinine went up to 4.9. CO2 18. He has Klebsiella UTI. He has atrial fibrillation with rapid ventricular response The patient was started on amiodarone drip. Discussed with housestaff.
--- NOTE | 2024-07-14 11:11 | PC.NURSE ---
1027 patient is awake, alert, breathing unlabored, s/p replacement of dialysis catheter, tolerated procedure well under local anesthesia, report given to Kaitlin GUNN, patient transfered back to room [id number] with tele box
--- NOTE | 2024-07-14 11:40 | PC.NURSE ---
Patient transported to dialysis via bed per VELIA Melchor. No signs of acute distress.
--- NOTE | 2024-07-14 12:37 | PC.SS ---
Addendum entered and electronically signed by VENITA Lopez 07/14/24 15:19: Goals of care meeting conducted. Patient's grandson agreed to transition the patient to Limited Code, DNR. POL completed copy placed in chart. Original Note: EMERGENCY MANAGEMENT COORDINATOR conducted phone contact with patient's grandson, August Ley; to schedule goals of care meeting. Grandson to be at patient's bedside at 1:00 pm. EMERGENCY MANAGEMENT COORDINATOR to update residential team.
--- NOTE | 2024-07-14 12:52 | PD.RESPRO ---
Documentation for date of: 07/14/24 Subjective Subjective Interval history: This 84-year-old male with past medical history of hypertension, BPH, DM2, subdural hematoma (2020), dementia, and chronic indwelling catheter was admitted to hospital after coming to the ED with complaints of nausea, vomiting, abdominal pain, and blood in the Rollins bag since last night. Patient was brought in by grandson and during the time of assessment nobody was at bedside. Patient was very hard of hearing and very not responding to questions during assessment, but he was able to follow some commands and able to answer alert oriented questions (AOx3 not to time). Primary team Spoke with grandson, next of kin, via phone call and he said he was the medical decision maker who provided most of the patient's history. Grandson stated that last night additional to the patient's nausea, vomiting, and abdominal pain the patient had elevated blood sugars in the 300s as well as some disorientation which she states that is usually when his bladder swells a lot. The patient's grandson also mentioned that the patient gets monthly Rollins catheter changes, but last night he noticed blood-tinged urine in the Rollins bag which was new and he did not feel was safe to keep patient at home and decided to bring him to the ER. He stated that patient did not have any chills or fevers at home nor any chest pain or shortness of breath.ED course:Initially patient came in normotensive and afebrile, but afterwards patient was tachycardic, and tachypneic. Initial labs were relevant for RAND, hyperglycemia, lactic acidosis, bilirubinemia, troponinemia, elevated procalcitonin, and UTI. Initial imaging included chest x-ray which showed bibasilar pneumonia, abdomen/pelvis CT showed cholelithiasis, bilateral hydronephrosis, diverticulosis, marked prostatomegaly, and marked thickening of urinary bladder wall, and gallbladder ultrasound which showed some gallbladder sludge but gallbladder was poorly visualized and contracted. EKG showed A-fib. Social Hx: Upon chart review patient was a former smoker, but grandson stated that he is not an active smoker at this time and does not do any alcohol or illicit drugs. Meds: Aspirin 81mg qday, Atorvastatin 20mg HS, Coreg 12.5 mg BID, tamsulosin 0.4mg qday, finasteride 5mg qdya, amlodipine 2.5mg BID losartan/HCTZ , med reconciliation pending. Allergies: As per patient's grandson's morphine Cardiology team consulted for A.fib with Rvr and possible req of cardioversion. 07/09/2024: Patient was seen and examined at the bedside in ICU patient's blood pressure is on softer side with a BP of 95/70, tachycardic with heart rate 141 and saturating 94% on room air. Patient is upgraded to ICU due to septic shock likely due to ESBL UTI and Klebsiella pneumonia bacteremia. Patient was initially managed with IV fluid resuscitation and was maintained with Levophed and vasopressin however now seen off Levophed and only on vasopressin with albumin. Labs showed WBC improved to 10.3, hemoglobin stable at 11.1. Platelets 95. Chemistry panel showed mild hyponatremia sodium 134 K: 3.9. BUN 78 and creatinine 4.3 with GFR 13. Bicarb on CHEM panel 19.5. Albumin 3.1. Total cortisol pending. Urinalysis was cloudy, 2+ proteinuria, blood 3+, RBC 1594, WBC 928, amorphous crystals and bacteriuria. EKG showed A-fib with RVR heart rate 140s. Echocardiogram showed EF 55-60% mild AV sclerosis without stenosis. Mild TR. Cardiology team consulted for A-fib with RVR not controlled with IV drip per protocol and digoxin given one-time only. Primary ICU team stopped Levophed and only keeping vasopressin. Currently covering with IV antibiotic therapy Zosyn for ESBL UTI. Consult is for possible requirement of cardioversion since its new onset A-fib less than 48 hours. Currently being anticoagulated with Eliquis 2.5 mg twice daily age and renal dosed. Recommended to start Cardizem 30 mg 3 times daily and continue it if blood pressure tolerates. If patient still remains in A-fib with RVR will likely perform cardioversion. No need of stoppage of anticoagulation before cardioversion. Keep the patient n.p.o. after midnight for possible cardioversion tomorrow without JAVIER. Will switch to amiodarone p.o. 200 mg twice daily once amiodarone drip is completed. Continue Eliquis 2.5 mg twice daily for now. Continue treating underlying septic infection due to ESBL UTI and Klebsiella bacteremia. Continue monitoring electrolytes and close monitoring required. Continue albumin therapy given worsening kidney functions and patient is in oliguria phase for RAND on CKD. All labs and orders were reviewed. 07/10/2024: Patient was seen and examined at the bedside in ICU. Patient has soft blood pressure 113/65 with heart rate 130s. Patient continues to be on amiodarone drip per protocol. Patient is saturating well on room air. He continues to be on phenylephrine. Labs revealed WBC 10.2, hemoglobin stable 11.4. Platelets increased to 67. Chemistry panel showed mild hyponatremia, potassium 3.6. Bicarb improved. Kidney functions continues to decline. Blood glucose 148. Urine output 605 from last 24 hours. Cardioverted today. Recommended to switch to p.o. amiodarone 200 twice daily once amiodarone drip completed. Cardizem was discontinued. Will likely plan to cardiovert him today given continuous uncontrolled heart rate. ICU team giving IV antibiotic therapy and albumin for septic shock and declining kidney functions. ICU team started dronabinol for appetite stimulation as patient is not eating and drinking enough. Plan of care discussed with ICU team. 07/12/2024: Patient was seen and examined in the ICU. Patient's vitals showed blood pressure 119/labs showed 58 with heart rate 72 in sinus rhythm. Mild leukocytosis and hemoglobin stable at 10.1 with platelet 105. Chemistry panel showed mild hypokalemia and worsening kidney function with BUN 114 and creatinine 5.7. Urine output of 1.8 L with negative balance of 348 cc. Recommended to continue amiodarone 200 mg twice daily and currently Eliquis on hold as he had episode of hematuria. Rollins catheter replaced given urinary retention yesterday and patient is still making urine. Nephrology team was consulted for worsening kidney functions and plan for hemodialysis after placing dialysis catheter today. Agreeable to the plan. No new further recommendations by cardiology team. All labs and orders were reviewed. 07/13/2024: Patient was seen and examined at the bedside. Patient has been downgraded to floors being off pressors and underwent dialysis yesterday. Vitals in the morning showed blood pressure 139/62, heart rate 68. Labs revealed mild leukocytosis, hemoglobin stable at 9.8 and platelet 142. Chemistry panel showed hypokalemia. Kidney function showed BUN 94 and creatinine 5.2. Currently primary team continuing amiodarone 200 twice daily for A-fib rate control. Patient underwent hemodialysis yesterday and today as well. Given hematuria Eliquis was discontinued. As patient has acute illness that is sepsis which caused A fib for short onset we consider discontinuing Eliquis and only restart Eliquis 2.5 twice daily if patient developed frequent episodes of A-fib. Agreeable to the plan of care. 07/14/24: Patient was seen and examined at the bedside. Patient is minimally responsive to questions. Recommendations are to continue amiodarone drip per protocol. Overnight patient had a rapid response due to A-fib with RVR and was given push of diltiazem x 1 and amiodarone drip was started. Dialysis catheter was malfunctioning therefore catheter was exchanged. Currently primary team continuing Zosyn for UTI and amiodarone drip for A-fib with RVR. They are currently performing goals of care discussion with his grandson who is her decision-maker. Exam Vital Signs Temp Pulse Resp BP Pulse Ox O2 Del Method O2 Flow Rate 97.7 F 59 L 18 121/61 92 L Nasal Cannula 3 07/14/24 11:58 07/14/24 12:46 07/14/24 11:58 07/14/24 12:46 07/14/24 11:58 07/14/24 10:20 07/14/24 10:20 FiO2 0 07/14/24 08:00 Narrative Exam GENERAL APPEARANCE: AxOx4, elderly male hard of hearing HEENT: NC, AT. MMM. EOMI, clear conjunctiva, oropharynx clear. NECK: Supple without lymphadenopathy. No stiffness or restricted ROM. HEART: Reverted to sinus rhythm post cardioversion normal S1/S2, no m/r/g LUNGS: CTAB, moving air well. No crackles or wheezes are heard. ABDOMEN: Soft, nontender, nondistended with good bowel sounds heard. BACK: No CVAT, no obvious deformity. EXTREMITIES: Without cyanosis, clubbing or edema. NEUROLOGICAL: Grossly nonfocal. Alert and oriented, moving all 4 extremities. CN not formally tested but appear grossly intact. Skin: Warm and dry without any rash. Objective Labs 07/14/24 05:01 07/14/24 05:01 Labs: Laboratory Results - last 24 hr 07/09/24 07/14/24 07/14/24 11:55 02:36 05:01 WBC 10.2 RBC 2.93 L Hgb 9.1 L Hct 26.7 L MCV 91 MCH 31.1 MCHC 34.1 RDW Std Deviation 53.2 H Plt Count 182 D Neut % (Auto) 86 H Lymph % (Auto) 7 L Sterling % (Auto) 4 Eos % (Auto) 1 Baso % (Auto) 0 Neut # (Auto) 8.8 H Lymph # (Auto) 0.7 L Sterling # (Auto) 0.4 Eos # (Auto) 0.1 Baso # (Auto) 0.0 Immature Gran # (Auto) 0.15 H Absolute Nucleated RBC 0.00 Immature Gran % 2 H Nucleated RBC % 0 PT 12.1 INR 1.1 APTT 29.1 Sodium 140 Potassium 3.9 Chloride 105 Carbon Dioxide 18.8 L Anion Gap 16 BUN 86 H Creatinine 4.9 H* Estim Creat Clear Calc 11.2 L eGFR 11 L* BUN/Creatinine Ratio 18 Glucose 144 H D Calculated Osmolality 308 H Calcium 7.8 L Corrected Calcium 9.0 Magnesium 2.3 Total Bilirubin 0.7 AST 13 ALT 10 Alkaline Phosphatase 59 Total Protein 4.8 L Albumin 2.5 L Globulin 2.3 Albumin/Globulin Ratio 1.1 L Urine Legionella Ag NOT DETECTED Quality Measures Quality Measures VTE prophylaxis (SCDs) Advance care planning discussed with:: other Assessment & Plan Assessment Current Active Medications: Generic Name Dose Route Start Last Admin Trade Name Freq PRN Reason Stop Dose Admin Acetaminophen 650 mg 07/05/24 17:12 07/09/24 18:06 Acetaminophen 325 Mg Tablet PO 08/04/24 17:11 650 mg Q6H PRN Administration pain 1-3 and Fever >100.4 Amiodarone HCl 200 mg 07/10/24 21:00 07/13/24 21:18 Amiodarone Hcl 200 Mg Tablet PO 08/09/24 20:59 200 mg BID ANNETTA Administration Dextrose 25 ml 07/05/24 17:12 07/11/24 23:48 Dextrose 50%-Water Inj 50 Ml Syringe IV 08/04/24 17:11 25 ml Q15MIN PRN Administration BG 50-70 responsive npo pt Dextrose 50 ml 07/05/24 17:12 Dextrose 50%-Water Inj 50 Ml Syringe IV 08/04/24 17:11 Q15MIN PRN BG <50 OR BG <70 & pt unresponsive Dronabinol 2.5 mg 07/12/24 18:08 07/14/24 08:57 Dronabinol 2.5 Mg Capsule PO 08/09/24 20:59 2.5 mg BIDAC ANNETTA Administration Finasteride 5 mg 07/08/24 10:45 07/14/24 08:57 Finasteride 5 Mg Tablet PO 08/07/24 10:44 5 mg QDAY ANNETTA Administration Glucagon 1 mg 07/05/24 17:12 Glucagon Inj 1 Mg Vial IM Q15MIN PRN BG <70, and no IV access Heparin Sodium (Porcine) 3,100 unit 07/14/24 12:13 Heparin Sod Inj 1000 Unit/Ml Vial 10 Ml INDWELLCAT 07/28/24 12:12 PRN PRN DIALYSIS Phenylephrine HCl 40 mg/ 100 mls @ 5.955 mls/hr 07/12/24 09:01 Sodium Chloride IV 08/08/24 08:40 .[id number] PRN Per Sepsis Protocol Protocol 0.5 MCG/KG/MIN Albumin Human 25 gm in 100 mls @ 100 mls/min 07/13/24 12:40 Albuminar-25 Ivpb IV PRN PRN DIALYSIS Piperacillin Sod/Tazobactam 50 mls @ 100 mls/hr 07/13/24 18:15 07/14/24 05:21 Sod 2.25 gm/ Sodium Chloride IV 07/20/24 18:14 100 mls/hr Q8HR ANNETTA Administration Amiodarone HCl/Dextrose 360 mg in 200 mls @ 16.667 mls/hr 07/14/24 02:16 07/14/24 08:56 Nexterone Ivpb IV 07/15/24 02:15 16.667 mls/hr .Q12H ANNETTA Administration Metoprolol Tartrate 2.5 mg 07/07/24 03:11 07/07/24 03:17 Metoprolol Tartrate Inj 1 Mg/Ml Amp 5 Ml IVP 2.5 mg Q5M PRN Administration AFIB RVR HR >140 Midodrine 5 mg 07/11/24 14:00 07/13/24 05:55 Midodrine 5 Mg Tablet PO 08/10/24 13:59 5 mg TID ANNETTA Administration Mirtazapine 30 mg 07/10/24 21:00 11/26/24 21:19 Mirtazapine 15 Mg Tablet PO 08/09/24 20:59 30 mg HS ANNETTA Administration Ondansetron HCl 4 mg 07/09/24 09:41 07/09/24 09:44 Ondansetron Inj 2 Mg/Ml Inj 2 Ml IV 08/08/24 09:40 4 mg Q6HR PRN Administration NAUSEA OR VOMITING Protocol Prochlorperazine Maleate 10 mg 07/05/24 17:12 07/06/24 20:17 Prochlorperazine Maleate 5 Mg Tablet PO 08/04/24 17:11 10 mg Q6H PRN Administration NAUSEA OR VOMITING Protocol Sennosides 1 tab 07/05/24 17:12 Senna Tablet PO 08/04/24 17:11 QDAY PRN constipation Protocol Plan This 84-year-old male with past medical history of hypertension, BPH, DM2, subdural hematoma (2020), dementia, and chronic indwelling catheter was upgraded to ICU due to septic shock likely due to ESBL UTI and Klebsiella bacteremia. Cardiology team consulted for A-fib with RVR and requirement of possible cardioversion. #Atrial Fibrillation with Rvr, resolved # Post cardioversion ?Patient supposedly had A-fib at the time of admission to the hospital but spontaneously reverted to normal sinus rhythm. -Developed new onset A-fib on 07/06/2024 overnight -Received 2.5 Mg of metoprolol tartrate, 150 Mg of amiodarone bolus and started on amiodarone drip -Based on [id number] score 4, patient was started on Eliquis 2.5 Mg twice daily due to his declined renal functions. -Patient rec 3 bags of amiodarone drip and now seen on 4th bag ?Patient was cardioverted on 07/10 and converted back to sinus rhythm ?Overnight patient ended up in A-fib with RVR rapid response was called and patient was given diltiazem push x 1 and started on amiodarone drip per protocol Plan: ? Continue amiodarone drip per protocol currently seen in sinus rhythm ?Given hematuria Eliquis was discontinued. As patient has acute illness that is sepsis which caused A fib for short onset we consider discontinuing Eliquis and only restart Eliquis 2.5 twice daily if patient developed frequent episodes of A-fib. ? Continue p.o. amiodarone 200 twice daily ? Keep magnesium above 2 and potassium above 4 ? Replete electrolytes as necessary ? Follow-up on labs #Septic shock likely secondary to catheter associated ESBL urinary tract infection and Klebsiella bacteremia,Resolved # Acute encephalopathy, resolved # Chronic indwelling catheter ?Etiology of the shock is likely septic due to UTI. ?Patient has a history of chronic indwelling catheter with monthly changes Rollins catheter as well as recurrent UTIs in the past. ?Patient was minimally responsive to questioning and most likely has encephalopathy secondary to the UTI as per patient's grandson at baseline he was a lot more responsive. ?Patient met SIRS 2 out of 4 criteria with tachycardia and tachypnea ?Past urine cultures have grown Citrobacter and Klebsiella which both were multidrug-resistant, but sensitive to Zosyn ?Chest x-ray showed bibasilar pneumonia ?UA was positive for bacteria and leukocyte esterase ?Lactic acid was 4.4 but down trended to 3.6 ?Procalcitonin 15.78 ?In the ED patient received 2 L boluses of NS and Zosyn ?Rollins was changed in the ED -Patient met septic shock criteria requiring pressors after 3 L of fluid. -Troponins: 0.119 -> 0.138 -> 0.178 > 0.136 -Patient remains A-fib with RVR on amnio drip per protocol and currently on fourth back. ? EKG showed AFib. Echo in 2021 showed normal LV with EF 60% ?Levophed is stopped and significant is started in view of difficulty with rapid ventricular rate on 07/09/2024. Plan: ? Off pressors downgraded to floors ? Patient completed course of antibiotics Zosyn ? Monitor for fever spikes and elevation of white count and treat RAND on CKD possible ATN ? Daily labs #Hx of hypertension ? Will hold any antihypertensive medication for now ?Currently maintaining MAP above 65 #NSTEMI type type II ? Likely supply demand ischemia ?Troponin I downtrended. Patient is denying any chest pain or shortness of breath. ?EKG did not show any ST changes Plan: ? Troponin I downtrended ? Continue monitor for chest pain or shortness of breath # RAND likely prerenal azotemia, worsening kidney functions # On hemodialysis ?Kidney functions continue to decline ? Patient still making urine 1.5 L with negative balance of 1.5L ?Dialysis catheter exchanged Plan: ?Patient is receiving hemodialysis session per nephrology team recommendations ? Avoid nephrotoxic agents and renally dose medications ? Strict MICHAEL's # Acute hypoxic respiratory failure, resolved # Likely secondary to aspiration pneumonia versus remote history of smoking # Leukocytosis # Elevated T. bili and transaminases # Mild bilateral hydronephrosis # Znc-bouoedn-yowpsbbox type 2 diabetes # Normocytic anemia # Thrombocytopenia # Hematuria # History of BPH chronic indwelling catheter since 2019 # Appetite loss # Goals of care discussion Rest of the management as per primary care team. Thank you very much for consulting cardiology team. Patient ended up developing A-fib with RVR last night and was started on amiodarone drip per protocol recommended to continue that. Plan of care discussed with tile mechanic helper, Dr. Carmelo Holder MD, PGY 2
--- NOTE | 2024-07-14 13:11 | PD.RESEVENT ---
Documentation for date of: 07/14/24 Event Note Event Note: Primary team with social media marketer Jerald had a goals of care discussion with granddread Cunha who is decision-maker for this patient. Alphonse was explained about Mr. Salguero condition and prognosis. Given patient's advanced age and comorbidities he was explained that having full code status could cause more suffering and harm in case when his heart were to stop. Granddread already had discussion with his family about that and they agreed to switch him to limited code no chest compressions only. POLST form was signed. Plan of care discussed with attending Dr. Betancourt. Grea Lindsay MD, PGY 2. Disclaimer: This note was dictated by speech recognition. Minor errors in vision rehabilitation therapist may be present due to voice recognition software.
--- NOTE | 2024-07-14 13:42 | ESPR_ITS ---
RE: LUCERO LALA : 1940 DATE OF SERVICE: 07/14/2024 S: This patient is an 84-year-old gentleman with hypertension, BPH, type 2 diabetes, subdural hematoma in 2020, dementia, chronic indwelling catheter who was admitted to the hospital on 07/05/2024 with nausea, vomiting, abdominal pain and bloody urine. The patient also has lactic acidosis with elevated procalcitonin level and was found with UTI. Blood cultures later on grew Klebsiella pneumoniae. While in the ER, the patient was hypotensive and was given IV fluids. The patient was then transferred to ICU for hemodynamic instability. When he was admitted, creatinine was noted to be elevated at 2.3, which continued to rise and peaked at 5.8. He was started on dialysis to address his worsening kidney function, mental status, uremia and anasarca. We tried dialyzing him yesterday; however, catheter was not working. He got a new catheter today. CURRENT MEDICATIONS: 1. Acetaminophen. 2. Albumin. 3. Amiodarone. 4. Diltiazem. 5. Marinol. 6. Finasteride. 7. Glucagon 8. Metoprolol 2.5 mg p.r.n. PHYSICAL EXAMINATION: GENERAL: Awake. VITAL SIGNS: Blood pressure 130/58, heart rate of 60. HEENT: Anicteric sclerae, normocephalic. NECK: Supple. No JVD. CHEST AND LUNGS: Symmetrical expansion. Clear breath sounds. HEART: Without murmur. ABDOMEN: Soft and nontender with some abdominal wall edema. EXTREMITIES: Upper extremity edema, less now. Lower extremities, no edema. LABORATORY DATA: Sodium 140, potassium 3.9, chloride 105, CO2 of 18.8, BUN 86, creatinine 4.9, calcium 9, albumin 2.5. Hemoglobin 9.1, WBC 10,200 and platelet count 182,000. A: 1. Non-oliguric acute kidney injury, most likely secondary to acute tubular necrosis following hypotension, hypoperfusion, hemodynamic instability, seems recovering. 2. Septic shock from Klebsiella pneumoniae, most likely secondary to urinary tract infection from chronic indwelling catheter. 3. Failure to thrive. 4. Type 2 diabetes. 5. Benign prostatic hypertrophy. 6. History of dementia. P: The patient has a new catheter and we will dialyze him today. It seems like the patient's kidney function is now recovering and after this dialysis, then we will stop doing dialysis and continue to monitor his urine output, kidney function, electrolytes on a daily basis. We will try to remove as much fluid as he can tolerate and at least make him euvolemic prior to stopping dialysis. DT: 12:32:57 TT: 13:40:00 Ref: [id number] - TID: [id number] [facility]
--- NOTE | 2024-07-14 14:16 | PC.NURSE ---
BP dropped, so decreased goal to 2.5 L.
[2024-07-14] MEDS: HEPARIN SOD INJ 1000 UNIT/ML VIAL 10 ML 3100 UNIT INDWELLCAT (15:16)
--- NOTE | 2024-07-14 15:20 | PC.NURSE ---
Patient returned from dialysis via bed per culinary directorJill. Patient awake but lethargic. Blood pressure 129/64 with a heart rate of 67 sinus rhythm.
--- NOTE | 2024-07-14 15:47 | PC.SS ---
Update: Patient is receiving dialysis today. 3rd session. Dialysis is temporary.
--- NOTE | 2024-07-14 16:45 | PC.NURSE ---
Patient converted from sinus rhythm to afib while doing ROM exercises with physical therapy. Dr. Lindsay made aware and stat ekg order placed. Patient is awake and asymptomatic with grandson at bedside.
--- NOTE | 2024-07-14 16:47 | EKG_ITS ---
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
[2024-07-14] MEDS: DILTIAZEM INJ 5 MG/ML VIAL 5 ML 20 MG IV (17:33)
--- NOTE | 2024-07-14 17:41 | PC.NURSE ---
Dr. Lindsay at bedside assessing patient.
--- NOTE | 2024-07-14 17:42 | PC.NURSE ---
Per Dr. Lindsay hold 1700 dose of marinol related to patients uncontrolled heart rate. Dose held.
[2024-07-14] MEDS: SODIUM CHLORIDE 0.9% 1000 ML 1,000 ML 80 ML IV (18:09)
[2024-07-14] MEDS: DILTIAZEM 30 MG TABLET PO (20:30)
[2024-07-15] VITALS (13 sets, daily range): BP systolic 127–141; BP diastolic 59–86; PULSE 58–94; RESP 14–95; TEMP 36.1–36.4; O2SAT 90–94
[2024-07-15] MEDS: DILTIAZEM 30 MG TABLET PO ×4 (02:12→21:28)
[2024-07-15] MEDS: PIPERACILLIN/TAZO 2.25GM INJ 2.25 GM in SODIUM CHLORIDE 0.9% (P) 50 ML IV ×3 (05:35→21:27)
[2024-07-15 05:48] LABS: Basophils % (Auto) 0 % (0-2.5); Eosinophils # (Auto) 0.1 Thou/mm3 (0.0-0.5); Eosinophils % (Auto) 2 % (0-10); Hematocrit 26.1 % (41.0-53.0); Immature Granulocytes % (Auto) 1 % (0-0); Immature Granulocytes Auto 0.05 Thou/mm3 (0.00-0.00); Lymphocytes # (Auto) 0.6 Thou/mm3 (1.0-4.8); Lymphocytes % (Auto) 8 % (10-50); Mean Corpuscular HGB Conc 34.5 g/dl (31.0-37.0); Mean Corpuscular Hemoglobin 30.8 pg (25.0-35.0); Mean Corpuscular Volume 89 fL (80-100); Monocytes # (Auto) 0.3 Thou/mm3 (0.0-0.8); Monocytes % (Auto) 5 % (0-12); Neutrophils # (Auto) 6.2 Thou/mm3 (1.8-7.7); Neutrophils % (Auto) 85 % (37-80); Nucleated Red Blood Cell % 0 /100 WBC (0); Platelet Count 219 Thou/mm3 (140-440); RDW Standard Deviation 52.8 fL (35.1-43.9); Red Blood Count 2.92 Miln/mm3 (4.50-5.90); White Blood Count 7.3 Thou/mm3 (3.8-10.6)
[2024-07-15 06:22] LABS: Alanine Aminotransferase 10 U/L (10-49); Albumin, Serum 2.6 gm/dL (3.4-4.8); Alkaline Phosphatase 55 U/L (46-116); Anion Gap 11 (7-16); Aspartate Amino Transferase 12 U/L (0-34); BUN/Creatinine Ratio 14 Ratio (12-20); Bilirubin,Total 0.6 mg/dL (0.3-1.2); Blood Urea Nitrogen 49 mg/dL (9-23); Calcium 7.6 mg/dL (8.3-10.6); Calcium (Corrected) 8.7 mg/dL (8.5-10.1); Carbon Dioxide 24.6 mMol/L (20.0-31.0); Chloride 103 mMol/L (98-107); Creatinine (Component) 3.4 mg/dL (0.6-1.3); Estimated Creatinine Clearance 15.9 mL/min (>60); Globulin 2.5 gm/dL (2.3-3.5); Glucose 148 mg/dL (74-106); Osmolality,Calculated 293 (275-295); Potassium 3.6 mMol/L (3.4-5.1); Sodium 139 mMol/L (136-145); Total Protein 5.1 gm/dL (5.7-8.2); eGFR 17 See Note
[2024-07-15] MEDS: droNABinol 2.5 MG CAPSULE PO ×2 (10:17→17:35)
[2024-07-15] MEDS: FINASTERIDE 5 MG TABLET PO (10:17)
[2024-07-15] MEDS: SODIUM CHLORIDE 0.9% 1000 ML 1,000 ML 80 ML IV (10:25)
--- NOTE | 2024-07-15 12:42 | PD.RESPRO ---
Documentation for date of: 07/15/24 Subjective Subjective Interval history: Patient was seen and examined at bedside. No acute overnight events. Yesterday evening patient developed A-fib with RVR with heart rate at 130s, he was given 20 mg of diltiazem IV and was started on diltiazem 30 mg every 6 hours. His amiodarone drip still ongoing and he is on the last bag. His current heart rate is 65, blood pressure 135/66. Patient does not have any complaints. His kidney function has improved, creatinine 3.4 today, BUN 49. Per nephrology will discontinue hemodialysis and will monitor his kidney function as it is improving, will keep dialysis catheter in place until instructed by nephrology. Exam Vital Signs Temp Pulse Resp BP Pulse Ox O2 Del Method O2 Flow Rate 97.6 F 65 16 135/66 H 93 L Room Air 3 07/15/24 08:00 07/15/24 10:17 07/15/24 09:35 07/15/24 10:17 07/15/24 08:00 07/15/24 08:00 07/14/24 14:00 FiO2 0 07/14/24 14:00 Narrative Exam Gen: Well-developed frail elderly male. HEENT: NCAT, PERRLA, EOMI, MMM, anicteric conjunctivae. CVS: normal S1 and S2. RRR. No M/R/G. Resp: CTA B/L. No rhonchi, rales, crackles or wheezing. Abd: soft, non-tender, non-distended. BS+ in all 4 quadrants. MSK: Good ROM in BUE & BLE. No rash. Trace edema BLE. Non pitting edema right upper extremity. Neuro: CN II-XII grossly intact. Strength 5/5 in BUE & BLE. Alert and oriented x1 to self only. Objective Labs 07/15/24 04:53 07/15/24 04:53 Labs: Laboratory Results - last 24 hr 07/15/24 04:53 WBC 7.3 RBC 2.92 L Hgb 9.0 L Hct 26.1 L MCV 89 MCH 30.8 MCHC 34.5 RDW Std Deviation 52.8 H Plt Count 219 D Neut % (Auto) 85 H Lymph % (Auto) 8 L [place] % (Auto) 5 Eos % (Auto) 2 Baso % (Auto) 0 Neut # (Auto) 6.2 Lymph # (Auto) 0.6 L [place] # (Auto) 0.3 Eos # (Auto) 0.1 Baso # (Auto) 0.0 Immature Gran # (Auto) 0.05 H Absolute Nucleated RBC 0.00 Immature Gran % 1 H Nucleated RBC % 0 Sodium 139 Potassium 3.6 Chloride 103 Carbon Dioxide 24.6 Anion Gap 11 BUN 49 H Creatinine 3.4 H D Estim Creat Clear Calc 15.9 L eGFR 17 L BUN/Creatinine Ratio 14 Glucose 148 H Calculated Osmolality 293 Calcium 7.6 L Corrected Calcium 8.7 Total Bilirubin 0.6 AST 12 ALT 10 Alkaline Phosphatase 55 Total Protein 5.1 L Albumin 2.6 L Globulin 2.5 Albumin/Globulin Ratio 1.0 L Quality Measures Quality Measures VTE prophylaxis (SCDs) Advance care planning discussed with:: patient Assessment & Plan Assessment Current Active Medications: Generic Name Dose Route Start Last Admin Trade Name Freq PRN Reason Stop Dose Admin Acetaminophen 650 mg 07/05/24 17:12 07/09/24 18:06 Acetaminophen 325 Mg Tablet PO 08/04/24 17:11 650 mg Q6H PRN Administration pain 1-3 and Fever >100.4 Amiodarone HCl 200 mg 07/10/24 21:00 07/13/24 21:18 Amiodarone Hcl 200 Mg Tablet PO 08/09/24 20:59 200 mg BID ANNETTA Administration Dextrose 25 ml 07/05/24 17:12 07/11/24 23:48 Dextrose 50%-Water Inj 50 Ml Syringe IV 08/04/24 17:11 25 ml Q15MIN PRN Administration BG 50-70 responsive npo pt Dextrose 50 ml 07/05/24 17:12 Dextrose 50%-Water Inj 50 Ml Syringe IV 08/04/24 17:11 Q15MIN PRN BG <50 OR BG <70 & pt unresponsive Diltiazem HCl 30 mg 07/14/24 21:00 07/15/24 10:17 Diltiazem 30 Mg Tablet PO 08/13/24 20:59 30 mg Q6H ANNETTA Administration Dronabinol 2.5 mg 07/12/24 18:08 07/15/24 10:17 Dronabinol 2.5 Mg Capsule PO 08/09/24 20:59 2.5 mg BIDAC ANNETTA Administration Finasteride 5 mg 07/08/24 10:45 07/15/24 10:17 Finasteride 5 Mg Tablet PO 08/07/24 10:44 5 mg QDAY ANNETTA Administration Glucagon 1 mg 07/05/24 17:12 Glucagon Inj 1 Mg Vial IM Q15MIN PRN BG <70, and no IV access Heparin Sodium (Porcine) 3,100 unit 07/14/24 12:13 07/14/24 15:16 Heparin Sod Inj 1000 Unit/Ml Vial 10 Ml INDWELLCAT 07/28/24 12:12 3,100 unit PRN PRN Administration DIALYSIS Phenylephrine HCl 40 mg/ 100 mls @ 5.955 mls/hr 07/12/24 09:01 Sodium Chloride IV 08/08/24 08:40 .[id number] PRN Per Sepsis Protocol Protocol 0.5 MCG/KG/MIN Albumin Human 25 gm in 100 mls @ 100 mls/min 07/13/24 12:40 Albuminar-25 Ivpb IV PRN PRN DIALYSIS Piperacillin Sod/Tazobactam 50 mls @ 100 mls/hr 07/13/24 18:15 07/15/24 05:35 Sod 2.25 gm/ Sodium Chloride IV 07/20/24 18:14 100 mls/hr Q8HR ANNETTA Administration Sodium Chloride 1,000 mls @ 80 mls/hr 07/14/24 18:03 07/15/24 10:25 Ns IV 07/16/24 07:32 80 mls/hr .[id number] ANNETTA Administration Metoprolol Tartrate 2.5 mg 07/07/24 03:11 07/07/24 03:17 Metoprolol Tartrate Inj 1 Mg/Ml Amp 5 Ml IVP 2.5 mg Q5M PRN Administration AFIB RVR HR >140 Midodrine 5 mg 07/11/24 14:00 07/13/24 05:55 Midodrine 5 Mg Tablet PO 08/10/24 13:59 5 mg TID ANNETTA Administration Mirtazapine 30 mg 07/10/24 21:00 07/14/24 20:48 Mirtazapine 15 Mg Tablet PO 08/09/24 20:59 Not Given HS ANNETTA Ondansetron HCl 4 mg 07/09/24 09:41 07/09/24 09:44 Ondansetron Inj 2 Mg/Ml Inj 2 Ml IV 08/08/24 09:40 4 mg Q6HR PRN Administration NAUSEA OR VOMITING Protocol Prochlorperazine Maleate 10 mg 07/05/24 17:12 07/06/24 20:17 Prochlorperazine Maleate 5 Mg Tablet PO 08/04/24 17:11 10 mg Q6H PRN Administration NAUSEA OR VOMITING Protocol Sennosides 1 tab 07/05/24 17:12 Senna Tablet PO 08/04/24 17:11 QDAY PRN constipation Protocol Plan 84-year-old male with past medical history of hypertension, BPH, DM2, subdural hematoma (2020), dementia, and chronic indwelling catheter was admitted to hospital on 07/05/2024 for sepsis likely secondary to catheter associated UTI versus community-acquired pneumonia, RAND, and NSTEMI. #Sepsis secondary to Klebsiella bacteremia. #Klebsiella bacteremia. #Septic shock, resolved. #Catheter associated urinary tract infection. #Community-acquired pneumonia. #Acute Encephalopathy, resolved. #Chronic indwelling catheter. #Recurrent UTIs. #Hx of BPH. #Prostatomegaly. #Lactic acidosis. #Hematuria. ?Patient has a history of chronic indwelling catheter with monthly changes Rollins catheter as well as recurrent UTIs in the past. ?Patient initially on admission was minimally responsive to questioning and most likely has encephalopathy secondary to the UTI as per patient's grandson at baseline he was a lot more responsive. ?Patient initially met SIRS 2 out of 4 criteria with tachycardia and tachypnea ?Patient developed septic shock shortly after admission and was upgraded to the ICU, was downgraded on 07/13/2024 ?Blood cultures grew Klebsiella and urine culture grew klebsiella ESBL -WBC 11.7 and no spikes in fever Plan: ?Will continue Zosyn [07/05/2024 -], renally dosed due to impaired renal function. ?Continue finasteride 5 mg daily. ?Will continue to monitor. #Goals of care. -Primary team had goals of care discussion with granddread Cunha who is decision maker, code status changed to limited code - no chest compressions. #A-fib with RVR s/p cardioversion on 07/10/2024. ?In the ICU patient developed A-fib and was initially placed on amiodarone drip, but A-fib did not resolve therefore cardiology was consulted. ?Cardioversion was done on 07/10/2024. [id number], but cardiology stated that his A-fib was in an acute setting of sepsis and therefore does not need Eliquis at this time. ?07/14/2024 patient had rapid response for A-fib with RVR, was given 1 dose of diltiazem without response and was started on amiodarone drip. -07/15/2024 another elipsode of Afib RVR, given diltiazem 20 mg IV and started on diltiazem 30 mg Q6H. Plan: -Amiodarone drip, then Amiodarone 200mg BID. ?Will continue to monitor if patient redevelops A-fib. ?Cardiology consulted, appreciate recommendations. -continue diltiazem 30 mg Q6H. #Acute renal failure on hemodialysis. ? Patient developed ATN likely in the setting of shock ?Patient's baseline BUN 23 and creatinine 0.9 on 06/2023. Plan: -hemodialysis discontinued per nephrology, will monitor kidney function. Catheter will remain in place. ?Renally dose medications. ?Avoid nephrotoxic agents. ?Nephrology consulted, pursue recommendations. ?Will continue to monitor. #NSTEMI type II demand ischemia. ?Most likely type II in the setting of sepsis likely demand ischemia versus less likely type I as patient does not have any chest pain at this time. ?Initial troponins were 0.119 and down trended. ?EKG did not show any ST changes. Plan: ?Will continue to monitor. #Cholelithiasis. #Hyperbilirubinemia. ?Patient has been complaining of upper abdominal pain. ?Abdomen/pelvis CT showed cholelithiasis. ?Gallbladder ultrasound showed gallbladder sludge but no cholelithiasis and cannot accurately assess gallbladder. Common bile duct was not distended. ?T bilirubin 1, alkaline phosphatase 62 today. Plan: ?Will continue to monitor. #Hx of DM2. #Hypoglycemia, resolved. ?Patient has a history of diabetes and last A1c in 06/2023 was 5.9. ? Patient's blood sugar has been low ? A1c 5.8 on 06/2024 Plan: -Hypogylycemic protocol ordered. ?Will continue to monitor. #Hx of hypertension. ? Will hold any antihypertensive medication for now as patient has been hypotensive. #Rt Arm swelling. -Likely from multiple IV medications, U/S doppler R arm is negative for DVT. Disposition: Patient admitted seen in ICU for Sepsis 2/2 Klebsiella bacteremia, on IV abx. Diet: Dysphagia. GI prophylaxis: not indicated. DVT prophylaxis: SCDs given hematuria. Code: Limited code - no chest compressions. Plan of care discussed with attending Dr. Betancourt. Gera Lindsay MD, PGY 2. Disclaimer: This note was dictated by speech recognition. Minor errors in retail salesworker may be present due to voice recognition software. Attending Provider Attestation/Addendum Patient has tunneled dialysis catheter. He is on antibiotic for Klebsiella bacteremia. Patient has no hematuria. Vitals are stableDiscussed with housestaff. Continue current treatment and medications. Discussed with housestaff
--- NOTE | 2024-07-15 18:11 | ESPR_ITS ---
RE: LUCERO LALA : 1940 DATE OF SERVICE: 07/15/2024 SUBJECTIVE: This patient is an 84-year-old gentleman with hypertension, BPH, type 2 diabetes, subdural hematoma in 2020, dementia, chronic indwelling catheter who was admitted to the hospital on 06/25/2024 with nausea, vomiting, abdominal pain, and bloody urine. The patient also has lactic acidosis with elevated procalcitonin level and was found with UTI. Blood cultures later on grew Klebsiella pneumoniae. While in the ER, the patient was hypotensive and was given IV fluids. The patient was then transferred to ICU for hemodynamic instability. He is now at telemetry. When he was admitted, creatinine was noted to be elevated at 2.3, which continued to rise and peak at 5.8. He was started on dialysis to address his worsening kidney function. His last dialysis was yesterday; however, he continues to have good urine output and improving kidney function even without dialysis treatments. The patient had dialysis yesterday, about 2 L of fluid was removed. CURRENT MEDICATIONS: 1. Acetaminophen. 2. Albumin. 3. Amiodarone 12 mg b.i.d. 4. Diltiazem 30 mg p.o. q. 6 tablets _ p.r.n. 5. Marinol 2.5 mg b.i.d. 6. Finasteride 5 mg p.o. daily 7. Metoprolol 2.5 mg IV q. p.r.n. 8. Proamatine 5 mg p.o. t.i.d. 9. Mirtazapine 30 mg at bedtime. 10. Ondansetron 12 mg IV q.6 p.r.n. 11. Senokot one tablet p.o. daily 12. Normal saline PHYSICAL EXAMINATION: General: He is awake, alert, but very hard of hearing. Vital Signs: Blood pressure of 135/66. Heart rate of 55. HEENT: Anicteric sclerae. Normocephalic. Neck: Supple. No JVD. Chest and Lungs: Symmetrical expansion. Clear breath sounds. Heart: Without murmur. Abdomen: Soft and nontender. Extremities: No edema. LABORATORY DATA: Hemoglobin 9, WBC 7,300, platelet count 119,000, sodium 139, potassium 3.6, chloride 103, CO2 of 24.6, BUN 49, creatinine 3.4, glucose 148. ASSESSMENT: 1. Non-oliguric acute kidney injury, most likely secondary to acute tubular necrosis following hypotension, hypoperfusion, hemodynamic instability, seems recovering. 2. Septic shock from Klebsiella pneumoniae, most likely secondary to urinary tract infection from chronic indwelling catheter. 3. Failure to thrive. 4. Type 2 diabetes. 5. Benign prostatic hypertrophy. 6. History of dementia. PLAN: The patient had dialysis yesterday. I am keen on removing the Dialysis catheter as it seems like he is recovering from his RAND. If his creatinine level continues to improve by tomorrow, then dialysis catheter should be removed. DT: 17:18:17 TT: 17:56:00 Ref: [id number] - TID: [id number] MTDD
[2024-07-15] MEDS: MIRTAZAPINE 15 MG TABLET 30 MG PO (21:27)
[2024-07-15] MEDS: AMIODARONE HCL 200 MG TABLET PO (21:28)
[2024-07-16] VITALS (12 sets, daily range): BP systolic 117–166; BP diastolic 57–78; PULSE 55–79; RESP 12–93; TEMP 36.3–37; O2SAT 92–99
[2024-07-16] MEDS: SODIUM CHLORIDE 0.9% 1000 ML 1,000 ML 80 ML IV (00:02)
[2024-07-16] MEDS: DILTIAZEM 30 MG TABLET PO ×4 (03:09→21:02)
[2024-07-16] MEDS: ACETAMINOPHEN 325 MG TABLET 650 MG PO (03:11)
[2024-07-16] MEDS: PIPERACILLIN/TAZO 2.25GM INJ 2.25 GM in SODIUM CHLORIDE 0.9% (P) 50 ML IV ×3 (05:17→21:03)
[2024-07-16 06:14] LABS: Basophils % (Auto) 1 % (0-2.5); Eosinophils # (Auto) 0.1 Thou/mm3 (0.0-0.5); Eosinophils % (Auto) 2 % (0-10); Hematocrit 24.7 % (41.0-53.0); Immature Granulocytes % (Auto) 1 % (0-0); Immature Granulocytes Auto 0.03 Thou/mm3 (0.00-0.00); Lymphocytes # (Auto) 0.4 Thou/mm3 (1.0-4.8); Lymphocytes % (Auto) 7 % (10-50); Mean Corpuscular HGB Conc 33.2 g/dl (31.0-37.0); Mean Corpuscular Hemoglobin 30.8 pg (25.0-35.0); Mean Corpuscular Volume 93 fL (80-100); Monocytes # (Auto) 0.3 Thou/mm3 (0.0-0.8); Monocytes % (Auto) 6 % (0-12); Neutrophils # (Auto) 4.6 Thou/mm3 (1.8-7.7); Neutrophils % (Auto) 84 % (37-80); Nucleated Red Blood Cell % 0 /100 WBC (0); Platelet Count 181 Thou/mm3 (140-440); RDW Standard Deviation 54.7 fL (35.1-43.9); Red Blood Count 2.66 Miln/mm3 (4.50-5.90); White Blood Count 5.5 Thou/mm3 (3.8-10.6)
[2024-07-16 06:46] LABS: Hemoglobin 8.2 g/dL (13.5-16.0)
[2024-07-16 06:54] LABS: Alanine Aminotransferase 9 U/L (10-49); Albumin, Serum 2.5 gm/dL (3.4-4.8); Albumin/Globulin Ratio 1.1 (1.2-2.2); Alkaline Phosphatase 52 U/L (46-116); Anion Gap 11 (7-16); Aspartate Amino Transferase < 10 U/L (0-34); BUN/Creatinine Ratio 13 Ratio (12-20); Bilirubin,Total 0.6 mg/dL (0.3-1.2); Blood Urea Nitrogen 49 mg/dL (9-23); Calcium 7.1 mg/dL (8.3-10.6); Calcium (Corrected) 8.3 mg/dL (8.5-10.1); Carbon Dioxide 21.3 mMol/L (20.0-31.0); Chloride 107 mMol/L (98-107); Creatinine (Component) 3.8 mg/dL (0.6-1.3); Estimated Creatinine Clearance 14.4 mL/min (>60); Globulin 2.3 gm/dL (2.3-3.5); Glucose 117 mg/dL (74-106); Osmolality,Calculated 291 (275-295); Potassium 3.3 mMol/L (3.4-5.1); Sodium 139 mMol/L (136-145); Total Protein 4.8 gm/dL (5.7-8.2); eGFR 15 See Note
--- NOTE | 2024-07-16 07:48 | PC.NURSE ---
Patient moaning in pain but unable to verbalize where pain is at, Dr. Cedillo notified.
[2024-07-16] MEDS: POTASSIUM CHLORIDE 10% 20 MEQ/15 ML UDC 40 MEQ PO (08:22)
[2024-07-16] MEDS: AMIODARONE HCL 200 MG TABLET PO ×2 (08:23→21:02)
[2024-07-16] MEDS: droNABinol 2.5 MG CAPSULE PO ×2 (08:23→18:21)
[2024-07-16] MEDS: FINASTERIDE 5 MG TABLET PO (08:31)
--- NOTE | 2024-07-16 12:23 | ESPR_ITS ---
RE: LUCERO LALA : 1940 DATE OF SERVICE: 07/15/2024 SUBJECTIVE: The patient is an 84-year-old man who has multiple medical problems, admitted to the hospital initially with hypotension, septic shock, developed atrial fibrillation with RVR, requiring cardioversion, back to telemetry. The patient developed atrial fibrillation again. IV amiodarone was given. IV Diltiazem was given yesterday. Appears to be coming back to sinus rhythm now, continues to remain stable, not having any chest pain or shortness of breath. He is undergoing dialysis. Creatinine is 3.4 now. __ Diltiazem 30 mg every 6 hours appears to be stabilizing. OBJECTIVE: Vital Signs: His today's exam shows blood pressure 135/60, pulse rate is 65 and regular, respirations 16, temperature normal, pulse oximetry _ on room air. HEENT: Head is atraumatic and normocephalic. Neck: Supple. No JVD. Lungs: Decreased breath sounds. No rales or rhonchi. Heart: S1 and S2, regular. No gallops. Abdomen: Slightly obese and soft. /Rectal: Not performed. Extremities: Mild edema. LABORATORY DATA: Hemoglobin 9 _, hematocrit 26, creatinine is 3.4, BUN 49. IMPRESSION: Paroxysmal atrial fibrillation, stable now in sinus rhythm on amiodarone and also oral diltiazem. RECOMMENDATIONS: I recommend continue low-dose diltiazem for now and continue the amiodarone. Change it back to p.o. amiodarone 200 mg twice daily. DT: 17:48:50 TT: 20:03:00 Ref: [id number] - TID: [id number] MTDD
--- NOTE | 2024-07-16 12:43 | PD.RESPRO ---
Documentation for date of: 07/16/24 Subjective Subjective Interval history: Patient was seen at bedside this morning. No overnight events. Patient was AO x 2 (not to time). Restarted Eliquis 2.5 mg twice daily as patient's hematuria has resolved and patient redeveloped A-fib 2 days ago. Will continue Zosyn for now. Pending cardiology recommendations.. No other complaints at this time. 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 Exam Vital Signs Temp Pulse Resp BP Pulse Ox O2 Del Method O2 Flow Rate 98.1 F 64 16 127/60 92 L Room Air 0 07/16/24 08:00 07/16/24 08:23 07/16/24 08:00 07/16/24 08:23 07/16/24 08:00 07/16/24 08:00 07/16/24 08:00 FiO2 0 07/16/24 08:00 Narrative Exam General: A/O x2 (not to time), no acute distress, disheveled, frail Eyes: PERRL, EOMI. Anicteric, vision grossly intact. Ears: No ear pain, no ear discharge, Hearing impaired Nose: No nasal discharge. Mouth/Throat: Dry mucous membranes, no redness, no lesions. Neck: Neck supple, non-tender, no cervical lymphadenopathy. Lungs: Clear, No accessory muscle use. Cardio: Normal S1/S2, regular rhythm, no murmurs, no JVD Abdomen: Soft, non-tender, no palpable masses, peristalsis present, no guarding or rebound. Extremities: Symmetrical, no significant deformities, 1+ peripheral edema , non-tender, peripheral pulses presents. Skin: No rashes, no lesions, warm to touch. Neuro: A/Ox2 (not to time) able to move all extremities. Objective Labs 07/16/24 04:48 07/16/24 04:48 Labs: Laboratory Results - last 24 hr 07/16/24 04:48 WBC 5.5 RBC 2.66 L Hgb 8.2 L Hct 24.7 L MCV 93 MCH 30.8 MCHC 33.2 RDW Std Deviation 54.7 H Plt Count 181 D Neut % (Auto) 84 H Lymph % (Auto) 7 L [place] % (Auto) 6 Eos % (Auto) 2 Baso % (Auto) 1 Neut # (Auto) 4.6 Lymph # (Auto) 0.4 L [place] # (Auto) 0.3 Eos # (Auto) 0.1 Baso # (Auto) 0.0 Immature Gran # (Auto) 0.03 H Absolute Nucleated RBC 0.00 Immature Gran % 1 H Nucleated RBC % 0 Sodium 139 Potassium 3.3 L Chloride 107 Carbon Dioxide 21.3 Anion Gap 11 BUN 49 H Creatinine 3.8 H Estim Creat Clear Calc 14.4 L eGFR 15 L BUN/Creatinine Ratio 13 Glucose 117 H Calculated Osmolality 291 Calcium 7.1 L Corrected Calcium 8.3 L Total Bilirubin 0.6 AST < 10 ALT 9 L Alkaline Phosphatase 52 Total Protein 4.8 L Albumin 2.5 L Globulin 2.3 Albumin/Globulin Ratio 1.1 L Quality Measures Quality Measures VTE prophylaxis (SCDs) Advance care planning discussed with:: patient Assessment & Plan Assessment Current Active Medications: Generic Name Dose Route Start Last Admin Trade Name Freq PRN Reason Stop Dose Admin Acetaminophen 650 mg 07/05/24 17:12 07/16/24 03:11 Acetaminophen 325 Mg Tablet PO 08/04/24 17:11 650 mg Q6H PRN Administration pain 1-3 and Fever >100.4 Amiodarone HCl 200 mg 07/10/24 21:00 07/16/24 08:23 Amiodarone Hcl 200 Mg Tablet PO 08/09/24 20:59 200 mg BID ANNETTA Administration Apixaban 2.5 mg 07/16/24 21:00 Apixaban 2.5 Mg Tablet PO 08/15/24 20:59 BID ANNETTA Dextrose 25 ml 07/05/24 17:12 07/11/24 23:48 Dextrose 50%-Water Inj 50 Ml Syringe IV 08/04/24 17:11 25 ml Q15MIN PRN Administration BG 50-70 responsive npo pt Dextrose 50 ml 07/05/24 17:12 Dextrose 50%-Water Inj 50 Ml Syringe IV 08/04/24 17:11 Q15MIN PRN BG <50 OR BG <70 & pt unresponsive Diltiazem HCl 30 mg 07/14/24 21:00 07/16/24 08:23 Diltiazem 30 Mg Tablet PO 08/13/24 20:59 30 mg Q6H ANNETTA Administration Dronabinol 2.5 mg 07/12/24 18:08 07/16/24 08:23 Dronabinol 2.5 Mg Capsule PO 08/09/24 20:59 2.5 mg BIDAC ANNETTA Administration Finasteride 5 mg 07/08/24 10:45 07/16/24 08:31 Finasteride 5 Mg Tablet PO 08/07/24 10:44 5 mg QDAY ANNETTA Administration Glucagon 1 mg 07/05/24 17:12 Glucagon Inj 1 Mg Vial IM Q15MIN PRN BG <70, and no IV access Heparin Sodium (Porcine) 3,100 unit 07/14/24 12:13 07/14/24 15:16 Heparin Sod Inj 1000 Unit/Ml Vial 10 Ml INDWELLCAT 07/28/24 12:12 3,100 unit PRN PRN Administration DIALYSIS Albumin Human 25 gm in 100 mls @ 100 mls/min 07/13/24 12:40 Albuminar-25 Ivpb IV PRN PRN DIALYSIS Piperacillin Sod/Tazobactam 50 mls @ 100 mls/hr 07/13/24 18:15 07/16/24 05:17 Sod 2.25 gm/ Sodium Chloride IV 07/20/24 18:14 100 mls/hr Q8HR ANNETTA Administration Metoprolol Tartrate 2.5 mg 07/07/24 03:11 07/07/24 03:17 Metoprolol Tartrate Inj 1 Mg/Ml Amp 5 Ml IVP 2.5 mg Q5M PRN Administration AFIB RVR HR >140 Midodrine 5 mg 07/11/24 14:00 07/13/24 05:55 Midodrine 5 Mg Tablet PO 08/10/24 13:59 5 mg TID ANNETTA Administration Mirtazapine 30 mg 07/10/24 21:00 07/15/24 21:27 Mirtazapine 15 Mg Tablet PO 08/09/24 20:59 30 mg HS ANNETTA Administration Ondansetron HCl 4 mg 07/09/24 09:41 07/09/24 09:44 Ondansetron Inj 2 Mg/Ml Inj 2 Ml IV 08/08/24 09:40 4 mg Q6HR PRN Administration NAUSEA OR VOMITING Protocol Prochlorperazine Maleate 10 mg 07/05/24 17:12 07/06/24 20:17 Prochlorperazine Maleate 5 Mg Tablet PO 08/04/24 17:11 10 mg Q6H PRN Administration NAUSEA OR VOMITING Protocol Sennosides 1 tab 07/05/24 17:12 Senna Tablet PO 08/04/24 17:11 QDAY PRN constipation Protocol Plan 84-year-old male with past medical history of hypertension, BPH, DM2, subdural hematoma (2020), dementia, and chronic indwelling catheter was admitted to hospital on 07/05/2024 for sepsis likely secondary to catheter associated UTI versus community-acquired pneumonia, RAND, and NSTEMI. #Sepsis secondary to Klebsiella bacteremia #Klebsiella bacteremia #Septic shock, resolved #Catheter associated urinary tract infection #Community-acquired pneumonia #Acute Encephalopathy, resolveed #Chronic indwelling catheter #Recurrent UTIs #Hx of BPH #Prostatomegaly #Lactic acidosis #Hematuria ?Patient has a history of chronic indwelling catheter with monthly changes Rlolins catheter as well as recurrent UTIs in the past. ?Patient initially on admission was minimally responsive to questioning and most likely has encephalopathy secondary to the UTI as per patient's grandson at baseline he was a lot more responsive. ?Patient initially met SIRS 2 out of 4 criteria with tachycardia and tachypnea ?Patient developed septic shock shortly after admission and was upgraded to the ICU, was downgraded on 07/13/2024 ?Blood cultures grew Klebsiella and urine culture grew klebsiella ESBL -WBC 5.5 and no spikes in fever Plan: ?Will continue Zosyn [07/05/2024 -], renally dosed due to impaired renal function ?Continue finasteride 5 mg daily ?Will continue to monitor #A-fib with RVR s/p cardioversion on 07/10/2024 ?In the ICU patient developed A-fib and was initially placed on amiodarone drip, but A-fib did not resolve therefore cardiology was consulted ?Cardioversion was done on 07/10/2024 ?[id number], but cardiology stated that his A-fib was in an acute setting of sepsis and therefore does not need Eliquis at this time Plan: -Continue Amiodarone 200mg BID and Diltiazem 30 mg q6h -Started Eliquis 2.5 mg BID ?Will continue to monitor if patient redevelops A-fib ?Cardiology consulted, appreciate recommendations # Acute renal failure ? Patient developed ATN likely in the setting of shock ?Patient's baseline BUN 23 and creatinine 0.9 on 06/2023. -BUN 49 and Creatinine 3.8 today -Last HD was 2 days ago Plan: ?Renally dose medications ?Avoid nephrotoxic agents ?Nephrology consulted, pursue recommendations ?Will continue to monitor #Electrolyte imbalance #Hypokalemia #Hypocalcemia ? Potassium 3.3 today and calcium 8.3 Plan: ? Potassium 40 mEq x 1 ? Will place monitoring -Will continue to monitor #NSTEMI type II demand ischemia ?Most likely type II in the setting of sepsis likely demand ischemia versus less likely type I as patient does not have any chest pain at this time. ?Initial troponins were 0.119 and down trended ?EKG did not show any ST changes Plan: ?Will continue to monitor #Cholelithiasis #Bilirubinemia ?Patient has been complaining of upper abdominal pain. ?Abdomen/pelvis CT showed cholelithiasis ?Gallbladder ultrasound showed gallbladder sludge but no cholelithiasis and cannot accurately assess gallbladder. Common bile duct was not distended. ?T bilirubin 0.6, alkaline phosphatase 52 today Plan: ?Will continue to monitor #Normocytic normochromic anemia ? Patient's baseline hemoglobin is around 14 ? Could be due to blood loss given patient had gross hematuria ? Hemoglobin 8.2 today with no active signs of bleeding Plan: ?Will transfuse hemoglobin less than 7 ?Will continue to monitor #Hx of DM2 #Hypoglycemia ?Patient has a history of diabetes and last A1c in 06/2023 was 5.9. ? Patient's blood sugar has been low ? A1c 5.8 on 06/2024 Plan: -Hypogylycemic protocol ordered ?Will continue to monitor #Hx of hypertension ? Will hold any antihypertensive medication for now as patient has been hypotensive. #R Arm swelling -U/S negative for any DVT Disposition: Patient admitted seen in tele for Sepsis 2/2 Klebsiella bacteremia, on IV abx, pending cardiology recommendations for A-fib. Diet: Dysphagia GI prophylaxis: not indicated DVT prophylaxis: SCDs Code:Limited code, NO CHEST COMPRESSION Case disclosed with Attending Dr. Marika Wagner PGY1 Attending Provider Attestation/Addendum I have examined the patient, reviewed labs and imaging findings, discussed the case with the resident(s), and reviewed entered orders. I agree with the plan of care as outlined in this note, with these additional summaries/recommendations: #Sepsis: Resolved #Complicated urinary tract infection #Bacteremia 07/05 Ur cx: Klebsiella pneumonia 07/05 blood cultures: Klebsiella pneumonia 07/05 MRSA Screen: Negative Plan: Continue IV Zosyn for now and can likely de-escalate to oral ciprofloxacin in the next 24 to 48 hours # New onset atrial fibrillation with rapid ventricular response Most likely secondary to severe underlying sepsis [id number] score 5 points Has bled score: 4 points indicating 8.9% risk of major bleeding per year Cardiology consulted and following, status post cardioversion on 07/10/2024 Keep potassium greater than 4 and mag greater than 2 Continue rate and rhythm control with amiodarone 200 mg p.o. twice daily and diltiazem 30 mg p.o. every 6 hours. If heart rate remains stable we will discuss with cardiology about transitioning diltiazem dose to once daily. Given elevated [id number] score we will start low-dose Eliquis 2.5 mg p.o. twice daily # Acute renal failure Most likely secondary to acute tubular necrosis in the sepsis/septic shock Status post temporary dialysis catheter 07/14 Nephrology following, recommendations appreciated Renally dose medications and avoid nephrotoxic agents Plan: No hemodialysis yesterday 07/15 or today 07/16. Noted increase in creatinine and we will leave dialysis catheter in place for now. Appreciate nephro recs on future HD. Rollins catheter in place monitor urinary output. # Urinary retention # BPH Plan: Continue Rollins catheter. Continue finasteride and Flomax. Patient will need close outpatient follow-up with urology. # Electrolyte abnormalities Plan: Replacement given and repeat levels in AM. Dr. Hairston
--- NOTE | 2024-07-16 14:17 | PC.SS ---
Rounding note: Patient will be staying. Patient receiving IV ABX. Pending cardio recommendations.
--- NOTE | 2024-07-16 14:18 | PC.SS ---
SS update: spoke with patient's grandson, August Epps, regarding the patient's discharge plan and recommendation for SNF. August declined SNF. Informed he would like to get home health for the patient for PT and nursing as the patient was previously aligned with [facility] home health and wish to continue with [facility]. Updated Dr. Shaffer of request for home health.
--- NOTE | 2024-07-16 20:00 | ESPR_ITS ---
Documentation for date of: 07/16/24 Subjective Subjective Interval history: Patient seen and examined at the bedside. No new cardiac complaints. Telemetry reviewed and heart rate well-controlled present dosage of diltiazem 30 mg every 6 hours and amiodarone 200 mg twice daily Patient restarted on Eliquis after his recent hematuria was improved. Mai potassium greater than 4 and magnesium greater than 2.0 at all times to avoid any kind of RVR Reviewed the echocardiogram this admission patient's EF is around 55%. Okay to continue oral Cardizem for now Recommend to change oral Cardizem CD120 mg once daily Stop short acting Cardizem completely. Eliquis 2.5 mg twice daily given the history of renal disease and age greater than 80 Exam Vital Signs Temp Pulse Resp BP Pulse Ox O2 Del Method O2 Flow Rate 97.6 F 74 15 146/78 H 95 Nasal Cannula 2 07/17/24 08:00 07/17/24 08:04 07/17/24 08:00 07/17/24 08:04 07/17/24 08:00 07/17/24 08:00 07/17/24 08:00 FiO2 0 07/17/24 04:00 Narrative Exam General: Alert and oriented x3. In no acute distress. obese and mildly confused. Eyes: Pupils are equal and reactive to light bilaterally. HEENT: Atraumatic, normocephalic. No JVD noted. Mucosa moist. Cardiovascular: Normal S1 and S2. Normal rate and regular rhythm. 3/6 systolic murmur at the apex, 1+ peripheral pitting edema noted. Respiratory: No respiratory distress. Lungs are clear to auscultation bilaterally but decreased at bases. No wheezing or crackles heard. Abdomen: Soft, nontender, nondistended. Skin: No rash. Warm to touch. Musculoskeletal: No gross injuries. Able to move all 4 extremities. Neuro: Alert and oriented x3. No focal neuro deficits. Mildly confused Psych: Normal affect and mood Objective Labs 07/18/24 06:18 07/18/24 06:18 Labs: Laboratory Results - last 24 hr 07/17/24 07:39 WBC 6.1 RBC 2.73 L Hgb 8.5 L Hct 25.5 L MCV 93 MCH 31.1 MCHC 33.3 RDW Std Deviation 55.3 H Plt Count 273 D Neut % (Auto) 84 H Lymph % (Auto) 7 L [place] % (Auto) 6 Eos % (Auto) 1 Baso % (Auto) 1 Neut # (Auto) 5.1 Lymph # (Auto) 0.4 L [place] # (Auto) 0.4 Eos # (Auto) 0.1 Baso # (Auto) 0.0 Immature Gran # (Auto) 0.05 H Absolute Nucleated RBC 0.00 Immature Gran % 1 H Nucleated RBC % 0 Sodium 142 Potassium 3.8 D Chloride 109 H Carbon Dioxide 20.3 Anion Gap 13 BUN 46 H Creatinine 3.9 H Estim Creat Clear Calc 14.0 L eGFR 14 L* BUN/Creatinine Ratio 12 Glucose 143 H Calculated Osmolality 297 H Calcium 7.4 L Corrected Calcium 8.6 Total Bilirubin 0.7 AST < 10 ALT 9 L Alkaline Phosphatase 54 Total Protein 5.1 L Albumin 2.5 L Globulin 2.6 Albumin/Globulin Ratio 1.0 L Assessment & Plan A&P Narrative 80-year-old with a past medical history of essential hypertension, type 2 diabetes mellitus, subdural hematoma in March 12, history of acute kidney injuries with previous UTIs, BPH severe and other multiple medical problems initially was admitted to the hospital for hypotension, septic shock mostly secondary to UTI and developed atrial fibrillation with RVR. Cardiology was consulted for the atrial fibrillation with RVR. 1. Paroxysmal atrial fibrillation with RVR 2. Septic shock secondary to Klebsiella bacteremia 3. Klebsiella bacteremia secondary to the catheter associated urinary tract infection 4. Acute kidney injury with ATN now on hemodialysis 5. Altered mental status acute and metabolic encephalopathy 6. Mild hematuria 7. BPH severe 8. History of subdural hematoma which in 2020 9. Diabetes mellitus type 2 10. History of hypertension 11. Obesity Patient was admitted to the ICU and required pressors initially. Patient had successful electrical cardioversion performed by Dr. Rhodes in the ICU after which she converted to normal after the patient did have some. And patient was restarted on IV diltiazem drip. Patient was eventually transition to diltiazem 30 mg every 6 hours stabilizing. Patient was also started on amiodarone 200 mg twice daily. Patient restarted on Eliquis after his recent hematuria was improved. Mai potassium greater than 4 and magnesium greater than 2.0 at all times to avoid any kind of RVR Reviewed the echocardiogram this admission patient's EF is around 55%. Okay to continue oral Cardizem for now Recommend to change oral Cardizem CD120 mg once daily Stop short acting Cardizem completely. Eliquis 2.5 mg twice daily given the history of renal disease and age greater than 78 Patient continues to improve from his septic shock secondary to Klebsiella bacteremia and catheter associated urinary tract infection. Acute encephalopathy resolved but he still slightly confused from time to time. Mild hematuria also resolved. Admitted with acute kidney injury along with ATN in the setting of septic shock. Patient kidney function did not improve and the BUN is 49 creatinine is 3.8 and nephrology was consulted and now started on dialysis-2 sessions completed. Blood pressure slightly on the lower side since her dialysis and versus recent septic shock and initially medications were on hold Started on diltiazem CD1 20 mg once daily and further rate control and now also started on losartan 25 mg once daily as her blood pressure is high Management of rest of the medical conditions as per primary team and other consultants. Thank you for the consult and allowing me to participate in the care of the patient. Cardiology will continue to follow. Augustine Ellis M.D. Interventional Cardiology Time Spent With Patient Time: Total time spent is greater than 50% in coordination of care (as documented) at patient's floor/unit and/or counseling patient:
[2024-07-16] MEDS: APIXABAN 2.5 MG TABLET PO (20:59)
[2024-07-16] MEDS: MIRTAZAPINE 15 MG TABLET 30 MG PO (21:02)
[2024-07-17] VITALS (15 sets, daily range): BP systolic 133–162; BP diastolic 64–78; PULSE 58–87; RESP 12–18; TEMP 36.1–37.2; O2SAT 95–99; BMI 23.8
[2024-07-17] MEDS: DILTIAZEM 30 MG TABLET PO ×2 (03:21→08:04)
[2024-07-17] MEDS: PIPERACILLIN/TAZO 2.25GM INJ 2.25 GM in SODIUM CHLORIDE 0.9% (P) 50 ML IV ×3 (05:30→21:01)
[2024-07-17] MEDS: AMIODARONE HCL 200 MG TABLET PO ×2 (08:03→20:27)
[2024-07-17] MEDS: APIXABAN 2.5 MG TABLET PO ×2 (08:03→20:27)
[2024-07-17] MEDS: FINASTERIDE 5 MG TABLET PO (08:04)
[2024-07-17 08:11] LABS: Basophils % (Auto) 1 % (0-2.5); Eosinophils # (Auto) 0.1 Thou/mm3 (0.0-0.5); Eosinophils % (Auto) 1 % (0-10); Hematocrit 25.5 % (41.0-53.0); Immature Granulocytes % (Auto) 1 % (0-0); Immature Granulocytes Auto 0.05 Thou/mm3 (0.00-0.00); Lymphocytes # (Auto) 0.4 Thou/mm3 (1.0-4.8); Lymphocytes % (Auto) 7 % (10-50); Mean Corpuscular HGB Conc 33.3 g/dl (31.0-37.0); Mean Corpuscular Hemoglobin 31.1 pg (25.0-35.0); Mean Corpuscular Volume 93 fL (80-100); Monocytes # (Auto) 0.4 Thou/mm3 (0.0-0.8); Monocytes % (Auto) 6 % (0-12); Neutrophils # (Auto) 5.1 Thou/mm3 (1.8-7.7); Neutrophils % (Auto) 84 % (37-80); Nucleated Red Blood Cell % 0 /100 WBC (0); Platelet Count 273 Thou/mm3 (140-440); RDW Standard Deviation 55.3 fL (35.1-43.9); Red Blood Count 2.73 Miln/mm3 (4.50-5.90); White Blood Count 6.1 Thou/mm3 (3.8-10.6)
[2024-07-17 08:13] LABS: Hemoglobin 8.5 g/dL (13.5-16.0)
[2024-07-17 08:49] LABS: Alanine Aminotransferase 9 U/L (10-49); Albumin, Serum 2.5 gm/dL (3.4-4.8); Alkaline Phosphatase 54 U/L (46-116); Anion Gap 13 (7-16); Aspartate Amino Transferase < 10 U/L (0-34); BUN/Creatinine Ratio 12 Ratio (12-20); Bilirubin,Total 0.7 mg/dL (0.3-1.2); Blood Urea Nitrogen 46 mg/dL (9-23); Calcium 7.4 mg/dL (8.3-10.6); Calcium (Corrected) 8.6 mg/dL (8.5-10.1); Carbon Dioxide 20.3 mMol/L (20.0-31.0); Chloride 109 mMol/L (98-107); Creatinine (Component) 3.9 mg/dL (0.6-1.3); Globulin 2.6 gm/dL (2.3-3.5); Glucose 143 mg/dL (74-106); Osmolality,Calculated 297 (275-295); Potassium 3.8 mMol/L (3.4-5.1); Sodium 142 mMol/L (136-145); Total Protein 5.1 gm/dL (5.7-8.2); eGFR 14 See Note
[2024-07-17] MEDS: DILTIAZEM CD 120 MG CAPCR PO (09:48)
[2024-07-17] MEDS: LOSARTAN POTASSIUM 25 MG TABLET PO (09:48)
--- NOTE | 2024-07-17 11:34 | ESPR_ITS ---
Documentation for date of: 07/17/24 Subjective Subjective Interval history: Patient was seen at bedside this morning. No overnight events. Patient was resting in bed and he is minimally responsive with simple yes/no questions, but is still AO x 2 (not to time). He did not have any blood in his urine today and is having good urine output therefore nephrology will not do any hemodialysis at this time. Cardiology recommended to switch the patient's diltiazem to 120 mg daily and start patient on losartan 25 mg daily. No other complaints at this time. Exam Vital Signs Temp Pulse Resp BP Pulse Ox O2 Del Method O2 Flow Rate 97.6 F 69 15 153/72 H 95 Nasal Cannula 2 07/17/24 08:00 07/17/24 09:48 07/17/24 08:00 07/17/24 09:48 07/17/24 08:00 07/17/24 08:00 07/17/24 08:00 FiO2 0 07/17/24 04:00 Narrative Exam General: A/O x2 (not to time), no acute distress, disheveled, frail Eyes: PERRL, EOMI. Anicteric, vision grossly intact. Ears: No ear pain, no ear discharge, Hearing impaired Nose: No nasal discharge. Mouth/Throat: Dry mucous membranes, no redness, no lesions. Neck: Neck supple, non-tender, no cervical lymphadenopathy. Lungs: Clear, No accessory muscle use. Cardio: Normal S1/S2, regular rhythm, no murmurs, no JVD Abdomen: Soft, non-tender, no palpable masses, peristalsis present, no guarding or rebound. Extremities: Symmetrical, no significant deformities, 1+ peripheral edema , non-tender, peripheral pulses presents. Skin: No rashes, no lesions, warm to touch. Neuro: A/Ox2 (not to time) able to move all extremities. Objective Labs 07/17/24 07:39 07/17/24 07:39 Labs: Laboratory Results - last 24 hr 07/17/24 07:39 WBC 6.1 RBC 2.73 L Hgb 8.5 L Hct 25.5 L MCV 93 MCH 31.1 MCHC 33.3 RDW Std Deviation 55.3 H Plt Count 273 D Neut % (Auto) 84 H Lymph % (Auto) 7 L [place] % (Auto) 6 Eos % (Auto) 1 Baso % (Auto) 1 Neut # (Auto) 5.1 Lymph # (Auto) 0.4 L [place] # (Auto) 0.4 Eos # (Auto) 0.1 Baso # (Auto) 0.0 Immature Gran # (Auto) 0.05 H Absolute Nucleated RBC 0.00 Immature Gran % 1 H Nucleated RBC % 0 Sodium 142 Potassium 3.8 D Chloride 109 H Carbon Dioxide 20.3 Anion Gap 13 BUN 46 H Creatinine 3.9 H Estim Creat Clear Calc 14.0 L eGFR 14 L* BUN/Creatinine Ratio 12 Glucose 143 H Calculated Osmolality 297 H Calcium 7.4 L Corrected Calcium 8.6 Total Bilirubin 0.7 AST < 10 ALT 9 L Alkaline Phosphatase 54 Total Protein 5.1 L Albumin 2.5 L Globulin 2.6 Albumin/Globulin Ratio 1.0 L Quality Measures Quality Measures VTE prophylaxis (SCDs) Advance care planning discussed with:: patient and other (grandson) Assessment & Plan Assessment Current Active Medications: Generic Name Dose Route Start Last Admin Trade Name Freq PRN Reason Stop Dose Admin Acetaminophen 650 mg 07/05/24 17:12 07/16/24 03:11 Acetaminophen 325 Mg Tablet PO 08/04/24 17:11 650 mg Q6H PRN Administration pain 1-3 and Fever >100.4 Amiodarone HCl 200 mg 07/10/24 21:00 07/17/24 08:03 Amiodarone Hcl 200 Mg Tablet PO 08/09/24 20:59 200 mg BID ANNETTA Administration Apixaban 2.5 mg 07/16/24 21:00 07/17/24 08:03 Apixaban 2.5 Mg Tablet PO 08/15/24 20:59 2.5 mg BID ANNETTA Administration Dextrose 25 ml 07/05/24 17:12 07/11/24 23:48 Dextrose 50%-Water Inj 50 Ml Syringe IV 08/04/24 17:11 25 ml Q15MIN PRN Administration BG 50-70 responsive npo pt Dextrose 50 ml 07/05/24 17:12 Dextrose 50%-Water Inj 50 Ml Syringe IV 08/04/24 17:11 Q15MIN PRN BG <50 OR BG <70 & pt unresponsive Diltiazem HCl 120 mg 07/17/24 09:45 07/17/24 09:48 Diltiazem Cd 120 Mg Capcr PO 08/16/24 09:44 120 mg QDAY ANNETTA Administration Dronabinol 2.5 mg 07/12/24 18:08 07/17/24 10:09 Dronabinol 2.5 Mg Capsule PO 08/09/24 20:59 Not Given BIDAC ANNETTA Finasteride 5 mg 07/08/24 10:45 07/17/24 08:04 Finasteride 5 Mg Tablet PO 08/07/24 10:44 5 mg QDAY ANNETTA Administration Glucagon 1 mg 07/05/24 17:12 Glucagon Inj 1 Mg Vial IM Q15MIN PRN BG <70, and no IV access Heparin Sodium (Porcine) 3,100 unit 07/14/24 12:13 07/14/24 15:16 Heparin Sod Inj 1000 Unit/Ml Vial 10 Ml INDWELLCAT 07/28/24 12:12 3,100 unit PRN PRN Administration DIALYSIS Albumin Human 25 gm in 100 mls @ 100 mls/min 07/13/24 12:40 Albuminar-25 Ivpb IV PRN PRN DIALYSIS Piperacillin Sod/Tazobactam 50 mls @ 100 mls/hr 07/13/24 18:15 07/17/24 05:30 Sod 2.25 gm/ Sodium Chloride IV 07/20/24 18:14 100 mls/hr Q8HR ANNETTA Administration Losartan Potassium 25 mg 07/17/24 09:45 07/17/24 09:48 Losartan Potassium 25 Mg Tablet PO 08/16/24 09:44 25 mg QDAY ANNETTA Administration Metoprolol Tartrate 2.5 mg 07/07/24 03:11 07/07/24 03:17 Metoprolol Tartrate Inj 1 Mg/Ml Amp 5 Ml IVP 2.5 mg Q5M PRN Administration AFIB RVR HR >140 Midodrine 5 mg 07/11/24 14:00 07/13/24 05:55 Midodrine 5 Mg Tablet PO 08/10/24 13:59 5 mg TID ANNETTA Administration Mirtazapine 30 mg 07/10/24 21:00 07/16/24 21:02 Mirtazapine 15 Mg Tablet PO 08/09/24 20:59 30 mg HS ANNETTA Administration Ondansetron HCl 4 mg 07/09/24 09:41 07/09/24 09:44 Ondansetron Inj 2 Mg/Ml Inj 2 Ml IV 12/22/24 09:40 4 mg Q6HR PRN Administration NAUSEA OR VOMITING Protocol Prochlorperazine Maleate 10 mg 07/05/24 17:12 07/06/24 20:17 Prochlorperazine Maleate 5 Mg Tablet PO 08/04/24 17:11 10 mg Q6H PRN Administration NAUSEA OR VOMITING Protocol Sennosides 1 tab 07/05/24 17:12 Senna Tablet PO 08/04/24 17:11 QDAY PRN constipation Protocol Plan 84-year-old male with past medical history of hypertension, BPH, DM2, subdural hematoma (2020), dementia, and chronic indwelling catheter was admitted to hospital on 07/05/2024 for sepsis likely secondary to catheter associated UTI versus community-acquired pneumonia, RAND, and NSTEMI. #Sepsis secondary to Klebsiella bacteremia #Klebsiella bacteremia #Septic shock, resolved #Catheter associated urinary tract infection #Community-acquired pneumonia #Acute Encephalopathy, resolveed #Chronic indwelling catheter #Recurrent UTIs #Hx of BPH #Prostatomegaly #Lactic acidosis #Hematuria ?Patient has a history of chronic indwelling catheter with monthly changes Rollins catheter as well as recurrent UTIs in the past. ?Patient initially on admission was minimally responsive to questioning and most likely has encephalopathy secondary to the UTI as per patient's grandson at baseline he was a lot more responsive. ?Patient initially met SIRS 2 out of 4 criteria with tachycardia and tachypnea ?Patient developed septic shock shortly after admission and was upgraded to the ICU, was downgraded on 07/13/2024 ?Blood cultures grew Klebsiella and urine culture grew klebsiella ESBL -WBC 6.1 and no spikes in fever Plan: ?Will continue Zosyn [07/05/2024 -], renally dosed due to impaired renal function ?Continue finasteride 5 mg daily ?Will continue to monitor #A-fib with RVR s/p cardioversion on 07/10/2024 ?In the ICU patient developed A-fib and was initially placed on amiodarone drip, but A-fib did not resolve therefore cardiology was consulted ?Cardioversion was done on 07/10/2024 ?[id number], but cardiology stated that his A-fib was in an acute setting of sepsis and therefore does not need Eliquis at this time Plan: -Continue Amiodarone 200mg BID and changed Diltiazem 120 mg qday -Continue Eliquis 2.5 mg BID ?Will continue to monitor if patient redevelops A-fib ?Cardiology consulted, appreciate recommendations # Acute renal failure ? Patient developed ATN likely in the setting of shock ?Patient's baseline BUN 23 and creatinine 0.9 on 06/2023. -BUN 46 and Creatinine 3.9 today -Last HD was 3 days ago Plan: -No HD today as per nephrology ?Renally dose medications ?Avoid nephrotoxic agents ?Nephrology consulted, pursue recommendations ?Will continue to monitor #Electrolyte imbalance #Hypokalemia #Hypocalcemia ? Potassium 3.8 today and calcium 8.6 Plan: ? Will place monitoring -Will continue to monitor #NSTEMI type II demand ischemia ?Most likely type II in the setting of sepsis likely demand ischemia versus less likely type I as patient does not have any chest pain at this time. ?Initial troponins were 0.119 and down trended ?EKG did not show any ST changes Plan: ?Will continue to monitor #Cholelithiasis #Bilirubinemia ?Patient has been complaining of upper abdominal pain. ?Abdomen/pelvis CT showed cholelithiasis ?Gallbladder ultrasound showed gallbladder sludge but no cholelithiasis and cannot accurately assess gallbladder. Common bile duct was not distended. ?T bilirubin 0.6, alkaline phosphatase 52 today Plan: ?Will continue to monitor #Normocytic normochromic anemia ? Patient's baseline hemoglobin is around 14 ? Could be due to blood loss given patient had gross hematuria ? Hemoglobin 8.5 today with no active signs of bleeding Plan: ?Will transfuse hemoglobin less than 7 ?Will continue to monitor #Hx of DM2 #Hypoglycemia ?Patient has a history of diabetes and last A1c in 06/2023 was 5.9. ? Patient's blood sugar has been low ? A1c 5.8 on 06/2024 Plan: -Hypogylycemic protocol ordered ?Will continue to monitor #Hx of hypertension ? Started losartan 25mg qday #R Arm swelling -U/S negative for any DVT Disposition: Patient admitted seen in tele for Sepsis 2/2 Klebsiella bacteremia, on IV abx. Diet: Dysphagia GI prophylaxis: not indicated DVT prophylaxis: SCDs Code:DNR/DNI Case disclosed with Attending Dr. Marika Wagner PGY1 Attending Provider Attestation/Addendum I have examined the patient, reviewed labs and imaging findings, discussed the case with the resident(s), and reviewed entered orders. I agree with the plan of care as outlined in this note, with these additional summaries/recommendations: #Sepsis: Resolved #Complicated urinary tract infection #Bacteremia 07/05 Ur cx: Klebsiella pneumonia 07/05 blood cultures: Klebsiella pneumonia 07/05 MRSA Screen: Negative Plan: Leukocytosis now resolved. Continue IV Zosyn and de-escalate to oral ciprofloxacin tomorrow 07/18/24 to complete two week treatment course for bacteremia # New onset atrial fibrillation with rapid ventricular response Most likely secondary to severe underlying sepsis [id number] score 5 points Has bled score: 4 points indicating 8.9% risk of major bleeding per year Cardiology consulted and following, status post cardioversion on 07/10/2024 Keep potassium greater than 4 and mag greater than 2 Continue rate and rhythm control with amiodarone 200 mg p.o. twice daily and diltiazem changed to diltiazem 120mg PO QD. Continue Eliquis 2.5mg PO BID for elevated [id number] score. Overall significant improvement in heart rate and continue to monitor on telemetry # Acute renal failure Most likely secondary to acute tubular necrosis in the sepsis/septic shock Status post temporary dialysis catheter 07/14 Nephrology following, recommendations appreciated Renally dose medications and avoid nephrotoxic agents Plan: No hemodialysis 07/15, 07/16, and 07/17. . Noted increase in creatinine and we will leave dialysis catheter in place for now and can likely DC dialysis catheter tomorrow if urine output remains appropriate. Rollins catheter in place monitor urinary output. Low dose losartan started today and we will monitor how patient tolerates. # Urinary retention # BPH Plan: Continue Rollins catheter. Continue finasteride and Flomax. Patient will need close outpatient follow-up with urology. #Failure to thrive #Generalized weakness Patient has had minimal oral intake throughout hospitalization which is a poor prognostic sign. Dietary following. Continue appetite stimulants dronabinol and mirtazapine. Physical therapy recommends SNF on discharge although family requests home health although we will revisit topic with family as patient requires 24 hour care at this point in time. Dr. Hairston
--- NOTE | 2024-07-17 13:00 | PC.SS ---
SS was informed by Dr. Winter and Dr. Cedillo that patient's code status changed to DNR. Discharge plan to be discussed, possible SNF. Hospice Conversation has not been established with family, however if family decides to have patient' discharge, patient will need SNF. SS will need to submit SNF referral with hospice.
--- NOTE | 2024-07-17 13:09 | PD.RESEVENT ---
Documentation for date of: 07/17/24 Event Note Event Note: Primary team, Dr. Shaffer and myself had a goals of care discussion today with patient's grandson August who is still decision making for the patient. We explained to further detail what limited code meant as well as how intubation without chest compressions is futile and would possibly mean more complications or suffering for the patient. Patient's grandson stated that he just mentioned last time that he did not want any chest compressions as they would provide more suffering and complications for the patient's. With further explanation this time he understood what full CODE STATUS versus DNR DNI status meant and decided to proceed with DNR DNI as CODE STATUS moving forward. He also agreed that patient would benefit from a half-way facility once he is discharged from the hospital. Case disclosed with Attending Dr. Hairston and My senior Dr. Shaffer PGY3. Logan Wagner PGY1
[2024-07-17] MEDS: MIRTAZAPINE 15 MG TABLET 30 MG PO (20:27)
--- NOTE | 2024-07-17 22:51 | PD.IMPROG ---
Documentation for date of: 07/17/24 Subjective Subjective Interval history: Covering for Dr. Rhodes who will resume service from tomorrow Patient seen and examined at the bedside. No new cardiac complaints. Telemetry reviewed and heart rate well-controlled on Cardizem CD 120 mg once daily which started this morning. Continue Eliquis 2.5 mg twice daily for anticoagulation given the end-stage renal disease and also age greater than 80. Continue amiodarone 200 mg twice daily for maintaining sinus rhythm for the patient and rate control. Check EKG for QTc prolongation tomorrow morning. Patient restarted on Eliquis after his recent hematuria was improved. Mai potassium greater than 4 and magnesium greater than 2.0 at all times to avoid any kind of RVR Reviewed the echocardiogram this admission patient's EF is around 55%. Okay to continue oral Cardizem CD 120 mg for now along with amiodarone. Exam Vital Signs Temp Pulse Resp BP Pulse Ox O2 Del Method O2 Flow Rate 97.0 F 64 16 143/64 H 96 Room Air 1 07/17/24 20:28 07/17/24 20:28 07/17/24 20:28 07/17/24 20:28 07/17/24 20:28 07/17/24 20:28 07/17/24 20:28 FiO2 0 07/17/24 20:28 Narrative Exam General: Alert and oriented x3. In no acute distress. obese and mildly confused. Eyes: Pupils are equal and reactive to light bilaterally. HEENT: Atraumatic, normocephalic. No JVD noted. Mucosa moist. Cardiovascular: Normal S1 and S2. Normal rate and regular rhythm. 3/6 systolic murmur at the apex, 1+ peripheral pitting edema noted. Respiratory: No respiratory distress. Lungs are clear to auscultation bilaterally but decreased at bases. No wheezing or crackles heard. Abdomen: Soft, nontender, nondistended. Skin: No rash. Warm to touch. Musculoskeletal: No gross injuries. Able to move all 4 extremities. Neuro: Alert and oriented x3. No focal neuro deficits. Mildly confused Psych: Normal affect and mood Objective Labs 07/18/24 06:18 07/18/24 06:18 Labs: Laboratory Results - last 24 hr 07/17/24 07:39 WBC 6.1 RBC 2.73 L Hgb 8.5 L Hct 25.5 L MCV 93 MCH 31.1 MCHC 33.3 RDW Std Deviation 55.3 H Plt Count 273 D Neut % (Auto) 84 H Lymph % (Auto) 7 L [place] % (Auto) 6 Eos % (Auto) 1 Baso % (Auto) 1 Neut # (Auto) 5.1 Lymph # (Auto) 0.4 L [place] # (Auto) 0.4 Eos # (Auto) 0.1 Baso # (Auto) 0.0 Immature Gran # (Auto) 0.05 H Absolute Nucleated RBC 0.00 Immature Gran % 1 H Nucleated RBC % 0 Sodium 142 Potassium 3.8 D Chloride 109 H Carbon Dioxide 20.3 Anion Gap 13 BUN 46 H Creatinine 3.9 H Estim Creat Clear Calc 14.0 L eGFR 14 L* BUN/Creatinine Ratio 12 Glucose 143 H Calculated Osmolality 297 H Calcium 7.4 L Corrected Calcium 8.6 Total Bilirubin 0.7 AST < 10 ALT 9 L Alkaline Phosphatase 54 Total Protein 5.1 L Albumin 2.5 L Globulin 2.6 Albumin/Globulin Ratio 1.0 L Assessment & Plan A&P Narrative 80-year-old with a past medical history of essential hypertension, type 2 diabetes mellitus, subdural hematoma in March 12, history of acute kidney injuries with previous UTIs, BPH severe and other multiple medical problems initially was admitted to the hospital for hypotension, septic shock mostly secondary to UTI and developed atrial fibrillation with RVR. Cardiology was consulted for the atrial fibrillation with RVR. 1. Paroxysmal atrial fibrillation with RVR 2. Septic shock secondary to Klebsiella bacteremia 3. Klebsiella bacteremia secondary to the catheter associated urinary tract infection 4. Acute kidney injury with ATN now on hemodialysis 5. Altered mental status acute and metabolic encephalopathy 6. Mild hematuria 7. BPH severe 8. History of subdural hematoma which in 2020 9. Diabetes mellitus type 2 10. History of hypertension 11. Obesity Patient was admitted to the ICU and required pressors initially. Patient had successful electrical cardioversion performed by Dr. Rhodes in the ICU after which she converted to normal after the patient did have some. And patient was restarted on IV diltiazem drip. Patient was eventually transition to diltiazem 30 mg every 6 hours stabilizing. Patient was also started on amiodarone 200 mg twice daily. Patient restarted on Eliquis after his recent hematuria was improved. 07/07/2024: Telemetry reviewed and heart rate well-controlled on Cardizem CD 120 mg once daily which started this morning. Continue Eliquis 2.5 mg twice daily for anticoagulation given the end-stage renal disease and also age greater than 80. Continue amiodarone 200 mg twice daily for maintaining sinus rhythm for the patient and rate control. Check EKG for QTc prolongation tomorrow morning. Keep potassium greater than 4 and magnesium greater than 2.0 at all times to avoid any kind of RVR Reviewed the echocardiogram this admission patient's EF is around 55%. Okay to continue oral Cardizem CD 120 mg for now along with amiodarone. Patient continues to improve from his septic shock secondary to Klebsiella bacteremia and catheter associated urinary tract infection. Acute encephalopathy resolved but he still slightly confused from time to time. Mild hematuria also resolved. Admitted with acute kidney injury along with ATN in the setting of septic shock. Patient kidney function did not improve and the BUN is 49 creatinine is 3.8 and nephrology was consulted and now started on dialysis-2 sessions completed. Blood pressure slightly on the lower side since her dialysis and versus recent septic shock and initially medications were on hold Started on diltiazem CD1 20 mg once daily and further rate control and now also started on losartan 25 mg once daily as her blood pressure is high Management of rest of the medical conditions as per primary team and other consultants. Thank you for the consult and allowing me to participate in the care of the patient. Cardiology will continue to follow. Augustine Ellis M.D. Interventional Cardiology Time Spent With Patient Time: Total time spent is greater than 50% in coordination of care (as documented) at patient's floor/unit and/or counseling patient:
[2024-07-18] VITALS (11 sets, daily range): BP systolic 131–159; BP diastolic 65–79; PULSE 60–73; RESP 12–18; TEMP 36.3–36.6; O2SAT 95–98; BMI 23.8
[2024-07-18] MEDS: PIPERACILLIN/TAZO 2.25GM INJ 2.25 GM in SODIUM CHLORIDE 0.9% (P) 50 ML IV (05:11)
[2024-07-18 06:59] LABS: Basophils # (Auto) 0.1 Thou/mm3 (0.0-0.2); Basophils % (Auto) 1 % (0-2.5); Eosinophils # (Auto) 0.1 Thou/mm3 (0.0-0.5); Eosinophils % (Auto) 3 % (0-10); Hematocrit 27.1 % (41.0-53.0); Immature Granulocytes % (Auto) 1 % (0-0); Immature Granulocytes Auto 0.03 Thou/mm3 (0.00-0.00); Lymphocytes # (Auto) 0.5 Thou/mm3 (1.0-4.8); Lymphocytes % (Auto) 11 % (10-50); Mean Corpuscular HGB Conc 33.2 g/dl (31.0-37.0); Mean Corpuscular Hemoglobin 30.9 pg (25.0-35.0); Mean Corpuscular Volume 93 fL (80-100); Monocytes # (Auto) 0.4 Thou/mm3 (0.0-0.8); Monocytes % (Auto) 8 % (0-12); Neutrophils # (Auto) 3.9 Thou/mm3 (1.8-7.7); Neutrophils % (Auto) 78 % (37-80); Nucleated Red Blood Cell % 0 /100 WBC (0); Platelet Count 230 Thou/mm3 (140-440); RDW Standard Deviation 54.4 fL (35.1-43.9); Red Blood Count 2.91 Miln/mm3 (4.50-5.90)
[2024-07-18 07:29] LABS: Alanine Aminotransferase 8 U/L (10-49); Albumin, Serum 2.6 gm/dL (3.4-4.8); Alkaline Phosphatase 51 U/L (46-116); Anion Gap 14 (7-16); Aspartate Amino Transferase < 10 U/L (0-34); BUN/Creatinine Ratio 13 Ratio (12-20); Bilirubin,Total 0.7 mg/dL (0.3-1.2); Blood Urea Nitrogen 52 mg/dL (9-23); Calcium 7.7 mg/dL (8.3-10.6); Calcium (Corrected) 8.8 mg/dL (8.5-10.1); Carbon Dioxide 21.2 mMol/L (20.0-31.0); Chloride 111 mMol/L (98-107); Creatinine (Component) 3.9 mg/dL (0.6-1.3); Globulin 2.7 gm/dL (2.3-3.5); Glucose 143 mg/dL (74-106); Osmolality,Calculated 306 (275-295); Potassium 3.9 mMol/L (3.4-5.1); Sodium 146 mMol/L (136-145); Total Protein 5.3 gm/dL (5.7-8.2); eGFR 14 See Note
[2024-07-18] MEDS: AMIODARONE HCL 200 MG TABLET PO ×2 (08:07→21:30)
[2024-07-18] MEDS: droNABinol 2.5 MG CAPSULE PO (08:07)
[2024-07-18] MEDS: APIXABAN 2.5 MG TABLET PO ×2 (08:07→21:30)
[2024-07-18] MEDS: LOSARTAN POTASSIUM 25 MG TABLET PO (08:08)
[2024-07-18] MEDS: DILTIAZEM CD 120 MG CAPCR PO (08:08)
[2024-07-18] MEDS: FINASTERIDE 5 MG TABLET PO (08:09)
--- NOTE | 2024-07-18 11:56 | PC.SS ---
SS submitted inquiry for SNF to all local facilities. SS contacted patient's grandson, August and he informed SS he would research facilities and asked for SS to provide list of facilities. SS left list of facilities at bedside. PASSR level 2 pending.
--- NOTE | 2024-07-18 14:31 | ESPR_ITS ---
<Statement entered by Kyle Holder MD - 07/18/24 15:23> Patient was seen and examined at the bedside. Patient continues to have reduced appetite despite the fact on dronabinol and mirtazapine. We discontinued mirtazapine given high side effect profile in elderly population. We are pending on SNF placement. Will continue Zosyn for 1 more day to complete antibiotic course. Nephrology recommends to stop any further hemodialysis given good urine output. A-fib appears to be controlled with amiodarone and diltiazem. All labs and orders were reviewed. I saw and examined the patient, and I agree with current management stated by Dr Elsa MD,PGY1. Plan of care was discussed with the attending physician and resident physician. Disclaimer: Despite multiple revisions, due to the dictation software being used, the document bellow may not be free of grammatical errors including phonetic/typographic errors. However, this does not deter from our commitment to providing health care in the patient's best interest in mind. Dr. Chantell MD, PGY 2 Documentation for date of: 07/18/24 Subjective Subjective Interval history: No overnight is reported for patient. Patient examined at bedside. Patient alert and oriented x 2 and poor historian. Denied chest pain or abdominal pain- unsure why he is hospitalized. No A. fib noted over night on tele-monitor. Pending SNF. Exam Vital Signs Temp Pulse Resp BP Pulse Ox O2 Del Method O2 Flow Rate 97.8 F 65 15 153/73 H 97 Nasal Cannula 1 07/18/24 12:00 07/18/24 12:00 07/18/24 12:07/18/24 12:00 07/18/24 12:00 07/18/24 12:07/18/24 12:00 FiO2 0 07/17/24 20:28 Narrative Exam General Appearance: Alert & Oriented X2 (not orientated to time), well-nourished Male who is lying in bed in no acute distress. HEENT: Skull symmetrical and atraumatic. Conjunctivae pin and moist. Pupils equal, round, reactive to light and accommodation (PERRL). External ear without lesion or discharge. Straight, nares patient, mucosa pink, no discharge. No thyroid nodule appreciated. No cervical lymphadenopathy. Cardio: Normal Rate and Rhythm with S1 and S2 heart sounds. No murmurs or extra heart sounds auscultated. No bruits on carotid auscultation. No peripheral edema or cyanosis. Lungs: Symmetric with expansion. Chest and back non-tender. Breath sounds vesicular without crackles, wheezing or rhonchi Abdomen: Non-tender, Non-distended, Normal Reactive Bowel Sounds Neuro: Alert, cooperative, oriented to person Yes, place Yes, and time No. Speech clear. CN grossly intact. Upper motor strength 5/5 and Lower motor strength 5/5. Sensation intact. Objective Labs 07/18/24 06:18 07/18/24 06:18 Labs: Laboratory Results - last 24 hr 07/18/24 06:18 WBC 5.0 RBC 2.91 L Hgb 9.0 L Hct 27.1 L MCV 93 MCH 30.9 MCHC 33.2 RDW Std Deviation 54.4 H Plt Count 230 D Neut % (Auto) 78 Lymph % (Auto) 11 [place] % (Auto) 8 Eos % (Auto) 3 Baso % (Auto) 1 Neut # (Auto) 3.9 Lymph # (Auto) 0.5 L [place] # (Auto) 0.4 Eos # (Auto) 0.1 Baso # (Auto) 0.1 Immature Gran # (Auto) 0.03 H Absolute Nucleated RBC 0.00 Immature Gran % 1 H Nucleated RBC % 0 Sodium 146 H Potassium 3.9 Chloride 111 H Carbon Dioxide 21.2 Anion Gap 14 BUN 52 H Creatinine 3.9 H Estim Creat Clear Calc 14.0 L eGFR 14 L* BUN/Creatinine Ratio 13 Glucose 143 H Calculated Osmolality 306 H Calcium 7.7 L Corrected Calcium 8.8 Total Bilirubin 0.7 AST < 10 ALT 8 L Alkaline Phosphatase 51 Total Protein 5.3 L Albumin 2.6 L Globulin 2.7 Albumin/Globulin Ratio 1.0 L Quality Measures Quality Measures VTE prophylaxis (SCDs) Advance care planning discussed with:: patient and child Assessment & Plan Assessment Current Active Medications: Generic Name Dose Route Start Last Admin Trade Name Freq PRN Reason Stop Dose Admin Acetaminophen 650 mg 07/05/24 17:12 07/16/24 03:11 Acetaminophen 325 Mg Tablet PO 08/04/24 17:11 650 mg Q6H PRN Administration pain 1-3 and Fever >100.4 Amiodarone HCl 200 mg 07/10/24 21:00 07/18/24 08:07 Amiodarone Hcl 200 Mg Tablet PO 08/09/24 20:59 200 mg BID ANNETTA Administration Apixaban 2.5 mg 07/16/24 21:00 07/18/24 08:07 Apixaban 2.5 Mg Tablet PO 08/15/24 20:59 2.5 mg BID ANNETTA Administration Dextrose 25 ml 07/05/24 17:12 07/11/24 23:48 Dextrose 50%-Water Inj 50 Ml Syringe IV 08/04/24 17:11 25 ml Q15MIN PRN Administration BG 50-70 responsive npo pt Dextrose 50 ml 07/05/24 17:12 Dextrose 50%-Water Inj 50 Ml Syringe IV 08/04/24 17:11 Q15MIN PRN BG <50 OR BG <70 & pt unresponsive Diltiazem HCl 120 mg 07/17/24 09:45 07/18/24 08:08 Diltiazem Cd 120 Mg Capcr PO 08/16/24 09:44 120 mg QDAY ANNETTA Administration Dronabinol 2.5 mg 07/12/24 18:08 07/18/24 08:07 Dronabinol 2.5 Mg Capsule PO 08/09/24 20:59 2.5 mg BIDAC ANNETTA Administration Finasteride 5 mg 07/08/24 10:45 07/18/24 08:09 Finasteride 5 Mg Tablet PO 08/07/24 10:44 5 mg QDAY ANNETTA Administration Glucagon 1 mg 07/05/24 17:12 Glucagon Inj 1 Mg Vial IM Q15MIN PRN BG <70, and no IV access Heparin Sodium (Porcine) 3,100 unit 07/14/24 12:13 07/14/24 15:16 Heparin Sod Inj 1000 Unit/Ml Vial 10 Ml INDWELLCAT 07/28/24 12:12 3,100 unit PRN PRN Administration DIALYSIS Albumin Human 25 gm in 100 mls @ 100 mls/min 07/13/24 12:40 Albuminar-25 Ivpb IV PRN PRN DIALYSIS Piperacillin/Tazobactam/Dextrose 2.25 gm in 50 mls @ 100 mls/hr 07/18/24 14:00 Zosyn IV 07/19/24 18:14 Q8HR ANNETTA Losartan Potassium 25 mg 07/17/24 09:45 07/18/24 08:08 Losartan Potassium 25 Mg Tablet PO 08/16/24 09:44 25 mg QDAY ANNETTA Administration Metoprolol Tartrate 2.5 mg 07/07/24 03:11 07/07/24 03:17 Metoprolol Tartrate Inj 1 Mg/Ml Amp 5 Ml IVP 2.5 mg Q5M PRN Administration AFIB RVR HR >140 Midodrine 5 mg 07/11/24 14:00 07/13/24 05:55 Midodrine 5 Mg Tablet PO 08/10/24 13:59 5 mg TID ANNETTA Administration Mirtazapine 30 mg 07/10/24 21:00 07/17/24 20:27 Mirtazapine 15 Mg Tablet PO 08/09/24 20:59 30 mg HS ANNETTA Administration Ondansetron HCl 4 mg 07/09/24 09:41 07/09/24 09:44 Ondansetron Inj 2 Mg/Ml Inj 2 Ml IV 08/08/24 09:40 4 mg Q6HR PRN Administration NAUSEA OR VOMITING Protocol Prochlorperazine Maleate 10 mg 07/05/24 17:12 07/06/24 20:17 Prochlorperazine Maleate 5 Mg Tablet PO 08/04/24 17:11 10 mg Q6H PRN Administration NAUSEA OR VOMITING Protocol Sennosides 1 tab 07/05/24 17:12 Senna Tablet PO 08/04/24 17:11 QDAY PRN constipation Protocol Plan 84-year-old male with past medical history of hypertension, BPH, DM2, subdural hematoma (2020), dementia, and chronic indwelling catheter was admitted to hospital on 07/05/2024 for sepsis likely secondary to catheter associated UTI versus community-acquired pneumonia, RAND, and NSTEMI. #Sepsis secondary to Klebsiella bacteremia, sepsis resovled. #Klebsiella bacteremia #Septic shock, resolved #Catheter associated urinary tract infection #Community-acquired pneumonia #Acute Encephalopathy, resolveed #Chronic indwelling catheter #Recurrent UTIs #Hx of BPH #Prostatomegaly #Lactic acidosis, resolved. #Hematuria, resolved. Etiolgoy: Sepsis, secondary to Klebsiella bacteremia likely secondary to pneumonia. ?Patient has a history of chronic indwelling catheter with monthly changes Rollins catheter as well as recurrent UTIs in the past. ?Patient initially on admission was minimally responsive to questioning and most likely has encephalopathy secondary to the UTI as per patient's grandson at baseline he was a lot more responsive. ?Patient initially met SIRS 2 out of 4 criteria with tachycardia and tachypnea ?Patient developed septic shock shortly after admission and was upgraded to the ICU, was downgraded on 07/13/2024 Diagnostics: ?Blood cultures grew Klebsiella and urine culture grew klebsiella ESBL -07/18/2024 WBC 5.0 Plan: ?Will continue Zosyn [07/05/2024 -], renally dosed due to impaired renal function ?Continue finasteride 5 mg daily ?Will continue to monitor #A-fib with RVR s/p cardioversion on 07/10/2024 ?In the ICU patient developed A-fib and was initially placed on amiodarone drip, but A-fib did not resolve therefore cardiology was consulted ?Cardioversion was done on 07/10/2024 ?[id number] 5, but cardiology stated that his A-fib was in an acute setting of sepsis and therefore does not need Eliquis at this time Plan: -Continue Amiodarone 200mg BID -Diltiazem 120 mg qday -Continue Eliquis 2.5 mg BID ?Will continue to monitor if patient redevelops A-fib ?Cardiology consulted, appreciate recommendations # Acute renal failure ? Patient developed ATN likely in the setting of shock ?Patient's baseline BUN 23 and creatinine 0.9 on 06/2023. Diagnostics: -07/18/2024: BUN 52, Cr 3.9 GFR 14 -Last HD was 3 days ago Plan: -No HD today as per nephrology ?Renally dose medications ?Avoid nephrotoxic agents ?Nephrology consulted, pursue recommendations ?Will continue to monitor #Electrolyte imbalance, improved. #Mild Hypernatremia #Hypokalemia, Resolved. Etiology: Likely secondary to poor oral intake. DDx: given acute renal failure, electrolyte imbalance secondary to injury vs septic shock from lactic acidosis but less likely given sepsis resolved. Diagnostics: (07/18/2024) Na 146, K 3.9, Chloride 111, Ca (corrected) 8.8 Plan: ? Will place monitoring -Will continue to monitor #Normocytic normochromic anemia Etiology: Patient's baseline decreased from July 05, 2024 from 14-->to Hemoglobin of 9. Normocytic anemia secondary to iron deficiency can not be ruled out such as acute blood loss secondary to hematuria. DDx: Anemia of chronic disease can not be rule out given patient's hospitalization for sepsis vs upper GI loss but less likley given no history. Diagnostics: 07/18/2024: Hemoglobin 9, hematocrit 27.1 MCV 93, RDW 54.4 Plan: -Iron Panel AM labs ?Will transfuse hemoglobin less than 7 ?Will continue to monitor #Failure to thrive Patient has had decreased oral intake and stated decreased appetite. Dysphasia diet started. Added high protein shakes with meals. Diagnostics: -Total protein 2.6 Plan: - Ensure High Protein shake with meals -Monitor daily food -Have sitter encourage patient to eat. #Hx of DM2 #Hypoglycemia Etiology: Patient has a history of diabetes and last A1c in 06/2023 was 5.9. Fasting blood glucose 143. Diagnostics: ? A1c 5.8 on 06/2024 -07/18/2024 Blood Glucose 143 Plan: -Hypogylycemic protocol ordered ?Will continue to monitor #Hx of hypertension ? Started losartan 25mg qday #NSTEMI type II demand ischemia ?Most likely type II in the setting of sepsis likely demand ischemia versus less likely type I as patient does not have any chest pain at this time. ?Initial troponins were 0.119 and down trended ?EKG did not show any ST changes Plan: ?Will continue to monitor #Cholelithiasis #Bilirubinemia, improved ?Patient has been complaining of upper abdominal pain. ?Abdomen/pelvis CT showed cholelithiasis ?Gallbladder ultrasound showed gallbladder sludge but no cholelithiasis and cannot accurately assess gallbladder. Common bile duct was not distended. -Diagnostics: 07/18/2024 total bili 0.7, AST <10, ALT 8 L , Alkaline phosphatase 51 Plan: ?Will continue to monitor Health Maintenance: Disp: Pt is currently admitted to floors for further management of CAP and Klebsiella bacteremia , awaiting SNF placement FEN: Diet Dysphasia, I Pureed. DVT: compression devices Code: DNR/ DNI - The patient's plan was discussed with attending Dr. Marika MD and senior Dr. Chantell MD. Alycia Hunter MD PGY1 Internal Medicine Attending Provider Attestation/Addendum I have examined the patient, reviewed labs and imaging findings, discussed the case with the resident(s), and reviewed entered orders. I agree with the plan of care as outlined in this note, with these additional summaries/recommendations: #Sepsis: Resolved #Complicated urinary tract infection #Bacteremia 07/05 Ur cx: Klebsiella pneumonia 07/05 blood cultures: Klebsiella pneumonia 07/05 MRSA Screen: Negative Plan: Leukocytosis now resolved. Continue IV Zosyn and will complete two week treatment course for bacteremia tomorrow # New onset atrial fibrillation with rapid ventricular response Most likely secondary to severe underlying sepsis [id number] score 5 points Has bled score: 4 points indicating 8.9% risk of major bleeding per year Cardiology consulted and following, status post cardioversion on 07/10/2024 Keep potassium greater than 4 and mag greater than 2 Continue rate and rhythm control with amiodarone 200 mg p.o. twice daily and diltiazem 120mg PO QD. Continue Eliquis 2.5mg PO BID for elevated [id number] score. Overall significant improvement in heart rate and continue to monitor on telemetry # Acute renal failure Most likely secondary to acute tubular necrosis in the sepsis/septic shock Status post temporary dialysis catheter 07/14 Nephrology following, recommendations appreciated Renally dose medications and avoid nephrotoxic agents Plan: No hemodialysis 07/15, 07/16, and 07/17 or 07/18. If urine output continues to remain appropriate then anticipate removal of temporary HD catheter tomorrow and discharge to SNF # Urinary retention # BPH Plan: Continue Rollins catheter. Continue finasteride and Flomax. Patient will need close outpatient follow-up with urology. #Failure to thrive #generalized weakness Patient has had minimal oral intake throughout hospitalization which is a poor prognostic sign. Dietary following. Continue appetite stimulants dronabinol and mirtazapine. Physical therapy recommends SNF on discharge and family in agreement Dr. Hairston
[2024-07-18] MEDS: PIPER/TAZO 2.25 GM 2.25 GM/50 ML BAG IV ×2 (14:50→22:28)
--- NOTE | 2024-07-18 18:36 | PC.NURSE ---
report given to Ev shine transferred to room 375
--- NOTE | 2024-07-18 20:02 | PD.NEPHPROG ---
Documentation for date of: 07/18/24 Subjective Subjective Interval history: Mr. Salguero is an 84-year-old gentleman with hypertension, BPH, type 2 diabetes, subdural hematoma in 2020, dementia, chronic indwelling catheter who was admitted to the hospital on 06/25/2024 with nausea, vomiting, abdominal pain, and bloody urine. The patient also has lacticacidosis with elevated procalcitonin level and was found with UTI. Blood cultures later on grew Klebsiella pneumoniae. While in the ER, the patient was hypotensive and was given IV fluids. The patient was then transferred to ICU for hemodynamic instability. He is now at telemetry. When he was admitted, creatinine was noted to be elevated at 2.3, which continued to rise and peak at 5.8. He was started on dialysis to address his worsening kidney function. His last dialysis was 07/14/2024 and 2 L of fluid was removed. However, he continues to have good urine output and improving kidney function even without dialysis treatments. 07/18/2024 currently seen in telemetry, patient very sleepy. Arousable. Labs, medications have been reviewed. Blood pressure 134/74, heart rate 67. Hemoglobin 9, WBC 5, platelets 230. Creatinine 3.9 Review of Systems Review of Systems ROS Unobtainable: unobtainable due to mental status Narrative Review of Systems: Patient very sleepy Exam Vital Signs Temp Pulse Resp BP Pulse Ox O2 Del Method O2 Flow Rate 36.3 C 67 12 134/74 H 96 Nasal Cannula 1 07/18/24 16:00 07/18/24 16:00 07/18/24 16:00 07/18/24 16:00 07/18/24 16:00 07/18/24 16:00 07/18/24 16:00 FiO2 0 07/17/24 20:28 Narrative Exam PE: Gen: Well-developed and well-nourished. Fragile gentleman sick looking HEENT: NCAT, PERRLA, EOMI, anicteric conjunctivae. CVS: normal S1 and S2. RRR. No M/R/G. Edema improved Resp: CTA B/L. No rhonchi, rales, crackles or wheezing. Abd: soft, non-tender, non-distended. MSK: Good ROM in BUE & BLE. Neuro: Patient barely arousable. Do not follow commands. Objective Labs 07/19/24 05:03 07/19/24 05:03 Labs: Laboratory Results - last 24 hr 07/18/24 06:18 WBC 5.0 RBC 2.91 L Hgb 9.0 L Hct 27.1 L MCV 93 MCH 30.9 MCHC 33.2 RDW Std Deviation 54.4 H Plt Count 230 D Neut % (Auto) 78 Lymph % (Auto) 11 [place] % (Auto) 8 Eos % (Auto) 3 Baso % (Auto) 1 Neut # (Auto) 3.9 Lymph # (Auto) 0.5 L [place] # (Auto) 0.4 Eos # (Auto) 0.1 Baso # (Auto) 0.1 Immature Gran # (Auto) 0.03 H Absolute Nucleated RBC 0.00 Immature Gran % 1 H Nucleated RBC % 0 Sodium 146 H Potassium 3.9 Chloride 111 H Carbon Dioxide 21.2 Anion Gap 14 BUN 52 H Creatinine 3.9 H Estim Creat Clear Calc 14.0 L eGFR 14 L* BUN/Creatinine Ratio 13 Glucose 143 H Calculated Osmolality 306 H Calcium 7.7 L Corrected Calcium 8.8 Total Bilirubin 0.7 AST < 10 ALT 8 L Alkaline Phosphatase 51 Total Protein 5.3 L Albumin 2.6 L Globulin 2.7 Albumin/Globulin Ratio 1.0 L Assessment & Plan Additional Assessment & Plan Additional Plan: 1. Non-oliguric acute kidney injury, most likely secondary to acute tubular necrosis following hypotension, hypoperfusion, hemodynamic instability, seems recovering. 2. Septic shock from Klebsiella pneumoniae, most likely secondary to urinary tract infection from chronic indwelling catheter. 3. Failure to thrive. 4. Type 2 diabetes. 5. Benign prostatic hypertrophy. 6. History of dementia. PLAN: The patient had dialysis 07/14/2024. Urine output started to improve. If creatinine continues to improve will DC dialysis and dialysis catheter. Overall prognosis remains poor
[2024-07-19] VITALS (11 sets, daily range): BP systolic 134–166; BP diastolic 70–94; PULSE 61–72; RESP 14–20; TEMP 36.3–36.9; O2SAT 94–97; BMI 23.0
--- NOTE | 2024-07-19 01:05 | ESPR_ITS ---
RE: LUCERO LALA : 1940 DATE OF SERVICE: 07/18/2024 SUBJECTIVE: The patient is an 84-year-old male admitted with urinary tract infection, urosepsis, chronic renal failure, paroxysmal atrial fibrillation, now sinus rhythm, PAC, somewhat drowsy and lethargic, but does not complain of any chest pain or shortness of breath. The patient remains in sinus rhythm. Hemoglobin remains stable at 9 g. Chemistry panel continues to show elevated BUN and creatinine. The patient _has renal insufficiency, CKD, acute on chronic kidney disease requiring dialysis. OBJECTIVE: Vital Signs: Show blood pressure is 150/76, pulse rate is 60 and regular in sinus rhythm, respirations 18, and temperature normal. Neck: Supple. No JVD. Chest: Symmetrical. Lungs: Decreased breath sounds. No rales or rhonchi. Heart: S1 and S2 regular. Sinus rhythm. Abdomen: Thin and soft. Extremities: Mild edema. Genitourinary and Rectal: Not performed. Neurologic: Somewhat lethargic and drowsy, but arousable. IMPRESSION: 1. Paroxysmal atrial fibrillation, remains in sinus rhythm. 2. Atrial fibrillation, back in sinus rhythm. RECOMMENDATIONS: Maintained on amiodarone and diltiazem combination. Continue antiarrhythmic drug therapy. Follow up Continue diltiazem _120 daily. DT: 22:10:22 TT: 00:13:00 Ref: [id number] - TID: [id number] MTDD
[2024-07-19 06:03] LABS: Basophils # (Auto) 0.1 Thou/mm3 (0.0-0.2); Basophils % (Auto) 1 % (0-2.5); Eosinophils # (Auto) 0.1 Thou/mm3 (0.0-0.5); Eosinophils % (Auto) 3 % (0-10); Hematocrit 28.4 % (41.0-53.0); Hemoglobin 9.2 g/dL (13.5-16.0); Immature Granulocytes % (Auto) 1 % (0-0); Immature Granulocytes Auto 0.05 Thou/mm3 (0.00-0.00); Lymphocytes # (Auto) 0.7 Thou/mm3 (1.0-4.8); Lymphocytes % (Auto) 14 % (10-50); Mean Corpuscular HGB Conc 32.4 g/dl (31.0-37.0); Mean Corpuscular Hemoglobin 30.9 pg (25.0-35.0); Mean Corpuscular Volume 95 fL (80-100); Monocytes # (Auto) 0.3 Thou/mm3 (0.0-0.8); Monocytes % (Auto) 6 % (0-12); Neutrophils # (Auto) 3.5 Thou/mm3 (1.8-7.7); Neutrophils % (Auto) 75 % (37-80); Nucleated Red Blood Cell % 0 /100 WBC (0); Platelet Count 273 Thou/mm3 (140-440); RDW Standard Deviation 55.1 fL (35.1-43.9); Red Blood Count 2.98 Miln/mm3 (4.50-5.90); White Blood Count 4.7 Thou/mm3 (3.8-10.6)
[2024-07-19 06:17] LABS: Alanine Aminotransferase < 7 U/L (10-49); Albumin, Serum 2.6 gm/dL (3.4-4.8); Albumin/Globulin Ratio 0.8 (1.2-2.2); Alkaline Phosphatase 53 U/L (46-116); Anion Gap 12 (7-16); Aspartate Amino Transferase < 10 U/L (0-34); BUN/Creatinine Ratio 14 Ratio (12-20); Bilirubin,Total 0.7 mg/dL (0.3-1.2); Blood Urea Nitrogen 52 mg/dL (9-23); Calcium 8.4 mg/dL (8.3-10.6); Calcium (Corrected) 9.5 mg/dL (8.5-10.1); Carbon Dioxide 23.5 mMol/L (20.0-31.0); Chloride 116 mMol/L (98-107); Creatinine (Component) 3.8 mg/dL (0.6-1.3); Estimated Creatinine Clearance 14.4 mL/min (>60); Globulin 3.2 gm/dL (2.3-3.5); Glucose 136 mg/dL (74-106); Magnesium 2.3 mg/dL (1.6-2.6); Osmolality,Calculated 315 (275-295); Phosphorous 4.3 mg/dL (2.4-5.1); Potassium 4.1 mMol/L (3.4-5.1); Sodium 151 mMol/L (136-145); Total Protein 5.8 gm/dL (5.7-8.2); eGFR 15 See Note
[2024-07-19 07:07] LABS: Total Iron Binding Capacity 165 mcg/dL (250-425)
[2024-07-19 07:17] LABS: Iron 62 mcg/dL (65-175); Percent Iron Saturation 37 % (20-55); Unsaturated Iron Binding 103 (225-295)
[2024-07-19] MEDS: droNABinol 2.5 MG CAPSULE PO ×2 (07:42→17:26)
--- NOTE | 2024-07-19 07:48 | ESPR_ITS ---
RE: LUCERO LALA : 1940 DATE OF SERVICE: SUBJECTIVE: This patient is an 84-year-old gentleman with hypertension, BPH, type 2 diabetes, subdural hematoma in 2020, dementia, and chronic indwelling catheter, who was admitted to the hospital on 06/25/2024 with nausea, vomiting, abdominal pain, and bloody urine. The patient also has lactic acidosis with elevated procalcitonin level and was found with UTI. Blood cultures later on grew Klebsiella pneumoniae. While in the ER, the patient was hypotensive and was given IV fluids. The patient was then transferred to ICU for hemodynamic instability. He is now at telemetry, but seems very lethargic since he was transferred to telemetry. When he was admitted, creatinine was noted to be elevated at 2.3, which continued to rise and peaked at 5.8. He was started on dialysis to address his worsening kidney function; however, patient continues to produce a lot of urine and creatinine has trended down. CURRENT MEDICATIONS: * Acetaminophen. * Albumin. * Amiodarone 200 mg b.i.d. * Apixaban 2.5 mg b.i.d. * Marinol 2.5 mg p.o. b.i.d. * Diltiazem 30 mg at bedtime. * Proscar 5 mg daily. * Metoprolol tartrate 2.5 mg IV b.i.d. * Midodrine 5 mg b.i.d. p.o. * Mirtazapine 30 mg p.o. at bedtime. * Ondansetron 4 mg IV q.6. * Zosyn 2.25 g IV q.8. * Senokot 1 tab p.o. daily. PHYSICAL EXAMINATION: General: He is lethargic. Vital Signs: Blood pressure of 127/60. HEENT: Anicteric sclerae. Normocephalic. Neck: Supple. No JVD. Chest and Lungs: Symmetrical expansion. Clear breath sounds. Cardiac: Without murmur. Abdomen: Soft and nontender. Extremities: No edema. LABORATORY DATA: Hemoglobin 8, WBC 5,500, and platelets 181,000. Sodium 139, potassium 3.3, chloride 107, CO2 of 21.3, BUN 49, creatinine 3.8, glucose 117, calcium 8.3, and albumin 2.5. ASSESSMENT: * Nonoliguric acute kidney injury, most likely secondary to acute tubular necrosis following hypotension, hypoperfusion, and hemodynamic instability, seems recovering; however, creatinine continues to inch upwards a little bit. * Septic shock from Klebsiella pneumoniae, most likely secondary to urinary tract infection from chronic indwelling catheter. * Failure to thrive. * Type 2 diabetes. * Benign prostatic hypertrophy. * History of dementia. PLAN: Last dialysis was on 07/14/2024. There is no acute need to dialyze today. If kidney function starts to improve or at least does not deteriorate, then most likely patient is heading to renal function recovery. Continue to monitor creatinine on a daily basis. DT: 13:30:10 TT: 15:30:00 Ref: [id number] - TID: [id number]
--- NOTE | 2024-07-19 08:12 | PC.NURSE ---
Contacted pharmacy regarding patient's zosyns unavailability to both the [facility] and other units. Charge nurse from both night and day shift are made aware. Per pharmacy Emiliano, pharmacy will bring the ordered zosyn to the unit.
[2024-07-19] MEDS: APIXABAN 2.5 MG TABLET PO (08:33)
[2024-07-19] MEDS: LOSARTAN POTASSIUM 25 MG TABLET PO (08:34)
[2024-07-19] MEDS: DILTIAZEM CD 120 MG CAPCR PO (08:34)
[2024-07-19] MEDS: AMIODARONE HCL 200 MG TABLET PO (08:34)
[2024-07-19] MEDS: FINASTERIDE 5 MG TABLET PO (08:35)
--- NOTE | 2024-07-19 08:38 | PC.SS ---
Addendum entered by VENITA Lovell 07/19/24 10:42: Received call from Ceci at [facility] inform they can accept the patient. Notified the patient's grandsonAugust. Booked [facility] on [facility]. Pending D/c date. Addendum entered by VENITA Lovell 07/19/24 09:37: Spoke with patient's grandsonAugust. He elected [facility] as preferred SNF. Contacted Ceci at [facility] to notify her. Ceci informs referral is pending review from their DON if able to accept the patient. Addendum entered by VENITA Lovell 07/19/24 09:04: VENITA sent out SNF inquiry via [employer]. Pending response. Original Note: [employer] attempted contact with patient's grandsonAugust to discuss SNF options. He was unavailable and voicemail was left to return call back.
--- NOTE | 2024-07-19 08:52 | PC.NURSE ---
Contacted pharmacy regarding patient's zosyn. Was notified by pharmacy that the pharmacy techs are doing rounds and should be right up after their rounds. Primary nurse notified.
[2024-07-19] MEDS: SODIUM CHLORIDE 0.45 % 1,000 ML 80 ML IV (09:46)
[2024-07-19] MEDS: PIPER/TAZO 2.25 GM 2.25 GM/50 ML BAG IV ×2 (09:47→13:48)
--- NOTE | 2024-07-19 11:01 | PCS.ST ---
Swallow Re-Evaluation. See report for details. Continues to refuse most PO. Recommend to continue Dysphagia 1 and change to mildly thick liquids, no straws.
--- NOTE | 2024-07-19 12:20 | PD.RESPRO ---
Documentation for date of: 07/19/24 Subjective Subjective Interval history: Interval history: Mr. Salguero is an 84-year-old gentleman with hypertension, BPH, type 2 diabetes, subdural hematoma in 2020, dementia, chronic indwelling catheter who was admitted to the hospital on 06/25/2024 with nausea, vomiting, abdominal pain, and bloody urine. The patient also has lacticacidosis with elevated procalcitonin level and was found with UTI. Blood cultures later on grew Klebsiella pneumoniae. While in the ER, the patient was hypotensive and was given IV fluids. The patient was then transferred to ICU for hemodynamic instability. He is now at telemetry. When he was admitted, creatinine was noted to be elevated at 2.3, which continued to rise and peak at 5.8. He was started on dialysis to address his worsening kidney function. His last dialysis was 07/14/2024 and 2 L of fluid was removed. However, he continues to have good urine output and improving kidney function even without dialysis treatments. 07/18/2024 currently seen in telemetry, patient very sleepy. Arousable. Labs, medications have been reviewed. Blood pressure 134/74, heart rate 67. Hemoglobin 9, WBC 5, platelets 230. Creatinine 3.9 07/19/2024 patient seen and med/tele, sleeping comfortably, arousable, labs reviewed BUN 52, creatinine 3.8, GFR 15, sodium 151. Patient has poor p.o. intake, will be started on 08/19 NS 80 cc/h, patient is -3.5 L for the duration of the hospital stay. Exam Vital Signs Temp Pulse Resp BP Pulse Ox O2 Del Method O2 Flow Rate 97.5 F 71 16 166/74 H 97 Room Air 1 07/19/24 07:23 07/19/24 08:34 07/19/24 07:23 07/19/24 08:34 07/19/24 07:23 07/19/24 07:23 07/19/24 04:00 FiO2 0 07/19/24 04:00 Narrative Exam PE: Gen: Well-developed and well-nourished. Fragile gentleman sick looking HEENT: NCAT, PERRLA, EOMI, anicteric conjunctivae. CVS: normal S1 and S2. RRR. No M/R/G. Edema improved Resp: CTA B/L. No rhonchi, rales, crackles or wheezing. Abd: soft, non-tender, non-distended. MSK: Good ROM in BUE & BLE. Neuro: Patient barely arousable. Do not follow commands. Objective Labs 07/19/24 05:03 07/19/24 16:36 Labs: Laboratory Results - last 24 hr 07/19/24 05:03 WBC 4.7 RBC 2.98 L Hgb 9.2 L Hct 28.4 L MCV 95 MCH 30.9 MCHC 32.4 RDW Std Deviation 55.1 H Plt Count 273 D Neut % (Auto) 75 Lymph % (Auto) 14 [facility] % (Auto) 6 Eos % (Auto) 3 Baso % (Auto) 1 Neut # (Auto) 3.5 Lymph # (Auto) 0.7 L [facility] # (Auto) 0.3 Eos # (Auto) 0.1 Baso # (Auto) 0.1 Immature Gran # (Auto) 0.05 H Absolute Nucleated RBC 0.00 Immature Gran % 1 H Nucleated RBC % 0 Sodium 151 H Potassium 4.1 Chloride 116 H Carbon Dioxide 23.5 Anion Gap 12 BUN 52 H Creatinine 3.8 H Estim Creat Clear Calc 14.4 L eGFR 15 L BUN/Creatinine Ratio 14 Glucose 136 H Calculated Osmolality 315 H Calcium 8.4 Corrected Calcium 9.5 Phosphorus 4.3 Magnesium 2.3 Iron 62 L TIBC 165 L Iron Saturation 37 Unsat Iron Binding 103 L Total Bilirubin 0.7 AST < 10 ALT < 7 L Alkaline Phosphatase 53 Total Protein 5.8 Albumin 2.6 L Globulin 3.2 Albumin/Globulin Ratio 0.8 L Quality Measures Quality Measures VTE prophylaxis (SCDs) Advance care planning discussed with:: patient Assessment & Plan Assessment Current Active Medications: Generic Name Dose Route Start Last Admin Trade Name Freq PRN Reason Stop Dose Admin Acetaminophen 650 mg 07/05/24 17:12 07/16/24 03:11 Acetaminophen 325 Mg Tablet PO 08/04/24 17:11 650 mg Q6H PRN Administration pain 1-3 and Fever >100.4 Amiodarone HCl 200 mg 07/10/24 21:00 07/19/24 08:34 Amiodarone Hcl 200 Mg Tablet PO 08/09/24 20:59 200 mg BID ANNETTA Administration Apixaban 2.5 mg 07/16/24 21:00 07/19/24 08:33 Apixaban 2.5 Mg Tablet PO 08/15/24 20:59 2.5 mg BID ANNETTA Administration Dextrose 25 ml 07/05/24 17:12 07/11/24 23:48 Dextrose 50%-Water Inj 50 Ml Syringe IV 08/04/24 17:11 25 ml Q15MIN PRN Administration BG 50-70 responsive npo pt Dextrose 50 ml 07/05/24 17:12 Dextrose 50%-Water Inj 50 Ml Syringe IV 08/04/24 17:11 Q15MIN PRN BG <50 OR BG <70 & pt unresponsive Diltiazem HCl 120 mg 07/17/24 09:45 07/19/24 08:34 Diltiazem Cd 120 Mg Capcr PO 08/16/24 09:44 120 mg QDAY ANNETTA Administration Dronabinol 2.5 mg 07/12/24 18:08 07/19/24 07:42 Dronabinol 2.5 Mg Capsule PO 08/09/24 20:59 2.5 mg BIDAC ANNETTA Administration Finasteride 5 mg 07/08/24 10:45 07/19/24 08:35 Finasteride 5 Mg Tablet PO 08/07/24 10:44 5 mg QDAY ANNETTA Administration Glucagon 1 mg 07/05/24 17:12 Glucagon Inj 1 Mg Vial IM Q15MIN PRN BG <70, and no IV access Heparin Sodium (Porcine) 3,100 unit 07/14/24 12:13 07/14/24 15:16 Heparin Sod Inj 1000 Unit/Ml Vial 10 Ml INDWELLCAT 07/28/24 12:12 3,100 unit PRN PRN Administration DIALYSIS Albumin Human 25 gm in 100 mls @ 100 mls/min 07/13/24 12:40 Albuminar-25 Ivpb IV PRN PRN DIALYSIS Piperacillin/Tazobactam/Dextrose 2.25 gm in 50 mls @ 100 mls/hr 07/18/24 14:00 07/19/24 09:47 Zosyn IV 07/19/24 18:14 100 mls/hr Q8HR ANNETTA Administration Sodium Chloride 1,000 mls @ 80 mls/hr 07/19/24 08:18 07/19/24 09:46 Ns 0.45% IV 07/19/24 20:47 80 mls/hr .[id number] Administration Losartan Potassium 25 mg 07/17/24 09:45 07/19/24 08:34 Losartan Potassium 25 Mg Tablet PO 08/16/24 09:44 25 mg QDAY ANNETTA Administration Metoprolol Tartrate 2.5 mg 07/07/24 03:11 07/07/24 03:17 Metoprolol Tartrate Inj 1 Mg/Ml Amp 5 Ml IVP 2.5 mg Q5M PRN Administration AFIB RVR HR >140 Midodrine 5 mg 07/11/24 14:00 07/13/24 05:55 Midodrine 5 Mg Tablet PO 08/10/24 13:59 5 mg TID ANNETTA Administration Ondansetron HCl 4 mg 07/09/24 09:41 07/09/24 09:44 Ondansetron Inj 2 Mg/Ml Inj 2 Ml IV 08/08/24 09:40 4 mg Q6HR PRN Administration NAUSEA OR VOMITING Protocol Prochlorperazine Maleate 10 mg 07/05/24 17:12 07/06/24 20:17 Prochlorperazine Maleate 5 Mg Tablet PO 08/04/24 17:11 10 mg Q6H PRN Administration NAUSEA OR VOMITING Protocol Sennosides 1 tab 07/05/24 17:12 Senna Tablet PO 08/04/24 17:11 QDAY PRN constipation Protocol Plan Summary: Mr. Salguero is a 84-year-old male with past medical history of hypertension, BPH, type 2 diabetes, subdural hematoma in 2020, dementia, chronic indwelling catheter who was admitted to the hospital on 06/25/2024 with nausea, vomiting, abdominal pain, and bloody urine. The patient also has lacticacidosis with elevated procalcitonin level and was found with UTI. Blood cultures later on grew Klebsiella pneumoniae. While in the ER, the patient was hypotensive and was given IV fluids. The patient was then transferred to ICU for hemodynamic instability. His last dialysis was 07/14/2024 and 2 L of fluid was removed. However, he continues to have good urine output and improving kidney function even without dialysis treatments. #Non-oliguric acute kidney injury, most likely secondary to acute tubular necrosis following hypotension, hypoperfusion, hemodynamic instability, seems recovering. #Septic shock from Klebsiella pneumoniae, most likely secondary to urinary tract infection from chronic indwelling catheter. # Hyponatremia, possibly secondary to dehydration #Failure to thrive, poor p.o. intake The patient had dialysis 07/14/2024. Urine output started to improve. If creatinine continues to improve will DC dialysis and dialysis catheter. Patient looks dehydrated, has elevated sodium of 151, will be started on half NS at 80 cc/h. Will monitor sodium in a.m., encourage p.o. water intake Overall prognosis remains poor #Type 2 diabetes. #Benign prostatic hypertrophy. #History of dementia. Management as per primary team Case discussed with Attending physician Dr. Marshall. Charlotte Riggins PGY1 Attending Provider Attestation/Addendum Patient seen and examined with resident physician Dr. Riggins. Note reviewed, agree with findings and recommendations. Despite aggressive medical management patient still remains somnolent with failure to thrive. Noted DNR per family. Will give IV fluids as patient has not been eating or drinking. Hold off on dialysis. Comfort care/hospice seems to be appropriate for this patient. Will discuss with primary team
[2024-07-19 13:09] LABS: B-Type Natriuretic Peptide 223 pg/mL (0-100)
--- NOTE | 2024-07-19 14:38 | PC.SS ---
Rounding note: pending speech language evaluation.
--- NOTE | 2024-07-19 15:23 | PC.SS ---
Scheduled Goals of care meeting for 07/20/24 at 9:30am. Informed patient's grandson Kevin. Michaud from [facility] to be present.
--- NOTE | 2024-07-19 15:34 | ESPR_ITS ---
<Statement entered by Kyle Holder MD - 07/19/24 18:04> Patient was seen and examined at the bedside. Patient experienced a choking episode during drinking juice. Therefore speech-language evaluation was performed and per recommendations patient does have oropharyngeal dysphagia. Goals of care discussion was performed by resident physician and options for patient's current condition was given to patient's grandson who is decision- maker in terms of hospice care versus PEG tube placement. Patient's grandson was open towards further discussion regarding hospice management and we will have meeting with patient's grandson in the presence of [facility] hospice, manager social services and attending physician to discuss further options for patient's care at 9:30 AM. All labs and orders were reviewed. I saw and examined the patient, and I agree with current management stated by Dr Elsa MD,PGY1. Plan of care was discussed with the attending physician and resident physician. Disclaimer: Despite multiple revisions, due to the dictation software being used, the document bellow may not be free of grammatical errors including phonetic/typographic errors. However, this does not deter from our commitment to providing health care in the patient's best interest in mind. Dr. Chantell MD, PGY 2 Documentation for date of: 07/19/24 Subjective Subjective Interval history: Patient is a 84 year old male with PMH of hypertension, BPH, DM2, subdural hematoma (2020), dementia, and chronic indwelling catheter. Patinet continues to have poor oral intake. Patinet has decreased interest with social interactions and has limited replies to answeres. All food is currently mechanically altered and contiues to refused food. Exam Vital Signs Temp Pulse Resp BP Pulse Ox O2 Del Method O2 Flow Rate 97.7 F 66 18 166/77 H 96 Nasal Cannula 1 07/19/24 12:00 07/19/24 14:00 07/19/24 14:00 07/19/24 12:00 07/19/24 14:00 07/19/24 12:00 07/19/24 14:00 FiO2 0 07/19/24 04:00 Narrative Exam General Appearance: Alert & Oriented X3, well-nourished male who is lying in bed in no acute distress. Guarded. HEENT: Skull symmetrical and atraumatic. Conjunctivae pin and moist. Pupils equal, round, reactive to light and accommodation (PERRL). External ear without lesion or discharge. Straight, nares patient, dry mucosa, no discharge. No thyroid nodule Cardio: Normal Rate and Rhythm with S1 and S2 heart sounds. No murmurs or extra heart sounds auscultated. No bruits on carotid auscultation. No peripheral edema or cyanosis. Lungs: Symmetric with good expansion. Chest and back non-tender. Breath sounds vesicular without crackles, wheezing or rhonchi Abdomen: Non-tender, Non-distended, Normal Reactive Bowel Sounds Neuro: Alert, cooperative, oriented to person, place, and time. Speech clear. CN grossly intact. Upper motor strength 5/5 and Lower motor strength 5/5. Sensation intact. Objective Labs 07/19/24 05:03 07/19/24 16:36 Labs: Laboratory Results - last 24 hr 07/19/24 05:03 WBC 4.7 RBC 2.98 L Hgb 9.2 L Hct 28.4 L MCV 95 MCH 30.9 MCHC 32.4 RDW Std Deviation 55.1 H Plt Count 273 D Neut % (Auto) 75 Lymph % (Auto) 14 [facility] % (Auto) 6 Eos % (Auto) 3 Baso % (Auto) 1 Neut # (Auto) 3.5 Lymph # (Auto) 0.7 L [facility] # (Auto) 0.3 Eos # (Auto) 0.1 Baso # (Auto) 0.1 Immature Gran # (Auto) 0.05 H Absolute Nucleated RBC 0.00 Immature Gran % 1 H Nucleated RBC % 0 Sodium 151 H Potassium 4.1 Chloride 116 H Carbon Dioxide 23.5 Anion Gap 12 BUN 52 H Creatinine 3.8 H Estim Creat Clear Calc 14.4 L eGFR 15 L BUN/Creatinine Ratio 14 Glucose 136 H Calculated Osmolality 315 H Calcium 8.4 Corrected Calcium 9.5 Phosphorus 4.3 Magnesium 2.3 Iron 62 L TIBC 165 L Iron Saturation 37 Unsat Iron Binding 103 L Total Bilirubin 0.7 AST < 10 ALT < 7 L Alkaline Phosphatase 53 B-Natriuretic Peptide 223 H Total Protein 5.8 Albumin 2.6 L Globulin 3.2 Albumin/Globulin Ratio 0.8 L Quality Measures Quality Measures VTE prophylaxis (SCDs) Advance care planning discussed with:: other Assessment & Plan Assessment Current Active Medications: Generic Name Dose Route Start Last Admin Trade Name Freq PRN Reason Stop Dose Admin Acetaminophen 650 mg 07/05/24 17:12 07/16/24 03:11 Acetaminophen 325 Mg Tablet PO 08/04/24 17:11 650 mg Q6H PRN Administration pain 1-3 and Fever >100.4 Amiodarone HCl 200 mg 07/10/24 21:00 07/19/24 08:34 Amiodarone Hcl 200 Mg Tablet PO 08/09/24 20:59 200 mg BID ANNETTA Administration Apixaban 2.5 mg 07/16/24 21:00 07/19/24 08:33 Apixaban 2.5 Mg Tablet PO 08/15/24 20:59 2.5 mg BID ANNETTA Administration Dextrose 25 ml 07/05/24 17:12 07/11/24 23:48 Dextrose 50%-Water Inj 50 Ml Syringe IV 08/04/24 17:11 25 ml Q15MIN PRN Administration BG 50-70 responsive npo pt Dextrose 50 ml 07/05/24 17:12 Dextrose 50%-Water Inj 50 Ml Syringe IV 08/04/24 17:11 Q15MIN PRN BG <50 OR BG <70 & pt unresponsive Diltiazem HCl 120 mg 07/17/24 09:45 07/19/24 08:34 Diltiazem Cd 120 Mg Capcr PO 08/16/24 09:44 120 mg QDAY ANNETTA Administration Dronabinol 2.5 mg 07/12/24 18:08 07/19/24 07:42 Dronabinol 2.5 Mg Capsule PO 08/09/24 20:59 2.5 mg BIDAC ANNETTA Administration Finasteride 5 mg 07/08/24 10:45 07/19/24 08:35 Finasteride 5 Mg Tablet PO 08/07/24 10:44 5 mg QDAY ANNETTA Administration Glucagon 1 mg 07/05/24 17:12 Glucagon Inj 1 Mg Vial IM Q15MIN PRN BG <70, and no IV access Heparin Sodium (Porcine) 3,100 unit 07/14/24 12:13 07/14/24 15:16 Heparin Sod Inj 1000 Unit/Ml Vial 10 Ml INDWELLCAT 07/28/24 12:12 3,100 unit PRN PRN Administration DIALYSIS Albumin Human 25 gm in 100 mls @ 100 mls/min 07/13/24 12:40 Albuminar-25 Ivpb IV PRN PRN DIALYSIS Piperacillin/Tazobactam/Dextrose 2.25 gm in 50 mls @ 100 mls/hr 07/18/24 14:00 07/19/24 13:48 Zosyn IV 07/19/24 18:14 100 mls/hr Q8HR ANNETTA Administration Sodium Chloride 1,000 mls @ 80 mls/hr 07/19/24 08:18 07/19/24 09:46 Ns 0.45% IV 07/19/24 20:47 80 mls/hr .[id number] Administration Losartan Potassium 25 mg 07/17/24 09:45 07/19/24 08:34 Losartan Potassium 25 Mg Tablet PO 08/16/24 09:44 25 mg QDAY ANNETTA Administration Metoprolol Tartrate 2.5 mg 07/07/24 03:11 07/07/24 03:17 Metoprolol Tartrate Inj 1 Mg/Ml Amp 5 Ml IVP 2.5 mg Q5M PRN Administration AFIB RVR HR >140 Midodrine 5 mg 07/11/24 14:00 07/13/24 05:55 Midodrine 5 Mg Tablet PO 08/10/24 13:59 5 mg TID ANNETTA Administration Ondansetron HCl 4 mg 07/09/24 09:41 07/09/24 09:44 Ondansetron Inj 2 Mg/Ml Inj 2 Ml IV 08/08/24 09:40 4 mg Q6HR PRN Administration NAUSEA OR VOMITING Protocol Prochlorperazine Maleate 10 mg 07/05/24 17:12 07/06/24 20:17 Prochlorperazine Maleate 5 Mg Tablet PO 08/04/24 17:11 10 mg Q6H PRN Administration NAUSEA OR VOMITING Protocol Sennosides 1 tab 07/05/24 17:12 Senna Tablet PO 08/04/24 17:11 QDAY PRN constipation Protocol Plan 84-year-old male with past medical history of hypertension, BPH, DM2, subdural hematoma (2020), dementia, and chronic indwelling catheter was admitted to hospital on 07/05/2024 for sepsis likely secondary to catheter associated UTI versus community-acquired pneumonia, RAND, and NSTEMI. #Electrolyte imbalance, improved. #Mild Hypernatremia #Hypokalemia, Resolved. Etiology: Likely secondary to poor oral intake DDx: given acute renal failure, electrolyte imbalance secondary to injury vs septic shock from lactic acidosis but less likely given sepsis resolved. Diagnostics: (07/18/2024) Na 146, K 3.9, Chloride 111, Ca (corrected) 8.8-->07/19/2024 Na 151, 149, K 4.1 Free Water Deficits 2.8 L Plan: -half normal saline at 80 cc -Follow up with morning AM labs -Consider correction within 10 meq within the first 24 hrs #Failure to thrive #Goals of Care Patient has had decreased oral intake and stated decreased appetite. Dysphasia diet started. Added high protein shakes with meals. Spoke to next of Kin, August/grandson, who was updated on patient's decrease oral intake. Patient's family will be at bedside tomorrow between 9-10 AM and open to discuss PEG tube vs hospice options. Diagnostics: - (07/18/2024) Total Albumin 2.6-->07/19/2024 2.6 Plan: - Ensure High Protein shake with meals -Monitor daily food -Goals of care #A-fib with RVR s/p cardioversion on 07/10/2024 ?In the ICU patient developed A-fib and was initially placed on amiodarone drip, but A-fib did not resolve therefore cardiology was consulted ?Cardioversion was done on 07/10/2024 ?[id number] 5, but cardiology stated that his A-fib was in an acute setting of sepsis and therefore does not need Eliquis at this time Plan: -Continue Amiodarone 200mg BID -Diltiazem 120 mg qday -Continue Eliquis 2.5 mg BID ?Will continue to monitor if patient redevelops A-fib ?Cardiology consulted, appreciate recommendations #Sepsis secondary to Klebsiella bacteremia, sepsis resovled. #Klebsiella bacteremia #Septic shock, resolved #Catheter associated urinary tract infection #Community-acquired pneumonia #Acute Encephalopathy, resolveed #Chronic indwelling catheter #Recurrent UTIs #Hx of BPH #Prostatomegaly #Lactic acidosis, resolved. #Hematuria, resolved. Etiolgoy: Sepsis, secondary to Klebsiella bacteremia likely secondary to pneumonia. ?Patient has a history of chronic indwelling catheter with monthly changes Rollins catheter as well as recurrent UTIs in the past. ?Patient initially on admission was minimally responsive to questioning and most likely has encephalopathy secondary to the UTI as per patient's grandson at baseline he was a lot more responsive. ?Patient initially met SIRS 2 out of 4 criteria with tachycardia and tachypnea ?Patient developed septic shock shortly after admission and was upgraded to the ICU, was downgraded on 07/13/2024 Diagnostics: ?Blood cultures grew Klebsiella and urine culture grew klebsiella ESBL -07/18/2024 WBC 5.0 Plan: ?Will continue Zosyn [07/05/2024 -07/19/2024) D/C, completed course of antibiotics ?Continue finasteride 5 mg daily ?Will continue to monitor # Acute renal failure ? Patient developed ATN likely in the setting of shock ?Patient's baseline BUN 23 and creatinine 0.9 on 06/2023. Diagnostics: -07/18/2024: BUN 52, Cr 3.9 GFR 14--.07/19/2024 BUN 52 Cr 3.8 Crcl 14.4 GFR 15 BUN/Cr 14 Plan: -Per nephrology recommendations, continue to keep dialysis catheter in place. -No HD today as per nephrology ?Renally dose medications ?Avoid nephrotoxic agents ?Nephrology consulted, pursue recommendations #Normocytic normochromic anemia Etiology: Patient's baseline decreased from July 05, 2024 from 14-->to Hemoglobin of 9. Normocytic anemia secondary to iron deficiency can not be ruled out such as acute blood loss secondary to hematuria. DDx: Anemia of chronic disease can not be rule out given patient's hospitalization for sepsis vs upper GI loss but less likley given no history. Diagnostics: 07/18/2024: Hemoglobin 9, hematocrit 27.1 MCV 93, RDW 54.4 Plan: -Iron Panel AM labs ?Will transfuse hemoglobin less than 7 ?Will continue to monitor #Hx of DM2 #Hypoglycemia Etiology: Patient has a history of diabetes and last A1c in 06/2023 was 5.9. Fasting blood glucose 143. Diagnostics: ? A1c 5.8 on 06/2024 -07/18/2024 Blood Glucose 143-->07/19/2024 148 Plan: -Hypogylycemic protocol ordered ?Will continue to monitor #Hx of hypertension ? Started losartan 25mg qday #NSTEMI type II demand ischemia ?Most likely type II in the setting of sepsis likely demand ischemia versus less likely type I as patient does not have any chest pain at this time. ?Initial troponins were 0.119 and down trended ?EKG did not show any ST changes Plan: ?Will continue to monitor #Cholelithiasis #Bilirubinemia, improved ?Patient has been complaining of upper abdominal pain. ?Abdomen/pelvis CT showed cholelithiasis ?Gallbladder ultrasound showed gallbladder sludge but no cholelithiasis and cannot accurately assess gallbladder. Common bile duct was not distended. -Diagnostics: 07/18/2024 total bili 0.7, AST <10, ALT 8 L , Alkaline phosphatase 51 Plan: ?Will continue to monitor Health Maintenance: Disp: Pt is currently admitted to floors for further management of Hypernatremia, awaiting SNF placement FEN: Diet Dysphasia, I Pureed. DVT: compression devices Code: DNR/ DNI - The patient's plan was discussed with attending Dr. Marika MD and senior Dr. Chantell MD. Alycia Hunter MD PGY1 Internal Medicine Attending Provider Attestation/Addendum I have examined the patient, reviewed labs and imaging findings, discussed the case with the resident(s), and reviewed entered orders. I agree with the plan of care as outlined in this note, with these additional summaries/recommendations: #Failure to thrive #generalized weakness #Dysphagia #Hypernatremia Unfortunately patient's oral intake has not improved despite treatment of severe underlying infection, appetite stimulant, and dysphagia diet. We will start IV fluids for hypernatremia today secondary to dehydration. Speech therapy evaluation requested. Case management notified to arrange goals of care conversation with patient's family as hospice care appears appropriate at this time. #Sepsis: Resolved #Complicated urinary tract infection #Bacteremia 07/05 Ur cx: Klebsiella pneumonia 07/05 blood cultures: Klebsiella pneumonia 07/05 MRSA Screen: Negative Plan: Leukocytosis now resolved. Patient will complete two week IV Zosyn course today 07/19 for bacteremia # New onset atrial fibrillation with rapid ventricular response Most likely secondary to severe underlying sepsis [id number] score 5 points Has bled score: 4 points indicating 8.9% risk of major bleeding per year Cardiology consulted and following, status post cardioversion on 07/10/2024 Keep potassium greater than 4 and mag greater than 2 Continue rate and rhythm control with amiodarone 200 mg p.o. twice daily and diltiazem 120mg PO QD. Continue Eliquis 2.5mg PO BID for elevated [id number] score. Overall significant improvement in heart rate and continue to monitor on telemetry # Acute renal failure Most likely secondary to acute tubular necrosis in the sepsis/septic shock Status post temporary dialysis catheter 07/14 Nephrology following, recommendations appreciated Renally dose medications and avoid nephrotoxic agents Plan: No hemodialysis 07/15, 07/16, and 07/17 or 07/18. If urine output continues to remain appropriate then anticipate removal of temporary HD catheter tomorrow # Urinary retention # BPH Plan: Continue Rollins catheter. Continue finasteride and Flomax. Patient will need close outpatient follow-up with urology. Dr. Hairston
--- NOTE | 2024-07-19 17:25 | ESPR_ITS ---
<Statement entered by Manuel Rhodes MD - 07/22/24 22:39> I personally evaluated the patient in [facility] floor remains in sinus rhythm PACs no episodes of A-fib but mental status not improving somewhat lethargic not complain of any chest pain or shortness of breath. I agree with the treatment plan recommendation as documented by PGY 2 Dr. Santiago Documentation for date of: 07/19/24 Subjective Subjective Interval history: This 84-year-old male with past medical history of hypertension, BPH, DM2, subdural hematoma (2020), dementia, and chronic indwelling catheter was admitted to hospital after coming to the ED with complaints of nausea, vomiting, abdominal pain, and blood in the Rollins bag since last night. Patient was brought in by grandson and during the time of assessment nobody was at bedside. Patient was very hard of hearing and very not responding to questions during assessment, but he was able to follow some commands and able to answer alert oriented questions (AOx3 not to time). Primary team Spoke with grandson, next of kin, via phone call and he said he was the medical decision maker who provided most of the patient's history. Grandson stated that last night additional to the patient's nausea, vomiting, and abdominal pain the patient had elevated blood sugars in the 300s as well as some disorientation which she states that is usually when his bladder swells a lot. The patient's grandson also mentioned that the patient gets monthly Rollins catheter changes, but last night he noticed blood-tinged urine in the Rollins bag which was new and he did not feel was safe to keep patient at home and decided to bring him to the ER. He stated that patient did not have any chills or fevers at home nor any chest pain or shortness of breath.ED course:Initially patient came in normotensive and afebrile, but afterwards patient was tachycardic, and tachypneic. Initial labs were relevant for RAND, hyperglycemia, lactic acidosis, bilirubinemia, troponinemia, elevated procalcitonin, and UTI. Initial imaging included chest x-ray which showed bibasilar pneumonia, abdomen/pelvis CT showed cholelithiasis, bilateral hydronephrosis, diverticulosis, marked prostatomegaly, and marked thickening of urinary bladder wall, and gallbladder ultrasound which showed some gallbladder sludge but gallbladder was poorly visualized and contracted. EKG showed A-fib. 07/09/2024: Patient was seen and examined at the bedside in ICU patient's blood pressure is on softer side with a BP of 95/70, tachycardic with heart rate 141 and saturating 94% on room air. Patient is upgraded to ICU due to septic shock likely due to ESBL UTI and Klebsiella pneumonia bacteremia. Patient was initially managed with IV fluid resuscitation and was maintained with Levophed and vasopressin however now seen off Levophed and only on vasopressin with albumin. Labs showed WBC improved to 10.3, hemoglobin stable at 11.1. Platelets 95. Chemistry panel showed mild hyponatremia sodium 134 K: 3.9. BUN 78 and creatinine 4.3 with GFR 13. Bicarb on CHEM panel 19.5. Albumin 3.1. Total cortisol pending. Urinalysis was cloudy, 2+ proteinuria, blood 3+, RBC 1594, WBC 928, amorphous crystals and bacteriuria. EKG showed A-fib with RVR heart rate 140s. Echocardiogram showed EF 55-60% mild AV sclerosis without stenosis. Mild TR. Cardiology team consulted for A-fib with RVR not controlled with IV drip per protocol and digoxin given one-time only. Primary ICU team stopped Levophed and only keeping vasopressin. Currently covering with IV antibiotic therapy Zosyn for ESBL UTI. Consult is for possible requirement of cardioversion since its new onset A-fib less than 48 hours. Currently being anticoagulated with Eliquis 2.5 mg twice daily age and renal dosed. Recommended to start Cardizem 30 mg 3 times daily and continue it if blood pressure tolerates. If patient still remains in A-fib with RVR will likely perform cardioversion. No need of stoppage of anticoagulation before cardioversion. Keep the patient n.p.o. after midnight for possible cardioversion tomorrow without JAVIER. Will switch to amiodarone p.o. 200 mg twice daily once amiodarone drip is completed. Continue Eliquis 2.5 mg twice daily for now. Continue treating underlying septic infection due to ESBL UTI and Klebsiella bacteremia. Continue monitoring electrolytes and close monitoring required. Continue albumin therapy given worsening kidney functions and patient is in oliguria phase for RAND on CKD. All labs and orders were reviewed. 07/10/2024: Patient was seen and examined at the bedside in ICU. Patient has soft blood pressure 113/65 with heart rate 130s. Patient continues to be on amiodarone drip per protocol. Patient is saturating well on room air. He continues to be on phenylephrine. Labs revealed WBC 10.2, hemoglobin stable 11.4. Platelets increased to 67. Chemistry panel showed mild hyponatremia, potassium 3.6. Bicarb improved. Kidney functions continues to decline. Blood glucose 148. Urine output 605 from last 24 hours. Cardioverted today. Recommended to switch to p.o. amiodarone 200 twice daily once amiodarone drip completed. Cardizem was discontinued. Will likely plan to cardiovert him today given continuous uncontrolled heart rate. ICU team giving IV antibiotic therapy and albumin for septic shock and declining kidney functions. ICU team started dronabinol for appetite stimulation as patient is not eating and drinking enough. Plan of care discussed with ICU team. 07/12/2024: Patient was seen and examined in the ICU. Patient's vitals showed blood pressure 119/labs showed 58 with heart rate 72 in sinus rhythm. Mild leukocytosis and hemoglobin stable at 10.1 with platelet 105. Chemistry panel showed mild hypokalemia and worsening kidney function with BUN 114 and creatinine 5.7. Urine output of 1.8 L with negative balance of 348 cc. Recommended to continue amiodarone 200 mg twice daily and currently Eliquis on hold as he had episode of hematuria. Rollins catheter replaced given urinary retention yesterday and patient is still making urine. Nephrology team was consulted for worsening kidney functions and plan for hemodialysis after placing dialysis catheter today. Agreeable to the plan. No new further recommendations by cardiology team. All labs and orders were reviewed. 07/13/2024: Patient was seen and examined at the bedside. Patient has been downgraded to floors being off pressors and underwent dialysis yesterday. Vitals in the morning showed blood pressure 139/62, heart rate 68. Labs revealed mild leukocytosis, hemoglobin stable at 9.8 and platelet 142. Chemistry panel showed hypokalemia. Kidney function showed BUN 94 and creatinine 5.2. Currently primary team continuing amiodarone 200 twice daily for A-fib rate control. Patient underwent hemodialysis yesterday and today as well. Given hematuria Eliquis was discontinued. As patient has acute illness that is sepsis which caused A fib for short onset we consider discontinuing Eliquis and only restart Eliquis 2.5 twice daily if patient developed frequent episodes of A-fib. Agreeable to the plan of care. 07/14/24: Patient was seen and examined at the bedside. Patient is minimally responsive to questions. Recommendations are to continue amiodarone drip per protocol. Overnight patient had a rapid response due to A-fib with RVR and was given push of diltiazem x 1 and amiodarone drip was started. Dialysis catheter was malfunctioning therefore catheter was exchanged. Currently primary team continuing Zosyn for UTI and amiodarone drip for A-fib with RVR. They are currently performing goals of care discussion with his grandson who is her decision-maker. 07/19/24: Patient was found to have dysphagia, continues to have decreased p.o. intake of mechanically altered food. Grandson and family are in the process of deciding transitioning patient to hospice care vs PEG tube placement. Patient continues to be a week and slow answering questions. Hemodynamically patient is stable, had 1.1 L urine output. No episodes of A-fib, will continue amiodarone, Cardizem and Eliquis. Exam Vital Signs Temp Pulse Resp BP Pulse Ox O2 Del Method O2 Flow Rate 97.4 F 61 14 134/94 H 96 Nasal Cannula 1 07/19/24 16:00 07/19/24 16:00 07/19/24 16:00 07/19/24 16:00 07/19/24 16:00 07/19/24 16:00 07/19/24 16:00 FiO2 0 07/19/24 04:00 Narrative Exam Constitutional: Frail looking elderly male, in no acute distress, lying in bed, slow in answering questions HEENT: NCAT, EOMI, reactive round pupils b/l, patent nares b/l, moist mucous membranes Lung: CTAB, no wheezing, no rhonchi Heart: Regular S1S2, no murmurs, gallops, or rubs Abdomen: Soft, non-distended, non-tender, bowel sounds present throughout Extremities: No cyanosis, clubbing, or edema, LE pulses present b/l Neurologic: No focal sensory or motor deficits noted, AOx2, appropriate affect Skin: Warm, dry, no lesions or rashes noted Objective Labs 07/19/24 05:03 07/19/24 16:36 Labs: Laboratory Results - last 24 hr 07/19/24 05:03 WBC 4.7 RBC 2.98 L Hgb 9.2 L Hct 28.4 L MCV 95 MCH 30.9 MCHC 32.4 RDW Std Deviation 55.1 H Plt Count 273 D Neut % (Auto) 75 Lymph % (Auto) 14 [place] % (Auto) 6 Eos % (Auto) 3 Baso % (Auto) 1 Neut # (Auto) 3.5 Lymph # (Auto) 0.7 L [place] # (Auto) 0.3 Eos # (Auto) 0.1 Baso # (Auto) 0.1 Immature Gran # (Auto) 0.05 H Absolute Nucleated RBC 0.00 Immature Gran % 1 H Nucleated RBC % 0 Sodium 151 H Potassium 4.1 Chloride 116 H Carbon Dioxide 23.5 Anion Gap 12 BUN 52 H Creatinine 3.8 H Estim Creat Clear Calc 14.4 L eGFR 15 L BUN/Creatinine Ratio 14 Glucose 136 H Calculated Osmolality 315 H Calcium 8.4 Corrected Calcium 9.5 Phosphorus 4.3 Magnesium 2.3 Iron 62 L TIBC 165 L Iron Saturation 37 Unsat Iron Binding 103 L Total Bilirubin 0.7 AST < 10 ALT < 7 L Alkaline Phosphatase 53 B-Natriuretic Peptide 223 H Total Protein 5.8 Albumin 2.6 L Globulin 3.2 Albumin/Globulin Ratio 0.8 L Quality Measures Quality Measures VTE prophylaxis (SCDs) Advance care planning discussed with:: other Assessment & Plan Assessment Current Active Medications: Generic Name Dose Route Start Last Admin Trade Name Freq PRN Reason Stop Dose Admin Acetaminophen 650 mg 07/05/24 17:12 07/16/24 03:11 Acetaminophen 325 Mg Tablet PO 08/04/24 17:11 650 mg Q6H PRN Administration pain 1-3 and Fever >100.4 Amiodarone HCl 200 mg 07/10/24 21:00 07/19/24 08:34 Amiodarone Hcl 200 Mg Tablet PO 08/09/24 20:59 200 mg BID ANNETTA Administration Apixaban 2.5 mg 07/16/24 21:00 07/19/24 08:33 Apixaban 2.5 Mg Tablet PO 08/15/24 20:59 2.5 mg BID ANNETTA Administration Dextrose 25 ml 07/05/24 17:12 07/11/24 23:48 Dextrose 50%-Water Inj 50 Ml Syringe IV 08/04/24 17:11 25 ml Q15MIN PRN Administration BG 50-70 responsive npo pt Dextrose 50 ml 07/05/24 17:12 Dextrose 50%-Water Inj 50 Ml Syringe IV 08/04/24 17:11 Q15MIN PRN BG <50 OR BG <70 & pt unresponsive Diltiazem HCl 120 mg 07/17/24 09:45 07/19/24 08:34 Diltiazem Cd 120 Mg Capcr PO 08/16/24 09:44 120 mg QDAY ANNETTA Administration Dronabinol 2.5 mg 07/12/24 18:08 07/19/24 07:42 Dronabinol 2.5 Mg Capsule PO 08/09/24 20:59 2.5 mg BIDAC ANNETTA Administration Finasteride 5 mg 07/08/24 10:45 07/19/24 08:35 Finasteride 5 Mg Tablet PO 08/07/24 10:44 5 mg QDAY ANNETTA Administration Glucagon 1 mg 07/05/24 17:12 Glucagon Inj 1 Mg Vial IM Q15MIN PRN BG <70, and no IV access Heparin Sodium (Porcine) 3,100 unit 07/14/24 12:13 07/14/24 15:16 Heparin Sod Inj 1000 Unit/Ml Vial 10 Ml INDWELLCAT 07/28/24 12:12 3,100 unit PRN PRN Administration DIALYSIS Albumin Human 25 gm in 100 mls @ 100 mls/min 07/13/24 12:40 Albuminar-25 Ivpb IV PRN PRN DIALYSIS Piperacillin/Tazobactam/Dextrose 2.25 gm in 50 mls @ 100 mls/hr 07/18/24 14:00 07/19/24 13:48 Zosyn IV 07/19/24 18:14 100 mls/hr Q8HR ANNETTA Administration Sodium Chloride 1,000 mls @ 80 mls/hr 07/19/24 08:18 07/19/24 09:46 Ns 0.45% IV 07/19/24 20:47 80 mls/hr .[id number] Administration Losartan Potassium 25 mg 07/17/24 09:45 07/19/24 08:34 Losartan Potassium 25 Mg Tablet PO 08/16/24 09:44 25 mg QDAY ANNETTA Administration Metoprolol Tartrate 2.5 mg 07/07/24 03:11 07/07/24 03:17 Metoprolol Tartrate Inj 1 Mg/Ml Amp 5 Ml IVP 2.5 mg Q5M PRN Administration AFIB RVR HR >140 Midodrine 5 mg 07/11/24 14:00 07/13/24 05:55 Midodrine 5 Mg Tablet PO 08/10/24 13:59 5 mg TID ANNETTA Administration Ondansetron HCl 4 mg 07/09/24 09:41 07/09/24 09:44 Ondansetron Inj 2 Mg/Ml Inj 2 Ml IV 08/08/24 09:40 4 mg Q6HR PRN Administration NAUSEA OR VOMITING Protocol Prochlorperazine Maleate 10 mg 07/05/24 17:12 07/06/24 20:17 Prochlorperazine Maleate 5 Mg Tablet PO 08/04/24 17:11 10 mg Q6H PRN Administration NAUSEA OR VOMITING Protocol Sennosides 1 tab 07/05/24 17:12 Senna Tablet PO 08/04/24 17:11 QDAY PRN constipation Protocol Plan This 84-year-old male with past medical history of hypertension, BPH, DM2, subdural hematoma (2020), dementia, and chronic indwelling catheter was upgraded to ICU due to septic shock likely due to ESBL UTI and Klebsiella bacteremia. Cardiology team consulted for A-fib with RVR and requirement of possible cardioversion. #Afib RVR s/p cardioversion Patient supposedly had A-fib at the time of admission to the hospital but spontaneously reverted to normal sinus rhythm. Developed new onset A-fib on 07/06/2024 overnight Received 2.5 Mg of metoprolol tartrate, 150 Mg of amiodarone bolus and started on amiodarone drip Based on [id number] score 4, patient was started on Eliquis 2.5 Mg twice daily due to his declined renal functions. Patient was cardioverted on 07/10 and converted back to sinus rhythm Plan: ? Continue amiodarone 200 mg p.o. BID - Continue Cardizem 120 mg p.o Qday - Contintue Eliquis 2.5 mg BID ? Keep magnesium > 2 and K > 4 ? Replete electrolytes as necessary ? Follow-up on labs #Hx of hypertension ? Will hold any antihypertensive medication for now ?Currently maintaining MAP above 65 #RAND likely prerenal azotemia, worsening kidney functions # On hemodialysis Kidney functions continue to decline Patient still making urine 1.1 L Plan: ? Patient is receiving hemodialysis session per nephrology team recommendations ? Avoid nephrotoxic agents and renally dose medications ? Strict MICHAEL's #Failure to thrive #Dysphagia Patient with decreased oral intake and decline of mechanically altered food Plan: -High protein shake with meals -Goals of care with family tomorrow -PEG tube placement vs [facility] hospice to be decided by family tomorrow #NSTEMI type type II #Septic shock likely secondary to catheter associated ESBL urinary tract infection and Klebsiella bacteremia,Resolved # Chronic indwelling catheter # Acute hypoxic respiratory failure, resolved # Likely secondary to aspiration pneumonia versus remote history of smoking # Leukocytosis # Elevated T. bili and transaminases # Mild bilateral hydronephrosis # [id number] type 2 diabetes # Normocytic anemia # Thrombocytopenia # Hematuria # History of BPH chronic indwelling catheter since 2019 # Appetite loss # Goals of care discussion -Maagement per primary team This patient care was discussed with my attending Dr. Carmelo Wyatt MD PGY-2 Disclaimer: Minor errors in community outreach manager may be present since this note was dictated by speech recognition software.
[2024-07-19 17:27] LABS: Anion Gap 12 (7-16); BUN/Creatinine Ratio 13 Ratio (12-20); Blood Urea Nitrogen 47 mg/dL (9-23); Calcium 7.6 mg/dL (8.3-10.6); Carbon Dioxide 23.2 mMol/L (20.0-31.0); Chloride 114 mMol/L (98-107); Creatinine (Component) 3.7 mg/dL (0.6-1.3); Estimated Creatinine Clearance 14.8 mL/min (>60); Glucose 148 mg/dL (74-106); Osmolality,Calculated 311 (275-295); Potassium 4.1 mMol/L (3.4-5.1); Sodium 149 mMol/L (136-145); eGFR 15 See Note
--- NOTE | 2024-07-19 20:59 | PC.NURSE ---
Patient refused 2100 medications. VELIA Augustine attempted to give patients medication crushed in applesaucd. VELIA Augustine attempted to give medications twice and patient said NO! .
--- NOTE | 2024-07-19 21:38 | PC.NURSE ---
Dr. Tinsley notified that the 0.45% NS @80ml was auto-discontinued. VELIA Augustine asked Dr. Tinsley if she would like to renew the order. Dr. Tinsley asked what was the patients sodium level. The last sodium level was 149. Dr. Tinsley said she will look in the chart to determine if the patient should continue or stop fluids.
--- NOTE | 2024-07-19 22:08 | PC.NURSE ---
Addendum entered by Davide Perez RN 07/19/24 22:15: Dr. Tinsley cancelled labs to check sodium. Dr. Tinsley said to stop fluids. Lab will recheck sodium in the AM and will determine if fluids shall be restarted at that time. Addendum entered by Davide Perez RN 07/19/24 22:13: VELIA Augustine attempted to call hospitalist, but hospitalist did not draft roller picker. Will try again. Original Note: Patient refused client development consultant to get labs. VELIA Augustine will notify hospitalists.
[2024-07-20] VITALS (12 sets, daily range): BP systolic 150–174; BP diastolic 71–88; PULSE 63–95; RESP 16–19; TEMP 36.3–36.6; O2SAT 94–96
--- NOTE | 2024-07-20 05:58 | PC.NURSE ---
Addendum entered by Davide Perez RN 07/20/24 05:59: Dr. Hodges made aware. Original Note: Patient refused AM labs. VELIA Augustine will notify hospitalists.
[2024-07-20 08:36] LABS: Basophils % (Auto) 1 % (0-2.5); Eosinophils # (Auto) 0.1 Thou/mm3 (0.0-0.5); Eosinophils % (Auto) 2 % (0-10); Hematocrit 26.4 % (41.0-53.0); Immature Granulocytes % (Auto) 1 % (0-0); Immature Granulocytes Auto 0.02 Thou/mm3 (0.00-0.00); Lymphocytes # (Auto) 0.6 Thou/mm3 (1.0-4.8); Lymphocytes % (Auto) 16 % (10-50); Mean Corpuscular HGB Conc 32.2 g/dl (31.0-37.0); Mean Corpuscular Hemoglobin 30.8 pg (25.0-35.0); Mean Corpuscular Volume 96 fL (80-100); Monocytes # (Auto) 0.3 Thou/mm3 (0.0-0.8); Monocytes % (Auto) 8 % (0-12); Neutrophils # (Auto) 2.8 Thou/mm3 (1.8-7.7); Neutrophils % (Auto) 72 % (37-80); Nucleated Red Blood Cell % 0 /100 WBC (0); Platelet Count 213 Thou/mm3 (140-440); RDW Standard Deviation 54.8 fL (35.1-43.9); Red Blood Count 2.76 Miln/mm3 (4.50-5.90)
[2024-07-20 08:47] LABS: Hemoglobin 8.5 g/dL (13.5-16.0)
[2024-07-20 09:19] LABS: Alanine Aminotransferase < 7 U/L (10-49); Albumin, Serum 2.6 gm/dL (3.4-4.8); Albumin/Globulin Ratio 0.9 (1.2-2.2); Alkaline Phosphatase 47 U/L (46-116); Anion Gap 11 (7-16); Aspartate Amino Transferase < 10 U/L (0-34); BUN/Creatinine Ratio 14 Ratio (12-20); Bilirubin,Total 0.7 mg/dL (0.3-1.2); Blood Urea Nitrogen 48 mg/dL (9-23); Calcium 7.8 mg/dL (8.3-10.6); Calcium (Corrected) 8.9 mg/dL (8.5-10.1); Carbon Dioxide 23.7 mMol/L (20.0-31.0); Chloride 115 mMol/L (98-107); Creatinine (Component) 3.4 mg/dL (0.6-1.3); Estimated Creatinine Clearance 16.1 mL/min (>60); Globulin 2.9 gm/dL (2.3-3.5); Glucose 134 mg/dL (74-106); Magnesium 2.1 mg/dL (1.6-2.6); Osmolality,Calculated 312 (275-295); Phosphorous 3.9 mg/dL (2.4-5.1); Sodium 150 mMol/L (136-145); Total Protein 5.5 gm/dL (5.7-8.2); eGFR 17 See Note
--- NOTE | 2024-07-20 11:29 | PC.SS ---
Addendum entered by VENITA Lovell 07/20/24 11:58: Hospice referral sent to [facility] via [employer]. Original Note: Goals of care discussion held with patient's grandson August. [facility] business office representative Keily present. Bed side nurse present. Dr. Holder present. After discussion on patient's current medical status, the decision to proceed with hospice services was made by the patient's grandson August. August is requesting a day to clean out his residence and get things situated for the patient to return home. Plan is to discharge the patient home on with [facility]. Medical team aware and agreeable.
--- NOTE | 2024-07-20 15:52 | ESPR_ITS ---
<Statement entered by Kyle Holder MD - 07/20/24 16:09> Patient was seen and examined at the bedside. Goals of care discussion was performed with patient's grandson and patient's grandson opted for hospice referral wishes for respected and some of the medications were discontinued. Social workers was informed. [facility] will be working on arrangements. All labs and orders were reviewed. I saw and examined the patient, and I agree with current management stated by Dr Elsa MD,PGY1. Plan of care was discussed with the attending physician and resident physician. Disclaimer: Despite multiple revisions, due to the dictation software being used, the document bellow may not be free of grammatical errors including phonetic/typographic errors. However, this does not deter from our commitment to providing health care in the patient's best interest in mind. Dr. Chantell MD, PGY 2 Documentation for date of: 07/20/24 Subjective Subjective Interval history: Patient is a 84 year old male with PMH of hypertension, BPH, DM2, subdural hematoma (2020), dementia, and chronic indwelling catheter. Patient continues to be altered mental status, continues to have poor oral intake and has poor prognosis. Today goals of care discussed with hospice, internal medicine team, and family at bedside. Patient's grandson, August, would like to do home with hospice. Exam Vital Signs Temp Pulse Resp BP Pulse Ox O2 Del Method O2 Flow Rate 97.5 F 63 19 160/85 H 96 Nasal Cannula 1 07/20/24 11:39 07/20/24 12:00 07/20/24 11:39 07/20/24 11:39 07/20/24 11:39 07/20/24 11:39 07/20/24 11:39 FiO2 0 07/20/24 11:39 Narrative Exam General Appearance: Alert & Oriented X1, well-nourished male who is lying in bed in no acute distress. Poor oral care. HEENT: Skull symmetrical and atraumatic. Conjunctivae pale pink and moist. Pupils equal, round, reactive to light and accommodation (PERRL). External ear without lesion or discharge. Straight, nares patient, dry mucosa, no discharge. Cardio: Normal Rate and Rhythm with S1 and S2 heart sounds. No murmurs or extra heart sounds auscultated. No bruits on carotid auscultation. No peripheral edema or cyanosis. Lungs: Symmetric with good expansion. Chest and back non-tender. Breath sounds vesicular without crackles, wheezing or rhonchi Abdomen: Non-tender, Non-distended, Normal Reactive Bowel Sounds Neuro: Yes Alert, NO cooperative, NOT oriented to person, place, and time. Speech clear. CN grossly intact. Upper motor strength 5/5 and Lower motor strength 5/5. Sensation intact. Objective Labs 07/20/24 07:45 07/20/24 07:45 Labs: Laboratory Results - last 24 hr 07/09/24 07/19/24 07/20/24 05:46 16:36 07:45 WBC 4.0 RBC 2.76 L Hgb 8.5 L Hct 26.4 L MCV 96 MCH 30.8 MCHC 32.2 RDW Std Deviation 54.8 H Plt Count 213 D Neut % (Auto) 72 Lymph % (Auto) 16 [place] % (Auto) 8 Eos % (Auto) 2 Baso % (Auto) 1 Neut # (Auto) 2.8 Lymph # (Auto) 0.6 L [place] # (Auto) 0.3 Eos # (Auto) 0.1 Baso # (Auto) 0.0 Immature Gran # (Auto) 0.02 H Absolute Nucleated RBC 0.00 Immature Gran % 1 H Nucleated RBC % 0 Sodium 149 H 150 H Potassium 4.1 4.0 Chloride 114 H 115 H Carbon Dioxide 23.2 23.7 Anion Gap 12 11 BUN 47 H 48 H Creatinine 3.7 H 3.4 H Estim Creat Clear Calc 14.8 L 16.1 L eGFR 15 L 17 L BUN/Creatinine Ratio 13 14 Glucose 148 H 134 H Calculated Osmolality 311 H 312 H Calcium 7.6 L 7.8 L Corrected Calcium 8.9 Phosphorus 3.9 Magnesium 2.1 Total Bilirubin 0.7 AST < 10 ALT < 7 L Alkaline Phosphatase 47 Total Protein 5.5 L Albumin 2.6 L Globulin 2.9 Albumin/Globulin Ratio 0.9 L Total Cortisol 24.0 Quality Measures Quality Measures VTE prophylaxis (SCDs) Advance care planning discussed with:: other Assessment & Plan Assessment Current Active Medications: Generic Name Dose Route Start Last Admin Trade Name Freq PRN Reason Stop Dose Admin Acetaminophen 650 mg 07/05/24 17:12 07/16/24 03:11 Acetaminophen 325 Mg Tablet PO 08/04/24 17:11 650 mg Q6H PRN Administration pain 1-3 and Fever >100.4 Amiodarone HCl 200 mg 07/10/24 21:00 07/20/24 09:00 Amiodarone Hcl 200 Mg Tablet PO 08/09/24 20:59 Not Given BID ANNETTA Apixaban 2.5 mg 07/16/24 21:00 07/20/24 09:00 Apixaban 2.5 Mg Tablet PO 08/15/24 20:59 Not Given BID ANNETTA Dextrose 25 ml 07/05/24 17:12 07/11/24 23:48 Dextrose 50%-Water Inj 50 Ml Syringe IV 08/04/24 17:11 25 ml Q15MIN PRN Administration BG 50-70 responsive npo pt Dextrose 50 ml 07/05/24 17:12 Dextrose 50%-Water Inj 50 Ml Syringe IV 08/04/24 17:11 Q15MIN PRN BG <50 OR BG <70 & pt unresponsive Diltiazem HCl 120 mg 07/17/24 09:45 07/20/24 09:00 Diltiazem Cd 120 Mg Capcr PO 08/16/24 09:44 Not Given QDAY [facility] Glucagon 1 mg 07/05/24 17:12 Glucagon Inj 1 Mg Vial IM Q15MIN PRN BG <70, and no IV access Heparin Sodium (Porcine) 3,100 unit 07/14/24 12:13 07/14/24 15:16 Heparin Sod Inj 1000 Unit/Ml Vial 10 Ml INDWELLCAT 07/28/24 12:12 3,100 unit PRN PRN Administration DIALYSIS Albumin Human 25 gm in 100 mls @ 100 mls/min 07/13/24 12:40 Albuminar-25 Ivpb IV PRN PRN DIALYSIS Losartan Potassium 25 mg 07/17/24 09:45 07/20/24 09:00 Losartan Potassium 25 Mg Tablet PO 08/16/24 09:44 Not Given QDAY [facility] Metoprolol Tartrate 2.5 mg 07/07/24 03:11 07/07/24 03:17 Metoprolol Tartrate Inj 1 Mg/Ml Amp 5 Ml IVP 2.5 mg Q5M PRN Administration AFIB RVR HR >140 Ondansetron HCl 4 mg 07/09/24 09:41 07/09/24 09:44 Ondansetron Inj 2 Mg/Ml Inj 2 Ml IV 08/08/24 09:40 4 mg Q6HR PRN Administration NAUSEA OR VOMITING Protocol Prochlorperazine Maleate 10 mg 07/05/24 17:12 07/06/24 20:17 Prochlorperazine Maleate 5 Mg Tablet PO 08/04/24 17:11 10 mg Q6H PRN Administration NAUSEA OR VOMITING Protocol Sennosides 1 tab 07/05/24 17:12 Senna Tablet PO 08/04/24 17:11 QDAY PRN constipation Protocol Plan 84-year-old male with past medical history of hypertension, BPH, DM2, subdural hematoma (2020), dementia, and chronic indwelling catheter was admitted to hospital on 07/05/2024 for sepsis likely secondary to catheter associated UTI versus community-acquired pneumonia, RAND, and NSTEMI. #Failure to thrive #Goals of Care Patient has had decreased oral intake and stated decreased appetite. Dysphasia diet started. Added high protein shakes with meals. Spoke to next of Kin, August/grandson, who was updated on patient's decrease oral intake. Patient's family will be at bedside tomorrow between 9-10 AM and open to discuss PEG tube vs hospice options. Diagnostics: - (07/18/2024) Total Albumin 2.6-->07/19/2024 2.6 Plan: - Ensure High Protein shake with meals -Monitor daily food -Goals of care, home with hospice. #Electrolyte imbalance, improved. #Mild Hypernatremia #Hypokalemia, Resolved. Etiology: Likely secondary to poor oral intake DDx: given acute renal failure, electrolyte imbalance secondary to injury vs septic shock from lactic acidosis but less likely given sepsis resolved. Diagnostics: (07/18/2024) Na 146, K 3.9, Chloride 111, Ca (corrected) 8.8-->07/19/2024 Na 151, 149, K 4.1 Free Water Deficits 2.8 L Plan: -half normal saline at 80 cc-d/c on 07/20/2024 -patient refused morning labs -labs D/C, home with hospice #A-fib with RVR s/p cardioversion on 07/10/2024 ?In the ICU patient developed A-fib and was initially placed on amiodarone drip, but A-fib did not resolve therefore cardiology was consulted ?Cardioversion was done on 07/10/2024 ?[id number] 5, but cardiology stated that his A-fib was in an acute setting of sepsis and therefore does not need Eliquis at this time Plan: -Continue Amiodarone 200mg BID -Diltiazem 120 mg qday -Continue Eliquis 2.5 mg BID ?Will continue to monitor if patient redevelops A-fib ?Cardiology consulted, appreciate recommendations #Sepsis secondary to Klebsiella bacteremia, sepsis resovled. #Klebsiella bacteremia, resolved. #Septic shock, resolved #Catheter associated urinary tract infection #Community-acquired pneumonia #Acute Encephalopathy, resolveed #Chronic indwelling catheter #Recurrent UTIs #Hx of BPH #Prostatomegaly #Lactic acidosis, resolved. #Hematuria, resolved. Etiolgoy: Sepsis, secondary to Klebsiella bacteremia likely secondary to pneumonia. ?Patient has a history of chronic indwelling catheter with monthly changes Rollins catheter as well as recurrent UTIs in the past. ?Patient initially on admission was minimally responsive to questioning and most likely has encephalopathy secondary to the UTI as per patient's grandson at baseline he was a lot more responsive. ?Patient initially met SIRS 2 out of 4 criteria with tachycardia and tachypnea ?Patient developed septic shock shortly after admission and was upgraded to the ICU, was downgraded on 07/13/2024 Diagnostics: ?Blood cultures grew Klebsiella and urine culture grew klebsiella ESBL -07/18/2024 WBC 5.0 Plan: ?Will continue Zosyn [07/05/2024 -07/19/2024) D/C, completed course of antibiotics ?Continue finasteride 5 mg daily ?Will continue to monitor # Acute renal failure ? Patient developed ATN likely in the setting of shock ?Patient's baseline BUN 23 and creatinine 0.9 on 06/2023. Diagnostics: -07/18/2024: BUN 52, Cr 3.9 GFR 14--.07/19/2024 BUN 52 Cr 3.8 Crcl 14.4 GFR 15 BUN/Cr 14 Plan: -Per nephrology recommendations, continue to keep dialysis catheter in place. -No HD today as per nephrology ?Renally dose medications ?Avoid nephrotoxic agents ?Nephrology consulted, pursue recommendations #Normocytic normochromic anemia Etiology: Patient's baseline decreased from July 05, 2024 from 14-->to Hemoglobin of 9. Normocytic anemia secondary to iron deficiency can not be ruled out such as acute blood loss secondary to hematuria. DDx: Anemia of chronic disease can not be rule out given patient's hospitalization for sepsis vs upper GI loss but less likley given no history. Diagnostics: 07/18/2024: Hemoglobin 9, hematocrit 27.1 MCV 93, RDW 54.4 Plan: ?Will transfuse hemoglobin less than 7 ?Will continue to monitor #Hx of DM2 #Hypoglycemia Etiology: Patient has a history of diabetes and last A1c in 06/2023 was 5.9. Fasting blood glucose 143. Diagnostics: ? A1c 5.8 on 06/2024 -07/18/2024 Blood Glucose 143-->07/19/2024 148 Plan: -Hypogylycemic protocol ordered ?Will continue to monitor #Hx of hypertension ? Started losartan 25mg qday #NSTEMI type II demand ischemia ?Most likely type II in the setting of sepsis likely demand ischemia versus less likely type I as patient does not have any chest pain at this time. ?Initial troponins were 0.119 and down trended ?EKG did not show any ST changes Plan: ?Will continue to monitor #Cholelithiasis #Bilirubinemia, improved ?Patient has been complaining of upper abdominal pain. ?Abdomen/pelvis CT showed cholelithiasis ?Gallbladder ultrasound showed gallbladder sludge but no cholelithiasis and cannot accurately assess gallbladder. Common bile duct was not distended. -Diagnostics: 07/18/2024 total bili 0.7, AST <10, ALT 8 L , Alkaline phosphatase 51 Plan: ?Will continue to monitor Health Maintenance: Disp: Pt is currently admitted to floors for further management of Hypernatremia, awaiting SNF placement FEN: Diet Dysphasia, I Pureed. DVT: compression devices Code: DNR/ DNI - The patient's plan was discussed with attending Dr. Marika MD and senior Dr. Chantell MD. Alycia Hunter MD PGY1 Internal Medicine Attending Provider Attestation/Addendum I have examined the patient, reviewed labs and imaging findings, discussed the case with the resident(s), and reviewed entered orders. I agree with the plan of care as outlined in this note, with these additional summaries/recommendations: Goals of care meeting was held with medical team and patient's grandson who is patient's medical decision maker. Discussed that patient has continued to have failure to thrive and malnutrition despite treatment of underlying bacteremia and pneumonia. All treatment options including PEG tube, hospice, and comfort care were discussed at length. At this time patient's grandson August has decided to proceed with hospice care and patient in agreement. Hospice referral made. DC daily labs. We will continue patient's amiodarone, diltiazem, and Eliquis given the severity of his atrial fibrillation with rapid transition. Pending home hospice set up. Anticipate discharge in the next [address] Hairston
--- NOTE | 2024-07-20 15:55 | PD.RESEVENT ---
Documentation for date of: 07/20/24 Event Note Event Note: Goals of care discussion was performed in the presence of patient's grandson, MAR urgency worker, RN and social sciences professor Nirali and discussion was performed due to patient's current declining condition despite resolution of infection. Patient's grandson was explained that patient is failure to thrive and has given up with reduced appetite and speech therapist reported that patient does have component of oropharyngeal dysphagia with high risk of aspiration however was not recommended to have PEG tube placement as well. Patient's grandson was given options for hospice referral who can help patient for his daily activities of living and will try to make the patient comfortable as possible. Other option given to him was to place a PEG tube and discharge him to the SNF. Patient's grandson opted to make his grandfather comfortable and wanted to go for hospice referral and proceed with home with hospice. Hospice referral was made and we will proceed with arrangements in regards to that. Patient's current cardiac medications were continued. Daily labs were discontinued. Plan of care was discussed with attending physician, Dr. Marika Holder MD, PGY 2
--- NOTE | 2024-07-20 17:35 | ESPR_ITS ---
<Statement entered by Manuel Rhodes MD - 07/22/24 22:37> I personally examined the patient with resident physician Dr. Santiago PGY2 patient is improving no evidence of atrial fibrillation some PACs but mental status not improving somewhat lethargic agree with treatment plan recommendation as documented by Dr. Santiago PGY2 will continue to monitor patient for cardiac arrhythmias no further episodes of A-fib. Documentation for date of: 07/20/24 Subjective Subjective Interval history: This 84-year-old male with past medical history of hypertension, BPH, DM2, subdural hematoma (2020), dementia, and chronic indwelling catheter was admitted to hospital after coming to the ED with complaints of nausea, vomiting, abdominal pain, and blood in the Rollins bag since last night. Patient was brought in by grandson and during the time of assessment nobody was at bedside. Patient was very hard of hearing and very not responding to questions during assessment, but he was able to follow some commands and able to answer alert oriented questions (AOx3 not to time). Primary team Spoke with grandson, next of kin, via phone call and he said he was the medical decision maker who provided most of the patient's history. Grandson stated that last night additional to the patient's nausea, vomiting, and abdominal pain the patient had elevated blood sugars in the 300s as well as some disorientation which she states that is usually when his bladder swells a lot. The patient's grandson also mentioned that the patient gets monthly Rollins catheter changes, but last night he noticed blood-tinged urine in the Rollins bag which was new and he did not feel was safe to keep patient at home and decided to bring him to the ER. He stated that patient did not have any chills or fevers at home nor any chest pain or shortness of breath.ED course:Initially patient came in normotensive and afebrile, but afterwards patient was tachycardic, and tachypneic. Initial labs were relevant for RAND, hyperglycemia, lactic acidosis, bilirubinemia, troponinemia, elevated procalcitonin, and UTI. Initial imaging included chest x-ray which showed bibasilar pneumonia, abdomen/pelvis CT showed cholelithiasis, bilateral hydronephrosis, diverticulosis, marked prostatomegaly, and marked thickening of urinary bladder wall, and gallbladder ultrasound which showed some gallbladder sludge but gallbladder was poorly visualized and contracted. EKG showed A-fib. 07/09/2024: Patient was seen and examined at the bedside in ICU patient's blood pressure is on softer side with a BP of 95/70, tachycardic with heart rate 141 and saturating 94% on room air. Patient is upgraded to ICU due to septic shock likely due to ESBL UTI and Klebsiella pneumonia bacteremia. Patient was initially managed with IV fluid resuscitation and was maintained with Levophed and vasopressin however now seen off Levophed and only on vasopressin with albumin. Labs showed WBC improved to 10.3, hemoglobin stable at 11.1. Platelets 95. Chemistry panel showed mild hyponatremia sodium 134 K: 3.9. BUN 78 and creatinine 4.3 with GFR 13. Bicarb on CHEM panel 19.5. Albumin 3.1. Total cortisol pending. Urinalysis was cloudy, 2+ proteinuria, blood 3+, RBC 1594, WBC 928, amorphous crystals and bacteriuria. EKG showed A-fib with RVR heart rate 140s. Echocardiogram showed EF 55-60% mild AV sclerosis without stenosis. Mild TR. Cardiology team consulted for A-fib with RVR not controlled with IV drip per protocol and digoxin given one-time only. Primary ICU team stopped Levophed and only keeping vasopressin. Currently covering with IV antibiotic therapy Zosyn for ESBL UTI. Consult is for possible requirement of cardioversion since its new onset A-fib less than 48 hours. Currently being anticoagulated with Eliquis 2.5 mg twice daily age and renal dosed. Recommended to start Cardizem 30 mg 3 times daily and continue it if blood pressure tolerates. If patient still remains in A-fib with RVR will likely perform cardioversion. No need of stoppage of anticoagulation before cardioversion. Keep the patient n.p.o. after midnight for possible cardioversion tomorrow without JAVIER. Will switch to amiodarone p.o. 200 mg twice daily once amiodarone drip is completed. Continue Eliquis 2.5 mg twice daily for now. Continue treating underlying septic infection due to ESBL UTI and Klebsiella bacteremia. Continue monitoring electrolytes and close monitoring required. Continue albumin therapy given worsening kidney functions and patient is in oliguria phase for RAND on CKD. All labs and orders were reviewed. 07/10/2024: Patient was seen and examined at the bedside in ICU. Patient has soft blood pressure 113/65 with heart rate 130s. Patient continues to be on amiodarone drip per protocol. Patient is saturating well on room air. He continues to be on phenylephrine. Labs revealed WBC 10.2, hemoglobin stable 11.4. Platelets increased to 67. Chemistry panel showed mild hyponatremia, potassium 3.6. Bicarb improved. Kidney functions continues to decline. Blood glucose 148. Urine output 605 from last 24 hours. Cardioverted today. Recommended to switch to p.o. amiodarone 200 twice daily once amiodarone drip completed. Cardizem was discontinued. Will likely plan to cardiovert him today given continuous uncontrolled heart rate. ICU team giving IV antibiotic therapy and albumin for septic shock and declining kidney functions. ICU team started dronabinol for appetite stimulation as patient is not eating and drinking enough. Plan of care discussed with ICU team. 07/12/2024: Patient was seen and examined in the ICU. Patient's vitals showed blood pressure 119/labs showed 58 with heart rate 72 in sinus rhythm. Mild leukocytosis and hemoglobin stable at 10.1 with platelet 105. Chemistry panel showed mild hypokalemia and worsening kidney function with BUN 114 and creatinine 5.7. Urine output of 1.8 L with negative balance of 348 cc. Recommended to continue amiodarone 200 mg twice daily and currently Eliquis on hold as he had episode of hematuria. Rollins catheter replaced given urinary retention yesterday and patient is still making urine. Nephrology team was consulted for worsening kidney functions and plan for hemodialysis after placing dialysis catheter today. Agreeable to the plan. No new further recommendations by cardiology team. All labs and orders were reviewed. 07/13/2024: Patient was seen and examined at the bedside. Patient has been downgraded to floors being off pressors and underwent dialysis yesterday. Vitals in the morning showed blood pressure 139/62, heart rate 68. Labs revealed mild leukocytosis, hemoglobin stable at 9.8 and platelet 142. Chemistry panel showed hypokalemia. Kidney function showed BUN 94 and creatinine 5.2. Currently primary team continuing amiodarone 200 twice daily for A-fib rate control. Patient underwent hemodialysis yesterday and today as well. Given hematuria Eliquis was discontinued. As patient has acute illness that is sepsis which caused A fib for short onset we consider discontinuing Eliquis and only restart Eliquis 2.5 twice daily if patient developed frequent episodes of A-fib. Agreeable to the plan of care. 07/14/24: Patient was seen and examined at the bedside. Patient is minimally responsive to questions. Recommendations are to continue amiodarone drip per protocol. Overnight patient had a rapid response due to A-fib with RVR and was given push of diltiazem x 1 and amiodarone drip was started. Dialysis catheter was malfunctioning therefore catheter was exchanged. Currently primary team continuing Zosyn for UTI and amiodarone drip for A-fib with RVR. They are currently performing goals of care discussion with his grandson who is her decision-maker. 07/19/24: Patient was found to have dysphagia, continues to have decreased p.o. intake of mechanically altered food. Grandson and family are in the process of deciding transitioning patient to hospice care vs PEG tube placement. Patient continues to be a week and slow answering questions. Hemodynamically patient is stable, had 1.1 L urine output. No episodes of A-fib, will continue amiodarone, Cardizem and Eliquis. 07/20/24: Post goals of care, family have chosen home with hospice. Patient declining p.o. intake, states he is not hungry, poor prognosis. Continue amodarone, eliquis and diltiazem. Exam Vital Signs Temp Pulse Resp BP Pulse Ox O2 Del Method O2 Flow Rate 97.3 F 95 18 155/77 H 95 Nasal Cannula 1 07/20/24 15:55 07/20/24 15:55 07/20/24 15:55 07/20/24 15:55 07/20/24 15:55 07/20/24 15:55 07/20/24 15:55 FiO2 0 07/20/24 15:55 Narrative Exam Constitutional: Frail looking elderly male, in no acute distress, lying in bed, slow in answering questions HEENT: NCAT, EOMI, reactive round pupils b/l, patent nares b/l, moist mucous membranes Lung: CTAB, no wheezing, no rhonchi Heart: Regular S1S2, no murmurs, gallops, or rubs Abdomen: Soft, non-distended, non-tender, bowel sounds present throughout Extremities: No cyanosis, clubbing, or edema, LE pulses present b/l Neurologic: No focal sensory or motor deficits noted, AOx2, appropriate affect Skin: Warm, dry, no lesions or rashes noted Objective Labs 07/20/24 07:45 07/20/24 07:45 Labs: Laboratory Results - last 24 hr 07/09/24 07/20/24 05:46 07:45 WBC 4.0 RBC 2.76 L Hgb 8.5 L Hct 26.4 L MCV 96 MCH 30.8 MCHC 32.2 RDW Std Deviation 54.8 H Plt Count 213 D Neut % (Auto) 72 Lymph % (Auto) 16 Brule % (Auto) 8 Eos % (Auto) 2 Baso % (Auto) 1 Neut # (Auto) 2.8 Lymph # (Auto) 0.6 L Brule # (Auto) 0.3 Eos # (Auto) 0.1 Baso # (Auto) 0.0 Immature Gran # (Auto) 0.02 H Absolute Nucleated RBC 0.00 Immature Gran % 1 H Nucleated RBC % 0 Sodium 150 H Potassium 4.0 Chloride 115 H Carbon Dioxide 23.7 Anion Gap 11 BUN 48 H Creatinine 3.4 H Estim Creat Clear Calc 16.1 L eGFR 17 L BUN/Creatinine Ratio 14 Glucose 134 H Calculated Osmolality 312 H Calcium 7.8 L Corrected Calcium 8.9 Phosphorus 3.9 Magnesium 2.1 Total Bilirubin 0.7 AST < 10 ALT < 7 L Alkaline Phosphatase 47 Total Protein 5.5 L Albumin 2.6 L Globulin 2.9 Albumin/Globulin Ratio 0.9 L Total Cortisol 24.0 Quality Measures Quality Measures VTE prophylaxis (SCDs) Advance care planning discussed with:: other Assessment & Plan Assessment Current Active Medications: Generic Name Dose Route Start Last Admin Trade Name Freq PRN Reason Stop Dose Admin Acetaminophen 650 mg 07/05/24 17:12 07/16/24 03:11 Acetaminophen 325 Mg Tablet PO 08/04/24 17:11 650 mg Q6H PRN Administration pain 1-3 and Fever >100.4 Amiodarone HCl 200 mg 07/10/24 21:00 07/20/24 09:00 Amiodarone Hcl 200 Mg Tablet PO 08/09/24 20:59 Not Given BID ANNETTA Apixaban 2.5 mg 07/16/24 21:00 07/20/24 09:00 Apixaban 2.5 Mg Tablet PO 08/15/24 20:59 Not Given BID ANNETTA Dextrose 25 ml 07/05/24 17:12 07/11/24 23:48 Dextrose 50%-Water Inj 50 Ml Syringe IV 08/04/24 17:11 25 ml Q15MIN PRN Administration BG 50-70 responsive npo pt Dextrose 50 ml 07/05/24 17:12 Dextrose 50%-Water Inj 50 Ml Syringe IV 08/04/24 17:11 Q15MIN PRN BG <50 OR BG <70 & pt unresponsive Diltiazem HCl 120 mg 07/17/24 09:45 07/20/24 09:00 Diltiazem Cd 120 Mg Capcr PO 08/16/24 09:44 [facility] Glucagon 1 mg 07/05/24 17:12 Glucagon Inj 1 Mg Vial IM Q15MIN PRN BG <70, and no IV access Heparin Sodium (Porcine) 3,100 unit 07/14/24 12:13 07/14/24 15:16 Heparin Sod Inj 1000 Unit/Ml Vial 10 Ml INDWELLCAT 07/28/24 12:12 3,100 unit PRN PRN Administration DIALYSIS Albumin Human 25 gm in 100 mls @ 100 mls/min 07/13/24 12:40 Albuminar-25 Ivpb IV PRN PRN DIALYSIS Losartan Potassium 25 mg 07/17/24 09:45 07/20/24 09:00 Losartan Potassium 25 Mg Tablet PO 08/16/24 09:44 Not Given [facility] Metoprolol Tartrate 2.5 mg 07/07/24 03:11 07/07/24 03:17 Metoprolol Tartrate Inj 1 Mg/Ml Amp 5 Ml IVP 2.5 mg Q5M PRN Administration AFIB RVR HR >140 Ondansetron HCl 4 mg 07/09/24 09:41 07/09/24 09:44 Ondansetron Inj 2 Mg/Ml Inj 2 Ml IV 08/08/24 09:40 4 mg Q6HR PRN Administration NAUSEA OR VOMITING Protocol Prochlorperazine Maleate 10 mg 07/05/24 17:12 07/06/24 20:17 Prochlorperazine Maleate 5 Mg Tablet PO 08/04/24 17:11 10 mg Q6H PRN Administration NAUSEA OR VOMITING Protocol Sennosides 1 tab 07/05/24 17:12 Senna Tablet PO 08/04/24 17:11 QDAY PRN constipation Protocol Plan This 84-year-old male with past medical history of hypertension, BPH, DM2, subdural hematoma (2020), dementia, and chronic indwelling catheter was upgraded to ICU due to septic shock likely due to ESBL UTI and Klebsiella bacteremia. Cardiology team consulted for A-fib with RVR and requirement of possible cardioversion. #Afib RVR s/p cardioversion Patient supposedly had A-fib at the time of admission to the hospital but spontaneously reverted to normal sinus rhythm. Developed new onset A-fib on 07/06/2024 overnight Received 2.5 Mg of metoprolol tartrate, 150 Mg of amiodarone bolus and started on amiodarone drip Based on [id number] score 4 Patient was cardioverted on 07/10 and converted back to sinus rhythm Plan: ? Continue amiodarone 200 mg p.o. BID - Continue Cardizem 120 mg p.o Qday ? Keep magnesium > 2 and K > 4 ? Replete electrolytes as necessary ? Follow-up on labs #Hx of hypertension Plan: ?Continue Losartan #RAND likely prerenal azotemia, worsening kidney functions # On hemodialysis Kidney functions continue to decline Patient still making urine 1.2 L Plan: ? Patient is receiving hemodialysis session per nephrology team recommendations ? Avoid nephrotoxic agents and renally dose medications ? Strict MICHAEL's #Failure to thrive #Dysphagia Patient with decreased oral intake and decline of mechanically altered food Plan: -High protein shake with meals -Goals of care with family tomorrow -PEG tube placement vs [facility] hospice to be decided by family tomorrow #NSTEMI type type II #Septic shock likely secondary to catheter associated ESBL urinary tract infection and Klebsiella bacteremia,Resolved # Chronic indwelling catheter # Acute hypoxic respiratory failure, resolved # Likely secondary to aspiration pneumonia versus remote history of smoking # Leukocytosis # Elevated T. bili and transaminases # Mild bilateral hydronephrosis # [id number] type 2 diabetes # Normocytic anemia # Thrombocytopenia # Hematuria # History of BPH chronic indwelling catheter since 2019 # Appetite loss # Goals of care discussion -Maagement per primary team This patient care was discussed with my attending Dr. Carmelo Wyatt MD PGY-2 Disclaimer: Minor errors in director of slot operations may be present since this note was dictated by speech recognition software.
--- NOTE | 2024-07-20 18:14 | PD.RESPRO ---
Documentation for date of: 07/20/24 Subjective Subjective Interval history: Interval history: Mr. Salguero is an 84-year-old gentleman with hypertension, BPH, type 2 diabetes, subdural hematoma in 2020, dementia, chronic indwelling catheter who was admitted to the hospital on 06/25/2024 with nausea, vomiting, abdominal pain, and bloody urine. The patient also has lacticacidosis with elevated procalcitonin level and was found with UTI. Blood cultures later on grew Klebsiella pneumoniae. While in the ER, the patient was hypotensive and was given IV fluids. The patient was then transferred to ICU for hemodynamic instability. He is now at telemetry. When he was admitted, creatinine was noted to be elevated at 2.3, which continued to rise and peak at 5.8. He was started on dialysis to address his worsening kidney function. His last dialysis was 07/14/2024 and 2 L of fluid was removed. However, he continues to have good urine output and improving kidney function even without dialysis treatments. 07/18/2024: currently seen in telemetry, patient very sleepy. Arousable. Labs, medications have been reviewed. Blood pressure 134/74, heart rate 67. Hemoglobin 9, WBC 5, platelets 230. Creatinine 3.9 07/19/2024: patient seen and med/tele, sleeping comfortably, arousable, labs reviewed BUN 52, creatinine 3.8, GFR 15, sodium 151. Patient has poor p.o. intake, will be started on 1/2 NS 80 cc/h, patient is -3.5 L for the duration of the hospital stay. 07/20/2024: Patient was seen and examined by the bedside. No acute overnight events. Patient is resting in the bed comfortably. Does not answer questions, does not follow commands. Labs 07/20/2024 Labs: NA 150, K+ 4.0, BUN 48, Creatinine 3.4, improved compared to yesterday. Free water deficit 2.6L.Will consider removing dialysis catheter. Exam Vital Signs Temp Pulse Resp BP Pulse Ox O2 Del Method O2 Flow Rate 97.3 F 74 18 155/77 H 95 Nasal Cannula 1 07/20/24 15:55 07/20/24 16:00 07/20/24 15:55 07/20/24 15:55 07/20/24 15:55 07/20/24 15:55 07/20/24 15:55 FiO2 0 07/20/24 15:55 Narrative Exam Physical Exam General: Awake and in no acute distress. GCS 11 HEENT: Normocephalic, atraumatic, mucous membranes moist. Heart: Regular rate and rhythm, no murmurs. Lungs: Clear to auscultation with no wheezing or crackles. Abdomen: Soft, nondistended, nontender, positive bowel sounds. ?No guarding or rebound tenderness. Neurologic: Severe cognitive impairment, Alert and oriented x0, no gross neurological deficit, and patient able to move all 4 extremities. Extremities: No edema. Skin: No rash or ecchymoses. Objective Labs 07/20/24 07:45 07/20/24 07:45 Labs: Laboratory Results - last 24 hr 07/09/24 07/20/24 05:46 07:45 WBC 4.0 RBC 2.76 L Hgb 8.5 L Hct 26.4 L MCV 96 MCH 30.8 MCHC 32.2 RDW Std Deviation 54.8 H Plt Count 213 D Neut % (Auto) 72 Lymph % (Auto) 16 [place] % (Auto) 8 Eos % (Auto) 2 Baso % (Auto) 1 Neut # (Auto) 2.8 Lymph # (Auto) 0.6 L [place]ff[place] # (Auto) 0.3 Eos # (Auto) 0.1 Baso # (Auto) 0.0 Immature Gran # (Auto) 0.02 H Absolute Nucleated RBC 0.00 Immature Gran % 1 H Nucleated RBC % 0 Sodium 150 H Potassium 4.0 Chloride 115 H Carbon Dioxide 23.7 Anion Gap 11 BUN 48 H Creatinine 3.4 H Estim Creat Clear Calc 16.1 L eGFR 17 L BUN/Creatinine Ratio 14 Glucose 134 H Calculated Osmolality 312 H Calcium 7.8 L Corrected Calcium 8.9 Phosphorus 3.9 Magnesium 2.1 Total Bilirubin 0.7 AST < 10 ALT < 7 L Alkaline Phosphatase 47 Total Protein 5.5 L Albumin 2.6 L Globulin 2.9 Albumin/Globulin Ratio 0.9 L Total Cortisol 24.0 Quality Measures Quality Measures VTE prophylaxis (SCDs) Advance care planning discussed with:: other Assessment & Plan Assessment Current Active Medications: Generic Name Dose Route Start Last Admin Trade Name Freq PRN Reason Stop Dose Admin Acetaminophen 650 mg 07/05/24 17:12 07/16/24 03:11 Acetaminophen 325 Mg Tablet PO 08/04/24 17:11 650 mg Q6H PRN Administration pain 1-3 and Fever >100.4 Amiodarone HCl 200 mg 07/10/24 21:00 07/20/24 09:00 Amiodarone Hcl 200 Mg Tablet PO 08/09/24 20:59 Not Given BID ANNETTA Apixaban 2.5 mg 07/16/24 21:00 07/20/24 09:00 Apixaban 2.5 Mg Tablet PO 08/15/24 20:59 Not Given BID ANNETTA Dextrose 25 ml 07/05/24 17:12 07/11/24 23:48 Dextrose 50%-Water Inj 50 Ml Syringe IV 08/04/24 17:11 25 ml Q15MIN PRN Administration BG 50-70 responsive npo pt Dextrose 50 ml 07/05/24 17:12 Dextrose 50%-Water Inj 50 Ml Syringe IV 08/04/24 17:11 Q15MIN PRN BG <50 OR BG <70 & pt unresponsive Diltiazem HCl 120 mg 07/17/24 09:45 07/20/24 09:00 Diltiazem Cd 120 Mg Capcr PO 08/16/24 09:44 Not Given QDAY [facility] Glucagon 1 mg 07/05/24 17:12 Glucagon Inj 1 Mg Vial IM Q15MIN PRN BG <70, and no IV access Heparin Sodium (Porcine) 3,100 unit 07/14/24 12:13 07/14/24 15:16 Heparin Sod Inj 1000 Unit/Ml Vial 10 Ml INDWELLCAT 07/28/24 12:12 3,100 unit PRN PRN Administration DIALYSIS Albumin Human 25 gm in 100 mls @ 100 mls/min 07/13/24 12:40 Albuminar-25 Ivpb IV PRN PRN DIALYSIS Losartan Potassium 25 mg 07/17/24 09:45 07/20/24 09:00 Losartan Potassium 25 Mg Tablet PO 08/16/24 09:44 Not Given QDAY [facility] Metoprolol Tartrate 2.5 mg 07/07/24 03:11 07/07/24 03:17 Metoprolol Tartrate Inj 1 Mg/Ml Amp 5 Ml IVP 2.5 mg Q5M PRN Administration AFIB RVR HR >140 Ondansetron HCl 4 mg 07/09/24 09:41 07/09/24 09:44 Ondansetron Inj 2 Mg/Ml Inj 2 Ml IV 08/08/24 09:40 4 mg Q6HR PRN Administration NAUSEA OR VOMITING Protocol Prochlorperazine Maleate 10 mg 07/05/24 17:12 07/06/24 20:17 Prochlorperazine Maleate 5 Mg Tablet PO 08/04/24 17:11 10 mg Q6H PRN Administration NAUSEA OR VOMITING Protocol Sennosides 1 tab 07/05/24 17:12 Senna Tablet PO 08/04/24 17:11 QDAY PRN constipation Protocol Plan The patient is a 84-year-old male with past medical history of hypertension, BPH, type 2 diabetes, subdural hematoma in 2020, dementia, chronic indwelling catheter who was admitted to the hospital on 06/25/2024 with nausea, vomiting, abdominal pain, and bloody urine. The patient also has lacticacidosis with elevated procalcitonin level and was found with UTI. Blood cultures later on grew Klebsiella pneumoniae. While in the ER, the patient was hypotensive and was given IV fluids. The patient was then transferred to ICU for hemodynamic instability. His last dialysis was 07/14/2024 and 2 L of fluid was removed. However, he continues to have good urine output and improving kidney function even without dialysis treatments. #Non-oliguric acute kidney injury, improving # Hypernatremia, possibly secondary to dehydration #Failure to thrive, poor p.o. intake Most likely secondary to acute tubular necrosis following shock, that has now resolved. The patient had dialysis 07/14/2024. Urine output started to improve. If creatinine continues to improve will DC dialysis and dialysis catheter. Patient looks dehydrated, has elevated sodium of 151, will be started on half NS at 80 cc/h. Overall prognosis remains poor. Free water deficit 2.6 L Plan: encourage p.o. water intake Creatinine 07/20/24 3.4, improved compared to yesterday. #Septic shock, resolved. #Klebsiella pneumoniae bacteremia Most likely secondary to urinary tract infection from chronic indwelling catheter. #Type 2 diabetes. #Benign prostatic hypertrophy. #History of dementia. Management as per primary team Plan of care discussed with attending Dr. Marshall. Mirtha Velazco MD, PGY 1. Attending Provider Attestation/Addendum Patient seen and examined with resident physician Dr. Shannon. Note reviewed, agree with findings and recommendations. Despite aggressive medical management patient still remains somnolent with failure to thrive. Noted DNR per family. Will give IV fluids as patient has not been eating or drinking. Hold off on dialysis. DC dialysis catheter. Comfort care/hospice seems to be appropriate for this patient. Will discuss with primary team
[2024-07-20] MEDS: APIXABAN 2.5 MG TABLET PO (21:23)
[2024-07-20] MEDS: AMIODARONE HCL 200 MG TABLET PO (21:23)
[2024-07-21] VITALS (11 sets, daily range): BP systolic 151–176; BP diastolic 59–90; PULSE 61–71; RESP 10–18; TEMP 36–36.9; O2SAT 91–98; BMI 22.1
--- NOTE | 2024-07-21 08:51 | XR_ITS ---
Examination: Venous access removal temporary dialysis catheter Exam date and time: July 21, 2024 0851 hours INDICATIONS: No longer needed for temporary dialysis catheter TECHNIQUE AND FINDINGS: Informed consent provided. Timeout performed. Skin prepped over the entrance site of the temporary dialysis catheter in sterile drape applied hand hygiene Successful removal of temporary dialysis catheter Direct pressure applied for control of hemostasis Estimated blood loss 0 cc Patient instable condition at completion procedure IMPRESSION: Successful venous assess removal temporary dialysis catheter
--- NOTE | 2024-07-21 09:08 | PC.NURSE ---
consulted Dr. Badillo regarding new order for removal of dialysis catheter since patient took eliquis yesterday 07/20/24. Per MD ok to do procedure if PT/PTT/INR labs within normal limits, new labs ordered, waiting for results. [facility] nurse Sonja made aware
[2024-07-21 09:59] LABS: INR 1.2 (0.9-1.3); Partial Thromboplastin Time 27.1 Seconds (22.0-36.0)
--- NOTE | 2024-07-21 11:53 | PC.NURSE ---
Pt. refusing to check the blood sugar. Denying for anything eating or drinking. Dr. Gillq been notified, per MD the team is aware they will talk to the grandson and will keep us posted on any updates.
--- NOTE | 2024-07-21 12:55 | XR_ITS ---
Examination: AP chest single view TECHNIQUE: AP semiupright portable chest single view Exam date and time: July 21, 2024 1313 hours Comparison July 12, 2024 INDICATIONS: Status post dialysis catheter removal FINDINGS: Dialysis catheter no longer identified No pneumothorax Bilateral significant perihilar parenchymal disease IMPRESSION: Dialysis catheter no longer identified
--- NOTE | 2024-07-21 13:17 | PD.NEPHPROG ---
Documentation for date of: 07/21/24 Subjective Subjective Interval history: Mr. Salguero is an 84-year-old gentleman with hypertension, BPH, type 2 diabetes, subdural hematoma in 2020, dementia, chronic indwelling catheter who was admitted to the hospital on 06/25/2024 with nausea, vomiting, abdominal pain, and bloody urine. The patient also has lacticacidosis with elevated procalcitonin level and was found with UTI. Blood cultures later on grew Klebsiella pneumoniae. While in the ER, the patient was hypotensive and was given IV fluids. The patient was then transferred to ICU for hemodynamic instability. He is now at telemetry. When he was admitted, creatinine was noted to be elevated at 2.3, which continued to rise and peak at 5.8. He was started on dialysis to address his worsening kidney function. His last dialysis was 07/14/2024 and 2 L of fluid was removed. However, he continues to have good urine output and improving kidney function even without dialysis treatments. 07/18/2024 currently seen in telemetry, patient very sleepy. Arousable. Labs, medications have been reviewed. Blood pressure 134/74, heart rate 67. Hemoglobin 9, WBC 5, platelets 230. Creatinine 3.9 07/21/2024 patient currently seen in medical floor. Noted family/grandson made him comfort care/hospice. Possible discharge today. Will discontinue dialysis catheter prior to discharge. Still remains very somnolent. Review of Systems Review of Systems ROS Unobtainable: unobtainable due to mental status Narrative Review of Systems: Patient very sleepy Exam Vital Signs Temp Pulse Resp BP Pulse Ox O2 Del Method O2 Flow Rate 36.7 C 62 10 L 173/73 H 97 Nasal Cannula 3 07/21/24 12:40 07/21/24 12:40 07/21/24 12:40 07/21/24 12:40 07/21/24 12:40 07/21/24 12:40 07/21/24 12:40 FiO2 0 07/21/24 07:49 Narrative Exam Physical Exam General: Patient very somnolent HEENT: Normocephalic, atraumatic, mucous membranes moist. Heart: Regular rate and rhythm, no murmurs. Lungs: Clear to auscultation with no wheezing or crackles. Abdomen: Soft, nondistended, nontender, positive bowel sounds. ?No guarding or rebound tenderness. Neurologic: Severe cognitive impairment, barely arousable Extremities: No edema. Skin: No rash or ecchymoses. Objective Labs 07/20/24 07:45 07/20/24 07:45 Labs: Laboratory Results - last 24 hr 07/21/24 09:30 PT 13.0 H INR 1.2 APTT 27.1 Assessment & Plan Additional Assessment & Plan Additional Plan: 1. Non-oliguric acute kidney injury, most likely secondary to acute tubular necrosis following hypotension, hypoperfusion, hemodynamic instability, seems recovering. 2. Septic shock from Klebsiella pneumoniae, most likely secondary to urinary tract infection from chronic indwelling catheter. 3. Failure to thrive. 4. Type 2 diabetes. 5. Benign prostatic hypertrophy. 6. History of dementia. PLAN: The patient had dialysis 07/14/2024. Urine output started to improve. creatinine continues to improve will DC dialysis and dialysis catheter. Noted patient will be going for hospice. Overall prognosis remains poor Quality - progress note Quality Measures Quality Measures: VTE prophylaxis Reason for Continued Stay Reason for Continued Stay: further monitoring
--- NOTE | 2024-07-21 13:23 | PC.NURSE ---
Dialysis catheter removed. Patient VSS. Called RN gave report. Patient picked up by [employer] via [employer].
--- NOTE | 2024-07-21 13:43 | PC.SS ---
SS update: spoke with patient's grandson, August. Plan is to discharge the patient home tomorrow with [facility] hospice services. Confirmed address on facesheet of patient's returned home residence.
--- NOTE | 2024-07-21 14:25 | PC.NURSE ---
pt. grandson on the bed side, seems distressed and the emotional support provided
--- NOTE | 2024-07-21 15:07 | PC.SS ---
Rounding note: patient to d/c tomorrow with [facility].
--- NOTE | 2024-07-21 15:41 | ESPR_ITS ---
<Statement entered by Kyle Holder MD - 07/21/24 17:09> Patient was seen and examined at the bedside. Patient appeared somnolent and fatigued out. Patient was not following commands and was not conversational at all. Patient's grandson came on the bedside and passed out after knowing his current deteriorating condition. Patient's family member, grandson was explained the patient is actively deteriorating and will benefit from being transition to comfort care however due to the severity of distress grandson passed out and was not able to make a decision although he tried calling and reaching out his mother on phone call therefore will continue with hospice management for now and started D5 half NS as patient is not eating or drinking anything. Will continue with current hospice referral for now and await for family to arrive once stable. All labs and orders were reviewed. I saw and examined the patient, and I agree with current management stated by Dr Elsa MD,PGY1. Plan of care was discussed with the attending physician and resident physician. Disclaimer: Despite multiple revisions, due to the dictation software being used, the document bellow may not be free of grammatical errors including phonetic/typographic errors. However, this does not deter from our commitment to providing health care in the patient's best interest in mind. Dr. Chantell MD, PGY 2 Documentation for date of: 07/21/24 Subjective Subjective Interval history: Patient is a 84 year old male with PMH of hypertension, BPH, DM2, subdural hematoma (2020), dementia, and chronic indwelling catheter. Patient continues to be altered mental status, continues to have poor oral intake and has poor prognosis. Team spoke with Augustdionisio, about considering comfort measures only. Exam Vital Signs Temp Pulse Resp BP Pulse Ox O2 Del Method O2 Flow Rate 98.1 F 62 10 L 173/73 H 97 Nasal Cannula 3 07/21/24 12:40 07/21/24 12:40 07/21/24 12:40 07/21/24 12:40 07/21/24 12:40 07/21/24 12:40 07/21/24 12:40 FiO2 0 07/21/24 07:49 Narrative Exam General Appearance: Alert & Oriented X0, thin male who is lying in bed in no acute distress. Poor oral care. HEENT: Skull symmetrical and atraumatic. Conjunctivae pale pink and moist. Pupils equal, round, reactive to light and accommodation (PERRL). External ear without lesion or discharge. Straight, nares patient, dry mucosa, no discharge. Cardio: Normal Rate and Rhythm with S1 and S2 heart sounds. No murmurs or extra heart sounds auscultated. No bruits on carotid auscultation. No peripheral edema or cyanosis. Lungs: Symmetric with good expansion. Chest and back non-tender. Breath sounds vesicular without crackles, wheezing or rhonchi Abdomen: Non-tender, Non-distended, Normal Reactive Bowel Sounds Neuro: Yes Alert, NO cooperative, NOT oriented to person, place, and time. CN grossly intact. Upper motor strength 5/5 and Lower motor strength 5/5. Sensation intact. Objective Labs 07/20/24 07:45 07/20/24 07:45 Labs: Laboratory Results - last 24 hr 07/21/24 09:30 PT 13.0 H INR 1.2 APTT 27.1 Quality Measures Quality Measures VTE prophylaxis (SCDs) Advance care planning discussed with:: other Assessment & Plan Assessment Current Active Medications: Generic Name Dose Route Start Last Admin Trade Name Freq PRN Reason Stop Dose Admin Acetaminophen 650 mg 07/05/24 17:12 07/16/24 03:11 Acetaminophen 325 Mg Tablet PO 08/04/24 17:11 650 mg Q6H PRN Administration pain 1-3 and Fever >100.4 Amiodarone HCl 200 mg 07/10/24 21:00 07/21/24 10:43 Amiodarone Hcl 200 Mg Tablet PO 08/09/24 20:59 Not Given BID ANNETTA Apixaban 2.5 mg 07/16/24 21:00 07/20/24 21:23 Apixaban 2.5 Mg Tablet PO 08/15/24 20:59 2.5 mg BID ANNETTA Administration Dextrose 25 ml 07/05/24 17:12 07/11/24 23:48 Dextrose 50%-Water Inj 50 Ml Syringe IV 08/04/24 17:11 25 ml Q15MIN PRN Administration BG 50-70 responsive npo pt Dextrose 50 ml 07/05/24 17:12 Dextrose 50%-Water Inj 50 Ml Syringe IV 08/04/24 17:11 Q15MIN PRN BG <50 OR BG <70 & pt unresponsive Glucagon 1 mg 07/05/24 17:12 Glucagon Inj 1 Mg Vial IM Q15MIN PRN BG <70, and no IV access Heparin Sodium (Porcine) 3,100 unit 07/14/24 12:13 07/14/24 15:16 Heparin Sod Inj 1000 Unit/Ml Vial 10 Ml INDWELLCAT 07/28/24 12:12 3,100 unit PRN PRN Administration DIALYSIS Albumin Human 25 gm in 100 mls @ 100 mls/min 07/13/24 12:40 Albuminar-25 Ivpb IV PRN PRN DIALYSIS Losartan Potassium 25 mg 07/17/24 09:45 07/21/24 10:45 Losartan Potassium 25 Mg Tablet PO 08/16/24 09:44 Not Given QDAY ANNETTA Metoprolol Tartrate 2.5 mg 07/07/24 03:11 07/07/24 03:17 Metoprolol Tartrate Inj 1 Mg/Ml Amp 5 Ml IVP 2.5 mg Q5M PRN Administration AFIB RVR HR >140 Ondansetron HCl 4 mg 07/09/24 09:41 07/09/24 09:44 Ondansetron Inj 2 Mg/Ml Inj 2 Ml IV 08/08/24 09:40 4 mg Q6HR PRN Administration NAUSEA OR VOMITING Protocol Prochlorperazine Maleate 10 mg 07/05/24 17:12 07/06/24 20:17 Prochlorperazine Maleate 5 Mg Tablet PO 08/04/24 17:11 10 mg Q6H PRN Administration NAUSEA OR VOMITING Protocol Sennosides 1 tab 07/05/24 17:12 Senna Tablet PO 08/04/24 17:11 QDAY PRN constipation Protocol Plan 84-year-old male with past medical history of hypertension, BPH, DM2, subdural hematoma (2020), dementia, and chronic indwelling catheter was admitted to hospital on 07/05/2024 for sepsis likely secondary to catheter associated UTI versus community-acquired pneumonia, RAND, and NSTEMI. Patient continues to have poor prognosis and decreasing poor oral intake. #Failure to thrive #Goals of Care Patient has had decreased oral intake and stated decreased appetite. Dysphasia diet started. Added high protein shakes with meals. Spoke to next of Kin, August/grandson, who was updated on patient's decrease oral intake. Patient's family will be at bedside tomorrow between 9-10 AM and open to discuss PEG tube vs hospice options. Diagnostics: - (07/18/2024) Total Albumin 2.6-->07/19/2024 2.6 -No new labs scheduled at this time Plan: -Dextrose-1/2 Normal Saline @70cc - Ensure High Protein shake with meals -Monitor daily food -Goals of care, home with hospice. #Electrolyte imbalance, improved. #Mild Hypernatremia #Hypokalemia, Resolved. Etiology: Likely secondary to poor oral intake. Patient refused labs. Patient is home with hospice poor prognosis. DDx: given acute renal failure, electrolyte imbalance secondary to injury vs septic shock from lactic acidosis but less likely given sepsis resolved. Diagnostics: (07/18/2024) Na 146, K 3.9, Chloride 111, Ca (corrected) 8.8-->07/19/2024 Na 151, 149, K 4.1 Free Water Deficits 2.8 L Plan: -half normal saline at 80 cc-d/c on 07/20/2024 -patient refused morning labs -labs D/C, home with hospice #A-fib with RVR s/p cardioversion on 07/10/2024 ?In the ICU patient developed A-fib and was initially placed on amiodarone drip, but A-fib did not resolve therefore cardiology was consulted ?Cardioversion was done on 07/10/2024 -07/21/2024 all medication is currently on HOLD, patient is refusing oral intake including food and medication, home hospice at time of discharge. ?[id number], but cardiology stated that his A-fib was in an acute setting of sepsis and therefore does not need Eliquis at this time Plan: -Continue Amiodarone 200mg BID -HOLD 07/21/2024 -Diltiazem 120 mg qday-HOLD 07/21/2024 -Continue Eliquis 2.5 mg BID -HOLD 07/21/2024 ?Will continue to monitor if patient redevelops A-fib ?Cardiology consulted, appreciate recommendations #Sepsis secondary to Klebsiella bacteremia, sepsis resovled. #Klebsiella bacteremia, resolved. #Septic shock, resolved #Catheter associated urinary tract infection #Community-acquired pneumonia #Acute Encephalopathy, resolveed #Chronic indwelling catheter #Recurrent UTIs #Hx of BPH #Prostatomegaly #Lactic acidosis, resolved. #Hematuria, resolved. Etiolgoy: Sepsis, secondary to Klebsiella bacteremia likely secondary to pneumonia. Patient has completed course of antibiotics at this moment. ?Patient has a history of chronic indwelling catheter with monthly changes Rollins catheter as well as recurrent UTIs in the past. ?Patient initially on admission was minimally responsive to questioning and most likely has encephalopathy secondary to the UTI as per patient's grandson at baseline he was a lot more responsive. ?Patient initially met SIRS 2 out of 4 criteria with tachycardia and tachypnea ?Patient developed septic shock shortly after admission and was upgraded to the ICU, was downgraded on 07/13/2024 Diagnostics: ?Blood cultures grew Klebsiella and urine culture grew klebsiella ESBL -07/18/2024 WBC 5.0-->NO new labs Plan: ?Will continue Zosyn [07/05/2024 -07/19/2024) D/C, completed course of antibiotics ?Continue finasteride 5 mg daily ?Will continue to monitor # Acute renal failure, improved. ? Patient developed ATN likely in the setting of shock. ?Patient's baseline BUN 23 and creatinine 0.9 on 06/2023. Diagnostics: -07/18/2024: BUN 52, Cr 3.9 GFR 14--.07/19/2024 BUN 52 Cr 3.8 Crcl 14.4 GFR 15 BUN/Cr 14--NO New labs. Plan: -Per nephrology recommendations, continue to keep dialysis catheter in place-->removed on 07/21/2024. -No HD today as per nephrology ?Renally dose medications ?Avoid nephrotoxic agents ?Nephrology consulted, pursue recommendations #Normocytic normochromic anemia Etiology: Patient's baseline decreased from July 05, 2024 from 14-->to Hemoglobin of 9. Normocytic anemia secondary to iron deficiency can not be ruled out such as acute blood loss secondary to hematuria. DDx: Anemia of chronic disease can not be rule out given patient's hospitalization for sepsis vs upper GI loss but less likley given no history. Diagnostics: 07/18/2024: Hemoglobin 9, hematocrit 27.1 MCV 93, RDW 54.4 Plan: ?Will transfuse hemoglobin less than 7 ?Will continue to monitor #Hx of DM2 #Hypoglycemia Etiology: Patient has a history of diabetes and last A1c in 06/2023 was 5.9. Fasting blood glucose 143. Diagnostics: ? A1c 5.8 on 06/2024 -07/18/2024 Blood Glucose 143-->07/19/2024 148 Plan: -Hypogylycemic protocol ordered ?Will continue to monitor #Hx of hypertension ? Started losartan 25mg qday-HOLD #NSTEMI type II demand ischemia ?Most likely type II in the setting of sepsis likely demand ischemia versus less likely type I as patient does not have any chest pain at this time. ?Initial troponins were 0.119 and down trended ?EKG did not show any ST changes Plan: ?Will continue to monitor #Cholelithiasis #Bilirubinemia, improved ?Patient has been complaining of upper abdominal pain. ?Abdomen/pelvis CT showed cholelithiasis ?Gallbladder ultrasound showed gallbladder sludge but no cholelithiasis and cannot accurately assess gallbladder. Common bile duct was not distended. -Diagnostics: 07/18/2024 total bili 0.7, AST <10, ALT 8 L , Alkaline phosphatase 51 Plan: ?Will continue to monitor Health Maintenance: Disp: Pt is currently admitted to floors for further management of Hypernatremia, awaiting home with home hospice FEN: Diet Dysphasia, I Pureed. DVT: compression devices Code: DNR/ DNI - The patient's plan was discussed with attending Dr. Marika MD and senior Dr. Chantell MD. Alycia Hunter MD PGY1 Internal Medicine Attending Provider Attestation/Addendum I have examined the patient, reviewed labs and imaging findings, discussed the case with the resident(s), and reviewed entered orders. I agree with the plan of care as outlined in this note, with these additional summaries/recommendations: Patient seen at bedside. Yesterday Goals of care meeting was held with medical team and patient's grandson who is patient's medical decision maker. Family decided to pursue hospice yesterday 07/20/24. Hospice company arranging home hospice although patient unfortunately appears to be rapidly declining. Goals of care was held again today with patients medical decision maker August and discussed initiating comfort care with morphine drip. August reports patient has allergy to morphine. August seemed agreeable to initiating comfort care and requested to speak with his mother. Unfortunately he had medical response shortly after and is unable to provide a decision at this time. We will follow- up once improved. Dr. Hairston
--- NOTE | 2024-07-21 17:58 | ESPR_ITS ---
<Statement entered by Manuel Rhodes MD - 07/22/24 22:28> The patient is examined by me along with resident physician Dr. Santiago PGY 2 agree with the treatment plan recommendation as formulated by him patient is clinically stable and family decided to go with comfort care on this patient. This appears to be appropriate for now. Will sign off the case and see the patient if necessary. Documentation for date of: 07/21/24 Subjective Subjective Interval history: This 84-year-old male with past medical history of hypertension, BPH, DM2, subdural hematoma (2020), dementia, and chronic indwelling catheter was admitted to hospital after coming to the ED with complaints of nausea, vomiting, abdominal pain, and blood in the Rollins bag since last night. Patient was brought in by grandson and during the time of assessment nobody was at bedside. Patient was very hard of hearing and very not responding to questions during assessment, but he was able to follow some commands and able to answer alert oriented questions (AOx3 not to time). Primary team Spoke with grandson, next of kin, via phone call and he said he was the medical decision maker who provided most of the patient's history. Grandson stated that last night additional to the patient's nausea, vomiting, and abdominal pain the patient had elevated blood sugars in the 300s as well as some disorientation which she states that is usually when his bladder swells a lot. The patient's grandson also mentioned that the patient gets monthly Rollins catheter changes, but last night he noticed blood-tinged urine in the Rollins bag which was new and he did not feel was safe to keep patient at home and decided to bring him to the ER. He stated that patient did not have any chills or fevers at home nor any chest pain or shortness of breath.ED course:Initially patient came in normotensive and afebrile, but afterwards patient was tachycardic, and tachypneic. Initial labs were relevant for RAND, hyperglycemia, lactic acidosis, bilirubinemia, troponinemia, elevated procalcitonin, and UTI. Initial imaging included chest x-ray which showed bibasilar pneumonia, abdomen/pelvis CT showed cholelithiasis, bilateral hydronephrosis, diverticulosis, marked prostatomegaly, and marked thickening of urinary bladder wall, and gallbladder ultrasound which showed some gallbladder sludge but gallbladder was poorly visualized and contracted. EKG showed A-fib. 07/09/2024: Patient was seen and examined at the bedside in ICU patient's blood pressure is on softer side with a BP of 95/70, tachycardic with heart rate 141 and saturating 94% on room air. Patient is upgraded to ICU due to septic shock likely due to ESBL UTI and Klebsiella pneumonia bacteremia. Patient was initially managed with IV fluid resuscitation and was maintained with Levophed and vasopressin however now seen off Levophed and only on vasopressin with albumin. Labs showed WBC improved to 10.3, hemoglobin stable at 11.1. Platelets 95. Chemistry panel showed mild hyponatremia sodium 134 K: 3.9. BUN 78 and creatinine 4.3 with GFR 13. Bicarb on CHEM panel 19.5. Albumin 3.1. Total cortisol pending. Urinalysis was cloudy, 2+ proteinuria, blood 3+, RBC 1594, WBC 928, amorphous crystals and bacteriuria. EKG showed A-fib with RVR heart rate 140s. Echocardiogram showed EF 55-60% mild AV sclerosis without stenosis. Mild TR. Cardiology team consulted for A-fib with RVR not controlled with IV drip per protocol and digoxin given one-time only. Primary ICU team stopped Levophed and only keeping vasopressin. Currently covering with IV antibiotic therapy Zosyn for ESBL UTI. Consult is for possible requirement of cardioversion since its new onset A-fib less than 48 hours. Currently being anticoagulated with Eliquis 2.5 mg twice daily age and renal dosed. Recommended to start Cardizem 30 mg 3 times daily and continue it if blood pressure tolerates. If patient still remains in A-fib with RVR will likely perform cardioversion. No need of stoppage of anticoagulation before cardioversion. Keep the patient n.p.o. after midnight for possible cardioversion tomorrow without JAVIER. Will switch to amiodarone p.o. 200 mg twice daily once amiodarone drip is completed. Continue Eliquis 2.5 mg twice daily for now. Continue treating underlying septic infection due to ESBL UTI and Klebsiella bacteremia. Continue monitoring electrolytes and close monitoring required. Continue albumin therapy given worsening kidney functions and patient is in oliguria phase for RAND on CKD. All labs and orders were reviewed. 07/10/2024: Patient was seen and examined at the bedside in ICU. Patient has soft blood pressure 113/65 with heart rate 130s. Patient continues to be on amiodarone drip per protocol. Patient is saturating well on room air. He continues to be on phenylephrine. Labs revealed WBC 10.2, hemoglobin stable 11.4. Platelets increased to 67. Chemistry panel showed mild hyponatremia, potassium 3.6. Bicarb improved. Kidney functions continues to decline. Blood glucose 148. Urine output 605 from last 24 hours. Cardioverted today. Recommended to switch to p.o. amiodarone 200 twice daily once amiodarone drip completed. Cardizem was discontinued. Will likely plan to cardiovert him today given continuous uncontrolled heart rate. ICU team giving IV antibiotic therapy and albumin for septic shock and declining kidney functions. ICU team started dronabinol for appetite stimulation as patient is not eating and drinking enough. Plan of care discussed with ICU team. 07/12/2024: Patient was seen and examined in the ICU. Patient's vitals showed blood pressure 119/labs showed 58 with heart rate 72 in sinus rhythm. Mild leukocytosis and hemoglobin stable at 10.1 with platelet 105. Chemistry panel showed mild hypokalemia and worsening kidney function with BUN 114 and creatinine 5.7. Urine output of 1.8 L with negative balance of 348 cc. Recommended to continue amiodarone 200 mg twice daily and currently Eliquis on hold as he had episode of hematuria. Rollins catheter replaced given urinary retention yesterday and patient is still making urine. Nephrology team was consulted for worsening kidney functions and plan for hemodialysis after placing dialysis catheter today. Agreeable to the plan. No new further recommendations by cardiology team. All labs and orders were reviewed. 07/13/2024: Patient was seen and examined at the bedside. Patient has been downgraded to floors being off pressors and underwent dialysis yesterday. Vitals in the morning showed blood pressure 139/62, heart rate 68. Labs revealed mild leukocytosis, hemoglobin stable at 9.8 and platelet 142. Chemistry panel showed hypokalemia. Kidney function showed BUN 94 and creatinine 5.2. Currently primary team continuing amiodarone 200 twice daily for A-fib rate control. Patient underwent hemodialysis yesterday and today as well. Given hematuria Eliquis was discontinued. As patient has acute illness that is sepsis which caused A fib for short onset we consider discontinuing Eliquis and only restart Eliquis 2.5 twice daily if patient developed frequent episodes of A-fib. Agreeable to the plan of care. 07/14/24: Patient was seen and examined at the bedside. Patient is minimally responsive to questions. Recommendations are to continue amiodarone drip per protocol. Overnight patient had a rapid response due to A-fib with RVR and was given push of diltiazem x 1 and amiodarone drip was started. Dialysis catheter was malfunctioning therefore catheter was exchanged. Currently primary team continuing Zosyn for UTI and amiodarone drip for A-fib with RVR. They are currently performing goals of care discussion with his grandson who is her decision-maker. 07/19/24: Patient was found to have dysphagia, continues to have decreased p.o. intake of mechanically altered food. Grandson and family are in the process of deciding transitioning patient to hospice care vs PEG tube placement. Patient continues to be a week and slow answering questions. Hemodynamically patient is stable, had 1.1 L urine output. No episodes of A-fib, will continue amiodarone, Cardizem and Eliquis. 07/20/24: Post goals of care, family have chosen home with hospice. Patient declining p.o. intake, states he is not hungry, poor prognosis. Continue amodarone, eliquis and diltiazem. 07/21/24: Patient seems much weaker and less responsive compared to yesterday. Patient started on D5 1/2NS as he has no nutritional intake. Primary team spoke to grandson regarding comfort care, family is not ready yet. Very poor prognosis. Medications held off as patient is declining any form of p.o. intake. Exam Vital Signs Temp Pulse Resp BP Pulse Ox O2 Del Method O2 Flow Rate 97.4 F 63 16 169/72 H 96 Nasal Cannula 3 07/21/24 16:00 07/21/24 16:00 07/21/24 16:00 07/21/24 16:00 07/21/24 16:00 07/21/24 16:00 07/21/24 16:00 FiO2 0 07/21/24 16:00 Narrative Exam Constitutional: Frail looking elderly male, very lethargic, slow in answering questions HEENT: NCAT, EOMI, reactive round pupils b/l, patent nares b/l, moist mucous membranes Lung: CTAB, no wheezing, no rhonchi Heart: Regular S1S2, no murmurs, gallops, or rubs Abdomen: Soft, non-distended, non-tender, bowel sounds present throughout Extremities: No cyanosis, clubbing, or edema, LE pulses present b/l Neurologic: No focal sensory or motor deficits noted, AOx1 Skin: Warm, dry, no lesions or rashes noted Objective Labs 07/20/24 07:45 07/20/24 07:45 Labs: Laboratory Results - last 24 hr 07/21/24 09:30 PT 13.0 H INR 1.2 APTT 27.1 Quality Measures Quality Measures VTE prophylaxis (SCDs) Advance care planning discussed with:: other Assessment & Plan Assessment Current Active Medications: Generic Name Dose Route Start Last Admin Trade Name Freq PRN Reason Stop Dose Admin Acetaminophen 650 mg 07/05/24 17:12 07/16/24 03:11 Acetaminophen 325 Mg Tablet PO 08/04/24 17:11 650 mg Q6H PRN Administration pain 1-3 and Fever >100.4 Amiodarone HCl 200 mg 07/10/24 21:00 07/21/24 10:43 Amiodarone Hcl 200 Mg Tablet PO 08/09/24 20:59 Not Given BID ANNETTA Apixaban 2.5 mg 07/16/24 21:00 07/20/24 21:23 Apixaban 2.5 Mg Tablet PO 08/15/24 20:59 2.5 mg BID ANNETTA Administration Dextrose 25 ml 07/05/24 17:12 07/11/24 23:48 Dextrose 50%-Water Inj 50 Ml Syringe IV 08/04/24 17:11 25 ml Q15MIN PRN Administration BG 50-70 responsive npo pt Dextrose 50 ml 07/05/24 17:12 Dextrose 50%-Water Inj 50 Ml Syringe IV 08/04/24 17:11 Q15MIN PRN BG <50 OR BG <70 & pt unresponsive Glucagon 1 mg 07/05/24 17:12 Glucagon Inj 1 Mg Vial IM Q15MIN PRN BG <70, and no IV access Dextrose/Sodium Chloride 1,000 mls @ 70 mls/hr 07/21/24 17:00 D5-1/2ns IV 08/20/24 16:59 .[id number] ANNETTA Losartan Potassium 25 mg 07/17/24 09:45 07/21/24 10:45 Losartan Potassium 25 Mg Tablet PO 08/16/24 09:44 Not Given QDAY ANNETTA Metoprolol Tartrate 2.5 mg 07/07/24 03:11 07/07/24 03:17 Metoprolol Tartrate Inj 1 Mg/Ml Amp 5 Ml IVP 2.5 mg Q5M PRN Administration AFIB RVR HR >140 Ondansetron HCl 4 mg 07/09/24 09:41 07/09/24 09:44 Ondansetron Inj 2 Mg/Ml Inj 2 Ml IV 08/08/24 09:40 4 mg Q6HR PRN Administration NAUSEA OR VOMITING Protocol Prochlorperazine Maleate 10 mg 07/05/24 17:12 07/06/24 20:17 Prochlorperazine Maleate 5 Mg Tablet PO 08/04/24 17:11 10 mg Q6H PRN Administration NAUSEA OR VOMITING Protocol Sennosides 1 tab 07/05/24 17:12 Senna Tablet PO 08/04/24 17:11 QDAY PRN constipation Protocol Plan This 84-year-old male with past medical history of hypertension, BPH, DM2, subdural hematoma (2020), dementia, and chronic indwelling catheter was upgraded to ICU due to septic shock likely due to ESBL UTI and Klebsiella bacteremia. Cardiology team consulted for A-fib with RVR and requirement of possible cardioversion. #Afib RVR s/p cardioversion Patient supposedly had A-fib at the time of admission to the hospital but spontaneously reverted to normal sinus rhythm. Developed new onset A-fib on 07/06/2024 overnight Received 2.5 Mg of metoprolol tartrate, 150 Mg of amiodarone bolus and started on amiodarone drip Based on [id number] score 4, no need for Eliquis as Afib was in setting of sepsis Patient was cardioverted on 07/10 and converted back to sinus rhythm Plan: ? Continue amiodarone 200 mg p.o. BID (patient refusing p.o intake, meds held off) - Continue Cardizem 120 mg p.o Qday (patient refusing p.o intake, meds held off) ? Keep magnesium > 2 and K > 4 ? Replete electrolytes as necessary ? Follow-up on labs #Hx of hypertension Plan: ?Continue Losartan (patient refusing p.o intake, meds held off) #RAND likely prerenal azotemia, worsening kidney functions # On hemodialysis Kidney functions continue to decline Patient still making urine 1.2 L Plan: ? Patient is receiving hemodialysis session per nephrology team recommendations ? Avoid nephrotoxic agents and renally dose medications ? Strict MICHAEL's #Failure to thrive #Dysphagia Patient with decreased oral intake and decline of mechanically altered food Patient declining p.o. intake of food and meds Plan: -High protein shake with meals -Goals of care with family -SEVA home with hospice pending #NSTEMI type type II #Septic shock likely secondary to catheter associated ESBL urinary tract infection and Klebsiella bacteremia,Resolved # Chronic indwelling catheter # Acute hypoxic respiratory failure, resolved # Likely secondary to aspiration pneumonia versus remote history of smoking # Leukocytosis # Elevated T. bili and transaminases # Mild bilateral hydronephrosis # [id number] type 2 diabetes # Normocytic anemia # Thrombocytopenia # Hematuria # History of BPH chronic indwelling catheter since 2019 # Appetite loss # Goals of care discussion -Maagement per primary team This patient care was discussed with my attending Dr. Carmelo yWatt MD PGY-2 Disclaimer: Minor errors in theatrical trouper may be present since this note was dictated by speech recognition software.
[2024-07-21] MEDS: DEXTROSE 5%-0.45% NS 1,000 ML 70 ML IV (18:21)
[2024-07-22] VITALS (9 sets, daily range): BP systolic 143–177; BP diastolic 60–79; PULSE 57–93; RESP 16–20; TEMP 36–36.9; O2SAT 95–99; BMI 21.7
--- NOTE | 2024-07-22 04:15 | ESDS_ITS ---
<Statement entered by Supa Armendariz MD - 07/23/24 12:26> I have discussed and was present for the essential components of the history, physical examination, diagnosis, and treatment plan with the resident. I agree with the patient's care as documented by the resident and amended herein by me. Supa Armendariz MD. Planned Discharge Date 07/23/24 DS: Providers Provider Date of admission: 07/05/24 17:12 Primary care physician: Israel Abdullahi MD Admitting Provider: Mag Brennan MD Attending Provider on Admission: Supa Armendariz MD Consults: 07/06/24 00:49 Referral Registered Dietitian Routine Comment: 07/06/24 09:18 Referral Speech Therapy Stat Comment: 07/09/24 15:00 Consult to Cardiology Stat Comment: afib Consulting Provider: Manuel Rhodes 07/12/24 11:52 Consult to Nephrology Stat Comment: Consulting Provider: Estela Marshall 07/12/24 12:12 Referral Physical Therapy Stat Comment: Physician Instructions: 07/19/24 09:36 Referral Speech Therapy Routine Comment: 07/20/24 10:55 Referral Hospice Routine Comment: Attending Provider on DC: Supa Armendariz MD Discharging Provider: Supa Armendariz MD DS: Diagnosis Problem List Completed Was Problem List Reviewed/Reconciled?: Yes Hospital Course Hospital Course Hospital course: This is 84-year-old gentleman with hypertension, BPH, type 2 diabetes, subdural hematoma in 2020, dementia, chronic indwelling catheter who was admitted to the hospital on 06/25/2024 with nausea, vomiting, abdominal pain, and bloody urine. The patient also has lactic acidosis with elevated procalcitonin level and was found with UTI. Blood cultures later on grew Klebsiella pneumoniae. While in the ER, the patient was hypotensive and was given IV fluids. The patient was then transferred to ICU for hemodynamic instability. He had a complicated course during hospital stay as he developed septic shock due to Klebsiella Bacteremia and RAND with ATN requring dialysis temporarily and last dialysis was on 07/14/24. However, he continued to have good urine output and improving kidney function even without dialysis treatments. Additionally, he developed atrial fibrillation required cardioversion and was given amiodarone as well as cardizem after cardiology consult. Goals of care discussion was performed in the presence of patient's grandson decision maker, MAR agency worker, RN and perinatal social worker Nirali and discussion was performed due to patient's continuous decline despite resolved septic shock and improved kidney function. Patient's grandson was explained that patient is failure to thrive and has given up with reduced appetite and speech therapist reported that patient does have component of oropharyngeal dysphagia with high risk of aspiration however was not recommended to have PEG tube placement as well.He was given options for hospice referral who can help patient for his daily activities of living and will try to make the patient comfortable as possible. Other option given to him was to place a PEG tube and discharge him to the SNF. Patient's grandson opted to make his grandfather comfortable and wanted to go for hospice referral and proceed with home with hospice. Hospice referral was made and Daily labs were discontinued. Patient was dicharged to home with hospice care and management. Problem List: #Hospice Referral #Failure to thrive #Goals of Care #Sepsis secondary to Klebsiella bacteremia, sepsis resovled. #Klebsiella bacteremia, resolved. #Septic shock, resolved #Catheter associated urinary tract infection #Community-acquired pneumonia #Acute Encephalopathy, resolveed #Chronic indwelling catheter #Recurrent UTIs #Hx of BPH #Prostatomegaly #Lactic acidosis, resolved. #Hematuria, resolved. #A-fib with RVR s/p cardioversion on 07/10/2024 # Acute renal failure, improved. #Electrolyte imbalance, improved. #Mild Hypernatremia #Hypokalemia, Resolved. #Normocytic normochromic anemia #Hx of DM2 #Hypoglycemia #Hx of hypertension #NSTEMI type II demand ischemia #Cholelithiasis #Bilirubinemia, improved -- Patient was seen and discussed with attending Physician,Dr Marcello Holder MD PGY2 Time Spent with Patient Time attestation: Total time spent providing and/or coordinating discharge services: Exam Vital Signs Temp Pulse Resp BP Pulse Ox O2 Del Method O2 Flow Rate 96.9 F 58 L 16 162/68 H 99 Nasal Cannula 2 07/22/24 15:49 07/22/24 15:49 07/22/24 15:49 07/22/24 15:49 07/22/24 15:49 07/22/24 15:49 07/22/24 15:49 FiO2 0 07/21/24 16:00 Narrative Exam General Appearance: Alert & Oriented X0, thin male who is lying in bed in no acute distress. Poor oral care. HEENT: Skull symmetrical and atraumatic. Conjunctivae pale pink and moist. Pupils equal, round, reactive to light and accommodation (PERRL). External ear without lesion or discharge. Straight, nares patient, dry mucosa, no discharge. Cardio: Normal Rate and Rhythm with S1 and S2 heart sounds. No murmurs or extra heart sounds auscultated. No bruits on carotid auscultation. No peripheral edema or cyanosis. Lungs: Symmetric with good expansion. Chest and back non-tender. Breath sounds vesicular without crackles, wheezing or rhonchi Abdomen: Non-tender, Non-distended, Normal Reactive Bowel Sounds Neuro: Yes Alert, NO cooperative, NOT oriented to person, place, and time. CN grossly intact. Upper motor strength 5/5 and Lower motor strength 5/5. Sensation intact. Discharge Plan Plan Patient Disposition: Home w/HOSPICE Patient condition on transfer: Stable Care Plan Goals: Patient completed antibiotic course during the hospital stay Follow-up with PCP as outpatient within 2 weeks Follow-up with cylinder steamer, Dr. Rhodes as outpatient In case of emergency, call 911 or come back to the ED Prescriptions/Referrals Prescriptions/Med Rec: Discontinued carvedilol 12.5 mg Tablet 12.5 mg PO BID sulfasalazine 500 mg Tablet 1,000 mg PO BID finasteride 5 mg Tablet 5 mg PO QDAY Qty: 30 0RF tamsulosin 0.4 mg capsule 0.4 mg PO HS Qty: 0 0RF losartan-hydrochlorothiazide 100-12.5 mg Tablet 1 tab PO QDAY Referrals: Israel Abdullahi MD [Primary Care Provider] - Manuel Rhodes MD [Physician] - Patient/Caregiver Discharge Instructions Education Materials: What is Hematuria?, Urinary Tract Infections in Men, Emptying and Cleaning Your ..., Indwelling Urinary Catheter Dc, Discharge Instructions Caring ... Print Language: Amharic Stand Alone Forms: Yuliya Award Info., Patient Portal Info Letter Discharge Order Discharge Orders: Discharge (Routine); Ordered 07/22/24 Ordered By: Lucy Ventura Quality Discharge Quality Measures VTE prophylaxis (Eliquis 2.5 BID )
[2024-07-22] MEDS: DEXTROSE 5%-0.45% NS 1,000 ML 70 ML IV (08:18)
--- NOTE | 2024-07-22 11:37 | PC.SS ---
Addendum entered by VENITA Lovell 07/22/24 14:22: Notified patient's grandson August he is aware and ready to receive patient at home. Addendum entered by VENITA Lovell 07/22/24 14:19: FLORINA obtained from transfer nurseBrandon as patient's grandson unable to cover ambulance transport. [facility] ETA 1600. Bed side nurse aware, Keily from [facility] updated. Addendum entered by VENITA Lovell 07/22/24 12:24: Spoke with Keily with [facility] hospice, she confirms DME was delivered this morning to patient's home residence and is agreeable with accepting patient today with hospice services. Original Note: SS update: spoke with patient's grandson August. He confirmed d/c plan back home with [facility]. August informs the DME has already been delivered by [facility] this morning. Patient's grandson August is requesting for transport this afternoon. Transportation to be scheduled.
--- NOTE | 2024-07-22 13:54 | PD.RESPRO ---
Documentation for date of: 07/22/24 Subjective Subjective Interval history: Interval history: Mr. Salguero is an 84-year-old gentleman with hypertension, BPH, type 2 diabetes, subdural hematoma in 2020, dementia, chronic indwelling catheter who was admitted to the hospital on 06/25/2024 with nausea, vomiting, abdominal pain, and bloody urine. The patient also has lacticacidosis with elevated procalcitonin level and was found with UTI. Blood cultures later on grew Klebsiella pneumoniae. While in the ER, the patient was hypotensive and was given IV fluids. The patient was then transferred to ICU for hemodynamic instability. He is now at telemetry. When he was admitted, creatinine was noted to be elevated at 2.3, which continued to rise and peak at 5.8. He was started on dialysis to address his worsening kidney function. His last dialysis was 07/14/2024 and 2 L of fluid was removed. However, he continues to have good urine output and improving kidney function even without dialysis treatments. 07/18/2024: currently seen in telemetry, patient very sleepy. Arousable. Labs, medications have been reviewed. Blood pressure 134/74, heart rate 67. Hemoglobin 9, WBC 5, platelets 230. Creatinine 3.9 07/19/2024: patient seen and med/tele, sleeping comfortably, arousable, labs reviewed BUN 52, creatinine 3.8, GFR 15, sodium 151. Patient has poor p.o. intake, will be started on 1/2 NS 80 cc/h, patient is -3.5 L for the duration of the hospital stay. 07/20/2024: Patient was seen and examined by the bedside. No acute overnight events. Patient is resting in the bed comfortably. Does not answer questions, does not follow commands. Labs 07/20/2024 Labs: NA 150, K+ 4.0, BUN 48, Creatinine 3.4, improved compared to yesterday. Free water deficit 2.6L.Will consider removing dialysis catheter. 07/21/2024: patient currently seen in medical floor. Noted family/grandson made him comfort care/hospice. Possible discharge today. Will discontinue dialysis catheter prior to discharge. Still remains very somnolent. 07/22/2024: Patient seen in med/tele, refused examination, unable to engage in conversation, has dementia at baseline. Patient continues to have poor PO intake, dialysis Catheter was removed yesterday, confirmed on X-ray after. primary team referred patient to hospice care, no laboratory workup done in AM, patient on comfort measures and anticipate discharge on hospice. Nephrology will sign off the case today. Exam Vital Signs Temp Pulse Resp BP Pulse Ox O2 Del Method O2 Flow Rate 96.9 F 66 16 151/62 H 99 Nasal Cannula 2 07/22/24 11:30 07/22/24 12:00 07/22/24 11:30 07/22/24 11:30 07/22/24 11:30 07/22/24 11:30 07/22/24 07:35 FiO2 0 07/21/24 16:00 Narrative Exam Physical Exam General: Alert & Oriented X0, thin male who is lying in bed refusing examination. HEENT: Normocephalic, atraumatic. Dialysis catheter removed. Neurologic: Severe cognitive impairment, refusing examination. Objective Labs 07/20/24 07:45 07/20/24 07:45 Quality Measures Quality Measures VTE prophylaxis (SCDs) Advance care planning discussed with:: patient Assessment & Plan Assessment Current Active Medications: Generic Name Dose Route Start Last Admin Trade Name Freq PRN Reason Stop Dose Admin Acetaminophen 650 mg 07/05/24 17:12 07/16/24 03:11 Acetaminophen 325 Mg Tablet PO 08/04/24 17:11 650 mg Q6H PRN Administration pain 1-3 and Fever >100.4 Amiodarone HCl 200 mg 07/10/24 21:00 07/21/24 10:43 Amiodarone Hcl 200 Mg Tablet PO 08/09/24 20:59 Not Given BID ANNETTA Apixaban 2.5 mg 07/16/24 21:00 07/20/24 21:23 Apixaban 2.5 Mg Tablet PO 08/15/24 20:59 2.5 mg BID ANNETTA Administration Dextrose 25 ml 07/05/24 17:12 07/11/24 23:48 Dextrose 50%-Water Inj 50 Ml Syringe IV 08/04/24 17:11 25 ml Q15MIN PRN Administration BG 50-70 responsive npo pt Dextrose 50 ml 07/05/24 17:12 Dextrose 50%-Water Inj 50 Ml Syringe IV 08/04/24 17:11 Q15MIN PRN BG <50 OR BG <70 & pt unresponsive Glucagon 1 mg 07/05/24 17:12 Glucagon Inj 1 Mg Vial IM Q15MIN PRN BG <70, and no IV access Dextrose/Sodium Chloride 1,000 mls @ 70 mls/hr 07/21/24 17:00 07/22/24 08:18 D5-1/2ns IV 08/20/24 16:59 70 mls/hr .[id number] ANNETTA Administration Losartan Potassium 25 mg 07/17/24 09:45 07/21/24 10:45 Losartan Potassium 25 Mg Tablet PO 08/16/24 09:44 Not Given QDAY ANNETTA Metoprolol Tartrate 2.5 mg 07/07/24 03:11 07/07/24 03:17 Metoprolol Tartrate Inj 1 Mg/Ml Amp 5 Ml IVP 2.5 mg Q5M PRN Administration AFIB RVR HR >140 Ondansetron HCl 4 mg 07/09/24 09:41 07/09/24 09:44 Ondansetron Inj 2 Mg/Ml Inj 2 Ml IV 08/08/24 09:40 4 mg Q6HR PRN Administration NAUSEA OR VOMITING Protocol Prochlorperazine Maleate 10 mg 07/05/24 17:12 07/06/24 20:17 Prochlorperazine Maleate 5 Mg Tablet PO 08/04/24 17:11 10 mg Q6H PRN Administration NAUSEA OR VOMITING Protocol Sennosides 1 tab 07/05/24 17:12 Senna Tablet PO 08/04/24 17:11 QDAY PRN constipation Protocol Plan The patient is a 84-year-old male with past medical history of hypertension, BPH, type 2 diabetes, subdural hematoma in 2020, dementia, chronic indwelling catheter who was admitted to the hospital on 06/25/2024 with nausea, vomiting, abdominal pain, and bloody urine. The patient also has lacticacidosis with elevated procalcitonin level and was found with UTI. Blood cultures later on grew Klebsiella pneumoniae. While in the ER, the patient was hypotensive and was given IV fluids. The patient was then transferred to ICU for hemodynamic instability. His last dialysis was 07/14/2024 and 2 L of fluid was removed. However, he continues to have good urine output and improving kidney function even without dialysis treatments. #Non-oliguric acute kidney injury, improving #Hypernatremia, possibly secondary to dehydration #Failure to thrive, poor p.o. intake #Advanced Dementia Most likely secondary to acute tubular necrosis following shock, that has now resolved. The patient had dialysis 07/14/2024. Urine output started to improve. If creatinine continues to improve will DC dialysis and dialysis catheter. Patient looks dehydrated, has elevated sodium of 151, will be started on half NS at 80 cc/h. Overall prognosis remains poor. Free water deficit 2.6 L Plan: encourage p.o. water intake Referred to hospice care by primary team. case discussed with primary team ~~NEPHROLOGY WILL SIGN OFF ON THE CASE~~ #Septic shock, resolved. #Klebsiella pneumoniae bacteremia Most likely secondary to urinary tract infection from chronic indwelling catheter. #Type 2 diabetes. #Benign prostatic hypertrophy. #History of dementia. Management as per primary team Plan of care discussed with attending Dr. Marshall. Charlotte Riggins, PGY 1. Attending Provider Attestation/Addendum Patient seen and examined with resident physician Dr. Riggins. Note reviewed, agree with findings and recommendations. Dialysis catheter was removed. Noted patient will be going for hospice. Renal will sign off. Thank you for the consult.
--- NOTE | 2024-07-22 14:59 | PC.NURSE ---
Called patients dread [facility] @ [phone] and gave discharge instructions for patient over the phone. Patients dionisio informed that ambulance pickup time was currently scheduled for 1600 but if there was any changes he would be notified. Family acknowleged and did not have any questions at this time
== END 2024-07-22 16:07 | disposition hospice, home (50) | DRG 698 ==
LOC: SERX 14:10 → SERHOLD 17:40 → S2SX 07-06 00:42 → S2NX 07-13 22:11 → S3SX 07-18 18:31
PROVIDERS: Internal Medicine; Radiology Diagnostic Radiology; Student in an Organized Health Care Education/Training Program; Admitting Provider Internal Medicine; Emergency Provider Emergency Medicine; PCP Internal Medicine; Visit Provider Internal Medicine
DX: T83.518A Infection and inflammatory reaction due to other urinary catheter, initial encounter (principal); A41.59 Other Gram-negative sepsis; J18.9 Pneumonia, unspecified organism; I21.A1 Myocardial infarction type 2; R65.21 Severe sepsis with septic shock; J96.01 Acute respiratory failure with hypoxia; N17.0 Acute kidney failure with tubular necrosis; N18.6 End stage renal disease; N13.6 Pyonephrosis; G93.49 Other encephalopathy; E87.0 Hyperosmolality and hypernatremia; I12.0 Hypertensive chronic kidney disease with stage 5 chronic kidney disease or end stage renal disease; Z16.12 Extended spectrum beta lactamase (ESBL) resistance; H91.10 Presbycusis, unspecified ear; F03.90 Unspecified dementia, unspecified severity, without behavioral disturbance, psychotic disturbance, mood disturbance, and anxiety; N40.0 Benign prostatic hyperplasia without lower urinary tract symptoms; Z87.440 Personal history of urinary (tract) infections; K80.20 Calculus of gallbladder without cholecystitis without obstruction; E11.65 Type 2 diabetes mellitus with hyperglycemia; R31.0 Gross hematuria; R62.7 Adult failure to thrive; E87.6 Hypokalemia; D69.6 Thrombocytopenia, unspecified; E11.22 Type 2 diabetes mellitus with diabetic chronic kidney disease; I48.0 Paroxysmal atrial fibrillation; I35.1 Nonrheumatic aortic (valve) insufficiency; Z87.891 Personal history of nicotine dependence; E86.0 Dehydration; Z66 Do not resuscitate; Y84.6 Urinary catheterization as the cause of abnormal reaction of the patient, or of later complication, without mention of misadventure at the time of the procedure; D50.9 Iron deficiency anemia, unspecified
CPT/HCPCS: 36415; 70450; 71045; 74176; 76705; 77001; 80048; 80053; 80061; 80069; 80074; 80202; 81001; 82533; 82570; 83036; 83540; 83550; 83605; 83735; 83880; 84100; 84145; 84300; 84484; 85025; 85610; 85730; 86580; 87040; 87077; 87081; 87086; 87186; 87449; 87502; 87811; 92526; 92610; 93005; 93306; 93971; 96361; 96365; 96372; 96375; 99285; C1752; C1769; J0283; J0696; J1160; J1642; J1643; J1650; J1815; J1940; J2250; J2371; J2405; J2470; J2543; J2997; J3010; J3370; J3372; J3475; J3480; J3490; J7030; J7042; J7050; J7120; P9045; Q0164; Q0167; A9270; J1644